=== PATIENT | male | born 1955 | race Caucasian/White ===

== ENCOUNTER 2021-12-17 20:05 | Inpatient (IN) | payer MEDICAID, OTHER ==
[~2021-12-17] VITALS: Ht 170.2 cm; Wt 91.0 kg
[2021-12-17 21:18] LABS: Basophils # (auto) 0.2 10 ^3/uL (0-0.2); Basophils % (auto) 1.4 % (0.0-2.0); Eosinophils # (auto) 0.2 10 ^3/uL (0-0.8); Eosinophils % (auto) 1.3 % (0.0-7.0); Hematocrit 47.4 % (41.0-53.0); Hemoglobin 15.6 g/dL (13.5-17.5); Lymphocytes # (auto) 0.7 10 ^3/uL (0.4-5.4); Mean Corpuscular Hemoglobin 31.9 pg (28.0-32.0); Mean Corpuscular Hgb Conc. 32.9 g/dL (32.0-36.0); Mean Corpuscular Volume 97.2 fL (80.0-100.0); Monocytes # (auto) 0.6 10 ^3/uL (0-1.3); Monocytes % (auto) 4.4 % (0.0-12.0); Neutrophils # (auto) 11.4 10 ^3/uL (1.6-8.6); Neutrophils % (auto) 87.9 % (37.0-80.0); Nucleated Red Blood Cells % 0.1 %; Red Blood Cells 4.87 10^6/uL (4.5-5.90); Red Cell Distribution Width 14.4 % (11.8-14.3)
[2021-12-17] MEDS ORDERED: methylPREDNISolone SOD SUCC 125 MG/2 ML VL IV ONE (21:30)
[2021-12-17] MEDS ORDERED: IPRATROPIUM BROM 0.5 MG/2.5ML INH SOL NEB ONE (21:30)
[2021-12-17] MEDS ORDERED: ALBUTEROL SULF 2.5 MG/0.5ML(0.5%) NEB SOLN NEB ONE (21:30)
[2021-12-17 21:35] LABS: Alanine Aminotransferase 60 U/L (16-61); Anion Gap 6 (5-15); Aspartate Aminotransferase 36 U/L (15-37); BUN/Creatinine Ratio 17.3; Blood Alcohol < 3.0 mg/dL (0-5); Blood Urea Nitrogen 18 mg/dL (7-18); Calcium 8.3 mg/dL (8.5-10.1); Carbon Dioxide 26 mmol/L (21-32); Chloride 109 mmol/L (98-107); GFR African American 92 mL/min; GFR Non-African American 76 mL/min; Glucose 105 mg/dL (74-106); Magnesium 2.1 mg/dL (1.6-2.6); Potassium 3.7 mmol/L (3.5-5.1); Sodium 141 mmol/L (136-145)
[2021-12-17 21:37] LABS: Alkaline Phosphatase 93 U/L (45-117); Bilirubin, Total 1.2 mg/dL (0.2-1.0); Total Protein 6.2 g/dL (6.4-8.2)
[2021-12-18] MEDS ORDERED: TEMAZEPAM 15 MG CAP PO PRN (04:45)
[2021-12-18] MEDS ORDERED: NITROGLYCERIN 0.4 MG SL TAB SL PRN (04:45)
[2021-12-18] MEDS ORDERED: MORPHINE SULFATE INJ 2 MG/ml SYRG IV PRN (04:45)
[2021-12-18] MEDS ORDERED: ACETAMINOPHEN 325 MG TAB PO PRN (04:45)
[2021-12-18] MEDS ORDERED: ONDANSETRON HCL 4 MG/2 ML VIAL IV PRN (04:45)
[2021-12-18] MEDS: IPRATROPIUM BROM 0.5 MG/2.5ML INH SOL NEB PRN (05:38)
[2021-12-18] MEDS: ALBUTEROL SULF 2.5 MG/0.5ML(0.5%) NEB SOLN NEB PRN (05:39)
[2021-12-18 06:01] VITALS: BP 150/66
[2021-12-18] MEDS: AZITHROMYCIN 500MG/ 250ML 250 ML IV SCH (10:18)
[2021-12-18] MEDS: PANTOPRAZOLE 40 MG TAB PO SCH (10:18)
[2021-12-18] MEDS: ENOXAPARIN SOD 40 MG/0.4 ML SYRINGE SC SCH (10:19)
[2021-12-18] MEDS: methylPREDNISolone SOD SUCC 125 MG/2 ML VL IV SCH ×2 (10:20→21:41)
[2021-12-18] MEDS ORDERED: cefTRIAXone 1GM/50ML D5W 50 ML IV ONE (11:45)
[2021-12-18] MEDS ORDERED: ALBU108A5 PO (21:57)
[2021-12-18] MEDS ORDERED: ALBU0.084 INH (21:57)
[2021-12-18 22:55] VITALS: BP 149/75
[2021-12-19] MEDS: ALBUTEROL SULF 2.5 MG/0.5ML(0.5%) NEB SOLN NEB PRN (00:11)
[2021-12-19] MEDS: IPRATROPIUM BROM 0.5 MG/2.5ML INH SOL NEB PRN (00:11)
[2021-12-19 05:00] VITALS: BP 117/71
[2021-12-19 06:30] LABS: BUN/Creatinine Ratio 20.3; Calcium 8.9 mg/dL (8.5-10.1)
[2021-12-19 06:44] LABS: Hematocrit 49.1 % (41.0-53.0); Hemoglobin 16.2 g/dL (13.5-17.5); Mean Corpuscular Hemoglobin 32.3 pg (28.0-32.0); Mean Corpuscular Volume 97.8 fL (80.0-100.0); Red Blood Cells 5.02 10^6/uL (4.5-5.90); Red Cell Distribution Width 14.4 % (11.8-14.3); White Blood Cell 17.8 10^3/uL (4.4-10.8)
[2021-12-19 07:00] LABS: Basophils % (manual) 0 (0.0-2.0); Blast Cells 0; Eosinophils % (manual) 0 (0-7); Metamyelocytes % 0; Myelocytes % 0; Promyelocytes % 0; Reactive Lymphocytes 0
[2021-12-19] MEDS: IPRATROPIUM BROM 0.5 MG/2.5ML INH SOL NEB SCH ×3 (07:39→17:43)
[2021-12-19] MEDS: ALBUTEROL SULF 2.5 MG/0.5ML(0.5%) NEB SOLN NEB SCH ×3 (07:39→17:43)
[2021-12-19 08:18] LABS: Band Neutrophils % (manual) 3; Lymphocytes % (manual) 3 (10.0-50.0); Monocytes % (manual) 2 (0-12)
[2021-12-19 09:00] VITALS: BP 114/72
[2021-12-19] MEDS: cefTRIAXone 1GM/50ML D5W 50 ML IV SCH (10:35)
[2021-12-19] MEDS: methylPREDNISolone SOD SUCC 125 MG/2 ML VL IV SCH ×2 (10:35→21:10)
[2021-12-19] MEDS: ENOXAPARIN SOD 40 MG/0.4 ML SYRINGE SC SCH (10:36)
[2021-12-19] MEDS: PANTOPRAZOLE 40 MG TAB PO SCH (10:36)
[2021-12-19] MEDS: AZITHROMYCIN 500MG/ 250ML 250 ML IV SCH (11:52)
[2021-12-19 13:00] VITALS: BP 123/75
[2021-12-19 17:08] VITALS: BP 129/56
[2021-12-19 22:00] VITALS: BP 124/60
[2021-12-20] MEDS: ALBUTEROL SULF 2.5 MG/0.5ML(0.5%) NEB SOLN NEB SCH ×3 (00:01→12:00)
[2021-12-20] MEDS: IPRATROPIUM BROM 0.5 MG/2.5ML INH SOL NEB SCH ×3 (00:01→12:00)
[2021-12-20 05:00] VITALS: BP 105/72
[2021-12-20 06:44] LABS: Basophils # (auto) 0 10 ^3/uL (0-0.2); Basophils % (auto) 0.2 % (0.0-2.0); Eosinophils # (auto) 0 10 ^3/uL (0-0.8); Hematocrit 48.9 % (41.0-53.0); Hemoglobin 15.8 g/dL (13.5-17.5); Lymphocytes # (auto) 0.3 10 ^3/uL (0.4-5.4); Lymphocytes % (auto) 1.7 % (10.0-50.0); Mean Corpuscular Hemoglobin 31.4 pg (28.0-32.0); Mean Corpuscular Hgb Conc. 32.2 g/dL (32.0-36.0); Mean Corpuscular Volume 97.6 fL (80.0-100.0); Monocytes # (auto) 0.4 10 ^3/uL (0-1.3); Monocytes % (auto) 2.3 % (0.0-12.0); Neutrophils % (auto) 95.8 % (37.0-80.0); Red Blood Cells 5.02 10^6/uL (4.5-5.90); Red Cell Distribution Width 14.3 % (11.8-14.3); White Blood Cell 16.7 10^3/uL (4.4-10.8)
[2021-12-20 06:51] LABS: BUN/Creatinine Ratio 24.1; Calcium 8.8 mg/dL (8.5-10.1); Potassium 4.8 mmol/L (3.5-5.1)
[2021-12-20 09:00] VITALS: BP 119/75
[2021-12-20] MEDS: cefTRIAXone 1GM/50ML D5W 50 ML IV SCH (09:00)
[2021-12-20] MEDS ORDERED: PRED20TA2 PO (09:48)
[2021-12-20] MEDS ORDERED: AZIT500T66 PO (09:49)
[2021-12-20] MEDS: AZITHROMYCIN 500MG/ 250ML 250 ML IV SCH (10:00)
[2021-12-20] MEDS: ENOXAPARIN SOD 40 MG/0.4 ML SYRINGE SC SCH (10:00)
[2021-12-20 11:22] VITALS: BP 105/72
[2021-12-20] MEDS: PANTOPRAZOLE 40 MG TAB PO SCH (11:23)
[2021-12-20] MEDS: methylPREDNISolone SOD SUCC 125 MG/2 ML VL IV SCH (11:28)
== END 2021-12-20 12:45 | disposition home or self-care (01) | DRG 139 ==
LOC: EDBD 20:05 → ER 20:05 → TELE 12-18 04:38 → TELE-CENTR 12-18 22:46
PROVIDERS: ADMIT Nurse Practitioner; ATTEND Internal Medicine Pulmonary Disease
DX: J18.9 Pneumonia, unspecified organism (principal); J96.21 Acute and chronic respiratory failure with hypoxia; J44.1 Chronic obstructive pulmonary disease with (acute) exacerbation; F17.210 Nicotine dependence, cigarettes, uncomplicated; J44.0 Chronic obstructive pulmonary disease with (acute) lower respiratory infection; Z20.822 Contact with and (suspected) exposure to COVID-19
CPT/HCPCS: 36415; 71046; 71250; 80048; 80053; 80320; 83605; 83735; 83880; 84484; 85007; 85025; 85027; 85379; 93005; 94640; 96365; 96368; 96372; 96375; G0378; J0696

== ENCOUNTER 2022-11-14 13:40 | Inpatient (IN) | payer MEDICARE, MEDICAID ==
[~2022-11-14] VITALS: Ht 177.8 cm; Wt 87.1 kg
[~2022-11-14 13:40] MED LIST: ALBU0.084 INH; ALBU108A5 PO; AZIT500T66 PO; PRED20TA2 PO
[2022-11-14] MEDS ORDERED: SODIUM CHLORIDE 0.9% 1,000 ML IV ONE (14:15)
[2022-11-14] MEDS ORDERED: dilTIAZem 25 MG/5 ML VIAL IV ONE (14:15)
[2022-11-14 14:47] LABS: Basophils # (auto) 0.1 10 ^3/uL (0-0.2); Eosinophils # (auto) 0.2 10 ^3/uL (0-0.8); Hematocrit 49.3 % (41.0-53.0); Hemoglobin 16.4 g/dL (13.5-17.5); Mean Corpuscular Hemoglobin 32.2 pg (28.0-32.0); Mean Corpuscular Hgb Conc. 33.3 g/dL (32.0-36.0); Mean Corpuscular Volume 96.6 fL (80.0-100.0); Monocytes # (auto) 0.5 10 ^3/uL (0-1.3); Monocytes % (auto) 8.3 % (0.0-12.0); Neutrophils # (auto) 3.8 10 ^3/uL (1.6-8.6); Neutrophils % (auto) 69.7 % (37.0-80.0); Nucleated Red Blood Cells % 0.1 %; Red Blood Cells 5.11 10^6/uL (4.5-5.90); Red Cell Distribution Width 14.9 % (11.8-14.3); White Blood Cell 5.4 10^3/uL (4.4-10.8)
[2022-11-14 15:01] LABS: Albumin 3.1 g/dL (3.4-5.0); Calcium 8.8 mg/dL (8.5-10.1); Potassium 3.9 mmol/L (3.5-5.1)
[2022-11-14 15:02] VITALS: PULSE 67; RESP 18; O2SAT 99
[2022-11-14 15:05] LABS: BUN/Creatinine Ratio 11.2 (10.0-20.0); Bilirubin, Total 1.4 mg/dL (0.2-1.0); INR 1.17 (0.9-1.15); Partial Thromboplastin Time 28.5 SEC (24.5-34.5); Prothrombin Time 12.2 sec (9.3-11.8); Total Protein 6.7 g/dL (6.4-8.2)
[2022-11-14] MEDS ORDERED: NITROGLYCERIN 0.4 MG SL TAB SL PRN (16:30)
[2022-11-14] MEDS ORDERED: MORPHINE SULFATE INJ 2 MG/ml SYRG IV PRN (16:30)
[2022-11-14 17:05] LABS: Triglycerides 75 mg/dL (< 150)
[2022-11-14 17:10] LABS: Cholesterol 122 mg/dL (< 200); HDL Cholesterol 43 mg/dL (40-59); LDL Cholesterol 75 mg/dL (< 100)
[2022-11-14] MEDS ORDERED: ATORVASTATIN 20 MG TAB PO ONE (17:45)
[2022-11-14] MEDS ORDERED: ENOXAPARIN SOD 40 MG/0.4 ML SYRINGE SC ONE (17:45)
[2022-11-14] MEDS ORDERED: FUROSEMIDE 40 MG/4 ML VIAL IV ONE (19:00)
[2022-11-14 19:39] VITALS: PULSE 95; RESP 21; O2SAT 99
[2022-11-14] MEDS: POTASSIUM CHLORIDE 8 MEQ TAB PO SCH (20:25)
[2022-11-14 21:15] VITALS: BP 149/93; PULSE 90; RESP 21; O2SAT 99
[2022-11-14] MEDS ORDERED: ALBUTEROL SULF HFA 90MCG INH 200DOSE IN SCH (22:00)
[2022-11-14 22:21] VITALS: BP 137/86; PULSE 87; RESP 18; TEMP 98.3; O2SAT 94
[2022-11-14] MEDS ORDERED: ATOR20TA50 PO (22:37)
[2022-11-14] MEDS: ENOXAPARIN SOD 100 MG/1 ML SYRINGE SC SCH (22:38)
[2022-11-15] VITALS (11 sets, daily range): BP systolic 96–145; BP diastolic 59–87; PULSE 73–157; RESP 12–18; TEMP 97.6–98.7; O2SAT 92–100
[2022-11-15 08:27] LABS: Basophils # (auto) 0.1 10 ^3/uL (0-0.2); Basophils % (auto) 1.1 % (0.0-2.0); Calcium 8.4 mg/dL (8.5-10.1); Eosinophils # (auto) 0.2 10 ^3/uL (0-0.8); Eosinophils % (auto) 3.9 % (0.0-7.0); Hematocrit 50.1 % (41.0-53.0); Hemoglobin 16.8 g/dL (13.5-17.5); Lymphocytes # (auto) 0.9 10 ^3/uL (0.4-5.4); Lymphocytes % (auto) 17.4 % (10.0-50.0); Mean Corpuscular Hemoglobin 32.6 pg (28.0-32.0); Mean Corpuscular Hgb Conc. 33.4 g/dL (32.0-36.0); Mean Corpuscular Volume 97.6 fL (80.0-100.0); Monocytes # (auto) 0.5 10 ^3/uL (0-1.3); Monocytes % (auto) 9.7 % (0.0-12.0); Neutrophils # (auto) 3.7 10 ^3/uL (1.6-8.6); Neutrophils % (auto) 67.9 % (37.0-80.0); Nucleated Red Blood Cells % 0.1 %; Potassium 4.2 mmol/L (3.5-5.1); Red Blood Cells 5.14 10^6/uL (4.5-5.90); Red Cell Distribution Width 15.2 % (11.8-14.3); White Blood Cell 5.4 10^3/uL (4.4-10.8)
[2022-11-15 08:29] LABS: BUN/Creatinine Ratio 14.8 (10.0-20.0)
[2022-11-15] MEDS: POTASSIUM CHLORIDE 8 MEQ TAB PO SCH (09:29)
[2022-11-15] MEDS: ENOXAPARIN SOD 100 MG/1 ML SYRINGE SC SCH (09:29)
[2022-11-15] MEDS ORDERED: ENOXAPARIN SOD 40 MG/0.4 ML SYRINGE SC SCH (10:00)
[2022-11-15] MEDS ORDERED: FUROSEMIDE 40 MG/4 ML VIAL IV SCH (10:00)
[2022-11-15 16:28] LABS: Alcohol, Urine < 3.0 mg/dL (0-10); Amphetamine Screen, Urine POSITIVE (NEGATIVE); Barbiturate Scree,Urine NEGATIVE (NEGATIVE); Benzodiazephine Screen, Urine NEGATIVE (NEGATIVE); Cannabinoid Screen, Urine NEGATIVE (NEGATIVE); Cocaine Screen, Urine NEGATIVE (NEGATIVE)
[2022-11-15] MEDS ORDERED: METOPROLOL SUCCINATE XL 50 MG TAB PO ONE (16:30)
[2022-11-15 16:35] LABS: Opiate Scree,Urine NEGATIVE (NEGATIVE); Phencyclidine Screen, Urine NEGATIVE (NEGATIVE)
[2022-11-15 18:08] LABS: Urine Bacteria FEW /hpf (None Seen); Urine Mucus FEW (None Seen); Urine WBC <1 /hpf (0 - 3)
[2022-11-15] MEDS: FUROSEMIDE 40 MG/4 ML VIAL IV SCH (18:25)
[2022-11-15 19:09] LABS: Urine Clarity CLEAR (Clear); Urine Color Straw (Yellow); Urine Protein, UAD Negative (Negative); Urine Specific Gravity 1.005 (1.001-1.035)
[2022-11-15 19:10] LABS: Urine Blood Negative /uL (Negative); Urine Urobilinogen Normal (Negative); Urine pH 5 (5.0-8.0)
[2022-11-15] MEDS: APIXABAN 5 MG TAB PO SCH (21:38)
[2022-11-15] MEDS ORDERED: dilTIAZem 25 MG/5 ML VIAL IV ONE (23:30)
[2022-11-16] VITALS (16 sets, daily range): BP systolic 94–126; BP diastolic 50–82; PULSE 55–110; RESP 14–20; TEMP 97.9–99; O2SAT 92–99
[2022-11-16 06:32] LABS: Calcium 8.9 mg/dL (8.5-10.1); Potassium 4.2 mmol/L (3.5-5.1)
[2022-11-16] MEDS: FUROSEMIDE 40 MG/4 ML VIAL IV SCH (06:34)
[2022-11-16 06:35] LABS: BUN/Creatinine Ratio 21.1 (10.0-20.0)
[2022-11-16] MEDS: ALBUTEROL SULF 2.5 MG/0.5ML(0.5%) NEB SOLN NEB PRN ×2 (06:43→14:26)
[2022-11-16] MEDS: APIXABAN 5 MG TAB PO SCH ×2 (09:22→22:27)
[2022-11-16] MEDS ORDERED: METOPROLOL SUCCINATE XL 50 MG TAB PO SCH ×2 (10:00)
[2022-11-16] MEDS ORDERED: METOPROLOL TARTRATE 25 MG TAB PO SCH (10:00)
[2022-11-16] MEDS ORDERED: METOPROLOL SUCCINATE XL 50 MG TAB PO ONE (10:00)
[2022-11-16] MEDS ORDERED: VALSARTAN 80 MG TAB PO SCH (10:00)
[2022-11-16] MEDS ORDERED: methylPREDNISolone SOD SUCC 40 MG/ML VL IV ONE (10:30)
[2022-11-16] MEDS: POTASSIUM CHLORIDE 8 MEQ TAB PO SCH (10:48)
[2022-11-16] MEDS: IPRATROPIUM BROM 0.5 MG/2.5ML INH SOL NEB SCH ×3 (14:26→22:00)
[2022-11-16] MEDS ORDERED: AZITHROMYCIN 500MG/ 250ML 250 ML IV ONE (14:45)
[2022-11-17] VITALS (9 sets, daily range): BP systolic 96–109; BP diastolic 40–71; PULSE 68–93; RESP 16–19; TEMP 36.8; O2SAT 84–100
[2022-11-17] MEDS: IPRATROPIUM BROM 0.5 MG/2.5ML INH SOL NEB SCH ×3 (06:36→14:20)
[2022-11-17] MEDS: ALBUTEROL SULF 2.5 MG/0.5ML(0.5%) NEB SOLN NEB PRN ×2 (06:36→09:53)
[2022-11-17] MEDS: APIXABAN 5 MG TAB PO SCH (09:56)
[2022-11-17] MEDS: POTASSIUM CHLORIDE 8 MEQ TAB PO SCH (09:57)
[2022-11-17] MEDS ORDERED: AZITHROMYCIN 500MG/ 250ML 250 ML IV SCH (10:00)
[2022-11-17] MEDS ORDERED: methylPREDNISolone SOD SUCC 40 MG/ML VL IV SCH (10:00)
[2022-11-17] MEDS ORDERED: METOPROLOL SUCCINATE XL 50 MG TAB PO SCH ×2 (10:00)
[2022-11-17] MEDS ORDERED: VALSARTAN 80 MG TAB PO SCH (10:00)
[2022-11-17] MEDS ORDERED: FUROSEMIDE 20 MG/2 ML VIAL IV ONE (10:30)
[2022-11-17] MEDS ORDERED: FURO1TAB33 PO (11:32)
[2022-11-17] MEDS ORDERED: ATOR20TA50 PO (11:32)
[2022-11-17] MEDS ORDERED: METO-6 PO (11:32)
[2022-11-17] MEDS ORDERED: APIX5TAB PO (11:32)
[2022-11-17] MEDS ORDERED: POTA8TAB38 PO (11:32)
[2022-11-17] MEDS ORDERED: ALBU108A5 PO (11:32)
[2022-11-17] MEDS ORDERED: AZIT500T66 PO (11:32)
[2022-11-18] MEDS ORDERED: FUROSEMIDE 20 MG/2 ML VIAL IV SCH (10:00)
== END 2022-11-17 15:10 | disposition home health service (06) | DRG 291 ==
LOC: ER 13:40 → TELE 16:16 → TELE-CENTR 22:05
PROVIDERS: ADMIT Internal Medicine; ATTEND Internal Medicine
DX: I13.0 Hypertensive heart and chronic kidney disease with heart failure and stage 1 through stage 4 chronic kidney disease, or unspecified chronic kidney disease (principal); I50.23 Acute on chronic systolic (congestive) heart failure; D68.69 Other thrombophilia; N17.9 Acute kidney failure, unspecified; J96.10 Chronic respiratory failure, unspecified whether with hypoxia or hypercapnia; E85.9 Amyloidosis, unspecified; I48.92 Unspecified atrial flutter; J44.1 Chronic obstructive pulmonary disease with (acute) exacerbation; I48.91 Unspecified atrial fibrillation; F19.10 Other psychoactive substance abuse, uncomplicated; R91.1 Solitary pulmonary nodule; F15.10 Other stimulant abuse, uncomplicated; E78.5 Hyperlipidemia, unspecified; N18.9 Chronic kidney disease, unspecified; Z79.899 Other long term (current) drug therapy; Z99.81 Dependence on supplemental oxygen; Z90.49 Acquired absence of other specified parts of digestive tract; F17.210 Nicotine dependence, cigarettes, uncomplicated
CPT/HCPCS: 36415; 71045; 71046; 71250; 76705; 80048; 80053; 80061; 80307; 81001; 83036; 83880; 84443; 84484; 85025; 85610; 85730; 87040; 93005; 93306; 94640; 96361; 96372; 96374; 96375; 99291; G0378

== ENCOUNTER 2023-03-11 09:27 | Inpatient (IN) | payer MEDICARE, MEDICAID ==
[~2023-03-11] VITALS: Ht 180.3 cm; Wt 84.8 kg
[~2023-03-11 09:27] MED LIST changes: -ALBU0.084 INH; +APIX5TAB PO; +ATOR20TA50 PO; +FURO1TAB33 PO; +METO-6 PO; +POTA8TAB38 PO; -PRED20TA2 PO
[2023-03-11 10:09] VITALS: PULSE 132; RESP 22; O2SAT 96
[2023-03-11] MEDS ORDERED: ALEN70TA74 PO (10:37)
[2023-03-11] MEDS ORDERED: TORS20TA19 PO (10:37)
[2023-03-11] MEDS ORDERED: SACU1TAB PO (10:38)
[2023-03-11] MEDS ORDERED: SODIUM CHLORIDE 0.9% 2,750 ML IV ONE (10:45)
[2023-03-11] MEDS ORDERED: levoFLOXacin 750MG 150 ML IV ONE (10:45)
[2023-03-11] MEDS ORDERED: methylPREDNISolone SOD SUCC 125 MG/2 ML VL IV ONE (10:45)
[2023-03-11] MEDS ORDERED: VANCOMYCIN 1GM/200ML 250 ML IV ONE (10:45)
[2023-03-11] MEDS ORDERED: AZITHROMYCIN 500MG/ 250ML 250 ML IV ONE (10:45)
[2023-03-11 10:49] LABS: Base Excess 2.5 mmol/L (-2.0-2.0)
[2023-03-11 11:01] LABS: Alanine Aminotransferase 30 U/L (7-40); Albumin 4.3 g/dL (3.2-4.8); Alkaline Phosphatase 101 U/L (46-116); Anion Gap 7 (5-15); Aspartate Aminotransferase 30 U/L (13-40); BUN/Creatinine Ratio 11.1 (10.0-20.0); Blood Urea Nitrogen 18 mg/dL (9-23); Calcium 9.5 mg/dL (8.5-10.1); Carbon Dioxide 32 mmol/L (20-30); Chloride 98 mmol/L (98-107); Glucose 112 mg/dL (74-106); Potassium 4.2 mmol/L (3.5-5.1); Sodium 137 mmol/L (136-145)
[2023-03-11 11:03] LABS: Bilirubin, Total 2.3 mg/dL (0.2-1.0); Total Protein 7.2 g/dL (5.7-8.2)
[2023-03-11 11:14] LABS: INR 1.15 (0.9-1.15); Partial Thromboplastin Time 30.6 SEC (24.5-34.5)
[2023-03-11 11:15] LABS: Hematocrit 50.9 % (41.0-53.0); Mean Corpuscular Hgb Conc. 33.3 g/dL (32.0-36.0); Mean Corpuscular Volume 99.1 fL (80.0-100.0); Red Blood Cells 5.13 10^6/uL (4.5-5.90); Red Cell Distribution Width 14.6 % (11.8-14.3); White Blood Cell 10.7 10^3/uL (4.4-10.8)
[2023-03-11 11:25] LABS: Band Neutrophils % (manual) 0
[2023-03-11 11:26] LABS: Basophils % (manual) 0 (0.0-2.0); Blast Cells 0; Eosinophils % (manual) 0 (0-7); Metamyelocytes % 0; Myelocytes % 0; Promyelocytes % 0; Reactive Lymphocytes 0
[2023-03-11 11:30] LABS: Lactic Acid w/Reflex 2.6 mmol/L (0.4-2.0)
[2023-03-11 12:22] LABS: Lymphocytes % (manual) 5 (10.0-50.0); Monocytes % (manual) 2 (0-12)
[2023-03-11 12:23] LABS: Platelet Estimate Adequate
[2023-03-11] MEDS ORDERED: IPRATROPIUM BROM 0.5 MG/2.5ML INH SOL NEB PRN (14:15)
[2023-03-11] MEDS ORDERED: MORPHINE SULFATE INJ 2 MG/ml SYRG IV PRN ×2 (14:15)
[2023-03-11] MEDS ORDERED: NITROGLYCERIN 0.4 MG SL TAB SL PRN (14:15)
[2023-03-11] MEDS ORDERED: ONDANSETRON HCL 4 MG/2 ML VIAL IV PRN (14:15)
[2023-03-11] MEDS ORDERED: ALBUTEROL SULF 2.5 MG/0.5ML(0.5%) NEB SOLN NEB PRN (14:15)
[2023-03-11] MEDS ORDERED: HYDROcodone-ACET 5/325MG TAB PO PRN (14:15)
[2023-03-11] MEDS ORDERED: DOCUSATE SOD 100 MG CAP PO PRN (14:15)
[2023-03-11] MEDS ORDERED: FUROSEMIDE 40 MG/4 ML VIAL IV ONE (14:15)
[2023-03-11 14:51] VITALS: BP 90/62; PULSE 108; RESP 24; O2SAT 94
[2023-03-11 18:56] VITALS: BP 148/101; PULSE 90; PULSE 91; RESP 18; O2SAT 91; O2SAT 92
[2023-03-11 18:56] LABS: Amphetamine Screen, Urine Pos (NEGATIVE); Barbiturate Scree,Urine Neg (NEGATIVE); Benzodiazephine Screen, Urine Neg (NEGATIVE); Cannabinoid Screen, Urine Neg (NEGATIVE); Cocaine Screen, Urine Neg (NEGATIVE); Opiate Scree,Urine Neg (NEGATIVE); Phencyclidine Screen, Urine Neg (NEGATIVE)
[2023-03-11 19:42] LABS: COVID19 ANTIGEN SOFIA FIA NEGATIVE (NEGATIVE)
[2023-03-11 19:46] LABS: Rapid Influenza B Negative (Negative)
[2023-03-11 19:47] LABS: Rapid Influenza A Positive (Negative)
[2023-03-11 20:00] VITALS: PULSE 118; O2SAT 98
[2023-03-11] MEDS: APIXABAN 5 MG TAB PO SCH (21:36)
[2023-03-11] MEDS: ATORVASTATIN 20 MG TAB PO SCH (21:36)
[2023-03-11 22:00] VITALS: PULSE 118
[2023-03-11] MEDS ORDERED: SACUBITRIL-VALSARTAN 24mg/26mg TAB PO SCH (22:00)
[2023-03-12] VITALS (76 sets, daily range): BP systolic 11–162; BP diastolic 37–96; PULSE 69–161; RESP 11–25; TEMP 98.9–100.4; O2SAT 89–100
[2023-03-12] MEDS: LORazepam 2MG/ML-1ML VIAL IV PRN (04:24)
[2023-03-12 06:50] LABS: Anion Gap 8 (5-15); Carbon Dioxide 29 mmol/L (20-30); Chloride 98 mmol/L (98-107); Sodium 135 mmol/L (136-145)
[2023-03-12 06:52] LABS: Calcium 8.9 mg/dL (8.5-10.1)
[2023-03-12 06:55] LABS: Basophils # (auto) 0 10 ^3/uL (0-0.2); Eosinophils # (auto) 0 10 ^3/uL (0-0.8); Hematocrit 49.7 % (41.0-53.0); Hemoglobin 16.4 g/dL (13.5-17.5); Lymphocytes # (auto) 0.2 10 ^3/uL (0.4-5.4); Lymphocytes % (auto) 1.7 % (10.0-50.0); Mean Corpuscular Volume 99.9 fL (80.0-100.0); Monocytes # (auto) 0.5 10 ^3/uL (0-1.3); Monocytes % (auto) 4.4 % (0.0-12.0); Neutrophils # (auto) 10.2 10 ^3/uL (1.6-8.6); Neutrophils % (auto) 93.9 % (37.0-80.0); Red Blood Cells 4.98 10^6/uL (4.5-5.90); Red Cell Distribution Width 14.8 % (11.8-14.3); White Blood Cell 10.9 10^3/uL (4.4-10.8)
[2023-03-12 06:56] LABS: BUN/Creatinine Ratio 15.6 (10.0-20.0); Glucose 124 mg/dL (74-106)
[2023-03-12 06:57] LABS: Blood Urea Nitrogen 33 mg/dL (9-23)
[2023-03-12 07:01] LABS: Potassium 6.4 mmol/L (3.5-5.1)
[2023-03-12] MEDS ORDERED: MIDAZOLAM DRIP 50 mg/50mL 50 ML IV ONE (07:07)
[2023-03-12] MEDS ORDERED: NOREPINEPHRINE 8 MG/250ML KIT 250 ML IV ONE (07:10)
[2023-03-12] MEDS ORDERED: SODIUM BICARBONATE 8.4 % INJ 50ML VIAL IV ONE (07:11)
[2023-03-12] MEDS ORDERED: ALBUTEROL SULF 2.5 MG/0.5ML(0.5%) NEB SOLN NEB ONE (07:30)
[2023-03-12] MEDS ORDERED: SODIUM ZIRCONIUM CYCL 10 GM PAK PO ONE (07:30)
[2023-03-12] MEDS ORDERED: NOREPINEPHRINE 8 MG/250ML KIT 250 ML IV SCH (07:30)
[2023-03-12] MEDS: MIDAZOLAM DRIP 50 mg/50mL 50 ML IV SCH ×3 (07:30→21:21)
[2023-03-12] MEDS ORDERED: CALCIUM GLUC 1,000mg/50ml-NS 50 ML IV ONE (07:30)
[2023-03-12] MEDS ORDERED: fentaNYL Drip 2500mCg/250mlNS 250 ML IV ONE (07:33)
[2023-03-12] MEDS ORDERED: EPINEPHrine HCL 1 MG/10 ML SYRG IV ONE ×2 (07:46→07:57)
[2023-03-12] MEDS ORDERED: SODIUM BICARBONATE 8.4% INJ 50ML SYRINGE IV ONE (07:46)
[2023-03-12] MEDS ORDERED: CALCIUM CHLOR(10%) 100MG/ML 10ML SYRINGE IV ONE (07:57)
[2023-03-12 08:07] LABS: Albumin 4.2 g/dL (3.2-4.8); Bilirubin, Direct 0.5 mg/dL (<0.3); Bilirubin, Total 1.4 mg/dL (0.2-1.0)
[2023-03-12] MEDS: PHENYLEPHRINE IV 250 ML IV SCH ×3 (08:15→22:16)
[2023-03-12 08:26] LABS: INR 1.32 (0.9-1.15); Partial Thromboplastin Time 31.5 SEC (24.5-34.5); Prothrombin Time 13.6 sec (9.3-11.8)
[2023-03-12] MEDS: VASOPRESSIN 20 UNITS in SODIUM CHL 0.9% 99 ML IV SCH ×3 (08:30→20:16)
[2023-03-12] MEDS ORDERED: EPINEPHrine HCL 250 ML IV ONE (08:44)
[2023-03-12] MEDS ORDERED: EPINEPHrine HCL 250 ML IV SCH (08:45)
[2023-03-12 09:33] LABS: Magnesium 2.2 mg/dL (1.6-2.6)
[2023-03-12 09:35] LABS: Total Protein 6.9 g/dL (5.7-8.2)
[2023-03-12] MEDS ORDERED: DEXTROSE (50%) 50ML SYRG IV ONE (09:45)
[2023-03-12] MEDS ORDERED: InsuLIN REG 1unit/0.01ml Soln (100units/ml) IV ONE (09:45)
[2023-03-12] MEDS: fentaNYL Drip 2500mCg/250mlNS 250 ML IV SCH ×2 (09:58→19:52)
[2023-03-12] MEDS: OSELTAMIVIR 75 MG CAP PO SCH ×2 (10:00→21:21)
[2023-03-12] MEDS ORDERED: FUROSEMIDE 40 MG/4 ML VIAL IV SCH (10:00)
[2023-03-12] MEDS ORDERED: METOPROLOL SUCCINATE XL 50 MG TAB PO SCH (10:00)
[2023-03-12] MEDS: APIXABAN 5 MG TAB PO SCH ×2 (10:00→21:21)
[2023-03-12] MEDS ORDERED: PROPOFOL 100 ML IV ONE (10:36)
[2023-03-12] MEDS ORDERED: AMIODARONE 450mg/250ml AE 250 ML IV ONE (10:54)
[2023-03-12] MEDS ORDERED: AMIODARONE HCL (50 MG/ ML) 3 ML VIAL IV ONE (10:54)
[2023-03-12] MEDS ORDERED: AMIODARONE BOLUS KIT 100 ML IV ONE (11:00)
[2023-03-12 11:15] LABS: Anion Gap 10 (5-15); Carbon Dioxide 28 mmol/L (20-30); Chloride 99 mmol/L (98-107); Potassium 4.3 mmol/L (3.5-5.1); Sodium 137 mmol/L (136-145)
[2023-03-12] MEDS ORDERED: AMIODARONE 450mg/250ml AE 250 ML IV SCH (11:15)
[2023-03-12 11:16] LABS: Calcium 8.3 mg/dL (8.5-10.1)
[2023-03-12 11:21] LABS: BUN/Creatinine Ratio 15.5 (10.0-20.0); Blood Urea Nitrogen 39 mg/dL (9-23)
[2023-03-12 11:24] LABS: Glucose 234 mg/dL (74-106)
[2023-03-12] MEDS: NOREPINEPHRINE BITARTRATE 32 MG in SODIUM CHL 0.9% 218 ML IV SCH (11:30)
[2023-03-12] MEDS: EPINEPHrine HCL INJECTION 16 MG in D5W 5% 234 ML IV SCH (11:30)
[2023-03-12] MEDS: PROPOFOL 100 ML IV SCH (11:30)
[2023-03-12] MEDS ORDERED: ALBUTEROL SULF 2.5 MG/0.5ML(0.5%) NEB SOLN NEB SCH (12:00)
[2023-03-12] MEDS ORDERED: OPTISON 3ml Vial for INJ IV ONE (12:55)
[2023-03-12 14:02] LABS: Chloride 95 mmol/L (98-107); Potassium 4.3 mmol/L (3.5-5.1); Sodium 134 mmol/L (136-145)
[2023-03-12 14:03] LABS: Anion Gap 13 (5-15); Carbon Dioxide 26 mmol/L (20-30)
[2023-03-12] MEDS: BUMETANIDE INJECTION 12.5 MG in GIVE UN-DILUTED 0 ML IV SCH ×2 (14:07→22:16)
[2023-03-12 14:08] LABS: BUN/Creatinine Ratio 16.4 (10.0-20.0); Blood Urea Nitrogen 45 mg/dL (9-23); Glucose 331 mg/dL (74-106)
[2023-03-12 14:50] LABS: Base Excess -5.6 mmol/L (-2.0-2.0)
[2023-03-12 16:22] LABS: Base Excess -4.8 mmol/L (-2.0-2.0)
[2023-03-12] MEDS ORDERED: ALBU108A5 INH (16:23)
[2023-03-12] MEDS: BUDESONIDE (INHALATION) 0.5 MG/2 ML NEB NEB SCH (18:29)
[2023-03-12] MEDS: IPRATROPIUM BROM 0.5 MG/2.5ML INH SOL NEB PRN (18:29)
[2023-03-12] MEDS: LEVALBUTEROL HCL 1.25 MG/3 ML NEB NEB SCH (18:30)
[2023-03-12] MEDS: DOXYCYCLINE 100MG/250ML 250 ML IV SCH (19:27)
[2023-03-12] MEDS: AMIODARONE 450mg/250ml AE 250 ML IV SCH (19:31)
[2023-03-12] MEDS: ACETAMINOPHEN 500 MG TAB PO PRN (21:22)
[2023-03-12] MEDS: ATORVASTATIN 20 MG TAB PO SCH (21:22)
[2023-03-13] VITALS (85 sets, daily range): BP systolic 89–136; BP diastolic 49–89; PULSE 101–170; RESP 24; TEMP 99.3–101.1; O2SAT 89–100
[2023-03-13] MEDS: LEVALBUTEROL HCL 1.25 MG/3 ML NEB NEB SCH ×4 (00:10→18:29)
[2023-03-13] MEDS: MIDAZOLAM DRIP 50 mg/50mL 50 ML IV SCH ×3 (00:55→23:16)
[2023-03-13] MEDS: PROPOFOL 100 ML IV SCH (00:56)
[2023-03-13] MEDS ORDERED: ALBUTEROL SULF 2.5 MG/0.5ML(0.5%) NEB SOLN ONE (01:42)
[2023-03-13] MEDS: DOXYCYCLINE 100MG/250ML 250 ML IV SCH ×2 (02:38→15:36)
[2023-03-13 02:43] LABS: Basophils # (auto) 0 10 ^3/uL (0-0.2); Basophils % (auto) 0.2 % (0.0-2.0); Eosinophils # (auto) 0 10 ^3/uL (0-0.8); Hemoglobin 15.3 g/dL (13.5-17.5); Lymphocytes # (auto) 0.5 10 ^3/uL (0.4-5.4); Lymphocytes % (auto) 4.5 % (10.0-50.0); Mean Corpuscular Hemoglobin 32.7 pg (28.0-32.0); Mean Corpuscular Hgb Conc. 33.3 g/dL (32.0-36.0); Mean Corpuscular Volume 98.2 fL (80.0-100.0); Monocytes # (auto) 0.7 10 ^3/uL (0-1.3); Monocytes % (auto) 5.9 % (0.0-12.0); Neutrophils # (auto) 10.7 10 ^3/uL (1.6-8.6); Neutrophils % (auto) 89.4 % (37.0-80.0); Red Blood Cells 4.68 10^6/uL (4.5-5.90); Red Cell Distribution Width 14.3 % (11.8-14.3)
[2023-03-13 03:00] LABS: Alanine Aminotransferase 229 U/L (7-40); Albumin 3.6 g/dL (3.2-4.8); Alkaline Phosphatase 96 U/L (46-116); Anion Gap 10 (5-15); Aspartate Aminotransferase 219 U/L (13-40); BUN/Creatinine Ratio 12.9 (10.0-20.0); Bilirubin, Total 1.6 mg/dL (0.2-1.0); Blood Urea Nitrogen 47 mg/dL (9-23); Carbon Dioxide 26 mmol/L (20-30); Chloride 98 mmol/L (98-107); Magnesium 1.9 mg/dL (1.6-2.6); Potassium 3.6 mmol/L (3.5-5.1); Sodium 134 mmol/L (136-145); Total Protein 6.1 g/dL (5.7-8.2)
[2023-03-13 03:01] LABS: Glucose 141 mg/dL (74-106)
[2023-03-13] MEDS ORDERED: POTASSIUM CHL 20MEQ/100ML 100 ML IV ONE (03:45)
[2023-03-13] MEDS ORDERED: MAGNESIUM SULFATE 1GM/100ML 100 ML IV ONE (03:51)
[2023-03-13] MEDS: MAGNESIUM SULFATE 1GM/100ML 100 ML IV SCH ×2 (03:53→04:44)
[2023-03-13] MEDS: VASOPRESSIN 20 UNITS in SODIUM CHL 0.9% 99 ML IV SCH ×2 (05:32→19:21)
[2023-03-13] MEDS: AMIODARONE 450mg/250ml AE 250 ML IV SCH ×2 (05:34→19:22)
[2023-03-13] MEDS: NOREPINEPHRINE BITARTRATE 32 MG in SODIUM CHL 0.9% 218 ML IV SCH ×2 (05:36→22:25)
[2023-03-13] MEDS: BUDESONIDE (INHALATION) 0.5 MG/2 ML NEB NEB SCH ×2 (06:33→18:29)
[2023-03-13] MEDS: PHENYLEPHRINE INJ 80 MG in SODIUM CHL 0.9% 242 ML IV SCH ×3 (08:45→22:26)
[2023-03-13] MEDS ORDERED: DIGOXIN (250MCG/ML) 2 ML AMPULE IV ONE (08:45)
[2023-03-13 08:52] LABS: Base Excess -0.7 mmol/L (-2.0-2.0)
[2023-03-13] MEDS: APIXABAN 5 MG TAB PO SCH ×2 (09:13→22:24)
[2023-03-13] MEDS: OSELTAMIVIR 75 MG CAP PO SCH (09:13)
[2023-03-13 09:15] LABS: Triglycerides 98 mg/dL (< 150)
[2023-03-13] MEDS: PHENYLEPHRINE IV 250 ML IV SCH ×2 (09:15→17:35)
[2023-03-13 09:16] LABS: LDL Cholesterol 66 mg/dL (< 100)
[2023-03-13 09:17] LABS: Cholesterol 114 mg/dL (< 200); HDL Cholesterol 32 mg/dL (40-59)
[2023-03-13] MEDS ORDERED: Jevity 1.2 Cal/Fiber 1 Liter GT SCH (09:45)
[2023-03-13] MEDS: EPINEPHrine HCL INJECTION 16 MG in D5W 5% 234 ML IV SCH (11:30)
[2023-03-13 13:21] LABS: Urine Bacteria NONE SEEN /hpf (None Seen); Urine Blood 1+ /uL (Negative); Urine Clarity Clear (Clear); Urine Color Colorless (Yellow); Urine Hyaline Cast FEW /lpf (0 - 2); Urine Protein, UAD Negative (Negative); Urine Specific Gravity 1.008 (1.001-1.035); Urine Urobilinogen Normal (Negative); Urine WBC 2 /hpf (0 - 3)
[2023-03-13 13:55] LABS: Creatinine, Urine 18.4 mg/dL (30.0-125.0)
[2023-03-13 13:56] LABS: Creatinine, Urine 18.33 mg/dL (30.0-125.0)
[2023-03-13 13:57] LABS: Protein, Urine 24.4 mg/dL (0.0-11.9); Urine Protein/Creatinine Ratio 1.33
[2023-03-13 15:37] LABS: Chloride 96 mmol/L (98-107); Potassium 4.6 mmol/L (3.5-5.1); Sodium 131 mmol/L (136-145)
[2023-03-13 15:38] LABS: Anion Gap 8 (5-15); Carbon Dioxide 27 mmol/L (20-30)
[2023-03-13 15:43] LABS: BUN/Creatinine Ratio 10.8 (10.0-20.0); Blood Urea Nitrogen 48 mg/dL (9-23); Glucose 127 mg/dL (74-106)
[2023-03-13] MEDS: ACETAMINOPHEN 500 MG TAB PO PRN (16:03)
[2023-03-13] MEDS: IPRATROPIUM BROM 0.5 MG/2.5ML INH SOL NEB PRN (18:29)
[2023-03-13] MEDS: fentaNYL Drip 2500mCg/250mlNS 250 ML IV SCH (19:26)
[2023-03-13] MEDS: ATORVASTATIN 20 MG TAB PO SCH (22:24)
[2023-03-14] VITALS (105 sets, daily range): BP systolic 90–137; BP diastolic 48–88; PULSE 80–140; RESP 23–24; TEMP 98.2–99.7; O2SAT 97–100
[2023-03-14] MEDS: LEVALBUTEROL HCL 1.25 MG/3 ML NEB NEB SCH ×4 (00:30→18:21)
[2023-03-14] MEDS: IPRATROPIUM BROM 0.5 MG/2.5ML INH SOL NEB PRN ×3 (00:33→13:18)
[2023-03-14] MEDS: PHENYLEPHRINE IV 250 ML IV SCH ×2 (01:55→10:15)
[2023-03-14] MEDS: DOXYCYCLINE 100MG/250ML 250 ML IV SCH ×2 (02:54→14:26)
[2023-03-14] MEDS: MIDAZOLAM DRIP 50 mg/50mL 50 ML IV SCH ×2 (03:39→22:06)
[2023-03-14 04:21] LABS: Basophils # (auto) 0.1 10 ^3/uL (0-0.2); Basophils % (auto) 0.7 % (0.0-2.0); Eosinophils # (auto) 0 10 ^3/uL (0-0.8); Hemoglobin 15.7 g/dL (13.5-17.5); Lymphocytes # (auto) 0.5 10 ^3/uL (0.4-5.4); Lymphocytes % (auto) 4.8 % (10.0-50.0); Mean Corpuscular Hemoglobin 32.8 pg (28.0-32.0); Mean Corpuscular Hgb Conc. 33.5 g/dL (32.0-36.0); Monocytes # (auto) 0.6 10 ^3/uL (0-1.3); Monocytes % (auto) 5.6 % (0.0-12.0); Neutrophils # (auto) 8.8 10 ^3/uL (1.6-8.6); Neutrophils % (auto) 88.9 % (37.0-80.0); Nucleated Red Blood Cells % 0.3 %; Red Cell Distribution Width 15.4 % (11.8-14.3); White Blood Cell 9.9 10^3/uL (4.4-10.8)
[2023-03-14 04:43] LABS: Alanine Aminotransferase 174 U/L (7-40); Albumin 3.4 g/dL (3.2-4.8); Alkaline Phosphatase 180 U/L (46-116); Aspartate Aminotransferase 137 U/L (13-40); BUN/Creatinine Ratio 10.8 (10.0-20.0); Blood Urea Nitrogen 53 mg/dL (9-23); Calcium 8.2 mg/dL (8.5-10.1); Chloride 94 mmol/L (98-107); Glucose 122 mg/dL (74-106); Potassium 4.3 mmol/L (3.5-5.1); Sodium 129 mmol/L (136-145)
[2023-03-14 04:44] LABS: Total Protein 5.9 g/dL (5.7-8.2)
[2023-03-14 04:55] LABS: Anion Gap 12 (5-15); Carbon Dioxide 23 mmol/L (20-30)
[2023-03-14] MEDS: PHENYLEPHRINE INJ 80 MG in SODIUM CHL 0.9% 242 ML IV SCH (05:28)
[2023-03-14] MEDS: BUDESONIDE (INHALATION) 0.5 MG/2 ML NEB NEB SCH ×2 (06:37→18:21)
[2023-03-14] MEDS: fentaNYL Drip 2500mCg/250mlNS 250 ML IV SCH ×2 (07:18→20:07)
[2023-03-14 07:45] LABS: Base Excess -0.7 mmol/L (-2.0-2.0)
[2023-03-14] MEDS: BUMETANIDE INJECTION 12.5 MG in GIVE UN-DILUTED 0 ML IV SCH (08:15)
[2023-03-14] MEDS: cefTRIAXone 1GM/50ML D5W 50 ML IV SCH (09:02)
[2023-03-14] MEDS: OSELTAMIVIR 30 MG CAP PO SCH (10:08)
[2023-03-14] MEDS: APIXABAN 5 MG TAB PO SCH ×2 (10:09→22:01)
[2023-03-14 10:29] LABS: Lipase 30 U/L (12-53)
[2023-03-14 10:31] LABS: Amylase 117 U/L (30-118)
[2023-03-14] MEDS: AMIODARONE 450mg/250ml AE 250 ML IV SCH (11:12)
[2023-03-14] MEDS: PROPOFOL 100 ML IV SCH (11:30)
[2023-03-14] MEDS: EPINEPHrine HCL INJECTION 16 MG in D5W 5% 234 ML IV SCH (11:30)
[2023-03-14 11:38] LABS: Lactic Acid w/Reflex 3.5 mmol/L (0.4-2.0)
[2023-03-14] MEDS: VASOPRESSIN 20 UNITS in SODIUM CHL 0.9% 99 ML IV SCH (21:14)
[2023-03-14] MEDS: ATORVASTATIN 20 MG TAB PO SCH (22:01)
[2023-03-15] VITALS (107 sets, daily range): BP systolic 79–140; BP diastolic 27–84; PULSE 77–120; RESP 24; TEMP 97.2–99.7; O2SAT 93–100
[2023-03-15] MEDS: LEVALBUTEROL HCL 1.25 MG/3 ML NEB NEB SCH ×4 (00:08→22:11)
[2023-03-15] MEDS: AMIODARONE 450mg/250ml AE 250 ML IV SCH ×2 (02:33→17:04)
[2023-03-15] MEDS: DOXYCYCLINE 100MG/250ML 250 ML IV SCH ×2 (03:24→15:18)
[2023-03-15] MEDS: MIDAZOLAM DRIP 50 mg/50mL 50 ML IV SCH ×5 (03:54→19:50)
[2023-03-15 04:21] LABS: Basophils # (auto) 0 10 ^3/uL (0-0.2); Basophils % (auto) 0.4 % (0.0-2.0); Eosinophils # (auto) 0 10 ^3/uL (0-0.8); Eosinophils % (auto) 0.2 % (0.0-7.0); Hematocrit 44.6 % (41.0-53.0); Hemoglobin 15.1 g/dL (13.5-17.5); Lymphocytes # (auto) 0.5 10 ^3/uL (0.4-5.4); Lymphocytes % (auto) 6.2 % (10.0-50.0); Mean Corpuscular Hgb Conc. 33.8 g/dL (32.0-36.0); Mean Corpuscular Volume 97.7 fL (80.0-100.0); Monocytes # (auto) 0.7 10 ^3/uL (0-1.3); Monocytes % (auto) 8.2 % (0.0-12.0); Neutrophils # (auto) 6.9 10 ^3/uL (1.6-8.6); Nucleated Red Blood Cells % 0.1 %; Red Blood Cells 4.57 10^6/uL (4.5-5.90); White Blood Cell 8.1 10^3/uL (4.4-10.8)
[2023-03-15] MEDS: PHENYLEPHRINE INJ 80 MG in SODIUM CHL 0.9% 242 ML IV SCH ×2 (04:21→15:25)
[2023-03-15 04:48] LABS: Albumin 3.3 g/dL (3.2-4.8); Alkaline Phosphatase 186 U/L (46-116); Anion Gap 12 (5-15); Aspartate Aminotransferase 86 U/L (13-40); BUN/Creatinine Ratio 10.9 (10.0-20.0); Calcium 7.8 mg/dL (8.7-10.4); Carbon Dioxide 23 mmol/L (20-30); Chloride 93 mmol/L (98-107); Glucose 101 mg/dL (74-106); INR 1.13 (0.9-1.15); Magnesium 2.4 mg/dL (1.6-2.6); Prothrombin Time 11.8 sec (9.3-11.8); Sodium 128 mmol/L (136-145)
[2023-03-15 04:49] LABS: Bilirubin, Total 1.3 mg/dL (0.2-1.0); Total Protein 5.9 g/dL (5.7-8.2)
[2023-03-15 05:01] LABS: Blood Urea Nitrogen 64 mg/dL (9-23)
[2023-03-15] MEDS: BUDESONIDE (INHALATION) 0.5 MG/2 ML NEB NEB SCH ×2 (07:09→22:11)
[2023-03-15] MEDS: cefTRIAXone 1GM/50ML D5W 50 ML IV SCH (08:27)
[2023-03-15] MEDS: NOREPINEPHRINE BITARTRATE 32 MG in SODIUM CHL 0.9% 218 ML IV SCH (08:27)
[2023-03-15] MEDS: VASOPRESSIN 20 UNITS in SODIUM CHL 0.9% 99 ML IV SCH ×3 (08:29→19:50)
[2023-03-15 08:40] LABS: Base Excess -3.8 mmol/L (-2.0-2.0)
[2023-03-15] MEDS: fentaNYL Drip 2500mCg/250mlNS 250 ML IV SCH ×2 (08:46→22:30)
[2023-03-15 08:58] LABS: Alanine Aminotransferase 129 U/L (7-40)
[2023-03-15] MEDS: APIXABAN 5 MG TAB PO SCH ×2 (10:58→22:29)
[2023-03-15] MEDS: OSELTAMIVIR 30 MG CAP PO SCH (10:59)
[2023-03-15] MEDS: BUMETANIDE INJECTION 12.5 MG in GIVE UN-DILUTED 0 ML IV SCH ×2 (11:01→15:26)
[2023-03-15] MEDS: SODIUM CHLORIDE 0.9% 1,000 ML IV SCH ×2 (11:08→19:25)
[2023-03-15] MEDS: PROPOFOL 100 ML IV SCH (11:30)
[2023-03-15] MEDS: EPINEPHrine HCL INJECTION 16 MG in D5W 5% 234 ML IV SCH (11:30)
[2023-03-15] MEDS: IPRATROPIUM BROM 0.5 MG/2.5ML INH SOL NEB PRN (22:11)
[2023-03-15] MEDS: ATORVASTATIN 20 MG TAB PO SCH (22:29)
[2023-03-16] VITALS (107 sets, daily range): BP systolic 88–155; BP diastolic 49–80; PULSE 87–128; RESP 23–27; TEMP 97.7–99.5; O2SAT 90–100
[2023-03-16] MEDS: MIDAZOLAM DRIP 50 mg/50mL 50 ML IV SCH ×5 (00:02→20:24)
[2023-03-16] MEDS: LEVALBUTEROL HCL 1.25 MG/3 ML NEB NEB SCH ×4 (00:28→18:04)
[2023-03-16] MEDS: IPRATROPIUM BROM 0.5 MG/2.5ML INH SOL NEB PRN (00:28)
[2023-03-16] MEDS: SODIUM CHLORIDE 0.9% 1,000 ML IV SCH (03:02)
[2023-03-16] MEDS: PHENYLEPHRINE INJ 80 MG in SODIUM CHL 0.9% 242 ML IV SCH ×2 (03:03→13:07)
[2023-03-16] MEDS: DOXYCYCLINE 100MG/250ML 250 ML IV SCH ×2 (03:10→14:46)
[2023-03-16 04:08] LABS: Basophils # (auto) 0 10 ^3/uL (0-0.2); Basophils % (auto) 0.4 % (0.0-2.0); Eosinophils # (auto) 0.1 10 ^3/uL (0-0.8); Eosinophils % (auto) 0.7 % (0.0-7.0); Hematocrit 42.8 % (41.0-53.0); Hemoglobin 14.5 g/dL (13.5-17.5); Lymphocytes # (auto) 0.5 10 ^3/uL (0.4-5.4); Lymphocytes % (auto) 6.7 % (10.0-50.0); Mean Corpuscular Hemoglobin 32.7 pg (28.0-32.0); Mean Corpuscular Hgb Conc. 33.8 g/dL (32.0-36.0); Mean Corpuscular Volume 96.7 fL (80.0-100.0); Monocytes # (auto) 0.7 10 ^3/uL (0-1.3); Monocytes % (auto) 9.1 % (0.0-12.0); Neutrophils # (auto) 6.4 10 ^3/uL (1.6-8.6); Neutrophils % (auto) 83.1 % (37.0-80.0); Nucleated Red Blood Cells % 0.1 %; Red Blood Cells 4.42 10^6/uL (4.5-5.90); Red Cell Distribution Width 14.9 % (11.8-14.3); White Blood Cell 7.7 10^3/uL (4.4-10.8)
[2023-03-16 04:29] LABS: Alanine Aminotransferase 99 U/L (7-40); Albumin 3.2 g/dL (3.2-4.8); Alkaline Phosphatase 224 U/L (46-116); Calcium 8.1 mg/dL (8.7-10.4); Chloride 93 mmol/L (98-107)
[2023-03-16 04:30] LABS: Anion Gap 13 (5-15); Aspartate Aminotransferase 92 U/L (13-40); BUN/Creatinine Ratio 11.2 (10.0-20.0); Bilirubin, Total 1.1 mg/dL (0.2-1.0); Blood Urea Nitrogen 70 mg/dL (9-23); Carbon Dioxide 23 mmol/L (20-30); Glucose 87 mg/dL (74-106); Potassium 4.7 mmol/L (3.5-5.1); Sodium 129 mmol/L (136-145); Total Protein 5.8 g/dL (5.7-8.2)
[2023-03-16] MEDS: AMIODARONE 450mg/250ml AE 250 ML IV SCH ×2 (06:48→22:00)
[2023-03-16] MEDS: VASOPRESSIN 20 UNITS in SODIUM CHL 0.9% 99 ML IV SCH ×2 (06:48→17:47)
[2023-03-16 08:08] LABS: Base Excess -2.9 mmol/L (-2.0-2.0)
[2023-03-16] MEDS: DIGOXIN (250MCG/ML) 2 ML AMPULE IV SCH (09:47)
[2023-03-16] MEDS: OSELTAMIVIR 30 MG CAP PO SCH (09:47)
[2023-03-16] MEDS: cefTRIAXone 1GM/50ML D5W 50 ML IV SCH (09:47)
[2023-03-16] MEDS: APIXABAN 5 MG TAB PO SCH ×2 (09:47→22:00)
[2023-03-16] MEDS: BUDESONIDE (INHALATION) 0.5 MG/2 ML NEB NEB SCH ×2 (09:59→18:04)
[2023-03-16] MEDS: NOREPINEPHRINE BITARTRATE 32 MG in SODIUM CHL 0.9% 218 ML IV SCH ×2 (11:30→17:46)
[2023-03-16] MEDS: EPINEPHrine HCL INJECTION 16 MG in D5W 5% 234 ML IV SCH (11:30)
[2023-03-16] MEDS: METOCLOPRAMIDE 10 mg/10ml ORAL soln GT SCH ×2 (15:10→22:01)
[2023-03-16] MEDS: fentaNYL Drip 2500mCg/250mlNS 250 ML IV SCH (16:47)
[2023-03-16] MEDS: ATORVASTATIN 20 MG TAB PO SCH (22:00)
[2023-03-17] VITALS (109 sets, daily range): BP systolic 79–137; BP diastolic 44–78; PULSE 87–122; RESP 18–46; TEMP 97.7–100; O2SAT 92–98
[2023-03-17] MEDS: LEVALBUTEROL HCL 1.25 MG/3 ML NEB NEB SCH ×4 (00:08→18:32)
[2023-03-17] MEDS: IPRATROPIUM BROM 0.5 MG/2.5ML INH SOL NEB PRN ×3 (00:08→11:55)
[2023-03-17] MEDS: MIDAZOLAM DRIP 50 mg/50mL 50 ML IV SCH ×6 (01:00→21:51)
[2023-03-17] MEDS: PHENYLEPHRINE INJ 80 MG in SODIUM CHL 0.9% 242 ML IV SCH ×2 (01:00→11:28)
[2023-03-17] MEDS: DOXYCYCLINE 100MG/250ML 250 ML IV SCH ×2 (03:11→14:27)
[2023-03-17] MEDS: METOCLOPRAMIDE 10 mg/10ml ORAL soln GT SCH ×3 (05:43→21:44)
[2023-03-17] MEDS: BUDESONIDE (INHALATION) 0.5 MG/2 ML NEB NEB SCH ×2 (06:39→22:01)
[2023-03-17] MEDS ORDERED: SODIUM CHL 0.9% 1000 ML BAG XX ONE (07:00)
[2023-03-17 07:31] LABS: Base Excess -1.1 mmol/L (-2.0-2.0)
[2023-03-17] MEDS: VASOPRESSIN 20 UNITS in SODIUM CHL 0.9% 99 ML IV SCH ×2 (07:37→21:39)
[2023-03-17] MEDS: BUMETANIDE INJECTION 12.5 MG in GIVE UN-DILUTED 0 ML IV SCH (07:37)
[2023-03-17 08:04] LABS: Basophils # (auto) 0 10 ^3/uL (0-0.2); Basophils % (auto) 0.5 % (0.0-2.0); Eosinophils # (auto) 0 10 ^3/uL (0-0.8); Eosinophils % (auto) 0.5 % (0.0-7.0); Hematocrit 44.5 % (41.0-53.0); Lymphocytes # (auto) 0.7 10 ^3/uL (0.4-5.4); Lymphocytes % (auto) 8.1 % (10.0-50.0); Mean Corpuscular Hemoglobin 32.7 pg (28.0-32.0); Mean Corpuscular Hgb Conc. 33.7 g/dL (32.0-36.0); Monocytes % (auto) 11.6 % (0.0-12.0); Neutrophils # (auto) 6.8 10 ^3/uL (1.6-8.6); Neutrophils % (auto) 79.3 % (37.0-80.0); Nucleated Red Blood Cells % 0.1 %; Red Blood Cells 4.59 10^6/uL (4.5-5.90); Red Cell Distribution Width 14.9 % (11.8-14.3); White Blood Cell 8.6 10^3/uL (4.4-10.8)
[2023-03-17 08:15] LABS: Chloride 91 mmol/L (98-107); Potassium 5.2 mmol/L (3.5-5.1); Sodium 128 mmol/L (136-145)
[2023-03-17 08:16] LABS: Anion Gap 11 (5-15); Carbon Dioxide 26 mmol/L (20-30)
[2023-03-17 08:17] LABS: Calcium 9.3 mg/dL (8.5-10.1)
[2023-03-17 08:21] LABS: Glucose 103 mg/dL (74-106)
[2023-03-17 08:22] LABS: BUN/Creatinine Ratio 13.5 (10.0-20.0)
[2023-03-17 08:33] LABS: Blood Urea Nitrogen 91 mg/dL (9-23)
[2023-03-17 09:03] LABS: Magnesium 2.4 mg/dL (1.6-2.6)
[2023-03-17] MEDS: APIXABAN 5 MG TAB PO SCH ×2 (10:01→21:43)
[2023-03-17] MEDS: OSELTAMIVIR 30 MG CAP PO SCH (10:01)
[2023-03-17] MEDS: AMIODARONE 450mg/250ml AE 250 ML IV SCH (11:28)
[2023-03-17] MEDS: EPINEPHrine HCL INJECTION 16 MG in D5W 5% 234 ML IV SCH (11:30)
[2023-03-17] MEDS: cefTRIAXone 1GM/50ML D5W 50 ML IV SCH (11:31)
[2023-03-17] MEDS: fentaNYL Drip 2500mCg/250mlNS 250 ML IV SCH (11:38)
[2023-03-17] MEDS: ATORVASTATIN 20 MG TAB PO SCH (21:43)
[2023-03-17] MEDS: LACTULOSE 20Gm/30ML SOLN GT SCH (21:43)
[2023-03-18] VITALS (106 sets, daily range): BP systolic 91–137; BP diastolic 53–87; PULSE 82–115; RESP 18–38; TEMP 99.1–100.6; O2SAT 92–98
[2023-03-18] MEDS: LEVALBUTEROL HCL 1.25 MG/3 ML NEB NEB SCH ×4 (00:15→18:03)
[2023-03-18] MEDS: PHENYLEPHRINE INJ 80 MG in SODIUM CHL 0.9% 242 ML IV SCH ×4 (01:37→19:40)
[2023-03-18] MEDS: AMIODARONE 450mg/250ml AE 250 ML IV SCH ×2 (02:24→16:28)
[2023-03-18] MEDS: DOXYCYCLINE 100MG/250ML 250 ML IV SCH ×2 (02:33→14:40)
[2023-03-18] MEDS: MIDAZOLAM DRIP 50 mg/50mL 50 ML IV SCH ×2 (04:07→08:37)
[2023-03-18 04:50] LABS: Basophils # (auto) 0 10 ^3/uL (0-0.2); Basophils % (auto) 0.3 % (0.0-2.0); Eosinophils # (auto) 0 10 ^3/uL (0-0.8); Eosinophils % (auto) 0.4 % (0.0-7.0); Hematocrit 46.3 % (41.0-53.0); Hemoglobin 15.5 g/dL (13.5-17.5); Lymphocytes # (auto) 0.6 10 ^3/uL (0.4-5.4); Lymphocytes % (auto) 7.9 % (10.0-50.0); Mean Corpuscular Hemoglobin 32.8 pg (28.0-32.0); Mean Corpuscular Hgb Conc. 33.6 g/dL (32.0-36.0); Mean Corpuscular Volume 97.9 fL (80.0-100.0); Monocytes # (auto) 0.9 10 ^3/uL (0-1.3); Monocytes % (auto) 12.4 % (0.0-12.0); Neutrophils # (auto) 5.9 10 ^3/uL (1.6-8.6); Nucleated Red Blood Cells % 0.1 %; Red Blood Cells 4.73 10^6/uL (4.5-5.90); Red Cell Distribution Width 14.9 % (11.8-14.3); White Blood Cell 7.5 10^3/uL (4.4-10.8)
[2023-03-18 05:10] LABS: Alanine Aminotransferase 121 U/L (7-40); Albumin 3.6 g/dL (3.2-4.8); Alkaline Phosphatase 506 U/L (46-116); Anion Gap 9 (5-15); Aspartate Aminotransferase 245 U/L (13-40); BUN/Creatinine Ratio 10.8 (10.0-20.0); Calcium 9.4 mg/dL (8.5-10.1); Carbon Dioxide 30 mmol/L (20-30); Chloride 97 mmol/L (98-107); Glucose 123 mg/dL (74-106); Potassium 4.6 mmol/L (3.5-5.1); Sodium 136 mmol/L (136-145)
[2023-03-18 05:11] LABS: Bilirubin, Total 0.9 mg/dL (0.2-1.0); Total Protein 6.4 g/dL (5.7-8.2)
[2023-03-18 05:19] LABS: Blood Urea Nitrogen 55 mg/dL (9-23)
[2023-03-18] MEDS: METOCLOPRAMIDE 10 mg/10ml ORAL soln GT SCH ×3 (06:20→22:08)
[2023-03-18 07:40] LABS: Base Excess 4.3 mmol/L (-2.0-2.0)
[2023-03-18] MEDS: VASOPRESSIN 20 UNITS in SODIUM CHL 0.9% 99 ML IV SCH ×2 (09:01→19:38)
[2023-03-18] MEDS: cefTRIAXone 1GM/50ML D5W 50 ML IV SCH (09:06)
[2023-03-18] MEDS: DIGOXIN (250MCG/ML) 2 ML AMPULE IV SCH (09:42)
[2023-03-18] MEDS: APIXABAN 5 MG TAB PO SCH ×2 (09:42→22:08)
[2023-03-18] MEDS: LACTULOSE 20Gm/30ML SOLN GT SCH ×2 (09:42→22:08)
[2023-03-18] MEDS: EPINEPHrine HCL INJECTION 16 MG in D5W 5% 234 ML IV SCH (11:30)
[2023-03-18] MEDS: fentaNYL Drip 2500mCg/250mlNS 250 ML IV SCH (16:30)
[2023-03-18] MEDS: NOREPINEPHRINE BITARTRATE 32 MG in SODIUM CHL 0.9% 218 ML IV SCH (17:32)
[2023-03-18] MEDS: IPRATROPIUM BROM 0.5 MG/2.5ML INH SOL NEB PRN (18:03)
[2023-03-18] MEDS: BUDESONIDE (INHALATION) 0.5 MG/2 ML NEB NEB SCH ×2 (18:03→22:38)
[2023-03-18] MEDS: HYDROCORTISONE SOD SUCC 100 MG/2ML INJ VIAL IV SCH (22:09)
[2023-03-18] MEDS: ATORVASTATIN 20 MG TAB PO SCH (22:09)
[2023-03-19] VITALS (104 sets, daily range): BP systolic 87–142; BP diastolic 40–80; PULSE 90–121; RESP 6–33; TEMP 96.4–99.9; O2SAT 87–100
[2023-03-19] MEDS: IPRATROPIUM BROM 0.5 MG/2.5ML INH SOL NEB PRN ×2 (00:06→06:43)
[2023-03-19] MEDS: LEVALBUTEROL HCL 1.25 MG/3 ML NEB NEB SCH ×3 (00:06→18:30)
[2023-03-19] MEDS: DOXYCYCLINE 100MG/250ML 250 ML IV SCH (02:16)
[2023-03-19 04:18] LABS: Basophils # (auto) 0 10 ^3/uL (0-0.2); Basophils % (auto) 0.1 % (0.0-2.0); Eosinophils # (auto) 0 10 ^3/uL (0-0.8); Eosinophils % (auto) 0.1 % (0.0-7.0); Hematocrit 47.6 % (41.0-53.0); Hemoglobin 16.1 g/dL (13.5-17.5); Lymphocytes # (auto) 0.3 10 ^3/uL (0.4-5.4); Lymphocytes % (auto) 3.6 % (10.0-50.0); Mean Corpuscular Hemoglobin 33.2 pg (28.0-32.0); Mean Corpuscular Hgb Conc. 33.7 g/dL (32.0-36.0); Mean Corpuscular Volume 98.4 fL (80.0-100.0); Monocytes # (auto) 0.4 10 ^3/uL (0-1.3); Monocytes % (auto) 5.2 % (0.0-12.0); Neutrophils # (auto) 7.7 10 ^3/uL (1.6-8.6); Nucleated Red Blood Cells % 0.2 %; Red Blood Cells 4.84 10^6/uL (4.5-5.90); Red Cell Distribution Width 15.2 % (11.8-14.3); White Blood Cell 8.5 10^3/uL (4.4-10.8)
[2023-03-19 04:25] LABS: Anion Gap 10 (5-15); Calcium 9.3 mg/dL (8.7-10.4); Carbon Dioxide 27 mmol/L (20-30); Chloride 99 mmol/L (98-107); Potassium 4.2 mmol/L (3.5-5.1); Sodium 136 mmol/L (136-145)
[2023-03-19 04:31] LABS: BUN/Creatinine Ratio 11.9 (10.0-20.0); Blood Urea Nitrogen 56 mg/dL (9-23); Glucose 162 mg/dL (74-106)
[2023-03-19] MEDS: METOCLOPRAMIDE 10 mg/10ml ORAL soln GT SCH ×3 (05:42→21:29)
[2023-03-19] MEDS: BUDESONIDE (INHALATION) 0.5 MG/2 ML NEB NEB SCH ×2 (06:43→18:30)
[2023-03-19] MEDS ORDERED: SODIUM CHL 0.9% 1000 ML BAG XX ONE (07:00)
[2023-03-19] MEDS: VASOPRESSIN 20 UNITS in SODIUM CHL 0.9% 99 ML IV SCH ×2 (07:15→18:22)
[2023-03-19 07:47] LABS: Base Excess 2.5 mmol/L (-2.0-2.0)
[2023-03-19] MEDS: AMIODARONE 450mg/250ml AE 250 ML IV SCH (07:48)
[2023-03-19] MEDS: PHENYLEPHRINE INJ 80 MG in SODIUM CHL 0.9% 242 ML IV SCH (09:12)
[2023-03-19 09:21] LABS: Hepatitis B Surface Antigen Negative (Negative)
[2023-03-19 09:41] LABS: Hepatitis A Ab IgM Negative
[2023-03-19 09:42] LABS: Hepatitis B Core IgM Negative; Hepatitis C Antibody Negative (Negative)
[2023-03-19] MEDS: EPINEPHrine HCL INJECTION 16 MG in D5W 5% 234 ML IV SCH (11:30)
[2023-03-19] MEDS: NOREPINEPHRINE BITARTRATE 32 MG in SODIUM CHL 0.9% 218 ML IV SCH (11:30)
[2023-03-19] MEDS: HYDROCORTISONE SOD SUCC 100 MG/2ML INJ VIAL IV SCH ×2 (11:41→21:26)
[2023-03-19] MEDS: APIXABAN 5 MG TAB PO SCH ×2 (11:41→21:25)
[2023-03-19] MEDS: fentaNYL Drip 2500mCg/250mlNS 250 ML IV SCH (16:30)
[2023-03-19] MEDS: LACTULOSE 20Gm/30ML SOLN GT SCH (21:24)
[2023-03-19] MEDS: ATORVASTATIN 20 MG TAB PO SCH (21:25)
[2023-03-19] MEDS: DOXYCYCLINE 100 MG TAB/CAP PO SCH (21:25)
[2023-03-20] VITALS (109 sets, daily range): BP systolic 76–138; BP diastolic 42–85; PULSE 79–109; RESP 18–49; TEMP 97.5–99.5; O2SAT 90–97
[2023-03-20] MEDS: LEVALBUTEROL HCL 1.25 MG/3 ML NEB NEB SCH ×4 (00:13→18:10)
[2023-03-20] MEDS: AMIODARONE 450mg/250ml AE 250 ML IV SCH (02:26)
[2023-03-20] MEDS: VASOPRESSIN 20 UNITS in SODIUM CHL 0.9% 99 ML IV SCH ×2 (02:27→16:36)
[2023-03-20 02:41] LABS: Basophils # (auto) 0 10 ^3/uL (0-0.2); Basophils % (auto) 0.2 % (0.0-2.0); Eosinophils # (auto) 0 10 ^3/uL (0-0.8); Eosinophils % (auto) 0.1 % (0.0-7.0); Hematocrit 46.4 % (41.0-53.0); Hemoglobin 15.6 g/dL (13.5-17.5); Lymphocytes # (auto) 0.4 10 ^3/uL (0.4-5.4); Lymphocytes % (auto) 4.3 % (10.0-50.0); Mean Corpuscular Hemoglobin 32.8 pg (28.0-32.0); Mean Corpuscular Hgb Conc. 33.6 g/dL (32.0-36.0); Mean Corpuscular Volume 97.7 fL (80.0-100.0); Monocytes # (auto) 0.8 10 ^3/uL (0-1.3); Monocytes % (auto) 8.3 % (0.0-12.0); Neutrophils # (auto) 8.5 10 ^3/uL (1.6-8.6); Neutrophils % (auto) 87.1 % (37.0-80.0); Nucleated Red Blood Cells % 0.1 %; Red Blood Cells 4.75 10^6/uL (4.5-5.90); White Blood Cell 9.7 10^3/uL (4.4-10.8)
[2023-03-20 03:12] LABS: Alanine Aminotransferase 145 U/L (7-40); Albumin 3.6 g/dL (3.2-4.8); Alkaline Phosphatase 606 U/L (46-116); Anion Gap 10 (5-15); Aspartate Aminotransferase 179 U/L (13-40); BUN/Creatinine Ratio 16.8 (10.0-20.0); Blood Urea Nitrogen 63 mg/dL (9-23); Calcium 9.5 mg/dL (8.7-10.4); Carbon Dioxide 26 mmol/L (20-30); Chloride 100 mmol/L (98-107); Glucose 132 mg/dL (74-106); Potassium 4.4 mmol/L (3.5-5.1); Sodium 136 mmol/L (136-145)
[2023-03-20 03:13] LABS: Total Protein 6.8 g/dL (5.7-8.2)
[2023-03-20] MEDS: METOCLOPRAMIDE 10 mg/10ml ORAL soln GT SCH ×3 (06:00→21:58)
[2023-03-20] MEDS: IPRATROPIUM BROM 0.5 MG/2.5ML INH SOL NEB PRN ×2 (07:18→18:11)
[2023-03-20] MEDS: BUDESONIDE (INHALATION) 0.5 MG/2 ML NEB NEB SCH ×2 (07:18→18:10)
[2023-03-20] MEDS: MIDAZOLAM DRIP 50 mg/50mL 50 ML IV SCH (07:30)
[2023-03-20 07:55] LABS: Base Excess 3.2 mmol/L (-2.0-2.0)
[2023-03-20] MEDS: DOXYCYCLINE 100 MG TAB/CAP PO SCH ×2 (10:06→21:58)
[2023-03-20] MEDS: HYDROCORTISONE SOD SUCC 100 MG/2ML INJ VIAL IV SCH ×2 (10:06→21:57)
[2023-03-20] MEDS: LACTULOSE 20Gm/30ML SOLN GT SCH ×2 (10:06→21:57)
[2023-03-20] MEDS: DIGOXIN (250MCG/ML) 2 ML AMPULE IV SCH (10:07)
[2023-03-20] MEDS: APIXABAN 5 MG TAB PO SCH ×2 (10:07→21:58)
[2023-03-20] MEDS ORDERED: Jevity 1.2 Cal/Fiber 1 Liter GT SCH (10:30)
[2023-03-20] MEDS: EPINEPHrine HCL INJECTION 16 MG in D5W 5% 234 ML IV SCH (11:30)
[2023-03-20] MEDS: NOREPINEPHRINE BITARTRATE 32 MG in SODIUM CHL 0.9% 218 ML IV SCH (11:30)
[2023-03-20] MEDS: fentaNYL Drip 2500mCg/250mlNS 250 ML IV SCH (16:30)
[2023-03-20] MEDS ORDERED: MIDODRINE HCL 10 MG TAB ONE (17:58)
[2023-03-20] MEDS: MIDODRINE HCL 10 MG TAB PO SCH (18:08)
[2023-03-20] MEDS: ATORVASTATIN 20 MG TAB PO SCH (21:58)
[2023-03-20] MEDS ORDERED: AMIODARONE HCL 200 MG TAB ONE (22:01)
[2023-03-20] MEDS: AMIODARONE HCL 200 MG TAB PO SCH (22:01)
[2023-03-21] VITALS (107 sets, daily range): BP systolic 75–128; BP diastolic 46–80; PULSE 72–109; RESP 17–31; TEMP 95–100.2; O2SAT 90–96
[2023-03-21] MEDS: LEVALBUTEROL HCL 1.25 MG/3 ML NEB NEB SCH ×4 (00:10→18:08)
[2023-03-21] MEDS: IPRATROPIUM BROM 0.5 MG/2.5ML INH SOL NEB PRN ×3 (00:10→11:21)
[2023-03-21] MEDS: VASOPRESSIN 20 UNITS in SODIUM CHL 0.9% 99 ML IV SCH ×2 (03:43→11:06)
[2023-03-21 03:52] LABS: Basophils # (auto) 0 10 ^3/uL (0-0.2); Basophils % (auto) 0.3 % (0.0-2.0); Eosinophils # (auto) 0 10 ^3/uL (0-0.8); Hematocrit 46.8 % (41.0-53.0); Hemoglobin 15.7 g/dL (13.5-17.5); Lymphocytes # (auto) 0.3 10 ^3/uL (0.4-5.4); Lymphocytes % (auto) 3.2 % (10.0-50.0); Mean Corpuscular Hgb Conc. 33.5 g/dL (32.0-36.0); Mean Corpuscular Volume 98.5 fL (80.0-100.0); Monocytes # (auto) 0.9 10 ^3/uL (0-1.3); Monocytes % (auto) 10.1 % (0.0-12.0); Neutrophils # (auto) 8.1 10 ^3/uL (1.6-8.6); Neutrophils % (auto) 86.4 % (37.0-80.0); Nucleated Red Blood Cells % 0.1 %; Red Blood Cells 4.75 10^6/uL (4.5-5.90); Red Cell Distribution Width 14.9 % (11.8-14.3); White Blood Cell 9.3 10^3/uL (4.4-10.8)
[2023-03-21 04:08] LABS: Alanine Aminotransferase 300 U/L (7-40); Albumin 3.6 g/dL (3.2-4.8); Alkaline Phosphatase 708 U/L (46-116); Anion Gap 10 (5-15); BUN/Creatinine Ratio 17.4 (10.0-20.0); Blood Urea Nitrogen 61 mg/dL (9-23); Calcium 9.5 mg/dL (8.7-10.4); Carbon Dioxide 26 mmol/L (20-30); Chloride 103 mmol/L (98-107); Glucose 131 mg/dL (74-106); Sodium 139 mmol/L (136-145)
[2023-03-21 04:09] LABS: Aspartate Aminotransferase 464 U/L (13-40); Bilirubin, Total 1.1 mg/dL (0.2-1.0)
[2023-03-21] MEDS: BUDESONIDE (INHALATION) 0.5 MG/2 ML NEB NEB SCH ×2 (05:53→18:08)
[2023-03-21] MEDS ORDERED: MIDODRINE HCL 10 MG TAB ONE (06:05)
[2023-03-21] MEDS: MIDODRINE HCL 10 MG TAB PO SCH ×3 (06:06→17:30)
[2023-03-21] MEDS: METOCLOPRAMIDE 10 mg/10ml ORAL soln GT SCH ×3 (06:07→21:59)
[2023-03-21] MEDS: MIDAZOLAM DRIP 50 mg/50mL 50 ML IV SCH (07:04)
[2023-03-21] MEDS ORDERED: AMIODARONE HCL 200 MG TAB ONE ×2 (08:37→22:01)
[2023-03-21] MEDS: LACTULOSE 20Gm/30ML SOLN GT SCH ×2 (08:39→21:58)
[2023-03-21] MEDS: HYDROCORTISONE SOD SUCC 100 MG/2ML INJ VIAL IV SCH ×2 (08:40→21:59)
[2023-03-21] MEDS: APIXABAN 5 MG TAB PO SCH ×2 (08:41→21:59)
[2023-03-21] MEDS: AMIODARONE HCL 200 MG TAB PO SCH ×2 (08:41→22:01)
[2023-03-21] MEDS: DOXYCYCLINE 100 MG TAB/CAP PO SCH ×2 (08:41→21:59)
[2023-03-21] MEDS: PHENYLEPHRINE INJ 80 MG in SODIUM CHL 0.9% 242 ML IV SCH (08:45)
[2023-03-21] MEDS: NOREPINEPHRINE BITARTRATE 32 MG in SODIUM CHL 0.9% 218 ML IV SCH ×2 (11:06→22:22)
[2023-03-21] MEDS: EPINEPHrine HCL INJECTION 16 MG in D5W 5% 234 ML IV SCH (11:06)
[2023-03-21] MEDS: fentaNYL Drip 2500mCg/250mlNS 250 ML IV SCH (11:07)
[2023-03-21] MEDS: ATORVASTATIN 20 MG TAB PO SCH (21:59)
[2023-03-22] VITALS (94 sets, daily range): BP systolic 73–143; BP diastolic 41–91; PULSE 74–131; RESP 12–51; TEMP 93.9–100.8; O2SAT 90–100
[2023-03-22] MEDS: VASOPRESSIN 20 UNITS in SODIUM CHL 0.9% 99 ML IV SCH ×2 (01:57→07:47)
[2023-03-22 04:20] LABS: Alanine Aminotransferase 230 U/L (7-40); Albumin 3.5 g/dL (3.2-4.8); Alkaline Phosphatase 572 U/L (46-116); Aspartate Aminotransferase 251 U/L (13-40)
[2023-03-22 04:21] LABS: Anion Gap 8 (5-15); BUN/Creatinine Ratio 24.2 (10.0-20.0); Bilirubin, Total 1.5 mg/dL (0.2-1.0); Calcium 9.5 mg/dL (8.7-10.4); Carbon Dioxide 29 mmol/L (20-30); Chloride 107 mmol/L (98-107); Glucose 123 mg/dL (74-106); Potassium 3.5 mmol/L (3.5-5.1); Sodium 144 mmol/L (136-145); Total Protein 6.6 g/dL (5.7-8.2)
[2023-03-22 04:23] LABS: Basophils # (auto) 0 10 ^3/uL (0-0.2); Basophils % (auto) 0.2 % (0.0-2.0); Eosinophils # (auto) 0 10 ^3/uL (0-0.8); Eosinophils % (auto) 0.1 % (0.0-7.0); Hematocrit 44.3 % (41.0-53.0); Hemoglobin 14.9 g/dL (13.5-17.5); Lymphocytes # (auto) 0.2 10 ^3/uL (0.4-5.4); Lymphocytes % (auto) 2.4 % (10.0-50.0); Mean Corpuscular Hemoglobin 33.1 pg (28.0-32.0); Mean Corpuscular Hgb Conc. 33.5 g/dL (32.0-36.0); Mean Corpuscular Volume 98.9 fL (80.0-100.0); Monocytes # (auto) 0.5 10 ^3/uL (0-1.3); Monocytes % (auto) 5.9 % (0.0-12.0); Neutrophils # (auto) 7.9 10 ^3/uL (1.6-8.6); Neutrophils % (auto) 91.4 % (37.0-80.0); Nucleated Red Blood Cells % 0.1 %; Red Blood Cells 4.49 10^6/uL (4.5-5.90); Red Cell Distribution Width 15.2 % (11.8-14.3); White Blood Cell 8.7 10^3/uL (4.4-10.8)
[2023-03-22 04:41] LABS: Blood Urea Nitrogen 76 mg/dL (9-23)
[2023-03-22] MEDS: METOCLOPRAMIDE 10 mg/10ml ORAL soln GT SCH ×3 (05:50→22:00)
[2023-03-22] MEDS: MIDODRINE HCL 10 MG TAB PO SCH ×3 (05:50→16:44)
[2023-03-22] MEDS: LEVALBUTEROL HCL 1.25 MG/3 ML NEB NEB SCH ×4 (06:15→19:08)
[2023-03-22] MEDS: MIDAZOLAM DRIP 50 mg/50mL 50 ML IV SCH (07:30)
[2023-03-22] MEDS: fentaNYL Drip 2500mCg/250mlNS 250 ML IV SCH (07:47)
[2023-03-22] MEDS: PHENYLEPHRINE INJ 80 MG in SODIUM CHL 0.9% 242 ML IV SCH (07:47)
[2023-03-22] MEDS: EPINEPHrine HCL INJECTION 16 MG in D5W 5% 234 ML IV SCH (07:47)
[2023-03-22] MEDS: DIGOXIN (250MCG/ML) 2 ML AMPULE IV SCH (08:02)
[2023-03-22] MEDS: AMIODARONE HCL 200 MG TAB PO SCH ×2 (08:03→22:03)
[2023-03-22] MEDS: LACTULOSE 20Gm/30ML SOLN GT SCH ×2 (08:03→22:00)
[2023-03-22] MEDS: HYDROCORTISONE SOD SUCC 100 MG/2ML INJ VIAL IV SCH ×2 (08:03→22:03)
[2023-03-22] MEDS: APIXABAN 5 MG TAB PO SCH ×2 (08:03→22:03)
[2023-03-22] MEDS: DOXYCYCLINE 100 MG TAB/CAP PO SCH ×2 (08:04→22:03)
[2023-03-22 10:46] LABS: Base Excess 3.4 mmol/L (-2.0-2.0)
[2023-03-22] MEDS: BUDESONIDE (INHALATION) 0.5 MG/2 ML NEB NEB SCH ×2 (10:46→19:08)
[2023-03-22] MEDS: LORazepam 2MG/ML-1ML VIAL IV PRN (16:47)
[2023-03-22] MEDS: IPRATROPIUM BROM 0.5 MG/2.5ML INH SOL NEB PRN (19:08)
[2023-03-22] MEDS: ATORVASTATIN 20 MG TAB PO SCH (22:03)
[2023-03-23] VITALS (58 sets, daily range): BP systolic 103–137; BP diastolic 51–82; PULSE 95–131; RESP 16–45; TEMP 97.4–99.3; O2SAT 84–100
[2023-03-23] MEDS: VASOPRESSIN 20 UNITS in SODIUM CHL 0.9% 99 ML IV SCH (00:11)
[2023-03-23] MEDS: LEVALBUTEROL HCL 1.25 MG/3 ML NEB NEB SCH ×5 (00:17→23:58)
[2023-03-23 04:06] LABS: Basophils # (auto) 0 10 ^3/uL (0-0.2); Eosinophils # (auto) 0 10 ^3/uL (0-0.8); Hematocrit 48.4 % (41.0-53.0); Hemoglobin 16.1 g/dL (13.5-17.5); Lymphocytes # (auto) 0.2 10 ^3/uL (0.4-5.4); Lymphocytes % (auto) 1.2 % (10.0-50.0); Mean Corpuscular Hemoglobin 32.9 pg (28.0-32.0); Mean Corpuscular Hgb Conc. 33.2 g/dL (32.0-36.0); Mean Corpuscular Volume 98.9 fL (80.0-100.0); Monocytes # (auto) 1.1 10 ^3/uL (0-1.3); Monocytes % (auto) 5.9 % (0.0-12.0); Neutrophils # (auto) 17.1 10 ^3/uL (1.6-8.6); Neutrophils % (auto) 92.9 % (37.0-80.0); Red Blood Cells 4.89 10^6/uL (4.5-5.90); Red Cell Distribution Width 14.9 % (11.8-14.3); White Blood Cell 18.4 10^3/uL (4.4-10.8)
[2023-03-23 04:14] LABS: Anion Gap 10 (5-15); Carbon Dioxide 29 mmol/L (20-30); Chloride 108 mmol/L (98-107); Potassium 2.9 mmol/L (3.5-5.1); Sodium 147 mmol/L (136-145)
[2023-03-23 04:15] LABS: Calcium 9.7 mg/dL (8.7-10.4)
[2023-03-23 04:20] LABS: BUN/Creatinine Ratio 29.3 (10.0-20.0); Blood Urea Nitrogen 77 mg/dL (9-23); Glucose 126 mg/dL (74-106); Magnesium 2.1 mg/dL (1.6-2.6)
[2023-03-23] MEDS: POTASSIUM CHL 20MEQ/100ML 100 ML IV SCH ×2 (05:27→06:58)
[2023-03-23] MEDS: MIDODRINE HCL 10 MG TAB PO SCH (05:28)
[2023-03-23] MEDS: METOCLOPRAMIDE 10 mg/10ml ORAL soln GT SCH (05:28)
[2023-03-23] MEDS: IPRATROPIUM BROM 0.5 MG/2.5ML INH SOL NEB PRN ×4 (06:51→23:58)
[2023-03-23] MEDS: BUDESONIDE (INHALATION) 0.5 MG/2 ML NEB NEB SCH ×2 (06:56→19:03)
[2023-03-23] MEDS: MIDAZOLAM DRIP 50 mg/50mL 50 ML IV SCH (07:27)
[2023-03-23] MEDS: LACTULOSE 20Gm/30ML SOLN GT SCH (08:17)
[2023-03-23] MEDS ORDERED: POTASSIUM CHL 20MEQ/100ML 100 ML IV SCH (09:30)
[2023-03-23] MEDS ORDERED: SOD CHL 0.45% 1,000 ML IV SCH (09:30)
[2023-03-23] MEDS: APIXABAN 5 MG TAB PO SCH ×2 (10:16→20:39)
[2023-03-23] MEDS: AMIODARONE HCL 200 MG TAB PO SCH ×2 (10:17→20:39)
[2023-03-23] MEDS: PANTOPRAZOLE 40 MG TAB PO SCH (10:29)
[2023-03-23] MEDS: DOXYCYCLINE 100 MG TAB/CAP PO SCH ×2 (10:30→20:39)
[2023-03-23] MEDS: ATORVASTATIN 20 MG TAB PO SCH (20:39)
[2023-03-24] VITALS (26 sets, daily range): BP systolic 90–118; BP diastolic 54–94; PULSE 94–110; RESP 17–71; TEMP 97.4–98.3; O2SAT 93–100
[2023-03-24 04:30] LABS: Basophils # (auto) 0 10 ^3/uL (0-0.2); Basophils % (auto) 0.1 % (0.0-2.0); Eosinophils # (auto) 0.1 10 ^3/uL (0-0.8); Eosinophils % (auto) 0.7 % (0.0-7.0); Hematocrit 43.3 % (41.0-53.0); Hemoglobin 14.3 g/dL (13.5-17.5); Lymphocytes # (auto) 0.8 10 ^3/uL (0.4-5.4); Lymphocytes % (auto) 5.3 % (10.0-50.0); Mean Corpuscular Hemoglobin 32.8 pg (28.0-32.0); Mean Corpuscular Volume 99.3 fL (80.0-100.0); Monocytes % (auto) 6.5 % (0.0-12.0); Neutrophils # (auto) 13.8 10 ^3/uL (1.6-8.6); Neutrophils % (auto) 87.4 % (37.0-80.0); Red Blood Cells 4.36 10^6/uL (4.5-5.90); Red Cell Distribution Width 14.8 % (11.8-14.3); White Blood Cell 15.8 10^3/uL (4.4-10.8)
[2023-03-24 05:03] LABS: Chloride 105 mmol/L (98-107); Potassium 2.9 mmol/L (3.5-5.1); Sodium 140 mmol/L (136-145)
[2023-03-24 05:04] LABS: Anion Gap 10 (5-15); Calcium 9.1 mg/dL (8.5-10.1); Carbon Dioxide 25 mmol/L (20-30)
[2023-03-24 05:09] LABS: BUN/Creatinine Ratio 31.5 (10.0-20.0); Blood Urea Nitrogen 68 mg/dL (9-23); Glucose 89 mg/dL (74-106)
[2023-03-24] MEDS ORDERED: POTASSIUM EFFERVESENT TAB 25 MEQ PO ONE (06:15)
[2023-03-24] MEDS: BUDESONIDE (INHALATION) 0.5 MG/2 ML NEB NEB SCH ×2 (06:58→19:44)
[2023-03-24] MEDS: IPRATROPIUM BROM 0.5 MG/2.5ML INH SOL NEB PRN ×3 (06:58→19:43)
[2023-03-24] MEDS: LEVALBUTEROL HCL 1.25 MG/3 ML NEB NEB SCH ×3 (06:59→19:43)
[2023-03-24] MEDS: PANTOPRAZOLE 40 MG TAB PO SCH (09:54)
[2023-03-24] MEDS: AMIODARONE HCL 200 MG TAB PO SCH ×2 (09:54→21:40)
[2023-03-24] MEDS: DOXYCYCLINE 100 MG TAB/CAP PO SCH ×2 (09:55→21:40)
[2023-03-24] MEDS: APIXABAN 5 MG TAB PO SCH ×2 (09:55→21:40)
[2023-03-24] MEDS: ACETAMINOPHEN 500 MG TAB PO PRN (09:57)
[2023-03-24] MEDS ORDERED: POTASSIUM CHL 20MEQ/100ML 100 ML IV ONE (10:30)
[2023-03-24] MEDS: ATORVASTATIN 20 MG TAB PO SCH (21:40)
[2023-03-25] VITALS (18 sets, daily range): BP systolic 85–109; BP diastolic 57–62; PULSE 89–108; RESP 18–22; TEMP 97.3–98; O2SAT 90–97
[2023-03-25] MEDS: IPRATROPIUM BROM 0.5 MG/2.5ML INH SOL NEB PRN ×3 (00:30→12:21)
[2023-03-25] MEDS: LEVALBUTEROL HCL 1.25 MG/3 ML NEB NEB SCH ×5 (00:30→23:56)
[2023-03-25 06:45] LABS: Basophils # (auto) 0 10 ^3/uL (0-0.2); Basophils % (auto) 0.3 % (0.0-2.0); Eosinophils # (auto) 0.2 10 ^3/uL (0-0.8); Eosinophils % (auto) 1.3 % (0.0-7.0); Hematocrit 42.4 % (41.0-53.0); Mean Corpuscular Hemoglobin 32.5 pg (28.0-32.0); Mean Corpuscular Hgb Conc. 33.1 g/dL (32.0-36.0); Mean Corpuscular Volume 98.3 fL (80.0-100.0); Monocytes # (auto) 0.9 10 ^3/uL (0-1.3); Monocytes % (auto) 7.3 % (0.0-12.0); Neutrophils # (auto) 10.4 10 ^3/uL (1.6-8.6); Neutrophils % (auto) 83.1 % (37.0-80.0); Nucleated Red Blood Cells % 0.1 %; Red Blood Cells 4.31 10^6/uL (4.5-5.90); Red Cell Distribution Width 14.6 % (11.8-14.3); White Blood Cell 12.5 10^3/uL (4.4-10.8)
[2023-03-25 07:02] LABS: Anion Gap 9 (5-15); Carbon Dioxide 27 mmol/L (20-30); Chloride 103 mmol/L (98-107); Potassium 3.3 mmol/L (3.5-5.1); Sodium 139 mmol/L (136-145)
[2023-03-25 07:03] LABS: Calcium 9.1 mg/dL (8.5-10.1)
[2023-03-25 07:08] LABS: BUN/Creatinine Ratio 32.4 (10.0-20.0); Glucose 94 mg/dL (74-106)
[2023-03-25 07:19] LABS: Blood Urea Nitrogen 55 mg/dL (9-23)
[2023-03-25] MEDS: BUDESONIDE (INHALATION) 0.5 MG/2 ML NEB NEB SCH ×2 (07:21→18:09)
[2023-03-25] MEDS: PANTOPRAZOLE 40 MG TAB PO SCH (09:18)
[2023-03-25] MEDS: APIXABAN 5 MG TAB PO SCH ×2 (09:18→21:12)
[2023-03-25] MEDS: DOXYCYCLINE 100 MG TAB/CAP PO SCH ×2 (09:18→21:12)
[2023-03-25] MEDS: AMIODARONE HCL 200 MG TAB PO SCH ×2 (09:19→21:12)
[2023-03-25] MEDS ORDERED: POTASSIUM EFFERVESENT TAB 25 MEQ PO ONE (14:30)
[2023-03-25] MEDS: ATORVASTATIN 20 MG TAB PO SCH (21:12)
[2023-03-26] VITALS (11 sets, daily range): BP systolic 92–105; BP diastolic 53–78; PULSE 64–102; RESP 16–22; TEMP 36.7–36.9; O2SAT 92–97
[2023-03-26 07:38] LABS: Basophils # (auto) 0 10 ^3/uL (0-0.2); Basophils % (auto) 0.4 % (0.0-2.0); Eosinophils # (auto) 0.2 10 ^3/uL (0-0.8); Eosinophils % (auto) 1.7 % (0.0-7.0); Hematocrit 41.1 % (41.0-53.0); Hemoglobin 13.8 g/dL (13.5-17.5); Lymphocytes # (auto) 1.1 10 ^3/uL (0.4-5.4); Lymphocytes % (auto) 11.2 % (10.0-50.0); Mean Corpuscular Hgb Conc. 33.6 g/dL (32.0-36.0); Mean Corpuscular Volume 98.2 fL (80.0-100.0); Monocytes # (auto) 0.7 10 ^3/uL (0-1.3); Monocytes % (auto) 7.8 % (0.0-12.0); Neutrophils # (auto) 7.4 10 ^3/uL (1.6-8.6); Neutrophils % (auto) 78.9 % (37.0-80.0); Red Blood Cells 4.19 10^6/uL (4.5-5.90); Red Cell Distribution Width 14.3 % (11.8-14.3); White Blood Cell 9.4 10^3/uL (4.4-10.8)
[2023-03-26 07:47] LABS: Anion Gap 5 (5-15); Carbon Dioxide 30 mmol/L (20-30); Chloride 103 mmol/L (98-107); Potassium 3.3 mmol/L (3.5-5.1); Sodium 138 mmol/L (136-145)
[2023-03-26 07:48] LABS: Calcium 8.5 mg/dL (8.7-10.4)
[2023-03-26 07:53] LABS: BUN/Creatinine Ratio 25.2 (10.0-20.0); Glucose 84 mg/dL (74-106); Magnesium 1.6 mg/dL (1.6-2.6)
[2023-03-26 08:03] LABS: Blood Urea Nitrogen 41 mg/dL (9-23)
[2023-03-26] MEDS: BUDESONIDE (INHALATION) 0.5 MG/2 ML NEB NEB SCH (08:27)
[2023-03-26] MEDS: LEVALBUTEROL HCL 1.25 MG/3 ML NEB NEB SCH ×2 (08:27→12:24)
[2023-03-26] MEDS ORDERED: FUROSEMIDE 20 MG TAB PO SCH (10:00)
[2023-03-26] MEDS ORDERED: POTASSIUM EFFERVESENT TAB 25 MEQ PO SCH (10:15)
[2023-03-26] MEDS: DOXYCYCLINE 100 MG TAB/CAP PO SCH (10:29)
[2023-03-26] MEDS: PANTOPRAZOLE 40 MG TAB PO SCH (10:29)
[2023-03-26] MEDS: AMIODARONE HCL 200 MG TAB PO SCH (10:29)
[2023-03-26] MEDS: APIXABAN 5 MG TAB PO SCH (10:29)
== END 2023-03-26 14:11 | DRG 207 ==
LOC: ER 09:27 → EDBD 09:27 → TELE 14:19 → TELE-WESTW 18:20 → ICU WEST 03-12 07:28 → TELE-CENTR 03-24 13:52
PROVIDERS: ADMIT Nurse Practitioner Acute Care; ATTEND Nurse Practitioner Acute Care
PROC: 5A1955Z Respiratory Ventilation, Greater than 96 Consecutive Hours (ICD-10-PCS; principal; 2023-03-12)
PROC: 0BH17EZ Insertion of Endotracheal Airway into Trachea, Via Natural or Artificial Opening (ICD-10-PCS; 2023-03-12)
PROC: 02HV33Z Insertion of Infusion Device into Superior Vena Cava, Percutaneous Approach (ICD-10-PCS; 2023-03-12)
PROC: 5A1D70Z Performance of Urinary Filtration, Intermittent, Less than 6 Hours Per Day (ICD-10-PCS; 2023-03-17)
PROC: 5A1D70Z Performance of Urinary Filtration, Intermittent, Less than 6 Hours Per Day (ICD-10-PCS; 2023-03-19)
DX: J96.21 Acute and chronic respiratory failure with hypoxia (principal); N17.0 Acute kidney failure with tubular necrosis; I46.9 Cardiac arrest, cause unspecified; I50.23 Acute on chronic systolic (congestive) heart failure; J10.01 Influenza due to other identified influenza virus with the same other identified influenza virus pneumonia; E87.0 Hyperosmolality and hypernatremia; E87.1 Hypo-osmolality and hyponatremia; I13.0 Hypertensive heart and chronic kidney disease with heart failure and stage 1 through stage 4 chronic kidney disease, or unspecified chronic kidney disease; J44.0 Chronic obstructive pulmonary disease with (acute) lower respiratory infection; J44.1 Chronic obstructive pulmonary disease with (acute) exacerbation; E87.29 Other acidosis; Z99.11 Dependence on respirator [ventilator] status; I48.19 Other persistent atrial fibrillation; E66.9 Obesity, unspecified; N18.2 Chronic kidney disease, stage 2 (mild); E78.5 Hyperlipidemia, unspecified; E87.5 Hyperkalemia; Z20.822 Contact with and (suspected) exposure to COVID-19; F15.10 Other stimulant abuse, uncomplicated; F17.210 Nicotine dependence, cigarettes, uncomplicated; I27.20 Pulmonary hypertension, unspecified; J10.1 Influenza due to other identified influenza virus with other respiratory manifestations; M81.0 Age-related osteoporosis without current pathological fracture; Z68.28 Body mass index [BMI] 28.0-28.9, adult; Z91.199 Patient's noncompliance with other medical treatment and regimen due to unspecified reason
CPT/HCPCS: 36415; 36600; 71045; 74018; 76705; 76775; 80048; 80053; 80061; 80074; 80076; 80162; 80307; 81001; 82150; 82550; 82570; 82805; 82962; 83036; 83605; 83690; 83735; 83880; 84156; 84300; 84443; 84484; 85007; 85025; 85027; 85379; 85610; 85730; 87040; 87070; 87081; 87205; 87426; 87804; 90935; 92610; 93005; 93306; 94002; 94003; 94640; 97110; 97116; 97163; 97530; G0378; G9035; J0171; J0696; J1642; J1956; J2250; J2704; J3480; J3490; J7060; Q9956

== ENCOUNTER 2023-04-07 07:27 | Inpatient (IN) | payer MEDICARE, MEDICAID ==
[~2023-04-07] VITALS: Ht 180.3 cm; Wt 84.1 kg
[2023-04-07] VITALS (15 sets, daily range): BP systolic 99–105; BP diastolic 51–65; PULSE 84–118; RESP 16–32; TEMP 97.6–98; O2SAT 92–100
[~2023-04-07 07:27] MED LIST changes: +ALBU108A5 INH; -ALBU108A5 PO; +ALEN70TA74 PO; -AZIT500T66 PO; -FURO1TAB33 PO; +SACU1TAB PO; +TORS20TA19 PO
[2023-04-07 08:27] LABS: Basophils # (auto) 0.1 10 ^3/uL (0-0.2); Basophils % (auto) 0.9 % (0.0-2.0); Eosinophils # (auto) 0.1 10 ^3/uL (0-0.8); Eosinophils % (auto) 1.8 % (0.0-7.0); Hematocrit 39.3 % (41.0-53.0); Hemoglobin 12.9 g/dL (13.5-17.5); Lymphocytes % (auto) 13.9 % (10.0-50.0); Mean Corpuscular Hemoglobin 32.8 pg (28.0-32.0); Mean Corpuscular Hgb Conc. 32.8 g/dL (32.0-36.0); Monocytes # (auto) 0.6 10 ^3/uL (0-1.3); Monocytes % (auto) 7.7 % (0.0-12.0); Neutrophils # (auto) 5.7 10 ^3/uL (1.6-8.6); Neutrophils % (auto) 75.7 % (37.0-80.0); Nucleated Red Blood Cells % 0.1 %; Red Blood Cells 3.94 10^6/uL (4.5-5.90); Red Cell Distribution Width 14.7 % (11.8-14.3); White Blood Cell 7.5 10^3/uL (4.4-10.8)
[2023-04-07 08:46] LABS: Alanine Aminotransferase 59 U/L (7-40); Albumin 3.4 g/dL (3.2-4.8); Alkaline Phosphatase 254 U/L (46-116); Anion Gap 6 (5-15); Aspartate Aminotransferase 36 U/L (13-40); BUN/Creatinine Ratio 15.8 (10.0-20.0); Bilirubin, Total 0.7 mg/dL (0.2-1.0); Blood Urea Nitrogen 19 mg/dL (9-23); Calcium 7.8 mg/dL (8.7-10.4); Carbon Dioxide 33 mmol/L (20-30); Chloride 103 mmol/L (98-107); Glucose 97 mg/dL (74-106); Magnesium 1.1 mg/dL (1.6-2.6); Potassium 3.8 mmol/L (3.5-5.1); Sodium 142 mmol/L (136-145)
[2023-04-07 08:47] LABS: Total Protein 5.8 g/dL (5.7-8.2)
[2023-04-07] MEDS ORDERED: FUROSEMIDE 40 MG/4 ML VIAL IV ONE (09:15)
[2023-04-07 09:16] LABS: Base Excess 4.4 mmol/L (-2.0-2.0)
[2023-04-07] MEDS: APIXABAN 5 MG TAB PO SCH ×2 (09:26→21:09)
[2023-04-07 09:36] LABS: INR 1.01 (0.9-1.15); Partial Thromboplastin Time 20.8 SEC (24.5-34.5); Prothrombin Time 10.8 sec (9.3-11.8)
[2023-04-07 09:49] LABS: Urine WBC None Seen /hpf (0 - 3)
[2023-04-07 10:00] LABS: Urine Bacteria NONE SEEN /hpf (None Seen); Urine Blood Negative /uL (Negative); Urine Clarity Clear (Clear); Urine Protein, UAD Negative (Negative); Urine Specific Gravity 1.004 (1.001-1.035); Urine Urobilinogen Normal (Negative)
[2023-04-07 10:01] LABS: Urine Color Straw (Yellow)
[2023-04-07] MEDS ORDERED: IOHEXOL 350 MG/ML 100ML IJ ONE (10:09)
[2023-04-07 10:19] LABS: Rapid Influenza A Negative (Negative); Rapid Influenza B Negative (Negative)
[2023-04-07 10:20] LABS: COVID19 ANTIGEN SOFIA FIA NEGATIVE (NEGATIVE)
[2023-04-07] MEDS ORDERED: MORPHINE SULFATE INJ 2 MG/ml SYRG IV PRN (10:45)
[2023-04-07] MEDS ORDERED: ACETAMINOPHEN 325 MG TAB PO PRN (10:45)
[2023-04-07] MEDS ORDERED: NITROGLYCERIN 0.4 MG SL TAB SL PRN (10:45)
[2023-04-07] MEDS ORDERED: ALBUTEROL SULF 2.5 MG/0.5ML(0.5%) NEB SOLN NEB PRN (10:45)
[2023-04-07] MEDS ORDERED: Alendronate Sodium 70 MG PO SCH (10:45)
[2023-04-07] MEDS ORDERED: methylPREDNISolone SOD SUCC 125 MG/2 ML VL IV ONE (11:00)
[2023-04-07] MEDS: IPRATROPIUM BROM 0.5 MG/2.5ML INH SOL NEB SCH ×3 (14:03→22:24)
[2023-04-07] MEDS: ALBUTEROL SULF 2.5 MG/0.5ML(0.5%) NEB SOLN NEB SCH ×3 (14:03→22:24)
[2023-04-07] MEDS: SACUBITRIL-VALSARTAN 24mg/26mg TAB PO SCH (21:09)
[2023-04-07] MEDS: ATORVASTATIN 20 MG TAB PO SCH (21:09)
[2023-04-07] MEDS: methylPREDNISolone SOD SUCC 40 MG/ML VL IV SCH (21:09)
[2023-04-07] MEDS ORDERED: APIXABAN 5 MG TAB PO SCH (22:00)
[2023-04-07] MEDS ORDERED: LABETALOL HCL 5 MG/ML 4ML SYRINGE IV ONE (22:45)
[2023-04-07] MEDS ORDERED: dilTIAZem 25 MG/5 ML VIAL IV ONE (23:15)
[2023-04-08] VITALS (13 sets, daily range): BP systolic 78–101; BP diastolic 42–60; PULSE 75–115; RESP 16–20; TEMP 97.9–98.6; O2SAT 94–100
[2023-04-08] MEDS: IPRATROPIUM BROM 0.5 MG/2.5ML INH SOL NEB SCH ×4 (02:06→18:00)
[2023-04-08] MEDS: ALBUTEROL SULF 2.5 MG/0.5ML(0.5%) NEB SOLN NEB SCH ×4 (02:06→18:00)
[2023-04-08 07:29] LABS: Basophils # (auto) 0 10 ^3/uL (0-0.2); Eosinophils # (auto) 0 10 ^3/uL (0-0.8); Hematocrit 35.2 % (41.0-53.0); Hemoglobin 11.8 g/dL (13.5-17.5); Lymphocytes # (auto) 0.3 10 ^3/uL (0.4-5.4); Lymphocytes % (auto) 3.4 % (10.0-50.0); Mean Corpuscular Hemoglobin 33.1 pg (28.0-32.0); Mean Corpuscular Hgb Conc. 33.6 g/dL (32.0-36.0); Mean Corpuscular Volume 98.7 fL (80.0-100.0); Monocytes # (auto) 0.2 10 ^3/uL (0-1.3); Monocytes % (auto) 1.7 % (0.0-12.0); Neutrophils # (auto) 8.6 10 ^3/uL (1.6-8.6); Neutrophils % (auto) 94.9 % (37.0-80.0); Red Blood Cells 3.57 10^6/uL (4.5-5.90); Red Cell Distribution Width 14.3 % (11.8-14.3); White Blood Cell 9.1 10^3/uL (4.4-10.8)
[2023-04-08 07:30] LABS: Alanine Aminotransferase 48 U/L (7-40); Albumin 3.2 g/dL (3.2-4.8); Alkaline Phosphatase 222 U/L (46-116); Anion Gap 8 (5-15); Aspartate Aminotransferase 29 U/L (13-40); BUN/Creatinine Ratio 17.6 (10.0-20.0); Bilirubin, Total 0.6 mg/dL (0.2-1.0); Blood Urea Nitrogen 22 mg/dL (9-23); Calcium 7.9 mg/dL (8.7-10.4); Carbon Dioxide 31 mmol/L (20-30); Chloride 100 mmol/L (98-107); Glucose 134 mg/dL (74-106); Potassium 3.7 mmol/L (3.5-5.1); Sodium 139 mmol/L (136-145); Total Protein 5.6 g/dL (5.7-8.2)
[2023-04-08] MEDS: FUROSEMIDE 20 MG/2 ML VIAL IV SCH (10:00)
[2023-04-08] MEDS: METOPROLOL SUCCINATE XL 50 MG TAB PO SCH (10:00)
[2023-04-08] MEDS: SACUBITRIL-VALSARTAN 24mg/26mg TAB PO SCH ×2 (10:00→22:00)
[2023-04-08] MEDS: methylPREDNISolone SOD SUCC 40 MG/ML VL IV SCH ×2 (11:02→22:14)
[2023-04-08] MEDS: APIXABAN 5 MG TAB PO SCH ×2 (11:03→22:14)
[2023-04-08] MEDS: MAGNESIUM SULFATE 1GM/100ML 100 ML IV SCH ×2 (15:39→17:20)
[2023-04-08] MEDS: ATORVASTATIN 20 MG TAB PO SCH (22:14)
[2023-04-09] VITALS (9 sets, daily range): BP systolic 101–112; BP diastolic 49–63; PULSE 86–108; RESP 16–20; TEMP 97.9–98.7; O2SAT 94–100
[2023-04-09] MEDS: IPRATROPIUM BROM 0.5 MG/2.5ML INH SOL NEB SCH ×2 (06:11→11:21)
[2023-04-09] MEDS: ALBUTEROL SULF 2.5 MG/0.5ML(0.5%) NEB SOLN NEB SCH ×2 (06:11→11:22)
[2023-04-09 07:01] LABS: Chloride 103 mmol/L (98-107); Potassium 3.8 mmol/L (3.5-5.1); Sodium 140 mmol/L (136-145)
[2023-04-09 07:02] LABS: Anion Gap 5 (5-15); Carbon Dioxide 32 mmol/L (20-30)
[2023-04-09 07:03] LABS: Calcium 8.2 mg/dL (8.7-10.4)
[2023-04-09 07:07] LABS: Glucose 195 mg/dL (74-106)
[2023-04-09 07:08] LABS: BUN/Creatinine Ratio 17.2 (10.0-20.0); Blood Urea Nitrogen 20 mg/dL (9-23); Magnesium 1.9 mg/dL (1.6-2.6)
[2023-04-09] MEDS: METOPROLOL SUCCINATE XL 50 MG TAB PO SCH (09:39)
[2023-04-09] MEDS: APIXABAN 5 MG TAB PO SCH (09:39)
[2023-04-09] MEDS: methylPREDNISolone SOD SUCC 40 MG/ML VL IV SCH (09:39)
[2023-04-09] MEDS: SACUBITRIL-VALSARTAN 24mg/26mg TAB PO SCH (10:00)
[2023-04-09] MEDS: FUROSEMIDE 20 MG/2 ML VIAL IV SCH (11:39)
[2023-04-09] MEDS ORDERED: METH4PAK PO (14:16)
== END 2023-04-09 16:38 | disposition home or self-care (01) | DRG 190 ==
LOC: ER 07:27 → TELE 10:32 → TELE-WESTW 12:31
PROVIDERS: ADMIT Nurse Practitioner Family; ATTEND Nurse Practitioner Acute Care
DX: J44.1 Chronic obstructive pulmonary disease with (acute) exacerbation (principal); I50.43 Acute on chronic combined systolic (congestive) and diastolic (congestive) heart failure; J96.21 Acute and chronic respiratory failure with hypoxia; I11.0 Hypertensive heart disease with heart failure; I48.0 Paroxysmal atrial fibrillation; I27.20 Pulmonary hypertension, unspecified; I25.10 Atherosclerotic heart disease of native coronary artery without angina pectoris; E78.5 Hyperlipidemia, unspecified; Z20.822 Contact with and (suspected) exposure to COVID-19; Z90.49 Acquired absence of other specified parts of digestive tract; Z87.891 Personal history of nicotine dependence; Z86.74 Personal history of sudden cardiac arrest
CPT/HCPCS: 36415; 36600; 71045; 71275; 80048; 80053; 81001; 82805; 83605; 83735; 83880; 84484; 85025; 85379; 85610; 85730; 87040; 87081; 87426; 87804; 93005; 93970; 94640; G0378

== ENCOUNTER 2023-05-20 13:47 | Inpatient (IN) | payer MEDICARE, MEDICAID ==
[~2023-05-20] VITALS: Ht 177.8 cm; Wt 91.0 kg
[~2023-05-20 13:47] MED LIST changes: +METH4PAK PO
[2023-05-20 14:54] LABS: Basophils # (auto) 0.1 10 ^3/uL (0-0.2); Eosinophils # (auto) 0.1 10 ^3/uL (0-0.8); Eosinophils % (auto) 1.8 % (0.0-7.0); Hematocrit 41.2 % (41.0-53.0); Lymphocytes # (auto) 1.5 10 ^3/uL (0.4-5.4); Lymphocytes % (auto) 19.4 % (10.0-50.0); Mean Corpuscular Hemoglobin 33.2 pg (28.0-32.0); Mean Corpuscular Hgb Conc. 33.9 g/dL (32.0-36.0); Monocytes # (auto) 0.8 10 ^3/uL (0-1.3); Monocytes % (auto) 11.1 % (0.0-12.0); Neutrophils # (auto) 5.1 10 ^3/uL (1.6-8.6); Neutrophils % (auto) 66.7 % (37.0-80.0); Red Blood Cells 4.21 10^6/uL (4.5-5.90); Red Cell Distribution Width 14.5 % (11.8-14.3); White Blood Cell 7.6 10^3/uL (4.4-10.8)
[2023-05-20 15:08] LABS: Alanine Aminotransferase 22 U/L (7-40); Alkaline Phosphatase 95 U/L (46-116); Anion Gap 6 (5-15); Aspartate Aminotransferase 18 U/L (13-40); BUN/Creatinine Ratio 14.5 (10.0-20.0); Blood Urea Nitrogen 35 mg/dL (9-23); Calcium 9.9 mg/dL (8.5-10.1); Carbon Dioxide 33 mmol/L (20-30); Chloride 98 mmol/L (98-107); Glucose 95 mg/dL (74-106); Potassium 4.2 mmol/L (3.5-5.1); Sodium 137 mmol/L (136-145)
[2023-05-20 15:09] LABS: Bilirubin, Total 1.8 mg/dL (0.2-1.0)
[2023-05-20] MEDS ORDERED: MORPHINE SULFATE INJ 2 MG/ml SYRG IV PRN (18:00)
[2023-05-20] MEDS ORDERED: ACETAMINOPHEN 325 MG TAB PO PRN (18:00)
[2023-05-20] MEDS ORDERED: HYDROcodone-ACET 5/325MG TAB PO PRN (18:00)
[2023-05-20] MEDS ORDERED: DOCUSATE SOD 100 MG CAP PO PRN (18:00)
[2023-05-20] MEDS ORDERED: NITROGLYCERIN 0.4 MG SL TAB SL PRN (18:00)
[2023-05-20] MEDS ORDERED: ONDANSETRON HCL 4 MG/2 ML VIAL IV PRN (18:00)
[2023-05-20] MEDS: SODIUM CHLOR 0.9% PF (SALINE LOCK) 10ML VIAL/SYR IV SCH (22:16)
[2023-05-20] MEDS: SACUBITRIL-VALSARTAN 24mg/26mg TAB PO SCH (22:27)
[2023-05-20] MEDS: APIXABAN 5 MG TAB PO SCH (22:27)
[2023-05-20] MEDS: ATORVASTATIN 20 MG TAB PO SCH (22:27)
[2023-05-20] MEDS: MIDODRINE HCL 10 MG TAB PO SCH (22:27)
[2023-05-20] MEDS: PHENYLEPHRINE IV 250 ML IV SCH (22:30)
[2023-05-21 05:35] LABS: Basophils # (auto) 0.1 10 ^3/uL (0-0.2); Eosinophils # (auto) 0.2 10 ^3/uL (0-0.8); Eosinophils % (auto) 2.5 % (0.0-7.0); Hematocrit 40.4 % (41.0-53.0); Hemoglobin 13.5 g/dL (13.5-17.5); Lymphocytes # (auto) 1.4 10 ^3/uL (0.4-5.4); Lymphocytes % (auto) 20.5 % (10.0-50.0); Mean Corpuscular Hemoglobin 32.9 pg (28.0-32.0); Mean Corpuscular Hgb Conc. 33.5 g/dL (32.0-36.0); Mean Corpuscular Volume 98.4 fL (80.0-100.0); Monocytes # (auto) 0.6 10 ^3/uL (0-1.3); Monocytes % (auto) 8.8 % (0.0-12.0); Neutrophils # (auto) 4.7 10 ^3/uL (1.6-8.6); Neutrophils % (auto) 67.2 % (37.0-80.0); Nucleated Red Blood Cells % 0.1 %; Red Blood Cells 4.11 10^6/uL (4.5-5.90); Red Cell Distribution Width 14.8 % (11.8-14.3)
[2023-05-21 05:50] LABS: Alanine Aminotransferase 20 U/L (7-40); Alkaline Phosphatase 83 U/L (46-116); Anion Gap 8 (5-15); Calcium 9.3 mg/dL (8.5-10.1); Carbon Dioxide 30 mmol/L (20-30); Chloride 101 mmol/L (98-107); Glucose 121 mg/dL (74-106); Potassium 3.4 mmol/L (3.5-5.1); Sodium 139 mmol/L (136-145)
[2023-05-21 05:51] LABS: Albumin 3.5 g/dL (3.2-4.8); Aspartate Aminotransferase 17 U/L (13-40); Bilirubin, Total 1.9 mg/dL (0.2-1.0); Total Protein 5.6 g/dL (5.7-8.2)
[2023-05-21 06:12] LABS: Blood Urea Nitrogen 23 mg/dL (9-23)
[2023-05-21 07:45] VITALS: PULSE 94; RESP 16; O2SAT 96
[2023-05-21] MEDS: POTASSIUM EFFERVESENT TAB 25 MEQ PO ONE (08:48)
[2023-05-21 09:39] LABS: INR 1.21 (0.9-1.15); Partial Thromboplastin Time 29.7 SEC (24.5-34.5); Prothrombin Time 12.5 sec (9.3-11.8)
[2023-05-21] MEDS: NOREPINEPHRINE 8 MG/250ML KIT 250 ML IV SCH (10:42)
[2023-05-21] MEDS: FUROSEMIDE 20 MG TAB PO SCH (10:44)
[2023-05-21] MEDS: NOREPINEPHRINE 8 MG/250ML KIT 250 ML IV ONE (10:45)
[2023-05-21] MEDS: levoFLOXacin 750MG 150 ML IV ONE (11:19)
[2023-05-21] MEDS: SODIUM CHLORIDE 0.9% 1,000 ML IV ONE (11:20)
[2023-05-21 11:55] LABS: Urine Bacteria NONE SEEN /hpf (None Seen); Urine Blood Negative /uL (Negative); Urine Clarity Clear (Clear); Urine Color Colorless (Yellow); Urine Protein, UAD Negative (Negative); Urine Urobilinogen Normal (Negative); Urine WBC <1 /hpf (0 - 3); Urine pH 6.5 (5.0-8.0)
[2023-05-21 12:22] LABS: Amphetamine Screen, Urine Pos (NEGATIVE)
[2023-05-21 12:23] LABS: Barbiturate Scree,Urine Neg (NEGATIVE); Benzodiazephine Screen, Urine Neg (NEGATIVE); Cannabinoid Screen, Urine Neg (NEGATIVE); Cocaine Screen, Urine Neg (NEGATIVE); Opiate Scree,Urine Neg (NEGATIVE); Phencyclidine Screen, Urine Neg (NEGATIVE)
[2023-05-21] MEDS: PIPERACILLIN-TAZOB 3.375GM 100 ML IV SCH (14:34)
[2023-05-21] MEDS: LIDOCAINE 1% (LOCAL ANESTH.) PF 5ml SDV ID ONE (18:53)
[2023-05-21 19:45] VITALS: PULSE 85; RESP 17; O2SAT 97
[2023-05-21] MEDS: SODIUM CHLOR 0.9% PF (SALINE LOCK) 10ML VIAL/SYR IV SCH (22:01)
[2023-05-22] MEDS: DOXYCYCLINE 100MG/250ML 250 ML IV SCH (01:02)
[2023-05-22 05:42] LABS: Basophils # (auto) 0.1 10 ^3/uL (0-0.2); Basophils % (auto) 1.1 % (0.0-2.0); Eosinophils # (auto) 0.1 10 ^3/uL (0-0.8); Eosinophils % (auto) 1.9 % (0.0-7.0); Hematocrit 38.5 % (41.0-53.0); Hemoglobin 13.2 g/dL (13.5-17.5); Lymphocytes # (auto) 1.4 10 ^3/uL (0.4-5.4); Lymphocytes % (auto) 18.5 % (10.0-50.0); Mean Corpuscular Hemoglobin 33.3 pg (28.0-32.0); Mean Corpuscular Hgb Conc. 34.2 g/dL (32.0-36.0); Mean Corpuscular Volume 97.2 fL (80.0-100.0); Monocytes # (auto) 0.9 10 ^3/uL (0-1.3); Neutrophils # (auto) 5.1 10 ^3/uL (1.6-8.6); Neutrophils % (auto) 66.5 % (37.0-80.0); Red Blood Cells 3.96 10^6/uL (4.5-5.90); Red Cell Distribution Width 14.5 % (11.8-14.3); White Blood Cell 7.6 10^3/uL (4.4-10.8)
[2023-05-22 05:57] LABS: Anion Gap 5 (5-15); Carbon Dioxide 30 mmol/L (20-30); Chloride 105 mmol/L (98-107); Potassium 3.8 mmol/L (3.5-5.1); Sodium 140 mmol/L (136-145)
[2023-05-22 05:58] LABS: Calcium 8.9 mg/dL (8.7-10.4)
[2023-05-22 06:02] LABS: Glucose 112 mg/dL (74-106)
[2023-05-22 06:03] LABS: BUN/Creatinine Ratio 11.6 (10.0-20.0); Blood Urea Nitrogen 20 mg/dL (9-23)
[2023-05-22 07:45] VITALS: PULSE 108; RESP 19; O2SAT 96
[2023-05-22] MEDS ORDERED: AZITHROMYCIN 500MG/ 250ML 250 ML IV SCH (10:00)
[2023-05-22] MEDS ORDERED: EMPAGLIFLOZIN 10 MG TAB PO SCH (10:00)
[2023-05-22] MEDS: DOBUTamine 1000MCG/ML 250 ML IV SCH (10:49)
[2023-05-22 19:25] VITALS: PULSE 88; RESP 16; O2SAT 98
[2023-05-23 06:32] LABS: Chloride 106 mmol/L (98-107); Potassium 3.8 mmol/L (3.5-5.1); Sodium 141 mmol/L (136-145)
[2023-05-23 06:33] LABS: Anion Gap 6 (5-15); Calcium 8.8 mg/dL (8.7-10.4); Carbon Dioxide 29 mmol/L (20-30)
[2023-05-23 06:38] LABS: BUN/Creatinine Ratio 6.2 (10.0-20.0); Glucose 110 mg/dL (74-106)
[2023-05-23 06:40] LABS: Blood Urea Nitrogen 9 mg/dL (9-23)
[2023-05-23 07:40] VITALS: PULSE 86; RESP 17; O2SAT 96
[2023-05-23 07:50] LABS: Basophils # (auto) 0.1 10 ^3/uL (0-0.2); Basophils % (auto) 1.1 % (0.0-2.0); Eosinophils # (auto) 0.2 10 ^3/uL (0-0.8); Eosinophils % (auto) 2.5 % (0.0-7.0); Hematocrit 38.3 % (41.0-53.0); Hemoglobin 12.9 g/dL (13.5-17.5); Lymphocytes # (auto) 1.2 10 ^3/uL (0.4-5.4); Lymphocytes % (auto) 18.7 % (10.0-50.0); Mean Corpuscular Hemoglobin 33.3 pg (28.0-32.0); Mean Corpuscular Hgb Conc. 33.6 g/dL (32.0-36.0); Monocytes # (auto) 0.6 10 ^3/uL (0-1.3); Neutrophils # (auto) 4.4 10 ^3/uL (1.6-8.6); Neutrophils % (auto) 67.7 % (37.0-80.0); Red Blood Cells 3.86 10^6/uL (4.5-5.90); Red Cell Distribution Width 14.7 % (11.8-14.3); White Blood Cell 6.4 10^3/uL (4.4-10.8)
[2023-05-23 19:30] VITALS: PULSE 80; RESP 18; O2SAT 98
[2023-05-24] VITALS (7 sets, daily range): BP systolic 92; BP diastolic 56; PULSE 80–96; RESP 12–20; O2SAT 96–100
[2023-05-24 05:34] LABS: Chloride 106 mmol/L (98-107); Potassium 3.6 mmol/L (3.5-5.1); Sodium 141 mmol/L (136-145)
[2023-05-24 05:35] LABS: Anion Gap 4 (5-15); Carbon Dioxide 31 mmol/L (20-30)
[2023-05-24 05:40] LABS: Blood Urea Nitrogen 12 mg/dL (9-23); Glucose 105 mg/dL (74-106)
[2023-05-24 05:41] LABS: Magnesium 1.9 mg/dL (1.6-2.6)
[2023-05-24 05:46] LABS: Basophils # (auto) 0.1 10 ^3/uL (0-0.2); Basophils % (auto) 1.1 % (0.0-2.0); Eosinophils # (auto) 0.3 10 ^3/uL (0-0.8); Hematocrit 37.1 % (41.0-53.0); Hemoglobin 12.6 g/dL (13.5-17.5); Lymphocytes # (auto) 1.4 10 ^3/uL (0.4-5.4); Mean Corpuscular Hemoglobin 33.5 pg (28.0-32.0); Mean Corpuscular Hgb Conc. 33.9 g/dL (32.0-36.0); Mean Corpuscular Volume 98.8 fL (80.0-100.0); Monocytes # (auto) 0.7 10 ^3/uL (0-1.3); Monocytes % (auto) 9.4 % (0.0-12.0); Neutrophils # (auto) 4.7 10 ^3/uL (1.6-8.6); Neutrophils % (auto) 65.5 % (37.0-80.0); Red Blood Cells 3.75 10^6/uL (4.5-5.90); Red Cell Distribution Width 14.6 % (11.8-14.3); White Blood Cell 7.1 10^3/uL (4.4-10.8)
[2023-05-24 08:39] LABS: COVID19 ANTIGEN SOFIA FIA NEGATIVE (NEGATIVE); Rapid Influenza A Negative (Negative); Rapid Influenza B Negative (Negative)
[2023-05-24] MEDS: SODIUM CHLORIDE 0.9% 1,000 ML IV ONE (09:24)
[2023-05-24] MEDS ORDERED: EMPAGLIFLOZIN 10 MG TAB PO SCH (10:00)
[2023-05-24] MEDS: IPRATROPIUM BROM 0.5 MG/2.5ML INH SOL NEB SCH (12:00)
[2023-05-25] VITALS (44 sets, daily range): BP systolic 84–115; BP diastolic 45–77; PULSE 79–110; RESP 11–33; TEMP 36.5; O2SAT 94–100
[2023-05-25 05:30] LABS: Basophils # (auto) 0.1 10 ^3/uL (0-0.2); Basophils % (auto) 0.8 % (0.0-2.0); Eosinophils # (auto) 0.3 10 ^3/uL (0-0.8); Eosinophils % (auto) 4.1 % (0.0-7.0); Hematocrit 38.2 % (41.0-53.0); Lymphocytes # (auto) 1.3 10 ^3/uL (0.4-5.4); Lymphocytes % (auto) 18.9 % (10.0-50.0); Mean Corpuscular Hemoglobin 33.2 pg (28.0-32.0); Mean Corpuscular Hgb Conc. 33.9 g/dL (32.0-36.0); Mean Corpuscular Volume 97.8 fL (80.0-100.0); Monocytes # (auto) 0.7 10 ^3/uL (0-1.3); Monocytes % (auto) 9.7 % (0.0-12.0); Neutrophils # (auto) 4.6 10 ^3/uL (1.6-8.6); Neutrophils % (auto) 66.5 % (37.0-80.0); Nucleated Red Blood Cells % 0.1 %; Red Cell Distribution Width 14.7 % (11.8-14.3); White Blood Cell 6.9 10^3/uL (4.4-10.8)
[2023-05-25 05:45] LABS: Alanine Aminotransferase 13 U/L (7-40); Alkaline Phosphatase 72 U/L (46-116); Anion Gap 7 (5-15); BUN/Creatinine Ratio 9.6 (10.0-20.0); Blood Urea Nitrogen 13 mg/dL (9-23); Calcium 9.4 mg/dL (8.5-10.1); Carbon Dioxide 29 mmol/L (20-30); Chloride 106 mmol/L (98-107); Glucose 94 mg/dL (74-106); LDL Cholesterol 89 mg/dL (< 100); Potassium 3.8 mmol/L (3.5-5.1); Sodium 142 mmol/L (136-145); Triglycerides 73 mg/dL (< 150)
[2023-05-25 05:46] LABS: Albumin 3.4 g/dL (3.2-4.8); Aspartate Aminotransferase 19 U/L (13-40); Bilirubin, Total 1.8 mg/dL (0.2-1.0); Cholesterol 137 mg/dL (< 200); HDL Cholesterol 38 mg/dL (40-59); Total Protein 5.3 g/dL (5.7-8.2)
[2023-05-25 06:07] LABS: Magnesium 1.9 mg/dL (1.6-2.6)
[2023-05-25 14:41] LABS: Protein, Urine 11.1 mg/dL (0.0-11.9)
[2023-05-25 14:44] LABS: Creatinine, Urine 84.31 mg/dL (30.0-125.0); Urine Protein/Creatinine Ratio 0.13
[2023-05-25] MEDS: PIPERACILLIN-TAZOB 3.375GM 100 ML IV SCH (16:50)
[2023-05-25] MEDS: DOXYCYCLINE 100MG/250ML 250 ML IV SCH (21:49)
[2023-05-26] VITALS (97 sets, daily range): BP systolic 63–148; BP diastolic 38–106; PULSE 68–149; RESP 11–53; TEMP 98.1–98.4; O2SAT 86–100
[2023-05-26 07:43] LABS: Chloride 108 mmol/L (98-107); Potassium 3.7 mmol/L (3.5-5.1); Sodium 142 mmol/L (136-145)
[2023-05-26 07:44] LABS: Anion Gap 5 (5-15); Carbon Dioxide 29 mmol/L (20-30)
[2023-05-26 07:45] LABS: Calcium 8.9 mg/dL (8.7-10.4)
[2023-05-26 07:48] LABS: Basophils # (auto) 0.1 10 ^3/uL (0-0.2); Basophils % (auto) 1.1 % (0.0-2.0); Eosinophils # (auto) 0.2 10 ^3/uL (0-0.8); Eosinophils % (auto) 3.8 % (0.0-7.0); Hematocrit 37.4 % (41.0-53.0); Hemoglobin 12.7 g/dL (13.5-17.5); Lymphocytes # (auto) 1.2 10 ^3/uL (0.4-5.4); Lymphocytes % (auto) 19.8 % (10.0-50.0); Mean Corpuscular Hemoglobin 33.3 pg (28.0-32.0); Mean Corpuscular Hgb Conc. 34.1 g/dL (32.0-36.0); Mean Corpuscular Volume 97.7 fL (80.0-100.0); Monocytes # (auto) 0.6 10 ^3/uL (0-1.3); Monocytes % (auto) 9.5 % (0.0-12.0); Neutrophils # (auto) 3.9 10 ^3/uL (1.6-8.6); Neutrophils % (auto) 65.8 % (37.0-80.0); Red Blood Cells 3.82 10^6/uL (4.5-5.90); Red Cell Distribution Width 14.7 % (11.8-14.3); White Blood Cell 5.9 10^3/uL (4.4-10.8)
[2023-05-26 07:49] LABS: Glucose 85 mg/dL (74-106)
[2023-05-26 07:50] LABS: BUN/Creatinine Ratio 8.7 (10.0-20.0); Blood Urea Nitrogen 11 mg/dL (9-23); Magnesium 1.9 mg/dL (1.6-2.6)
[2023-05-26] MEDS: ERGOCALCIFEROL 50,000 UNIT(1.25MG) CAP PO SCH (10:22)
[2023-05-26] MEDS: NOREPINEPHRINE 8 MG/250ML KIT 250 ML IV SCH (16:51)
[2023-05-26] MEDS: MIDODRINE HCL 10 MG TAB PO SCH (21:25)
[2023-05-27] VITALS (71 sets, daily range): BP systolic 79–118; BP diastolic 42–81; PULSE 68–135; RESP 10–25; TEMP 98.3–98.7; O2SAT 91–100
[2023-05-27 06:03] LABS: Basophils # (auto) 0.1 10 ^3/uL (0-0.2); Basophils % (auto) 1.3 % (0.0-2.0); Eosinophils # (auto) 0.2 10 ^3/uL (0-0.8); Eosinophils % (auto) 4.1 % (0.0-7.0); Hematocrit 38.5 % (41.0-53.0); Hemoglobin 13.2 g/dL (13.5-17.5); Lymphocytes # (auto) 1.3 10 ^3/uL (0.4-5.4); Lymphocytes % (auto) 22.2 % (10.0-50.0); Mean Corpuscular Hemoglobin 33.7 pg (28.0-32.0); Mean Corpuscular Hgb Conc. 34.2 g/dL (32.0-36.0); Mean Corpuscular Volume 98.5 fL (80.0-100.0); Monocytes # (auto) 0.6 10 ^3/uL (0-1.3); Monocytes % (auto) 9.9 % (0.0-12.0); Neutrophils # (auto) 3.5 10 ^3/uL (1.6-8.6); Neutrophils % (auto) 62.5 % (37.0-80.0); Nucleated Red Blood Cells % 0.1 %; Red Blood Cells 3.91 10^6/uL (4.5-5.90); Red Cell Distribution Width 14.7 % (11.8-14.3); White Blood Cell 5.7 10^3/uL (4.4-10.8)
[2023-05-27 06:12] LABS: Chloride 106 mmol/L (98-107); Potassium 3.7 mmol/L (3.5-5.1); Sodium 141 mmol/L (136-145)
[2023-05-27 06:13] LABS: Anion Gap 7 (5-15); Calcium 9.2 mg/dL (8.7-10.4); Carbon Dioxide 28 mmol/L (20-30)
[2023-05-27 06:18] LABS: BUN/Creatinine Ratio 9.5 (10.0-20.0); Blood Urea Nitrogen 12 mg/dL (9-23); Glucose 75 mg/dL (74-106)
[2023-05-27 06:19] LABS: Magnesium 2.2 mg/dL (1.6-2.6)
[2023-05-27] MEDS ORDERED: NOREPINEPHRINE BITARTRATE 32 MG in SODIUM CHL 0.9% 218 ML IV SCH (19:45)
[2023-05-28] VITALS (105 sets, daily range): BP systolic 76–121; BP diastolic 43–84; PULSE 69–138; RESP 11–35; TEMP 97.9–98.8; O2SAT 73–100
[2023-05-28 09:42] LABS: Basophils # (auto) 0.1 10 ^3/uL (0-0.2); Basophils % (auto) 1.3 % (0.0-2.0); Eosinophils # (auto) 0.2 10 ^3/uL (0-0.8); Eosinophils % (auto) 4.3 % (0.0-7.0); Hematocrit 38.4 % (41.0-53.0); Hemoglobin 12.7 g/dL (13.5-17.5); Lymphocytes # (auto) 0.9 10 ^3/uL (0.4-5.4); Lymphocytes % (auto) 19.9 % (10.0-50.0); Mean Corpuscular Hemoglobin 33.2 pg (28.0-32.0); Mean Corpuscular Hgb Conc. 33.1 g/dL (32.0-36.0); Mean Corpuscular Volume 100.4 fL (80.0-100.0); Monocytes # (auto) 0.4 10 ^3/uL (0-1.3); Monocytes % (auto) 8.9 % (0.0-12.0); Neutrophils # (auto) 3.1 10 ^3/uL (1.6-8.6); Neutrophils % (auto) 65.6 % (37.0-80.0); Nucleated Red Blood Cells % 0.1 %; Red Blood Cells 3.83 10^6/uL (4.5-5.90); Red Cell Distribution Width 14.6 % (11.8-14.3); White Blood Cell 4.7 10^3/uL (4.4-10.8)
[2023-05-28 09:57] LABS: BUN/Creatinine Ratio 6.9 (10.0-20.0); Blood Urea Nitrogen 8 mg/dL (9-23); Glucose 148 mg/dL (74-106)
[2023-05-28 09:58] LABS: Magnesium 2.1 mg/dL (1.6-2.6)
[2023-05-28 09:59] LABS: Chloride 109 mmol/L (98-107); Potassium 3.8 mmol/L (3.5-5.1); Sodium 138 mmol/L (136-145)
[2023-05-28 10:02] LABS: Anion Gap 5 (5-15); Calcium 8.6 mg/dL (8.7-10.4); Carbon Dioxide 24 mmol/L (20-30)
[2023-05-28] MEDS ORDERED: ACETAMINOPHEN 325 MG TAB PO PRN (18:45)
[2023-05-29] VITALS (28 sets, daily range): BP systolic 77–102; BP diastolic 40–68; PULSE 76–143; RESP 12–26; TEMP 97.5–98; O2SAT 90–100
[2023-05-29 04:58] LABS: Basophils # (auto) 0.1 10 ^3/uL (0-0.2); Basophils % (auto) 1.5 % (0.0-2.0); Eosinophils # (auto) 0.2 10 ^3/uL (0-0.8); Eosinophils % (auto) 3.5 % (0.0-7.0); Hematocrit 37.3 % (41.0-53.0); Hemoglobin 12.6 g/dL (13.5-17.5); Lymphocytes # (auto) 1.2 10 ^3/uL (0.4-5.4); Lymphocytes % (auto) 23.3 % (10.0-50.0); Mean Corpuscular Hemoglobin 33.4 pg (28.0-32.0); Mean Corpuscular Hgb Conc. 33.6 g/dL (32.0-36.0); Mean Corpuscular Volume 99.4 fL (80.0-100.0); Monocytes # (auto) 0.6 10 ^3/uL (0-1.3); Monocytes % (auto) 10.8 % (0.0-12.0); Neutrophils # (auto) 3.2 10 ^3/uL (1.6-8.6); Neutrophils % (auto) 60.9 % (37.0-80.0); Nucleated Red Blood Cells % 0.1 %; Red Blood Cells 3.75 10^6/uL (4.5-5.90); Red Cell Distribution Width 15.1 % (11.8-14.3); White Blood Cell 5.2 10^3/uL (4.4-10.8)
[2023-05-29 05:09] LABS: Chloride 107 mmol/L (98-107); Potassium 4.1 mmol/L (3.5-5.1); Sodium 141 mmol/L (136-145)
[2023-05-29 05:10] LABS: Anion Gap 5 (5-15); Carbon Dioxide 29 mmol/L (20-30)
[2023-05-29 05:15] LABS: Glucose 82 mg/dL (74-106)
[2023-05-29 05:16] LABS: BUN/Creatinine Ratio 9.8 (10.0-20.0); Blood Urea Nitrogen 13 mg/dL (9-23); Magnesium 2.1 mg/dL (1.6-2.6)
[2023-05-29] MEDS: DIGOXIN (250MCG/ML) 2 ML AMPULE IV ONE (10:45)
[2023-05-30] VITALS (17 sets, daily range): BP systolic 95–104; BP diastolic 57–67; PULSE 79–100; RESP 14–20; TEMP 97.8–98.4; O2SAT 90–99
[2023-05-30 05:24] LABS: Basophils # (auto) 0.1 10 ^3/uL (0-0.2); Basophils % (auto) 1.2 % (0.0-2.0); Eosinophils # (auto) 0.2 10 ^3/uL (0-0.8); Eosinophils % (auto) 3.8 % (0.0-7.0); Hematocrit 36.3 % (41.0-53.0); Hemoglobin 12.1 g/dL (13.5-17.5); Lymphocytes # (auto) 1.1 10 ^3/uL (0.4-5.4); Lymphocytes % (auto) 24.5 % (10.0-50.0); Mean Corpuscular Hemoglobin 32.8 pg (28.0-32.0); Mean Corpuscular Hgb Conc. 33.2 g/dL (32.0-36.0); Mean Corpuscular Volume 98.7 fL (80.0-100.0); Monocytes # (auto) 0.5 10 ^3/uL (0-1.3); Monocytes % (auto) 10.9 % (0.0-12.0); Neutrophils # (auto) 2.8 10 ^3/uL (1.6-8.6); Neutrophils % (auto) 59.6 % (37.0-80.0); Nucleated Red Blood Cells % 0.1 %; Red Blood Cells 3.68 10^6/uL (4.5-5.90); Red Cell Distribution Width 15.5 % (11.8-14.3); White Blood Cell 4.7 10^3/uL (4.4-10.8)
[2023-05-30 05:36] LABS: Anion Gap 3 (5-15); Carbon Dioxide 30 mmol/L (20-30); Chloride 109 mmol/L (98-107); Potassium 3.7 mmol/L (3.5-5.1); Sodium 142 mmol/L (136-145)
[2023-05-30 05:37] LABS: Calcium 8.8 mg/dL (8.7-10.4)
[2023-05-30 05:42] LABS: Blood Urea Nitrogen 11 mg/dL (9-23); Glucose 74 mg/dL (74-106); Magnesium 2.1 mg/dL (1.6-2.6)
[2023-05-30] MEDS: DIGOXIN 0.125 MG TAB PO SCH (10:03)
[2023-05-31] VITALS (10 sets, daily range): BP systolic 100–106; BP diastolic 58–72; PULSE 85–106; RESP 14–19; TEMP 97.9–98; O2SAT 91–99
[2023-05-31 06:45] LABS: Basophils # (auto) 0.1 10 ^3/uL (0-0.2); Basophils % (auto) 1.7 % (0.0-2.0); Eosinophils # (auto) 0.2 10 ^3/uL (0-0.8); Eosinophils % (auto) 3.5 % (0.0-7.0); Hematocrit 36.6 % (41.0-53.0); Hemoglobin 12.2 g/dL (13.5-17.5); Lymphocytes # (auto) 1.2 10 ^3/uL (0.4-5.4); Lymphocytes % (auto) 25.5 % (10.0-50.0); Mean Corpuscular Hgb Conc. 33.3 g/dL (32.0-36.0); Monocytes # (auto) 0.5 10 ^3/uL (0-1.3); Neutrophils # (auto) 2.8 10 ^3/uL (1.6-8.6); Neutrophils % (auto) 58.3 % (37.0-80.0); Red Cell Distribution Width 15.4 % (11.8-14.3); White Blood Cell 4.8 10^3/uL (4.4-10.8)
[2023-05-31 07:08] LABS: Chloride 109 mmol/L (98-107); Potassium 3.7 mmol/L (3.5-5.1); Sodium 143 mmol/L (136-145)
[2023-05-31 07:09] LABS: Anion Gap 5 (5-15); Calcium 9.1 mg/dL (8.7-10.4); Carbon Dioxide 29 mmol/L (20-30)
[2023-05-31 07:14] LABS: Glucose 82 mg/dL (74-106)
[2023-05-31 07:15] LABS: BUN/Creatinine Ratio 9.1 (10.0-20.0); Blood Urea Nitrogen 10 mg/dL (9-23); Magnesium 2.1 mg/dL (1.6-2.6)
[2023-05-31] MEDS ORDERED: DIGO1TAB48 PO (13:52)
[2023-05-31] MEDS ORDERED: MIDO2.5T15 PO (13:52)
[2023-05-31] MEDS ORDERED: EMPA1TAB PO (14:11)
== END 2023-05-31 15:25 | disposition home or self-care (01) | DRG 871 ==
LOC: ER 13:47 → TELE 17:56 → ICU CENTRL 05-25 14:00 → TELE-WESTW 05-29 14:34
PROVIDERS: ADMIT Internal Medicine; ATTEND Internal Medicine
PROC: 02HV33Z Insertion of Infusion Device into Superior Vena Cava, Percutaneous Approach (ICD-10-PCS; principal; 2023-05-21)
PROC: B548ZZA Ultrasonography of Superior Vena Cava, Guidance (ICD-10-PCS; 2023-05-21)
DX: A41.9 Sepsis, unspecified organism (principal); I50.23 Acute on chronic systolic (congestive) heart failure; J69.0 Pneumonitis due to inhalation of food and vomit; R57.0 Cardiogenic shock; R65.21 Severe sepsis with septic shock; I13.0 Hypertensive heart and chronic kidney disease with heart failure and stage 1 through stage 4 chronic kidney disease, or unspecified chronic kidney disease; N17.9 Acute kidney failure, unspecified; Z20.822 Contact with and (suspected) exposure to COVID-19; E78.5 Hyperlipidemia, unspecified; J44.9 Chronic obstructive pulmonary disease, unspecified; E55.9 Vitamin D deficiency, unspecified; R07.89 Other chest pain; F17.210 Nicotine dependence, cigarettes, uncomplicated; N18.2 Chronic kidney disease, stage 2 (mild); F15.10 Other stimulant abuse, uncomplicated; E87.6 Hypokalemia; I48.91 Unspecified atrial fibrillation; Z91.199 Patient's noncompliance with other medical treatment and regimen due to unspecified reason; Z86.74 Personal history of sudden cardiac arrest; Z79.01 Long term (current) use of anticoagulants; Z90.49 Acquired absence of other specified parts of digestive tract
CPT/HCPCS: 36415; 36569; 71045; 71046; 76775; 80048; 80053; 80061; 80307; 81001; 82024; 82306; 82533; 82570; 82607; 83605; 83735; 83880; 83970; 84100; 84156; 84300; 84443; 84484; 85025; 85610; 85730; 87040; 87070; 87081; 87205; 87426; 87804; 93005; 93306; 94640; G0378; J1956; J2543; J3490

== ENCOUNTER 2023-07-19 00:40 | Inpatient (IN) | payer MEDICARE, MEDICAID ==
[~2023-07-19] VITALS: Ht 177.8 cm; Wt 86.7 kg
[2023-07-19] VITALS (13 sets, daily range): BP systolic 85–105; BP diastolic 58–59; PULSE 78–116; RESP 16–22; TEMP 98.2–98.5; O2SAT 91–96
[~2023-07-19 00:40] MED LIST changes: +DIGO1TAB48 PO; +EMPA1TAB PO; -METH4PAK PO; -METO-6 PO; +MIDO2.5T15 PO; -SACU1TAB PO
[2023-07-19] MEDS: ALBUTEROL SULF 2.5 MG/0.5ML(0.5%) NEB SOLN NEB ONE (01:10)
[2023-07-19] MEDS: IPRATROPIUM BROM 0.5 MG/2.5ML INH SOL NEB ONE (01:10)
[2023-07-19] MEDS: BUDESONIDE (INHALATION) 0.5 MG/2 ML NEB NEB ONE (01:10)
[2023-07-19] MEDS: DexAMETHasone SOD PHOS 10MG/1ML VIAL INJ IV ONE (01:13)
[2023-07-19] MEDS: MAGNESIUM SULFATE 1GM/100ML 100 ML IV SCH (01:21)
[2023-07-19 01:56] LABS: Basophils # (auto) 0.1 10 ^3/uL (0-0.2); Basophils % (auto) 1.4 % (0.0-2.0); Eosinophils # (auto) 0.5 10 ^3/uL (0-0.8); Eosinophils % (auto) 8.8 % (0.0-7.0); Hematocrit 48.6 % (41.0-53.0); Hemoglobin 16.1 g/dL (13.5-17.5); Lymphocytes # (auto) 1.3 10 ^3/uL (0.4-5.4); Lymphocytes % (auto) 22.4 % (10.0-50.0); Mean Corpuscular Hemoglobin 32.6 pg (28.0-32.0); Mean Corpuscular Volume 98.7 fL (80.0-100.0); Monocytes # (auto) 0.6 10 ^3/uL (0-1.3); Monocytes % (auto) 9.8 % (0.0-12.0); Neutrophils # (auto) 3.3 10 ^3/uL (1.6-8.6); Neutrophils % (auto) 57.6 % (37.0-80.0); Nucleated Red Blood Cells % 0.1 %; Red Blood Cells 4.93 10^6/uL (4.5-5.90); Red Cell Distribution Width 13.5 % (11.8-14.3); White Blood Cell 5.8 10^3/uL (4.4-10.8)
[2023-07-19 01:58] LABS: Base Excess 6.7 mmol/L (-2.0-2.0)
[2023-07-19 02:18] LABS: Alanine Aminotransferase 18 U/L (7-40); Albumin 4.3 g/dL (3.2-4.8); Alkaline Phosphatase 109 U/L (46-116); Anion Gap 5 (5-15); Aspartate Aminotransferase 18 U/L (13-40); BUN/Creatinine Ratio 6.6 (10.0-20.0); Bilirubin, Total 1.5 mg/dL (0.2-1.0); Blood Urea Nitrogen 9 mg/dL (9-23); Calcium 10.2 mg/dL (8.7-10.4); Carbon Dioxide 37 mmol/L (20-30); Chloride 99 mmol/L (98-107); Glucose 121 mg/dL (74-106); Potassium 3.7 mmol/L (3.5-5.1); Sodium 141 mmol/L (136-145); Total Protein 7.5 g/dL (5.7-8.2)
[2023-07-19] MEDS ORDERED: HYDROcodone-ACET 5/325MG TAB PO PRN (05:15)
[2023-07-19] MEDS ORDERED: ONDANSETRON HCL 4 MG/2 ML VIAL IV PRN (05:15)
[2023-07-19] MEDS ORDERED: DOCUSATE SOD 100 MG CAP PO PRN (05:15)
[2023-07-19] MEDS ORDERED: ACETAMINOPHEN 325 MG TAB PO PRN (05:15)
[2023-07-19 05:47] LABS: Basophils # (auto) 0 10 ^3/uL (0-0.2); Basophils % (auto) 0.6 % (0.0-2.0); Eosinophils # (auto) 0 10 ^3/uL (0-0.8); Eosinophils % (auto) 0.4 % (0.0-7.0); Hematocrit 45.7 % (41.0-53.0); Hemoglobin 15.5 g/dL (13.5-17.5); Lymphocytes # (auto) 0.2 10 ^3/uL (0.4-5.4); Lymphocytes % (auto) 4.6 % (10.0-50.0); Mean Corpuscular Hemoglobin 33.6 pg (28.0-32.0); Mean Corpuscular Volume 98.9 fL (80.0-100.0); Monocytes # (auto) 0.1 10 ^3/uL (0-1.3); Monocytes % (auto) 1.2 % (0.0-12.0); Neutrophils % (auto) 93.2 % (37.0-80.0); Nucleated Red Blood Cells % 0.1 %; Red Blood Cells 4.62 10^6/uL (4.5-5.90); Red Cell Distribution Width 13.2 % (11.8-14.3); White Blood Cell 5.4 10^3/uL (4.4-10.8)
[2023-07-19] MEDS: SODIUM CHLOR 0.9% PF (SALINE LOCK) 10ML VIAL/SYR IV SCH (05:53)
[2023-07-19 05:54] LABS: Alanine Aminotransferase 16 U/L (7-40); Albumin 4.1 g/dL (3.2-4.8); Alkaline Phosphatase 105 U/L (46-116); Anion Gap 7 (5-15); Aspartate Aminotransferase 19 U/L (13-40); BUN/Creatinine Ratio 6.9 (10.0-20.0); Blood Urea Nitrogen 9 mg/dL (9-23); Carbon Dioxide 33 mmol/L (20-30); Chloride 99 mmol/L (98-107); Glucose 124 mg/dL (74-106); Potassium 3.7 mmol/L (3.5-5.1); Sodium 139 mmol/L (136-145)
[2023-07-19 05:55] LABS: Bilirubin, Total 1.6 mg/dL (0.2-1.0); Total Protein 7.1 g/dL (5.7-8.2)
[2023-07-19] MEDS ORDERED: NITROGLYCERIN 0.4 MG SL TAB SL PRN (06:00)
[2023-07-19] MEDS ORDERED: MORPHINE SULFATE INJ 2 MG/ml SYRG IV PRN (06:00)
[2023-07-19] MEDS: ALBUTEROL SULF 2.5 MG/0.5ML(0.5%) NEB SOLN NEB PRN (10:15)
[2023-07-19] MEDS: IPRATROPIUM BROM 0.5 MG/2.5ML INH SOL NEB PRN (10:15)
[2023-07-19] MEDS ORDERED: ALBUTEROL SULF 2.5 MG/0.5ML(0.5%) NEB SOLN NEB PRN (10:30)
[2023-07-19] MEDS: APIXABAN 5 MG TAB PO SCH (10:39)
[2023-07-19] MEDS: methylPREDNISolone SOD SUCC 40 MG/ML VL IV SCH ×2 (10:40→22:05)
[2023-07-19] MEDS: FAMOTIDINE (10MG/ML) 2ML VL IV SCH (10:40)
[2023-07-19 10:54] LABS: Urine Bacteria None Seen /hpf (None Seen); Urine WBC None Seen /hpf (0 - 3)
[2023-07-19 11:36] LABS: Urine Blood Negative /uL (Negative); Urine Clarity Clear (Clear); Urine Color Light-Yellow (Yellow); Urine Hyaline Cast MANY /lpf (0 - 2); Urine Mucus FEW (None Seen); Urine Protein, UAD Negative (Negative); Urine Specific Gravity 1.011 (1.001-1.035); Urine Urobilinogen Normal (Negative)
[2023-07-19 11:37] LABS: Amphetamine Screen, Urine Neg (NEGATIVE); Barbiturate Scree,Urine Neg (NEGATIVE); Benzodiazephine Screen, Urine Neg (NEGATIVE); Cannabinoid Screen, Urine Neg (NEGATIVE); Cocaine Screen, Urine Neg (NEGATIVE); Opiate Scree,Urine Neg (NEGATIVE); Phencyclidine Screen, Urine Neg (NEGATIVE)
[2023-07-19] MEDS: IPRATROPIUM BROM 0.5 MG/2.5ML INH SOL NEB SCH (14:20)
[2023-07-19] MEDS: ALBUTEROL SULF 2.5 MG/0.5ML(0.5%) NEB SOLN NEB SCH (14:20)
[2023-07-19] MEDS: ATORVASTATIN 20 MG TAB PO SCH (22:04)
[2023-07-20] VITALS (17 sets, daily range): BP systolic 83–107; BP diastolic 50–72; PULSE 69–109; RESP 15–22; TEMP 97.6–98.7; O2SAT 91–100
[2023-07-20] MEDS: DIGOXIN (250MCG/ML) 2 ML AMPULE IV ONE (02:45)
[2023-07-20 06:49] LABS: Alanine Aminotransferase 13 U/L (7-40); Albumin 3.6 g/dL (3.2-4.8); Alkaline Phosphatase 85 U/L (46-116); Anion Gap 6 (5-15); Aspartate Aminotransferase 13 U/L (13-40); BUN/Creatinine Ratio 12.6 (10.0-20.0); Blood Urea Nitrogen 22 mg/dL (9-23); Calcium 9.7 mg/dL (8.7-10.4); Carbon Dioxide 33 mmol/L (20-30); Chloride 100 mmol/L (98-107); Glucose 144 mg/dL (74-106); Potassium 3.9 mmol/L (3.5-5.1); Sodium 139 mmol/L (136-145); Total Protein 6.3 g/dL (5.7-8.2)
[2023-07-20 07:02] LABS: Basophils # (auto) 0 10 ^3/uL (0-0.2); Basophils % (auto) 0.1 % (0.0-2.0); Eosinophils # (auto) 0 10 ^3/uL (0-0.8); Hematocrit 42.4 % (41.0-53.0); Hemoglobin 14.2 g/dL (13.5-17.5); Lymphocytes # (auto) 0.4 10 ^3/uL (0.4-5.4); Lymphocytes % (auto) 3.1 % (10.0-50.0); Mean Corpuscular Hemoglobin 32.9 pg (28.0-32.0); Mean Corpuscular Hgb Conc. 33.5 g/dL (32.0-36.0); Mean Corpuscular Volume 98.3 fL (80.0-100.0); Monocytes # (auto) 0.3 10 ^3/uL (0-1.3); Monocytes % (auto) 2.9 % (0.0-12.0); Neutrophils # (auto) 11.1 10 ^3/uL (1.6-8.6); Neutrophils % (auto) 93.9 % (37.0-80.0); Red Blood Cells 4.31 10^6/uL (4.5-5.90); White Blood Cell 11.8 10^3/uL (4.4-10.8)
[2023-07-20] MEDS ORDERED: DOXYCYCLINE 100MG/250ML 250 ML IV SCH (10:00)
[2023-07-20] MEDS ORDERED: levoFLOXacin 500MG 100 ML IV SCH (10:00)
[2023-07-20] MEDS: DOXYCYCLINE 100MG/250ML 250 ML IV SCH (11:01)
[2023-07-20] MEDS: FAMOTIDINE 20 MG TAB PO SCH (11:02)
[2023-07-20 13:18] LABS: Base Excess 5.7 mmol/L (-2.0-2.0)
[2023-07-20] MEDS: cefTRIAXone 1GM/50ML D5W 50 ML IV ONE (15:17)
[2023-07-20] MEDS ORDERED: POTA-36 PO (15:21)
[2023-07-20] MEDS ORDERED: SACU1TAB PO (15:24)
[2023-07-20] MEDS ORDERED: NIC21P TOP (15:24)
[2023-07-20] MEDS ORDERED: METO-289 PO (15:24)
[2023-07-20] MEDS: LEVALBUTEROL HCL 1.25 MG/3 ML NEB NEB SCH (18:55)
[2023-07-20] MEDS: IPRATROPIUM BROM 0.5 MG/2.5ML INH SOL NEB SCH (18:55)
[2023-07-20] MEDS: methylPREDNISolone SOD SUCC 40 MG/ML VL IV SCH (21:53)
[2023-07-21] VITALS (18 sets, daily range): BP systolic 95–103; BP diastolic 61–71; PULSE 82–103; RESP 18–22; TEMP 97.2–98.8; O2SAT 91–99
[2023-07-21 06:07] LABS: Chloride 103 mmol/L (98-107); Potassium 4.1 mmol/L (3.5-5.1); Sodium 139 mmol/L (136-145)
[2023-07-21 06:08] LABS: Anion Gap 6 (5-15); Carbon Dioxide 30 mmol/L (20-30)
[2023-07-21 06:13] LABS: BUN/Creatinine Ratio 15.7 (10.0-20.0); Blood Urea Nitrogen 20 mg/dL (9-23); Glucose 151 mg/dL (74-106)
[2023-07-21] MEDS: EMPAGLIFLOZIN 10 MG TAB PO SCH (09:27)
[2023-07-21] MEDS: cefTRIAXone 1GM/50ML D5W 50 ML IV SCH (09:52)
[2023-07-21] MEDS: TORSEMIDE 20 MG TAB PO ONE (12:15)
[2023-07-21] MEDS: DOXYCYCLINE 100 MG TAB/CAP PO SCH (22:02)
[2023-07-22] VITALS (14 sets, daily range): BP systolic 101–107; BP diastolic 50–73; PULSE 64–104; RESP 16–20; TEMP 97.4–98.1; O2SAT 94–100
[2023-07-22] MEDS: TORSEMIDE 20 MG TAB PO SCH (09:27)
[2023-07-22] MEDS ORDERED: DOXY-448 PO (14:34)
[2023-07-22] MEDS ORDERED: PRED20TA2 PO (14:34)
== END 2023-07-22 20:20 | disposition home or self-care (01) | DRG 177 ==
LOC: ER 00:40 → TELE 05:53 → TELE-WESTW 23:03
PROVIDERS: ADMIT Nurse Practitioner Family; ATTEND Internal Medicine
DX: J15.69 Pneumonia due to other Gram-negative bacteria (principal); J96.21 Acute and chronic respiratory failure with hypoxia; N17.0 Acute kidney failure with tubular necrosis; J44.1 Chronic obstructive pulmonary disease with (acute) exacerbation; I48.19 Other persistent atrial fibrillation; D68.69 Other thrombophilia; J44.0 Chronic obstructive pulmonary disease with (acute) lower respiratory infection; I50.42 Chronic combined systolic (congestive) and diastolic (congestive) heart failure; J15.9 Unspecified bacterial pneumonia; I11.0 Hypertensive heart disease with heart failure; E78.5 Hyperlipidemia, unspecified; F17.210 Nicotine dependence, cigarettes, uncomplicated; Z90.49 Acquired absence of other specified parts of digestive tract; Z79.2 Long term (current) use of antibiotics; Z79.899 Other long term (current) drug therapy; Z86.74 Personal history of sudden cardiac arrest
CPT/HCPCS: 36415; 36600; 71045; 80048; 80053; 80307; 81001; 82805; 83880; 84484; 85025; 93005; 94640; 96365; 96375; G0378; J1100; J3490

== ENCOUNTER 2023-07-26 23:04 | Inpatient (IN) | payer MEDICARE, MEDICAID ==
[~2023-07-26] VITALS: Ht 177.8 cm; Wt 88.9 kg
[~2023-07-26 23:04] MED LIST changes: +DOXY-448 PO; +METO-289 PO; +NIC21P TOP; +POTA-36 PO; -POTA8TAB38 PO; +PRED20TA2 PO; +SACU1TAB PO
[2023-07-26] MEDS: methylPREDNISolone SOD SUCC 125 MG/2 ML VL IV ONE (23:34)
[2023-07-26 23:45] LABS: Basophils # (auto) 0.1 10 ^3/uL (0-0.2); Basophils % (auto) 0.8 % (0.0-2.0); Eosinophils # (auto) 0.1 10 ^3/uL (0-0.8); Eosinophils % (auto) 0.6 % (0.0-7.0); Hematocrit 46.4 % (41.0-53.0); Hemoglobin 15.7 g/dL (13.5-17.5); Lymphocytes # (auto) 1.6 10 ^3/uL (0.4-5.4); Lymphocytes % (auto) 11.6 % (10.0-50.0); Mean Corpuscular Hgb Conc. 33.7 g/dL (32.0-36.0); Mean Corpuscular Volume 97.7 fL (80.0-100.0); Monocytes # (auto) 1.5 10 ^3/uL (0-1.3); Monocytes % (auto) 10.9 % (0.0-12.0); Neutrophils # (auto) 10.8 10 ^3/uL (1.6-8.6); Neutrophils % (auto) 76.1 % (37.0-80.0); Red Blood Cells 4.75 10^6/uL (4.5-5.90); Red Cell Distribution Width 13.1 % (11.8-14.3); White Blood Cell 14.2 10^3/uL (4.4-10.8)
[2023-07-26] MEDS: IPRATROPIUM BROM 0.5 MG/2.5ML INH SOL NEB ONE (23:46)
[2023-07-26] MEDS: ALBUTEROL SULF 2.5 MG/0.5ML(0.5%) NEB SOLN NEB ONE (23:46)
[2023-07-26 23:59] LABS: Alanine Aminotransferase 35 U/L (7-40); Alkaline Phosphatase 88 U/L (46-116); Anion Gap 6 (5-15); Aspartate Aminotransferase 25 U/L (13-40); BUN/Creatinine Ratio 16.5 (10.0-20.0); Bilirubin, Total 0.8 mg/dL (0.2-1.0); Blood Urea Nitrogen 20 mg/dL (9-23); Calcium 9.1 mg/dL (8.5-10.1); Carbon Dioxide 32 mmol/L (20-30); Chloride 103 mmol/L (98-107); Glucose 101 mg/dL (74-106); Potassium 3.6 mmol/L (3.5-5.1); Sodium 141 mmol/L (136-145); Total Protein 6.1 g/dL (5.7-8.2)
[2023-07-27] VITALS (14 sets, daily range): BP systolic 100–108; BP diastolic 58–73; PULSE 79–118; RESP 17–24; TEMP 98.1–99.2; O2SAT 93–98
[2023-07-27] MEDS: dilTIAZem 25 MG/5 ML VIAL IV ONE (00:55)
[2023-07-27] MEDS: IPRATROPIUM BROM 0.5 MG/2.5ML INH SOL NEB ONE (03:53)
[2023-07-27] MEDS: ALBUTEROL SULF 2.5 MG/0.5ML(0.5%) NEB SOLN NEB ONE (03:53)
[2023-07-27] MEDS ORDERED: ACETAMINOPHEN 325 MG TAB PO PRN (06:15)
[2023-07-27] MEDS ORDERED: ONDANSETRON HCL 4 MG/2 ML VIAL IV PRN (06:15)
[2023-07-27] MEDS ORDERED: IPRATROPIUM BROM 0.5 MG/2.5ML INH SOL NEB PRN (06:15)
[2023-07-27] MEDS ORDERED: DOCUSATE SOD 100 MG CAP PO PRN (06:15)
[2023-07-27] MEDS ORDERED: hydrALAZINE HCL 20 MG/ML VL IV PRN (06:15)
[2023-07-27] MEDS ORDERED: HYDROcodone-ACET 5/325MG TAB PO PRN (06:15)
[2023-07-27] MEDS ORDERED: guaiFENesin 200 MG/10 ML UD PO PRN (06:30)
[2023-07-27] MEDS ORDERED: NITROGLYCERIN 0.4 MG SL TAB SL PRN (06:45)
[2023-07-27] MEDS ORDERED: MORPHINE SULFATE INJ 2 MG/ml SYRG IV PRN (06:45)
[2023-07-27 07:03] LABS: Hematocrit 45.7 % (41.0-53.0); Hemoglobin 15.6 g/dL (13.5-17.5); Mean Corpuscular Hemoglobin 33.3 pg (28.0-32.0); Mean Corpuscular Hgb Conc. 34.1 g/dL (32.0-36.0); Mean Corpuscular Volume 97.7 fL (80.0-100.0); Red Blood Cells 4.68 10^6/uL (4.5-5.90); Red Cell Distribution Width 13.4 % (11.8-14.3); White Blood Cell 10.5 10^3/uL (4.4-10.8)
[2023-07-27 07:13] LABS: Basophils % (manual) 0 (0.0-2.0); Blast Cells 0; Eosinophils % (manual) 0 (0-7); Metamyelocytes % 0; Myelocytes % 0; Promyelocytes % 0; Reactive Lymphocytes 0
[2023-07-27 07:23] LABS: Alanine Aminotransferase 31 U/L (7-40); Albumin 3.9 g/dL (3.2-4.8); Alkaline Phosphatase 82 U/L (46-116); Anion Gap 8 (5-15); Aspartate Aminotransferase 20 U/L (13-40); BUN/Creatinine Ratio 16.7 (10.0-20.0); Blood Urea Nitrogen 22 mg/dL (9-23); Calcium 9.3 mg/dL (8.5-10.1); Carbon Dioxide 33 mmol/L (20-30); Chloride 100 mmol/L (98-107); Glucose 158 mg/dL (74-106); Potassium 3.8 mmol/L (3.5-5.1); Sodium 141 mmol/L (136-145)
[2023-07-27 07:24] LABS: Bilirubin, Total 0.8 mg/dL (0.2-1.0); Total Protein 6.4 g/dL (5.7-8.2)
[2023-07-27 08:15] LABS: Band Neutrophils % (manual) 6; Lymphocytes % (manual) 2 (10.0-50.0); Monocytes % (manual) 5 (0-12); Platelet Estimate Adequate
[2023-07-27] MEDS: cefTRIAXone 1GM/50ML D5W 50 ML IV SCH (09:27)
[2023-07-27] MEDS: CARVEDILOL 12.5 MG TAB PO SCH (10:00)
[2023-07-27] MEDS: APIXABAN 5 MG TAB PO SCH (10:03)
[2023-07-27] MEDS: FAMOTIDINE (10MG/ML) 2ML VL IV SCH (10:03)
[2023-07-27] MEDS: AZITHROMYCIN 250 MG TAB PO ONE (13:09)
[2023-07-27] MEDS: SODIUM CHLOR 0.9% PF (SALINE LOCK) 10ML VIAL/SYR IV SCH (13:36)
[2023-07-27] MEDS: methylPREDNISolone SOD SUCC 40 MG/ML VL IV SCH ×2 (13:36→22:20)
[2023-07-27] MEDS: ALBUTEROL SULF 2.5 MG/0.5ML(0.5%) NEB SOLN NEB PRN (14:53)
[2023-07-27] MEDS: FUROSEMIDE 20 MG/2 ML VIAL IV ONE (15:16)
[2023-07-27] MEDS: IPRATROPIUM BROM 0.5 MG/2.5ML INH SOL NEB SCH (18:21)
[2023-07-27] MEDS: ALBUTEROL SULF 2.5 MG/0.5ML(0.5%) NEB SOLN NEB SCH (18:21)
[2023-07-27 18:45] LABS: Urine Bacteria None Seen /hpf (None Seen)
[2023-07-27 19:12] LABS: Urine Blood Negative /uL (Negative); Urine Clarity Clear (Clear); Urine Color Colorless (Yellow); Urine Protein, UAD Negative (Negative); Urine Specific Gravity 1.009 (1.001-1.035); Urine Urobilinogen Normal (Negative); Urine WBC 1 /hpf (0 - 3); Urine pH 6.5 (5.0-9.0)
[2023-07-27] MEDS: ATORVASTATIN 20 MG TAB PO SCH (22:16)
[2023-07-28] VITALS (13 sets, daily range): BP systolic 97–110; BP diastolic 64–83; PULSE 76–98; RESP 16–20; TEMP 98–98.3; O2SAT 94–98
[2023-07-28 07:29] LABS: Anion Gap 3 (5-15); Carbon Dioxide 37 mmol/L (20-30); Chloride 100 mmol/L (98-107); Hematocrit 43.6 % (41.0-53.0); Hemoglobin 14.5 g/dL (13.5-17.5); Mean Corpuscular Hemoglobin 32.9 pg (28.0-32.0); Mean Corpuscular Hgb Conc. 33.2 g/dL (32.0-36.0); Potassium 3.9 mmol/L (3.5-5.1); Red Blood Cells 4.41 10^6/uL (4.5-5.90); Red Cell Distribution Width 13.5 % (11.8-14.3); Sodium 140 mmol/L (136-145); White Blood Cell 14.3 10^3/uL (4.4-10.8)
[2023-07-28 07:31] LABS: Calcium 9.1 mg/dL (8.5-10.1)
[2023-07-28 07:36] LABS: BUN/Creatinine Ratio 18.3 (10.0-20.0); Blood Urea Nitrogen 24 mg/dL (9-23); Glucose 115 mg/dL (74-106)
[2023-07-28 07:41] LABS: Basophils % (manual) 0 (0.0-2.0); Blast Cells 0; Eosinophils % (manual) 0 (0-7); Metamyelocytes % 0; Myelocytes % 0; Promyelocytes % 0; Reactive Lymphocytes 0
[2023-07-28] MEDS: AZITHROMYCIN 250 MG TAB PO SCH (08:24)
[2023-07-28 09:12] LABS: Band Neutrophils % (manual) 15; Lymphocytes % (manual) 3 (10.0-50.0); Monocytes % (manual) 5 (0-12)
[2023-07-28 09:13] LABS: Platelet Estimate Adequate
[2023-07-28] MEDS ORDERED: TORS20TA20 PO (13:16)
[2023-07-28] MEDS ORDERED: guaiFENesin 200 MG/10 ML UD PO PRN (16:15)
[2023-07-28] MEDS: FAMOTIDINE 20 MG TAB PO SCH (21:26)
[2023-07-28] MEDS: methylPREDNISolone SOD SUCC 40 MG/ML VL IV SCH (21:28)
[2023-07-29] VITALS (14 sets, daily range): BP systolic 93–112; BP diastolic 59–74; PULSE 58–114; RESP 16–20; TEMP 97.3–98.8; O2SAT 92–100
[2023-07-29] MEDS: ALBUTEROL SULF 2.5 MG/0.5ML(0.5%) NEB SOLN NEB SCH (12:00)
[2023-07-29] MEDS: IPRATROPIUM BROM 0.5 MG/2.5ML INH SOL NEB SCH (12:00)
[2023-07-29] MEDS: PSEUDOEPHEDRINE HCL 30 MG TAB PO ONE (13:47)
[2023-07-29] MEDS: PSEUDOEPHEDRINE HCL 30 MG TAB PO SCH (16:03)
[2023-07-30] VITALS (10 sets, daily range): BP systolic 99–111; BP diastolic 60–80; PULSE 71–94; RESP 16–20; TEMP 36.4; O2SAT 92–96
[2023-07-30] MEDS: predniSONE 20 MG TAB PO SCH (07:56)
[2023-07-30] MEDS ORDERED: AZIT-185 PO (10:43)
[2023-07-30] MEDS ORDERED: METH4PAK PO (10:43)
== END 2023-07-30 17:39 | disposition home or self-care (01) | DRG 189 ==
LOC: ER 23:04 → TELE 07-27 06:44 → TELE-WESTW 07-27 09:36 → WEST WING 07-29 04:14
PROVIDERS: ADMIT Nurse Practitioner Family; ATTEND Internal Medicine
DX: J96.20 Acute and chronic respiratory failure, unspecified whether with hypoxia or hypercapnia (principal); J15.69 Pneumonia due to other Gram-negative bacteria; I50.33 Acute on chronic diastolic (congestive) heart failure; J15.9 Unspecified bacterial pneumonia; J44.1 Chronic obstructive pulmonary disease with (acute) exacerbation; J44.0 Chronic obstructive pulmonary disease with (acute) lower respiratory infection; I48.20 Chronic atrial fibrillation, unspecified; D68.69 Other thrombophilia; E78.5 Hyperlipidemia, unspecified; N18.30 Chronic kidney disease, stage 3 unspecified; D72.829 Elevated white blood cell count, unspecified; Z79.01 Long term (current) use of anticoagulants
CPT/HCPCS: 36415; 71045; 80048; 80053; 81001; 83880; 84484; 85007; 85025; 85027; 87081; 93005; 94640; 99291; G0378; J3490

== ENCOUNTER 2024-03-27 18:50 | Inpatient (IN) | payer MEDICARE, MEDICAID ==
[~2024-03-27] VITALS: Ht 177.8 cm; Wt 60.3 kg
[~2024-03-27 18:50] MED LIST changes: +AMIO200T33 PO; +ATOR20TA PO; +AZIT-185 PO; -DIGO1TAB48 PO; -DOXY-448 PO; +DOXY100C79 PO; +METH4PAK PO; -MIDO2.5T15 PO; -NIC21P TOP; +POTA8TAB38 PO; -SACU1TAB PO; -TORS20TA19 PO; +TORS20TA20 PO
--- NOTE | 2024-03-27 19:08 | ECG ---
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
[2024-03-27 19:15] LABS: Basophils # (auto) 0.1 10 ^3/uL (0-0.2); Basophils % (auto) 0.6 % (0.0-2.0); Eosinophils # (auto) 0.1 10 ^3/uL (0-0.8); Hematocrit 52.1 % (41.0-53.0); Hemoglobin 17.8 g/dL (13.5-17.5); Lymphocytes # (auto) 0.9 10 ^3/uL (0.4-5.4); Lymphocytes % (auto) 10.2 % (10.0-50.0); Mean Corpuscular Hemoglobin 33.2 pg (28.0-32.0); Mean Corpuscular Hgb Conc. 34.2 g/dL (32.0-36.0); Monocytes # (auto) 0.8 10 ^3/uL (0-1.3); Monocytes % (auto) 8.9 % (0.0-12.0); Neutrophils # (auto) 6.7 10 ^3/uL (1.6-8.6); Neutrophils % (auto) 79.3 % (37.0-80.0); Nucleated Red Blood Cells % 0.1 %; Platelet Count (auto) 235 10^3/uL (140-450); Red Blood Cells 5.38 10^6/uL (4.5-5.90); Red Cell Distribution Width 14.8 % (11.8-14.3); White Blood Cell 8.5 10^3/uL (4.4-10.8)
--- NOTE | 2024-03-27 19:23 | ED.PDOC ---
HPI Comments 68-year-old male presents with a chief complaint of chest pain x 0400 onset this morning with associated with nausea. Patient states that he had an cardiac ablation at [facility] 1 month ago. Patient reports that his chest pain is localized to his left chest wall, describes as burning, and radiates up his neck. Patient believed that he was just experiencing heartburn and reported that he took antacids, but reports no relief of symptoms. No other symptoms or modifying factors present at this time. Chief Complaint: Chest Pain Time Seen by MD: 19:00 Primary Care Provider: isabel Rowland Notes: Medications, Allergies Allergies: Coded Allergies: NO KNOWN ALLERGIES (Unverified , 04/07/23) Home Meds Active Scripts Azithromycin (ZITHROMAX TABLET) 250 Mg Tb, 250 MG PO DAILY for 5 Days, #5 TAB Prov:FELIPE BLANK MD 07/30/23 Methylprednisolone (Medrol Dosepak) 4 Mg Willam, 4 MG PO UD, #21 TAB UAD Prov:FELIPE BLANK MD 07/30/23 Prednisone (Prednisone) 20 Mg Tab, 20 MG PO QAM for 7 Days, #14 MG Prov:FELIPE BLANK MD 07/22/23 Doxycycline (Monohydrate) (Doxycycline) 100 Mg Cap, 100 MG PO BID for 5 Days, #10 CAP Prov:FELIPE BLANK MD 07/22/23 Empagliflozin (Jardiance) 10 Mg Tab, 10 MG PO DAILY for 30 Days, #30 TAB Prov:JORDY SANTOS [facility] 05/31/23 Apixaban Base (ELIQUIS) 5 Mg Tab, 5 MG PO BID for 30 Days, #60 TAB Prov:MARISOL HERNANDEZ MD 11/17/22 Atorvastatin Calcium (ATORVASTATIN CALCIUM) 20 Mg Tab, 1 TAB PO HS for 30 Days, #30 TAB 5 Refills Prov:MARISOL HERNANDEZ MD 11/17/22 Reported Medications Torsemide (Torsemide) 20 Mg Tab, 1 TAB PO BID 07/28/23 Potassium Chloride (POTASSIUM CHLORIDE CR) 10 Meq Tb, 8 MEQ PO BID 07/20/23 Alendronate Sodium (Alendronate Sodium) 70 Mg Tab, 1 TAB PO QWEEKLY, #4 TAB 3 Refills 03/11/23 Information Source: Patient Mode of Arrival: Ambulatory Severity: Moderate Timing: Hours Duration: Since onset Prehospital treatment: None Location: Chest (L) Radiation: Neck Quality: Burning Onset: At Rest PE Risk Factors: Recent Surgery (Cardiac Ablation) History of: Similar pain in past Past Medical History PAST MEDICAL HISTORY: AFIB, CHF, COPD, High Lipids Surgical History: Appendectomy, Hernia Repair Family History Family History: Reviewed,noncontributory to illness Social History Smoker: Non-Smoker, Quit Less Than 1 Year Alcohol: Occasionally Drugs: Denies Drug Use Lives In: Home Constitutional: denies: chills, diaphoresis, fatigue, fever, malaise, sweats, weakness, others EENTM: denies: blurred vision, double vision, ear bleeding, ear discharge, ear drainage, ear pain, ear ringing, eye pain, eye redness, hearing loss, mouth pain, mouth swelling, nasal discharge, nose bleeding, nose congestion, nose pain, photophobia, tearing, throat pain, throat swelling, voice changes, others Respiratory: denies: cough, hemoptysis, orthopnea, SOB at rest, shortness of breath, SOB with excertion, stridor, wheezing, others Cardiovascular: denies: chest pain, dizzy spells, diaphoresis, Dyspnea on exertion, edema, irregular heart beat, left arm pain, lightheadedness, palpitations, PND, syncope, others Gastrointestinal: denies: abdomen distended, abdominal pain, blood streaked bowels, constipated, diarrhea, dysphagia, difficulty swallowing, hematemesis, melena, nausea, poor appetite, poor fluid intake, rectal bleeding, rectal pain, vomiting, others Genitourinary: denies: burning, dysuria, flank pain, frequency, hematuria, incontinence, penile discharge, penile sore, pain, testicle pain, testicle swelling, urgency, others Neurological: denies: dizziness, fainting, headache, left sided numbness, left sided weakness, numbness, paresthesia, pre-existing deficit, right sided numbness, right sided weakness, seizure, speech problems, tingling, tremors, weakness, others Musculoskeletal: denies: back pain, gout, joint pain, joint swelling, muscle pain, muscle stiffness, neck pain, others Integumetry: denies: bruises, change in color, change in hair/nails, dryness, laceration, lesions, lumps, rash, wounds, others Allergic/Immunocompromised: denies: Difficulty Healing, Frequent Infections, Hi ves, Itching, others Hematologic/Lymphatic: denies: anemia, blood clots, easy bleeding, easy bruising, swollen glands, others Endocrine: denies: excessive hunger, excessive sweating, excessive thirst, excessive urination, flushing, intolerance to cold, intolerance to heat, unexplained weight gain, unexplained weight loss, others Psychiatric: denies: anxiety, bipolar disorder, depression, hopeless, panic disorder, schizophrenia, sleepless, suicidal, others All Other Systems: Reviewed and Negative Physical Exam General Appearance: No Apparent Distress, Normal HEENT: Normal ENT Inspection, Pharynx Normal, TMs Normal Neck: Full Range of Motion, Non-Tender, Normal, Normal Inspection Respiratory: Chest Non-Tender, Lungs Clear, No Accessory Muscle Use, No Respiratory Distress, Normal Breath Sounds Cardiovascular: No Edema, No JVD, No Murmur, No Gallop, Normal Peripheral Pulses, Regular Rate/Rhythm Breast Exam: Deferred Gastrointestinal: No Organomegaly, Non Tender, No Pulsatile Mass, Normal Bowel Sounds, Soft Genitalia: Deferred Pelvic: Deferred Rectal: Deferred Extremities: No calf tenderness, Normal capillary refill, Normal inspection, Normal range of motion, Non-tender, No pedal edema Musculoskeletal : Apperance: Normal Neurologic: Alert, electrifier operator II-XII nml as Tested, No Motor Deficits, Normal Affect, Normal Mood, No Sensory Deficits Cerebellar Function: Normal Reflexes: Normal Skin: Dry, Normal Color, Warm Lymphatic: No Adenopathy Was a procedure done? Was a procedure done?: No CP Differential Dx Differential Diagnosis: PAC's Differential Diagnosis: HTN Essential, HTN Accelerated Differential Diagnosis: Myocardial Infarction, Pericarditis, Pneumonia X-Ray, Labs, Meds, VS Vital Signs Date Time Temp Pulse Resp B/P (MAP) Pulse Ox O2 Delivery O2 Flow Rate FiO2 03/27/24 19:02 98.0 76 17 116/77 (90) 95 03/27/24 18:56 74 Lab Test 03/27/24 20:04 03/27/24 19:00 Range/Units Troponin I High Sensitivity Pending 3326 *H </=54 ng/L White Blood Count 8.5 4.4-10.8 10^3/uL Red Blood Count 5.38 4.5-5.90 10^6/uL Hemoglobin 17.8 H 13.5-17.5 g/dL Hematocrit 52.1 41.0-53.0 % Mean Corpuscular Volume 97.0 80.0-100.0 fL Mean Corpuscular Hemoglobin 33.2 H 28.0-32.0 pg Mean Corpuscular Hemoglobin Concent 34.2 32.0-36.0 g/dL Red Cell Distribution Width 14.8 H 11.8-14.3 % Platelet Count 235 140-450 10^3/uL Mean Platelet Volume 8.7 6.9-10.8 fL Neutrophils (%) (Auto) 79.3 37.0-80.0 % Lymphocytes (%) (Auto) 10.2 10.0-50.0 % Monocytes (%) (Auto) 8.9 0.0-12.0 % Eosinophils (%) (Auto) 1.0 0.0-7.0 % Basophils (%) (Auto) 0.6 0.0-2.0 % Neutrophils # (Auto) 6.7 1.6-8.6 10 ^3/uL Lymphocytes # (Auto) 0.9 0.4-5.4 10 ^3/uL Monocytes # (Auto) 0.8 0-1.3 10 ^3/uL Eosinophils # (Auto) 0.1 0-0.8 10 ^3/uL Basophils # (Auto) 0.1 0-0.2 10 ^3/uL Nucleated Red Blood Cells 0.1 % Sodium Level 141 136-145 mmol/L Potassium Level 3.9 3.5-5.1 mmol/L Chloride Level 102 98-107 mmol/L Carbon Dioxide Level 32 H 20-31 mmol/L Anion Gap 7 5-15 Blood Urea Nitrogen 15 9-23 mg/dL Creatinine 1.60 H 0.700-1.30 mg/dL Glomerular Filtration Rate Calc 47 >90 mL/min BUN/Creatinine Ratio 9.4 L 10.0-20.0 Serum Glucose 95 74-106 mg/dL Calcium Level 10.6 H 8.7-10.4 mg/dL Magnesium Level 2.7 H 1.6-2.6 mg/dL Total Bilirubin 1.4 H 0.2-1.0 mg/dL Aspartate Amino Transferase (AST) 36 13-40 U/L Alanine Aminotransferase (ALT) 21 7-40 U/L Alkaline Phosphatase 152 H 46-116 U/L B-Type Natriuretic Peptide 116.20 0-100 pg/mL Total Protein 7.5 5.7-8.2 g/dL Albumin 4.8 3.2-4.8 g/dL Current Medications Medications (Trade) Dose Ordered Sig/Alejo Route Start Time Stop Time Status Last Admin Aspirin 324 mg ONCE ONCE PO 03/27/24 19:15 03/27/24 19:16 DC 03/27/24 19:43 Al Hydrox/Mg Hydrox/Simethicone (Maalox Plus) 15 ml ONCE ONCE PO 03/27/24 19:15 03/27/24 19:16 DC 03/27/24 19:43 Ondansetron HCl (Zofran Po) 4 mg ONCE ONCE PO 03/27/24 19:15 03/27/24 19:16 DC 03/27/24 19:43 Time of 1ST Reevaluation: 19:30 Reevaluation 1ST: Unchanged Patient Education/Counseling: Diagnosis, Treatment, Prognosis Family Education/Counseling: No Family Present Departure 1 Departure Time of Disposition: 20:15 (Patient presented with chest pain that was concerning for possible STEMI, ACS, PE, Pneumonia, Muscle Strain, COPD, Dissection. Data: 1. I ordered and reviewed the result of at least 3 labs including a CBC, BMP, and Troponin. 2. I independently interpreted the following tests: EKG which shows a sinus arrhythmia and Chest X-ray which shows benign chest.Risk:This patient has a high risk of morbidity due to further diagnostic testing or treatment and may suffer from an acute cardiac or respiratory disorder. Workup reveals NSTEMI and patient should be admitted for further workup and possible expert consultation. ) Impression: Primary Impression: NSTEMI (non-ST elevated myocardial infarction) Additional Impression: Acute chest pain Disposition: 09 ADMITTED INPATIENT Admit to: Tele Condition: Guarded Critical Care Note Critical Care Time?: Yes Critical care comment: Acute chest pain Authorized and Performed by: Quinton Stover MD Total critical care time: Approximately 34 minutes Due to a high probability of clinically significant, life threatening deterioration, the patient required my highest level of preparedness to intervene emergently and I personally spent this critical care time directly and personally managing the patient. This critical care time included obtaining a history; examining the patient; pulse oximetry; ordering and review of studies; arranging urgent treatment with development of a management plan; evaluation of patient's response to treatment; frequent reassessment; and, discussions with other providers. This critical care time was performed to assess and manage the high probability of imminent, life-threatening deterioration that could result in multi-organ failure. It was exclusive of separately billable procedures and treating other patients and teaching time. Please see my other sections and the rest of the note for further information on patient assessment and treatment. Stability Stability form required: No Heart Score Heart Score: Heart Score Response (Comments) Value History N/A 0 EKG N/A 0 Age N/A 0 Risk Factors N/A 0 Troponin N/A 0 Total 0 I personally scribed for QUINTON STOVER MD ([email or web address]) on 03/27/24 at 19:23. Electronically submitted by Iftikhar Clifton ([email or web address]). QUITNON STOVER MD Mar 27, 2024 19:23
[2024-03-27 19:31] LABS: Alanine Aminotransferase 21 U/L (7-40); Anion Gap 7 (5-15); Aspartate Aminotransferase 36 U/L (13-40); BUN/Creatinine Ratio 9.4 (10.0-20.0); Blood Urea Nitrogen 15 mg/dL (9-23); Chloride 102 mmol/L (98-107); Glucose 95 mg/dL (74-106); Potassium 3.9 mmol/L (3.5-5.1); Sodium 141 mmol/L (136-145)
[2024-03-27 19:32] LABS: Total Protein 7.5 g/dL (5.7-8.2)
[2024-03-27] MEDS: ASPirin 81 mg TAB PO ONE (19:43)
[2024-03-27] MEDS: MAALOX PLUS or MAALOX 30 ML PO ONE (19:43)
[2024-03-27] MEDS: ONDANSETRON ODT 4 MG TAB PO ONE (19:43)
[2024-03-27 19:53] LABS: Albumin 4.8 g/dL (3.2-4.8); Alkaline Phosphatase 152 U/L (46-116); Bilirubin, Total 1.4 mg/dL (0.2-1.0); Calcium 10.6 mg/dL (8.7-10.4); Carbon Dioxide 32 mmol/L (20-31); Magnesium 2.7 mg/dL (1.6-2.6)
[2024-03-27 20:00] VITALS: PULSE 76; RESP 16; O2SAT 96
--- NOTE | 2024-03-27 20:07 | DVH ---
EXAM: XY CHEST PORTABLE TECHNIQUE: Single frontal chest radiograph CLINICAL HISTORY: CP COMPARISON: XY CHEST PORTABLE on DOS: 07/28/23, XY CHEST PORTABLE on DOS: 07/26/23, XY CHEST PORTABLE o n DOS: 07/21/23 Findings/Impression: Frontal chest radiograph demonstrates no acute osseous or superficial soft tissue abnormalities. The trachea is midline. The cardiac silhouette and mediastinum are within normal limits. Bibasilar atelectasis. No pneumothorax, pleural effusions, or consolidations.
[2024-03-27 20:36] LABS: INR 1.09 (0.9-1.15); Partial Thromboplastin Time 32.4 SEC (24.5-34.5); Prothrombin Time 11.5 sec (9.3-11.8)
[2024-03-27] MEDS ORDERED: NITROGLYCERIN 0.4 MG SL TAB SL PRN (21:15)
[2024-03-27] MEDS ORDERED: ACETAMINOPHEN 325 MG TAB PO PRN (21:15)
[2024-03-27] MEDS ORDERED: MORPHINE SULFATE INJ 2 MG/ml SYRG IV PRN (21:15)
[2024-03-27] MEDS ORDERED: ONDANSETRON HCL 4 MG/2 ML VIAL IV PRN (21:15)
[2024-03-27] MEDS: HEPARIN SODIUM (PORCINE) 5000 UNITS/ML 1ML VIAL IV ONE (22:00)
[2024-03-27] MEDS: HEPARIN DRIP/D5W 100UNITS/ML 250 ML IV SCH (22:00)
[2024-03-27] MEDS: ATORVASTATIN 20 MG TAB PO SCH (22:23)
--- NOTE | 2024-03-27 22:59 | DVHHP2 ---
History of Present Illness Reason for Visit: Chest pain History of Present Illness 68-year-old male presents for evaluation of chest pain. Patient endorses a one day history of substernal squeezing/pressure-like that radiates to his neck. He reports episodes of nausea with vomiting. Denies shortness or breath PI no other acute complaints reported at the moment. Past Medical History CHF, atrial fibrillation, COPD, dyslipidemia Past Surgical History Hernia repair and appendectomy Family History Noncontributory Smoke: No ALCOHOL: none Drugs: None Lives: with Family Review of Systems Review of Systems Review of systems are currently negative otherwise addressed HPI. Allergies: Coded Allergies: NO KNOWN ALLERGIES (Unverified , 04/07/23) Medications Current Medications Medications Dose Ordered Sig/Alejo Route Start Time Stop Time Status Last Admin Dose Admin Heparin Sodium/ Dextrose 250 ml @ 10 mls/hr Q24H IV 03/27/24 20:15 03/27/24 22:00 10 MLS/HR Atorvastatin Calcium 20 mg HS PO 03/27/24 22:00 03/27/24 22:23 20 MG Amiodarone HCl 200 mg DAILY PO 03/28/24 10:00 Furosemide 20 mg BIDD PO 03/28/24 06:00 Metoprolol Succinate 50 mg DAILY PO 03/28/24 10:00 Aspirin 162 mg DAILY PO 03/28/24 10:00 Ondansetron HCl 4 mg Q4HP PRN IV 03/27/24 21:15 Acetaminophen 650 mg Q6HP PRN PO 03/27/24 21:15 Nitroglycerin 0.4 mg Q5MINP PRN SL 03/27/24 21:15 Morphine Sulfate 2 mg Q30M PRN IV 03/27/24 21:15 Exam Vital Signs Vital Signs Date Time Temp Pulse Resp B/P (MAP) Pulse Ox O2 Delivery O2 Flow Rate FiO2 03/27/24 21:54 68 03/27/24 19:02 98.0 17 116/77 (90) 95 Exam Gen: 68-year-old male in mild distress Skin: Warm, dry, normal color and texture, no rash. HEENT: Normocephalic atraumatic, mucous membranes moist and pink. Neck: Cervical and supraclavicular nodes normal without enlargement, trachea is midline, thyroid gland is normal without masses. Pulmonary: Clear to auscultation and percussion bilaterally. Cardiac: Regular rate and rhythm. No murmur Abdomen: Soft, nontender, nondistended, bowel sounds present all 4 quadrants, no guarding, no rigidity, no organomegaly. Extremities: No cyanosis, clubbing, no edema Neuro: Cranial nerves II through XII grossly intact, normal affect and speech, no focal motor deficits. Labs/Xrays ORDERING PHYSICIAN: BILLIE HOANG MD PROCEDURE(s): CXRP - CHEST PORTABLE REASON: CP ORDER NUMBER(s): [id number], ACCESSION NUMBER(s): [id number] EXAM: XY CHEST PORTABLE TECHNIQUE: Single frontal chest radiograph CLINICAL HISTORY: COMPARISON: XY CHEST PORTABLE on DOS: 07/28/23, XY CHEST PORTABLE on DOS: 07/26/23, XY CHEST PORTABLE on DOS: 07/21/23 Findings/Impression: Frontal chest radiograph demonstrates no acute osseous or superficial soft t issue abnormalities. The trachea is midline. The cardiac silhouette and mediastinum are within normal limits. Bibasilar atelectasis. No pneumothorax, pleural effusions, or consolidations. Labs Test 03/27/24 21:40 03/27/24 19:00 Range/Units Troponin I High Sensitivity 5769 *H </=54 ng/L White Blood Count 8.5 4.4-10.8 10^3/uL Red Blood Count 5.38 4.5-5.90 10^6/uL Hemoglobin 17.8 H 13.5-17.5 g/dL Hematocrit 52.1 41.0-53.0 % Mean Corpuscular Volume 97.0 80.0-100.0 fL Mean Corpuscular Hemoglobin 33.2 H 28.0-32.0 pg Mean Corpuscular Hemoglobin Concent 34.2 32.0-36.0 g/dL Red Cell Distribution Width 14.8 H 11.8-14.3 % Platelet Count 235 140-450 10^3/uL Mean Platelet Volume 8.7 6.9-10.8 fL Neutrophils (%) (Auto) 79.3 37.0-80.0 % Lymphocytes (%) (Auto) 10.2 10.0-50.0 % Monocytes (%) (Auto) 8.9 0.0-12.0 % Eosinophils (%) (Auto) 1.0 0.0-7.0 % Basophils (%) (Auto) 0.6 0.0-2.0 % Neutrophils # (Auto) 6.7 1.6-8.6 10 ^3/uL Lymphocytes # (Auto) 0.9 0.4-5.4 10 ^3/uL Monocytes # (Auto) 0.8 0-1.3 10 ^3/uL Eosinophils # (Auto) 0.1 0-0.8 10 ^3/uL Basophils # (Auto) 0.1 0-0.2 10 ^3/uL Nucleated Red Blood Cells 0.1 % Prothrombin Time 11.5 9.3-11.8 sec Prothrombin Time INR 1.09 0.9-1.15 Activated Partial Thromboplast Time 32.4 24.5-34.5 SEC Sodium Level 141 136-145 mmol/L Potassium Level 3.9 3.5-5.1 mmol/L Chloride Level 102 98-107 mmol/L Carbon Dioxide Level 32 H 20-31 mmol/L Anion Gap 7 5-15 Blood Urea Nitrogen 15 9-23 mg/dL Creatinine 1.60 H 0.700-1.30 mg/dL Glomerular Filtration Rate Calc 47 >90 mL/min BUN/Creatinine Ratio 9.4 L 10.0-20.0 Serum Glucose 95 74-106 mg/dL Calcium Level 10.6 H 8.7-10.4 mg/dL Magnesium Level 2.7 H 1.6-2.6 mg/dL Total Bilirubin 1.4 H 0.2-1.0 mg/dL Aspartate Amino Transferase (AST) 36 13-40 U/L Alanine Aminotransferase (ALT) 21 7-40 U/L Alkaline Phosphatase 152 H 46-116 U/L B-Type Natriuretic Peptide 116.20 0-100 pg/mL Total Protein 7.5 5.7-8.2 g/dL Albumin 4.8 3.2-4.8 g/dL Assessment/Plan Assessment/Plan Assessment NSTEMI Hypertension COPD Plan Admit the patient to telemetry to the hospitalist NPO except medications Continue heparin drip Cardiology consultation Continue treatment per orders Plan discussed with: Patient My Orders Orders - FELIPE JOLLY AGACNP Procedure Category Date Status Time * Cardiology Consult CONS 03/27/24 Transmitted 21:08 Atorvastatin (Lipitor) PHA 03/27/24 In Process 22:00 Amiodarone Tablet PHA 03/28/24 In Process (Cordarone Tablet) 10:00 Furosemide Tablet PHA 03/28/24 In Process (Lasix Tablet) 06:00 Metoprolol Xl PHA 03/28/24 In Process Succinate (Toprol Xl) 10:00 Aspirin Tablet PHA 03/28/24 In Process 10:00 Basic Metabolic Panel LAB 03/28/24 Verified 04:00 Admit ADMIT 03/27/24 Transmitted 21:08 Ondansetron Hcl PHA 03/27/24 In Process (Zofran) 21:15 Complete Blood Count LAB 03/28/24 Verified 04:00 Npo (Nothing By DIET 03/28/24 Transmitted Mouth) Diet Breakfast Condition: Fair [facility] 03/27/24 In Process 21:08 Acetaminophen Tablet [facility] 03/27/24 In Process (Tylenol Tablet) 21:15 Bedrest With Bathroom [facility] 03/27/24 In Process Privileg 21:08 Nitroglycerin [facility] 03/27/24 In Process Sublingual (Ntrostat 21:15 Morphine Sulfate [facility] 03/27/24 In Process Injection 21:15 Notify Md Of Changes [facility] 03/27/24 In Process From Base 21:08 Sales Review Clerk For [facility] 03/27/24 In Process 24 Hours 21:08 Emergency Dysrhythmia [facility] 03/27/24 In Process Protocol 21:08 Rhythm Strips Once [facility] 03/27/24 In Process Every Shift 21:08 Oxygen By Nasal RT 03/27/24 Transmitted Cannula 21:08 Date of Service: Mar 27, 2024 Billing Provider: FELIPE JOLLY Common Visit Codes: [id number] INP/OBS CARE (HIGH) FELIPE JOLLY Mar 27, 2024 22:59
[2024-03-28] VITALS (18 sets, daily range): BP systolic 58–101; BP diastolic 42–65; PULSE 46–61; RESP 16–26; TEMP 97.6–98.2; O2SAT 91–100
[2024-03-28 04:02] LABS: Chloride 102 mmol/L (98-107); Potassium 4.2 mmol/L (3.5-5.1); Sodium 141 mmol/L (136-145)
[2024-03-28 04:03] LABS: Basophils # (auto) 0.1 10 ^3/uL (0-0.2); Basophils % (auto) 0.8 % (0.0-2.0); Eosinophils # (auto) 0.1 10 ^3/uL (0-0.8); Eosinophils % (auto) 1.1 % (0.0-7.0); Hematocrit 47.2 % (41.0-53.0); Hemoglobin 16.3 g/dL (13.5-17.5); Lymphocytes # (auto) 1.4 10 ^3/uL (0.4-5.4); Lymphocytes % (auto) 19.4 % (10.0-50.0); Mean Corpuscular Hemoglobin 33.5 pg (28.0-32.0); Mean Corpuscular Hgb Conc. 34.4 g/dL (32.0-36.0); Mean Corpuscular Volume 97.4 fL (80.0-100.0); Monocytes # (auto) 0.7 10 ^3/uL (0-1.3); Monocytes % (auto) 9.5 % (0.0-12.0); Neutrophils # (auto) 5.1 10 ^3/uL (1.6-8.6); Neutrophils % (auto) 69.2 % (37.0-80.0); Nucleated Red Blood Cells % 0.2 %; Platelet Count (auto) 208 10^3/uL (140-450); Red Blood Cells 4.85 10^6/uL (4.5-5.90); Red Cell Distribution Width 14.8 % (11.8-14.3); White Blood Cell 7.3 10^3/uL (4.4-10.8)
[2024-03-28 04:04] LABS: Calcium 9.8 mg/dL (8.7-10.4)
[2024-03-28 04:08] LABS: Glucose 92 mg/dL (74-106)
[2024-03-28 04:09] LABS: BUN/Creatinine Ratio 9.3 (10.0-20.0); Blood Urea Nitrogen 17 mg/dL (9-23)
[2024-03-28 04:12] LABS: INR 1.13 (0.9-1.15); Partial Thromboplastin Time 64.6 SEC (24.5-34.5); Prothrombin Time 11.9 sec (9.3-11.8)
[2024-03-28 04:17] LABS: Carbon Dioxide 33 mmol/L (20-31)
[2024-03-28 04:31] LABS: Urine Bacteria None Seen /hpf (None Seen)
[2024-03-28 05:16] LABS: Anion Gap 6 (5-15)
[2024-03-28 05:17] LABS: Urine Blood Negative /uL (Negative); Urine Clarity Clear (Clear); Urine Color Light-Yellow (Yellow); Urine Protein, UAD Negative (Negative); Urine Specific Gravity 1.011 (1.001-1.035); Urine Squamous Epithelial Cell None Seen /hpf (<5); Urine Urobilinogen Normal (Negative); Urine WBC <1 /hpf (0 - 3)
[2024-03-28] MEDS: FUROSEMIDE 20 MG TAB PO SCH (06:16)
[2024-03-28] MEDS: ASPirin 81 mg TAB PO SCH (10:06)
[2024-03-28] MEDS: METOPROLOL SUCCINATE XL 50 MG TAB PO SCH (10:07)
[2024-03-28] MEDS: AMIODARONE HCL 200 MG TAB PO SCH (10:07)
[2024-03-28 10:54] LABS: INR 1.12 (0.9-1.15); Partial Thromboplastin Time 63.2 SEC (24.5-34.5); Prothrombin Time 11.8 sec (9.3-11.8)
--- NOTE | 2024-03-28 10:57 | DVHPN2 ---
Progress Note Date Seen: Mar 28, 2024 Medical Necessity Reason Pt with a Central, PICC or Fol: No Subjective Patient reports: No new complaints Review of Systems: HEENT:Normal, CVS:Normal, RESPIRATORY:Normal, GI:Normal, :Normal, MSK:Normal, NEURO:Normal Objective vital signs Vital Sign Date Time Temp Pulse Resp B/P (MAP) Pulse Ox O2 Delivery O2 Flow Rate FiO2 03/28/24 10:21 66 15 101/67 (78) 94 03/28/24 07:44 Room Air* 0 03/27/24 19:02 98.0 Total Intake and Output 03/27/24 03/27/24 03/28/24 15:00 23:00 07:00 Intake Total 10 ml 80 ml Balance 10 ml 80 ml medications Current Medications Medications Dose Ordered Sig/Alejo Route Start Time Stop Time Status Last Admin Dose Admin Heparin Sodium/ Dextrose 250 ml @ 10 mls/hr Q24H IV 03/27/24 20:15 03/27/24 22:00 10 MLS/HR Atorvastatin Calcium 20 mg HS PO 03/27/24 22:00 03/27/24 22:23 20 MG Amiodarone HCl 200 mg DAILY PO 03/28/24 10:00 03/28/24 10:07 200 MG Furosemide 20 mg BIDD PO 03/28/24 06:00 03/28/24 06:16 20 MG Metoprolol Succinate 50 mg DAILY PO 03/28/24 10:00 03/28/24 10:07 50 MG Aspirin 162 mg DAILY PO 03/28/24 10:00 03/28/24 10:06 162 MG Ondansetron HCl 4 mg Q4HP PRN IV 03/27/24 21:15 Acetaminophen 650 mg Q6HP PRN PO 03/27/24 21:15 Nitroglycerin 0.4 mg Q5MINP PRN SL 03/27/24 21:15 Morphine Sulfate 2 mg Q30M PRN IV 03/27/24 21:15 Examination: GENERAL:Normal, HEENT:Normal, NECK:Normal, LUNGS:Normal, LUNGS:Abnormal (on oxygen), CVS:Normal, ABDOMEN:Normal, MSK:Normal, SKIN:Normal, NEURO:Normal, :Normal laboratory and microbiology Laboratory Tests 03/28/24 03:45 Test 03/28/24 03:45 Range/Units Serum Glucose 92 74-106 mg/dL Problem List/Assessment/Plan Problem List/Assessment/Plan #1 acute mi: heparin drip, dw cardiology #2 a fib s/p recent ablation #3 copd #4 acute resp failure: cont oxygen #5 ckd stage 3 #6 tobacco abuse: advised to quit, time spent 11 mins #7 hyperlipidemia #8 chronic diastolic heart failure Plan discussed with: Patient Critical Care Time (mins): 38 (critical care time 38mins) Sepsis reassessment post fluid Capillary Refill: < 3 seconds Date of Service: Mar 28, 2024 Billing Provider: FELIPE BLANK MD Common Visit Codes: [id number] CARE 30-74 MIN Secondary Visit Codes: [id number] CHNG SMOKING >10MIN FELIPE BLANK MD Mar 28, 2024 10:57
--- NOTE | 2024-03-28 11:15 | DVHCONRES ---
Date Seen: Mar 28, 2024 Resident Creating Document: ARIELLA KHALIL RESIDENT Referring Physician Talia Briscoe NP History of Present Illness This is a 68-year-old male with a past medical history of CHF, AFib, COPD, dyslipidemia, polysubstance abuse; surgical history of hernia repair who presented to the ED with chest pain. According to the patient, the chest pain started at 4:00 a.m as it actually woke the patient up. Initially it felt like an indigestion. The pain spread across his chest bilaterally and move towards his neck up to his the his jaw. Patient then took antacid believing that this was probably an indigestion related pain. However, that did not make him feel a ny better. Later in the afternoon, he became nauseous and started feeling very uncomfortable. Thus, prompting his visit to the ED. Of note, patient was recently seen at [facility] for ablation for his AFib. Patient also is polysubstance abuse user. He mentioned that he has done every drug with the exception of heroine. But he as stopped using drugs over a year. Per medical records, patient tested positive for amphetamine in May, 2023, but negative all testes drug in July. In the ED patient was noted to have stable blood pressure however he has chemistry revealed creatinine of 1.6 to 1.8, his troponin lower elevated statin at 3:32 a.m. 6 257--> 692--> 8414. [address] segment ischemia in the inferior wall with reciprocal changes to anteroseptal wall. Patient had heparin 4000unit and Aspirin 324. Past Medical History CHF, AFib, COPD, dyslipidemia, polysubstance abuse Past Surgical History surgical history of hernia repair Family History: Patient reports no known family medical history. 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 last year Allergies: Coded Allergies: NO KNOWN ALLERGIES (Unverified , 04/07/23) Home Meds Active Scripts Azithromycin (ZITHROMAX TABLET) 250 Mg Tb, 250 MG PO DAILY for 5 Days, #5 TAB Prov:EFLIPE BLANK MD 07/30/23 Methylprednisolone (Medrol Dosepak) 4 Mg Willam, 4 MG PO UD, #21 TAB UAD Prov:FELIPE BLANK MD 07/30/23 Prednisone (Prednisone) 20 Mg Tab, 20 MG PO QAM for 7 Days, #14 MG Prov:FELIPE BLANK MD 07/22/23 Doxycycline (Monohydrate) (Doxycycline) 100 Mg Cap, 100 MG PO BID for 5 Days, #10 CAP Prov:FELIPE BLANK MD 07/22/23 Empagliflozin (Jardiance) 10 Mg Tab, 10 MG PO DAILY for 30 Days, #30 TAB Prov:JORDY SANTOS [facility] 05/31/23 Apixaban Base (ELIQUIS) 5 Mg Tab, 5 MG PO BID for 30 Days, #60 TAB Prov:MARISOL HERNANDEZ MD 11/17/22 Atorvastatin Calcium (ATORVASTATIN CALCIUM) 20 Mg Tab, 1 TAB PO HS for 30 Days, #30 TAB 5 Refills Prov:MARISOL HERNANDEZ MD 11/17/22 Reported Medications Torsemide (Torsemide) 20 Mg Tab, 1 TAB PO BID 07/28/23 Potassium Chloride (POTASSIUM CHLORIDE CR) 10 Meq Tb, 8 MEQ PO BID 07/20/23 Alendronate Sodium (Alendronate Sodium) 70 Mg Tab, 1 TAB PO QWEEKLY, #4 TAB 3 Refills 03/11/23 Current Medications Current Medications Medications (Trade) Dose Ordered Sig/Alejo Route PRN Reason Start Time Stop Time Status Last Admin Heparin Sodium/ Dextrose 250 ml @ 10 mls/hr Q24H IV 03/27/24 20:15 03/27/24 22:00 Atorvastatin Calcium (Lipitor) 20 mg HS PO 03/27/24 22:00 03/27/24 22:23 Amiodarone HCl (Cordarone Tablet) 200 mg DAILY PO 03/28/24 10:00 03/28/24 10:07 Furosemide (Lasix Tablet) 20 mg BIDD PO 03/28/24 06:00 03/28/24 10:55 DC 03/28/24 06:16 Metoprolol Succinate (Toprol Xl) 50 mg DAILY PO 03/28/24 10:00 03/28/24 10:07 Aspirin 162 mg DAILY PO 03/28/24 10:00 03/28/24 10:06 Ondansetron HCl (Zofran) 4 mg Q4HP PRN IV NAUSEA / VOMITING 03/27/24 21:15 Acetaminophen (Tylenol Tablet) 650 mg Q6HP PRN PO PAIN SCALE 1-3 OR TEMP>100.4 03/27/24 21:15 Nitroglycerin (Ntrostat Sublingual) 0.4 mg Q5MINP PRN SL FOR CHEST PAIN 03/27/24 21:15 Morphine Sulfate 2 mg Q30M PRN IV FOR CHEST PAIN 03/27/24 21:15 Pantoprazole Sodium (Protonix) 40 mg DAILY IV 03/29/24 10:00 UNV Review of Systems Constitutional: Denies fever no chills no feeling of malaise HEENT: Denies headache, ear pain, ear discharges, conjunctivitis, nasal discharge throat pain Cardiovascular:No chest pain at this time, palpitation, orthopnea, PND, or pedal edema Respiratory: Denies shortness of breath, cough cough, sputum production, hemoptysis, GI: Denies abdominal pain, nausea, vomiting, diarrhea, hematemesis, hematochezia, : Denies frequency, urgency, hematuria, Endocrine: Denies unintentional weight gain or weight loss, feeling of hot flashes, Todd: Denies easy bruising, bleeding disorders, epistaxis Musculoskeletal: Denies joint pains, muscle aches Psych: No evidence of depression, hyacinth, suicidal ideation Vital Signs Vital Signs Date Time Temp Pulse Resp B/P (MAP) Pulse Ox O2 Delivery O2 Flow Rate FiO2 03/28/24 10:21 66 15 101/67 (78) 94 03/28/24 07:44 Room Air* 0 03/27/24 19:02 98.0 Physical Exam General examination- Not in acute distress Head: Atraumatic Eye: Sclera erythema R> L, PEERLA, Nose: No acute nasal discharge Chest: S1-S2 audible, rate and rhythm regular, no murmur Lung: CTAB, no wheeze or rhonchi Abdomen:distend, BS+, nontenderness, no organomegaly Musculoskeletal: no acute joint swelling or tenderness Lower extremity: no leg edema Neurological: cranial nerves intact, no acute dysarthria or dysphagia Psychiatry-- Normal mood and affect Skin- no acute rash or purpura, tattoo on left arm Labs/Diagnostic Data Labs Test 03/28/24 10:04 03/28/24 08:06 03/28/24 04:17 03/28/24 03:45 Range/Units Prothrombin Time 11.8 9.3-11.8 sec Prothrombin Time INR 1.12 0.9-1.15 Activated Partial Thromboplast Time 63.2 H 24.5-34.5 SEC Troponin I High Sensitivity 8414 *H </=54 ng/L Urine Color Light-yellow Yellow Urine Clarity Clear Clear Urine pH 5.0 5.0-9.0 Urine Specific [place] 1.011 1.001-1.035 Urine Protein Negative Negative Urine Ketones Negative Negative Urine Blood Negative Negative /uL Urine Nitrite Negative Negative Urine Bilirubin Negative Negative Urine Urobilinogen Normal Negative mg/dL Urine Leukocyte Esterase Negative Negative /uL Urine RBC <1 0 - 3 /hpf Urine WBC <1 0 - 3 /hpf Urine Squamous Epithelial Cells None seen <5 /hpf Urine Bacteria None seen None Seen /hpf Urine Glucose 4+ H Normal mg/dL White Blood Count 7.3 4.4-10.8 10^3/uL Red Blood Count 4.85 4.5-5.90 10^6/uL Hemoglobin 16.3 13.5-17.5 g/dL Hematocrit 47.2 41.0-53.0 % Mean Corpuscular Volume 97.4 80.0-100.0 fL Mean Corpuscular Hemoglobin 33.5 H 28.0-32.0 pg Mean Corpuscular Hemoglobin Concent 34.4 32.0-36.0 g/dL Red Cell Distribution Width 14.8 H 11.8-14.3 % Platelet Count 208 140-450 10^3/uL Mean Platelet Volume 9.3 6.9-10.8 fL Neutrophils (%) (Auto) 69.2 37.0-80.0 % Lymphocytes (%) (Auto) 19.4 10.0-50.0 % Monocytes (%) (Auto) 9.5 0.0-12.0 % Eosinophils (%) (Auto) 1.1 0.0-7.0 % Basophils (%) (Auto) 0.8 0.0-2.0 % Neutrophils # (Auto) 5.1 1.6-8.6 10 ^3/uL Lymphocytes # (Auto) 1.4 0.4-5.4 10 ^3/uL Monocytes # (Auto) 0.7 0-1.3 10 ^3/uL Eosinophils # (Auto) 0.1 0-0.8 10 ^3/uL Basophils # (Auto) 0.1 0-0.2 10 ^3/uL Nucleated Red Blood Cells 0.2 % Sodium Level 141 136-145 mmol/L Potassium Level 4.2 3.5-5.1 mmol/L Chloride Level 102 98-107 mmol/L Carbon Dioxide Level 33 H 20-31 mmol/L Anion Gap 6 5-15 Blood Urea Nitrogen 17 9-23 mg/dL Creatinine 1.82 H 0.700-1.30 mg/dL Glomerular Filtration Rate Calc 40 >90 mL/min BUN/Creatinine Ratio 9.3 L 10.0-20.0 Serum Glucose 92 74-106 mg/dL Calcium Level 9.8 8.7-10.4 mg/dL Test 03/27/24 19:00 Range/Units Magnesium Level 2.7 H 1.6-2.6 mg/dL Total Bilirubin 1.4 H 0.2-1.0 mg/dL Aspartate Amino Transferase (AST) 36 13-40 U/L Alanine Aminotransferase (ALT) 21 7-40 U/L Alkaline Phosphatase 152 H 46-116 U/L B-Type Natriuretic Peptide 116.20 0-100 pg/mL Total Protein 7.5 5.7-8.2 g/dL Albumin 4.8 3.2-4.8 g/dL Assessment Non ST elevation myocardial --> progressively elevated Troponin --> For Left heart cath today Remote history of polysubstance abuse, Stopped 10 months ago --> 45 years history --> UDS shows: Negative for any drugs Persistent atrial fibrillation --> on Heparin currently --> s/p ablation at [facility] 02/2024 ANDREY on CKD stage 3b --> GFR: 40 --> baseline cr: 1.31 ( 07/2023) Chronic decompensated HFrEF --> Echo 03/29/2024: ejection fraction 45%. ---> Continue GDMT for CHF, continue Beta marianna --> HOLD rest of GDMT given ANDREY History of hypertension --> Continue currently medication Hyperlipidemia --> Continue Atorvastatin COPD --> uses nebulizer 4x/day at home --> No acute exacerbation at the moment Thank you for allowing us to participate in the care of this patient. Please call if you have any questions or concerns. Plan discussed with: Patient Visit Coding Cardiology RES Date of Service: Mar 28, 2024 Billing Provider: JORGE L NELSON MD Cardiology Common Codes: 36722-YSILRJH INP/OBS CARE (High) Cardiology Consultation Codes: 19020-[id number] CONSULT <45MIN ARIELLA KHALIL RESIDENT Mar 28, 2024 11:15
[2024-03-28] MEDS: PANTOPRAZOLE 40 MG/10 ML VIAL INJ IV ONE (11:32)
[2024-03-28 11:41] LABS: Amphetamine Screen, Urine Neg (NEGATIVE); Barbiturate Scree,Urine Neg (NEGATIVE); Benzodiazephine Screen, Urine Neg (NEGATIVE); Cannabinoid Screen, Urine Neg (NEGATIVE); Cocaine Screen, Urine Neg (NEGATIVE); Opiate Scree,Urine Neg (NEGATIVE); Phencyclidine Screen, Urine Neg (NEGATIVE)
[2024-03-28] MEDS: IODIXANOL 320MG/ML 100ML BTL IV ONE ×3 (12:15→14:28)
[2024-03-28] MEDS: ANGIOMAX 250 MG VIAL IV ONE ×2 (13:01→14:28)
[2024-03-28] MEDS: VERAPAMIL 2.5MG/ML INJ 2ML VIAL IV ONE (13:01)
[2024-03-28] MEDS: MIDAZOLAM HCL 2MG/2ML 2ml VIAL (1mg/ml) ONE (13:02)
[2024-03-28] MEDS: SODIUM CHL 0.9% 0 ML ONE (13:02)
[2024-03-28] MEDS: LIDOCAINE 2%HCL (LOCAL ANESTH.) INJ 20ML MDV ONE (13:02)
[2024-03-28] MEDS: NITROGLYCERIN 50MG/250ML 250 ML IV ONE (13:02)
[2024-03-28] MEDS: fentaNYL CITRATE 100 MCG/2 ML VL ONE (13:02)
--- NOTE | 2024-03-28 13:16 | DVHSR ---
APPROVED REPORT EXAM: Two-dimensional and M-mode echocardiogram with Doppler and color Doppler. Blood Pressure: 102/69 mmHg INDICATION Chest Pain Elevated troponin RISK FACTORS Height: 5'10", Weight: 176 DIMENSIONS LVDd4.9 (3.8-5.7cm)LA (2D)3.5 (1.9-4.0cm)Aortic Root4.3 (2.0-3.7cm) LVDs4.0 (2.5-4.0cm)LA (MM) (1.9-4.0cm)Aortic Cusp Exc2.0 (1.5-2.0cm) EF (%) 45.0 (55-70%)Rt. Atrium4.3 (1.9-4.0cm)Asc. Aorta cm IVSd1.0 (0.7-1.1cm)RV (D)4.9 (1.8-2.4cm) PWd1.0 (0.7-1.1cm) Mitral Valve MitralMitral Stenosis E wave0.52m/sMV Mean GR.mmHg A wave0.57m/sMV Peak GR.mmHg E/A ratio0.92D MVAcm2 DECEL [id number] 1/2 Timems Aortic Valve Aortic ValveAortic Stenosis V11.00m/Stephanie Mean GR.2mmHg V21.02m/Stephanie Peak GR.4mmHg LVOT Diameter2.1 (1.8-2.4cm)Doppler AVA3.39cm2 Pulmonic Valve V20.69m/s Tricuspid Valve TR Velocity2.46m/s [id number] Other Information Technically limited study due to body habitus. Conclusion Moderately reduced left ventricular systolic pressure estimated ejection fraction 45%. There is a mi ld global wall hypokinesia. Moderately dilated right ventricle. Moderately reduced right ventricular systolic function. Moderately dilated right and left atria. Normal aortic valve structure and function. Normal mitral valve structure and function. There is mild tricuspid valve regurgitation. The pulmonary valve is grossly normal. No pericardial effusion.
[2024-03-28] MEDS: SODIUM CHLORIDE 0.9% 1,000 ML IV ONE (14:15)
[2024-03-28] MEDS: SODIUM CHL 0.9% 50 ML ONE (14:27)
[2024-03-28] MEDS: CLOPIDOGREL BISULFATE 75 MG TAB ONE ×2 (14:28)
--- NOTE | 2024-03-28 14:50 | DVHOP2 ---
Operative Report -Cardiology Report Details Date: 03/28/24 Preop Diagnosis: Acute coronary syndrome. Postop Diagnosis: Coronary angiography revealed totally occluded right coronary artery of the proximal segment as well as subtotally occluded proximal left anterior descending artery. The culprit of the presentation is the right coronary artery for which stenting was made using two drug-eluting stents, the same thing applies to the LAD a staged procedure to the LAD was done in the same set up two drug-eluting stents were placed with the proximal LAD with good final result. Surgeon: Cheikh Sagastume MD Anesthesiologist: Conscious sedation was made using25 mcg of fentanyl as well as a mg of midazolam. It was given under direct supervision patient of myself. In the presence of the attending nurses. Patient was monitored for total of35 minutes without obvious complication. Anesthesia: Local Consent: The patient was informed of the risks and benefits of the procedure. These include but are not limited to complications of anesthesia, postoperative infection, incomplete relief of symptoms, recurrence of symptoms, damage to blood vessels, nerves and tendons, deep venous thrombosis, pulmonary embolism and possible need for repeat surgery in the future. Indications for Surgery: 68-year-old male presents for evaluation of chest pain. Patient endorses a one day history of substernal squeezing/pressure-like that radiates to his neck. He reports episodes of nausea with vomiting. Denies shortness or breath PI no other acute complaints reported at the moment. Patient also has history of paroxysmal atrial fibrillation, congestive heart failure, hyperlipidemia, he underwent atrial fibrillation ablation [facility] couple of years back. He also has history of substance abuse but he has been free of any intake of any recreational drug for the past year. Given dynamic EKG changes with a positive troponin and chest pain patient we will qualify for an urgent coronary angiography which we will be done today Name of Procedure Performed 1. Left heart catheterization with left ventricular end-diastolic pressure measurement. 2. Selective right and left coronary angiography utilizing right transradial approach. 3. Primary PCI to culprit proximal right coronary artery occlusion using two dr ug-eluting stent. 4. Staged PCI procedure to the prox left anterior descending artery utilizing two drug-eluting stents 5. Conscious sedation using25 mcg of fentanyl as well as a mg IV midazolam. Procedure Details Procedure Details: Procedure note and vascular access: After informed consent was obtained, risks, benefits, complications, and alternatives were discussed in details with the patient who agrees to have the procedure done. At the beginning of the procedure, the right wrist in the right coronary artery were prepped and draped in the regular sterile fashion. Patient received conscious sedation using25 mcg of fentanyl as well as a mg IV midazolam. Patient was then placed in supine position, where his wrist is prepped and draped before a 2 cc of 1% xylocaine were given to the right wrist area, then a six [place] sheath was placed using modified Seldinger technique without difficulty, a cocktail of 2.5 mg of verapamil as well as 100 mcg of nitroglycerin were given intra-arterial to prevent vasospasm, a tiger five [place] catheter as well as J-tip wire we were able to used to cross the aortic valve and to engage the right and left coronary system respectively, after findings of the lesion to right coronary artery the tiger five [place] catheter was exchanged for an XB 0.75 guiding catheter, the left system was also engaged respectively for staged procedure using the same guiding catheter which was exchanged eventually to an XB 3.5 guiding catheter for better engagement. Findings were as follows: 1. Left heart catheterization with left ventricular end-diastolic pressure m easurement: With the help a tiger five [place] catheter as well as a J-tip wire we were able to cross the aortic valve and measured left ventricular end-diastolic pressure which was normal at 12 mm of mercury. There was no gradient across the aortic valve on the pullback. 2. Selective right and left coronary angiography utilizing right transradial approach: 1. The right coronary artery comes off the right coronary cusp it is a large dominant system it has complete occlusion of the proximal segment. Biatrial the occlusion there is 80% stenosis. No collaterals were seen filling the distal part of the right coronary system. 2. The left coronary system, the left main comes off the left coronary cusp it is widely patent it bifurcates into a large left anterior descending artery and a large codominant left circumflex vessel. No significant atherosclerotic plaquing was noted in the left main. 3. The left anterior descending artery is a large vessel with transapical cour se, it provides large 1st diagonal branch, the proximal left anterior descending artery has 80% tubular stenosis. 4. The left circumflex artery is a codominant system it bifurcates to two large obtuse marginal branches, and distally to posterior descending and posterolateral branch, it has mild irregularity but no significant disease. 3. Primary PCI to culprit proximal right coronary artery using two drug-eluting stents: Vivian right diagnostic catheter was exchanged for an Amplatz 0.75 guiding catheter, with the help of regular wire we were able to cross the lesion and pre-dilated using 2.5 x balloon serially and then stenting it using a three 0 x 30 and a three 0 x drug-eluting stent with excellent final result. ETHEL three flow was established from a baseline ETHEL 0 flow. 4. Staged PCI to prox tubular left anterior descending artery stenosis: The Amplatz 0.754 exchanged for an XB 3.5 guiding catheter we were able to cross the lesion proximal segment easily and stented using two drug-eluting stent it was three 0 by18 and three 0 x respectively distal to proximal with excellent final result. 5. Anticoagulation and antiplatelet during the procedure: Patient received Angiomax-bivalirudin- continuous infusion and received loading dose of Plavix of 600 as well as 162 mg of baby aspirin. Impression and plan: 1. High-risk acute coronary syndrome, with a successful placement of two drug- eluting stent to the right coronary artery onto drug-eluting stent to the proximal left anterior descending artery. 2. Patient was exposed to high contrast would need aggressive IV fluid hydration to prevent contrast induced nephropathy. 3. Patient has reduced ejection fraction for which he would need goal-directed medical therapy, he would need aspirin and Plavix for minimum of12 months, and he would need high-dose statin to achieve LDL target of less than 50 mg/dL. Condition Good [facility] Clinical Frailty Scale [facility] Clinical Frailty Scale: Mildly Frail Stress Test Stress Test Performed: No Dominance Dominance: Right ETHEL ETHEL Flow: Post- Intervention (ETHEL-3), Pre-Intervention (ETHEL-0) Lesion Residual Stenosis post procedu: 0% Disposition CHEIKH SAGASTUME MD Mar 28, 2024 14:50
[2024-03-28] MEDS: ALBUTEROL SULF 2.5 MG/0.5ML(0.5%) NEB SOLN NEB PRN (16:19)
[2024-03-29] VITALS (17 sets, daily range): BP systolic 85–106; BP diastolic 52–68; PULSE 45–64; RESP 16–20; TEMP 97.7–98.8; O2SAT 91–100
[2024-03-29 06:07] LABS: Basophils # (auto) 0.1 10 ^3/uL (0-0.2); Basophils % (auto) 0.8 % (0.0-2.0); Eosinophils # (auto) 0.1 10 ^3/uL (0-0.8); Eosinophils % (auto) 1.1 % (0.0-7.0); Hematocrit 43.1 % (41.0-53.0); Hemoglobin 14.7 g/dL (13.5-17.5); Lymphocytes # (auto) 1.1 10 ^3/uL (0.4-5.4); Lymphocytes % (auto) 14.5 % (10.0-50.0); Mean Corpuscular Hemoglobin 33.6 pg (28.0-32.0); Mean Corpuscular Hgb Conc. 34.1 g/dL (32.0-36.0); Mean Corpuscular Volume 98.4 fL (80.0-100.0); Monocytes # (auto) 0.8 10 ^3/uL (0-1.3); Monocytes % (auto) 9.7 % (0.0-12.0); Neutrophils # (auto) 5.7 10 ^3/uL (1.6-8.6); Neutrophils % (auto) 73.9 % (37.0-80.0); Platelet Count (auto) 166 10^3/uL (140-450); Red Blood Cells 4.38 10^6/uL (4.5-5.90); Red Cell Distribution Width 14.8 % (11.8-14.3); White Blood Cell 7.7 10^3/uL (4.4-10.8)
[2024-03-29 06:19] LABS: Alanine Aminotransferase 17 U/L (7-40); Albumin 3.5 g/dL (3.2-4.8); Alkaline Phosphatase 108 U/L (46-116); Anion Gap 6 (5-15); BUN/Creatinine Ratio 10.8 (10.0-20.0); Blood Urea Nitrogen 15 mg/dL (9-23); Calcium 9.6 mg/dL (8.7-10.4); Carbon Dioxide 29 mmol/L (20-31); Chloride 105 mmol/L (98-107); Glucose 79 mg/dL (74-106); Potassium 3.9 mmol/L (3.5-5.1); Sodium 140 mmol/L (136-145)
[2024-03-29 06:20] LABS: Total Protein 5.8 g/dL (5.7-8.2)
[2024-03-29 06:26] LABS: Aspartate Aminotransferase 57 U/L (13-40); Bilirubin, Total 1.4 mg/dL (0.2-1.0)
[2024-03-29] MEDS: CLOPIDOGREL BISULFATE 75 MG TAB PO SCH (09:16)
[2024-03-29] MEDS: PANTOPRAZOLE 40 MG/10 ML VIAL INJ IV SCH (09:16)
--- NOTE | 2024-03-29 10:14 | ECG ---
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
--- NOTE | 2024-03-29 10:28 | ECG ---
[facility] Test Date: 2024-03-28 Test Time: 15:22:49 Pat Name: STACI CASTAÑEDA Department: Room: 0288T A Gender: M Communications Lead: DIVYA : 1955 Requested By: JORGE L SAGASTUME Order Number: [id number] Reading MD: Jorge L Sagastume Measurements Intervals [place] Rate: 56 P: 102 IL: 152 QRS: 249 QRSD: 92 T: 6 QT: 488 QTc: 470 Interpretive Statements Suspect arm lead reversal, interpretation assumes no reversal Sinus bradycardia with premature atrial complexes Right superior axis deviation Pulmonary disease pattern Right ventricular hypertrophy Cannot rule out Inferior infarct , age undetermined Electronically Signed On 03-29-2024 13:32:44 PST by Jorge L Sagastume Please click the below link to view image of tracing.
--- NOTE | 2024-03-29 11:27 | ECG ---
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
--- NOTE | 2024-03-29 11:38 | DVHPN2 ---
Progress Note Date Seen: Mar 29, 2024 Medical Necessity Reason Pt with a Central, PICC or Fol: No Subjective Patient reports: No new complaints Review of Systems: HEENT:Normal, CVS:Normal, RESPIRATORY:Normal, GI:Normal, :Normal, MSK:Normal, NEURO:Normal Objective vital signs Vital Sign Date Time Temp Pulse Resp B/P (MAP) Pulse Ox O2 Delivery O2 Flow Rate FiO2 03/29/24 10:00 54 03/29/24 09:49 99 Nasal Cannula 2.0 03/29/24 09:49 28 03/29/24 09:28 18 03/29/24 08:27 98.1 85/52 (63) 98.1 Total Intake and Output 03/28/24 03/28/24 03/29/24 15:00 23:00 07:00 Intake Total 40 ml 300 ml 400 ml Output Total 350 ml 600 ml Balance -310 ml 300 ml -200 ml medications Current Medications Medications Dose Ordered Sig/Alejo Route Start Time Stop Time Status Last Admin Dose Admin Amiodarone HCl 200 mg DAILY PO 03/28/24 10:00 03/28/24 10:07 200 MG Metoprolol Succinate 50 mg DAILY PO 03/28/24 10:00 03/28/24 10:07 50 MG Ondansetron HCl 4 mg Q4HP PRN IV 03/27/24 21:15 Acetaminophen 650 mg Q6HP PRN PO 03/27/24 21:15 Nitroglycerin 0.4 mg Q5MINP PRN SL 03/27/24 21:15 Morphine Sulfate 2 mg Q30M PRN IV 03/27/24 21:15 Pantoprazole Sodium 40 mg DAILY IV 03/29/24 10:00 03/29/24 09:16 40 MG Clopidogrel Bisulfate 75 mg DAILY PO 03/29/24 10:00 03/29/24 09:16 75 MG Albuterol 2.5 mg Q6HPRN PRN NEB 03/28/24 15:45 03/29/24 09:22 2.5 MG Atorvastatin Calcium 40 mg HS PO 03/29/24 22:00 Apixaban 5 mg BID PO 03/29/24 22:00 UNV Examination: GENERAL:Normal, HEENT:Normal, NECK:Normal, LUNGS:Normal, LUNGS:Abnormal (ON OXYGEN), CVS:Normal, ABDOMEN:Normal, MSK:Normal, SKIN:Normal, NEURO:Normal, :Normal laboratory and microbiology Laboratory Tests 03/29/24 05:20 Test 03/29/24 05:20 Range/Units Serum Glucose 79 74-106 mg/dL Problem List/Assessment/Plan Problem List/Assessment/Plan #1 acute mi: s/p stents, asa, plavix #2 a fib s/p recent ablation #3 copd #4 acute resp failure: cont oxygen #5 ckd stage 3: monitor renal function #6 tobacco abuse: advised to quit, time spent 11 mins #7 hyperlipidemia #8 chronic diastolic heart failure advance care planning- full code- time spent 19 mins Plan discussed with: Patient My Orders My Orders Orders - FELIPE BLANK MD Procedure Category Date Status Time Albuterol Medneb PHA 03/28/24 In Process (Ventolin Medneb) 15:45 Sepsis reassessment post fluid Capillary Refill: < 3 seconds Date of Service: Mar 29, 2024 Billing Provider: FELIPE BLANK MD Common Visit Codes: 75905-[id number] INP/OBS CARE(HIGH) Secondary Visit Codes: 54219-BCRBHAAT CARE PLAN 30 MINUTES FELIPE BLANK MD Mar 29, 2024 11:38
[2024-03-29] MEDS: ASPirin 81 mg TAB PO ONE (11:45)
[2024-03-29] MEDS: IPRATROPIUM BROM 0.5 MG/2.5ML INH SOL NEB SCH (12:23)
[2024-03-29] MEDS: ALBUTEROL SULF 2.5 MG/0.5ML(0.5%) NEB SOLN NEB SCH (12:23)
--- NOTE | 2024-03-29 14:04 | ECG ---
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
--- NOTE | 2024-03-29 15:14 | DVHPN2 ---
Consult Progress Note Date Seen: Mar 29, 2024 Subjective Other Systems: Patient is seen and examined this morning. He is status post stent placement (2 in RCA and 2 in LDA). He denies any chest pain, shortness of breath, palpitation or any dizziness while walking. Patient is feeling much better than when he came in. He has been thoroughly educated to be adherent to the medications and abstain from illict drugs. He expressed comprehension of the treatment plan and will follow up with Cardiology in 2 weeks 04/14/2024 Objective vital signs Vital Sign Date Time Temp Pulse Resp B/P (MAP) Pulse Ox O2 Delivery O2 Flow Rate FiO2 03/29/24 14:28 93/53 (66) 03/29/24 12:44 98.6 54 18 97 98.6 03/29/24 12:23 Nasal Cannula 3.0 03/29/24 12:23 32 Total Intake and Output 03/28/24 03/28/24 03/29/24 15:00 23:00 07:00 Intake Total 40 ml 300 ml 400 ml Output Total 350 ml 600 ml Balance -310 ml 300 ml -200 ml medications Current Medications Medications Dose Ordered Sig/Alejo Route Start Time Stop Time Status Last Admin Dose Admin Amiodarone HCl 200 mg DAILY PO 03/28/24 10:00 03/28/24 10:07 200 MG Ondansetron HCl 4 mg Q4HP PRN IV 03/27/24 21:15 Acetaminophen 650 mg Q6HP PRN PO 03/27/24 21:15 Nitroglycerin 0.4 mg Q5MINP PRN SL 03/27/24 21:15 Morphine Sulfate 2 mg Q30M PRN IV 03/27/24 21:15 Clopidogrel Bisulfate 75 mg DAILY PO 03/29/24 10:00 03/29/24 09:16 75 MG Albuterol 2.5 mg Q6HPRN PRN NEB 03/28/24 15:45 03/29/24 09:22 2.5 MG Atorvastatin Calcium 40 mg HS PO 03/29/24 22:00 Apixaban 5 mg BID PO 03/29/24 22:00 Aspirin 81 mg DAILY PO 03/30/24 10:00 Pantoprazole Sodium 40 mg DAILY@0600 PO 03/30/24 06:00 Albuterol 2.5 mg Q6HWA NEB 03/29/24 12:00 03/29/24 12:23 2.5 MG Ipratropium [place] 0.5 mg Q6HWA NEB 03/29/24 12:00 03/29/24 12:23 0.5 MG laboratory and microbiology Laboratory Tests 03/29/24 05:20 Test 03/29/24 05:20 Range/Units Serum Glucose 79 74-106 mg/dL Problem List/Assessment/Plan Problem List/Assessment/Plan Coronary artery disease --> S/P LHC with stent placement 03/28/2024 --> Plavix and eliquis for 1 year ( Aspirin removed because patient already on eliquis for afib) --> Follow up at the cardiology clinic on 04/14/2024 Remote history of polysubstance abuse, Stopped 10 months ago --> 45 years history --> UDS shows: Negative for any drugs on this admission Persistent atrial fibrillation --> Continue eliquis 5 mg bid --> s/p ablation at [facility] 02/2024 ANDREY on CKD stage 3b --> GFR: 40 --> baseline cr: 1.31 ( 07/2023) Chronic decompensated HFrEF --> Echo 03/29/2024: ejection fraction 45%. ---> Continue GDMT for CHF, continue Beta marianna --> HOLD Jardiance and Entresto recent elevation in creatinine. Consider adding these two medications once the creatinine level improves History of hypertension --> Continue currently medication Hyperlipidemia --> Continue Atorvastatin COPD --> uses nebulizer 4x/day at home --> No acute exacerbation at the moment Thank you for allowing us to participate in the care of this patient. Cardiology will sign off. Please call if you have any questions or concerns. Plan discussed with: Patient Date of Service: Mar 29, 2024 Billing Provider: JORGE L NELSON MD Cardiology Common Codes: [id number] CARE-EACH +30MIN ARIELLA KHALIL RESIDENT Mar 29, 2024 15:14
[2024-03-29] MEDS: APIXABAN 5 MG TAB PO SCH (21:44)
[2024-03-29] MEDS: ATORVASTATIN 20 MG TAB PO SCH (21:45)
[2024-03-30] VITALS (18 sets, daily range): BP systolic 97–114; BP diastolic 53–69; PULSE 51–78; RESP 16–20; TEMP 98.2–100.6; O2SAT 91–100
[2024-03-30] MEDS: PANTOPRAZOLE 40 MG TAB PO SCH (06:15)
[2024-03-30 06:16] LABS: Alanine Aminotransferase 17 U/L (7-40); Albumin 3.7 g/dL (3.2-4.8); Alkaline Phosphatase 105 U/L (46-116); Anion Gap 7 (5-15); Aspartate Aminotransferase 38 U/L (13-40); BUN/Creatinine Ratio 13.2 (10.0-20.0); Bilirubin, Total 0.9 mg/dL (0.2-1.0); Blood Urea Nitrogen 19 mg/dL (9-23); Calcium 9.6 mg/dL (8.7-10.4); Chloride 104 mmol/L (98-107); Glucose 106 mg/dL (74-106); Potassium 3.8 mmol/L (3.5-5.1); Sodium 142 mmol/L (136-145); Total Protein 5.9 g/dL (5.7-8.2)
[2024-03-30 07:02] LABS: Carbon Dioxide 31 mmol/L (20-31)
[2024-03-30] MEDS: ASPirin 81 mg TAB PO SCH (09:47)
--- NOTE | 2024-03-30 11:59 | DVHPN2 ---
Subjective The patient is seen and examined at bedside. Complain of shortness of breath. Reviewed: Care Plan, H&P, Labs, Medications, Previous Orders, Radiology Changes from previous H/P or p: No Changes Objective Vitals Vital Signs Date Time Temp Pulse Resp B/P (MAP) Pulse Ox O2 Delivery O2 Flow Rate FiO2 03/30/24 11:30 66 18 92 03/30/24 11:22 Nasal Cannula* 1 24 03/30/24 08:32 98.2 103/53 (70) 98.2 Intake/Output Intake and Output 03/30/24 07:00 Intake Total 1400 ml Balance 1400 ml Intake Oral 1400 ml # Voids 10 # Bowel Movements 2 General Appearance: Alert, Oriented X3, Cooperative, No acute distress HEENT: Atraumatic, PERRLA, EOMI, Mucous membr. moist/pink Neck: Supple Lungs: Clear to auscultation, Normal air movement Cardiovascular: Regular rate, Normal S1, Normal S2, No murmurs, Gallops, Rubs Abdomen: Normal bowel sounds, Soft, No tenderness Neuro: Cranial nerves 3-12 NL Psych/Mental Status: Mental status NL Medications Current Medications Medications Dose Ordered Sig/Alejo Route Start Time Stop Time Status Last Admin Dose Admin Amiodarone HCl 200 mg DAILY PO 03/28/24 10:00 03/30/24 09:47 200 MG Ondansetron HCl 4 mg Q4HP PRN IV 03/27/24 21:15 Acetaminophen 650 mg Q6HP PRN PO 03/27/24 21:15 Nitroglycerin 0.4 mg Q5MINP PRN SL 03/27/24 21:15 Morphine Sulfate 2 mg Q30M PRN IV 03/27/24 21:15 Clopidogrel Bisulfate 75 mg DAILY PO 03/29/24 10:00 03/30/24 09:47 75 MG Albuterol 2.5 mg Q6HPRN PRN NEB 03/28/24 15:45 03/30/24 04:16 2.5 MG Atorvastatin Calcium 40 mg HS PO 03/29/24 22:00 03/29/24 21:45 40 MG Apixaban 5 mg BID PO 03/29/24 22:00 03/30/24 09:47 5 MG Aspirin 81 mg DAILY PO 03/30/24 10:00 03/30/24 09:47 81 MG Pantoprazole Sodium 40 mg DAILY@0600 PO 03/30/24 06:00 03/30/24 06:15 40 MG Albuterol 2.5 mg Q6HWA [facility] 03/29/24 12:00 03/30/24 11:22 2.5 MG Ipratropium [place] 0.5 mg Q6HWA [facility] 03/29/24 12:00 03/30/24 11:23 0.5 MG Laboratory Results Laboratory Tests 03/29/24 05:20 03/30/24 05:17 Chemistry Test 03/30/24 05:17 Albumin 3.7 g/dL (3.2-4.8) Calcium Level 9.6 mg/dL (8.7-10.4) Total Protein 5.9 g/dL (5.7-8.2) LFT Test 03/30/24 05:17 Alanine Aminotransferase (ALT) 17 U/L (7-40) Alkaline Phosphatase 105 U/L (46-116) Aspartate Amino Transferase (AST) 38 U/L (13-40) Total Bilirubin 0.9 mg/dL (0.2-1.0) Urinalysis Test 03/28/24 04:17 Urine Color Light-yellow (Yellow) Urine Clarity Clear (Clear) Urine pH 5.0 (5.0-9.0) Urine Specific [place] 1.011 (1.001-1.035) Urine Protein Negative (Negative) Urine Ketones Negative (Negative) Urine Blood Negative /uL (Negative) Urine Nitrite Negative (Negative) Urine Bilirubin Negative (Negative) Urine Urobilinogen Normal mg/dL (Negative) Urine Leukocyte Esterase Negative /uL (Negative) Urine RBC <1 /hpf (0 - 3) Urine WBC <1 /hpf (0 - 3) Urine Squamous Epithelial Cells None seen /hpf (<5) Urine Bacteria None seen /hpf (None Seen) Urine Glucose 4+ mg/dL (Normal) H Labs and/or images reviewed: Labs reviewed by me Assessment/Plan Assessment/Plan #1 acute mi: s/p stents, asa, plavix #2 a fib s/p recent ablation #3 copd #4 acute resp failure: cont oxygen #5 ckd stage 3: monitor renal function #6 tobacco abuse #7 hyperlipidemia #8 chronic diastolic heart failure Plan: Continuing current management. Continuing with aspirin and Plavix for now. 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 Continuing with Eliquis. Advised to quit smoking. Counseled time more than 15 minutes. Continuing with statin. I was about to discharge the patient home. However when the patient ambulate had severe shortness a breath. We will hold discharge for now. This medical document was created using an electronic medical record system with [employer] direct computerized dictation system. Although this document has been carefully reviewed, there may still be some phonetic and typographical errors. These areas are purely typographical due to imperfections of the software programs, and do not reflect any compromise in the patient's medical care. Plan discussed with: Patient Date of Service: Mar 30, 2024 Billing Provider: FERNANDO MARTIN MD Common Visit Codes: [id number] INP/OBS CARE(HIGH) FERNANDO MARTIN MD Mar 30, 2024 11:59
[2024-03-30] MEDS ORDERED: CLOP75TA70 PO (12:20)
--- NOTE | 2024-03-30 12:22 | DVHDS2 ---
Discharge Summary Date of Admission Mar 27, 2024 at 21:08 Date of Discharge: Mar 30, 2024 Labs/Diagnostic Data: Laboratory Results Test 03/30/24 05:17 03/29/24 05:20 03/28/24 10:30 03/28/24 10:04 Sodium Level 142 mmol/L (136-145) Potassium Level 3.8 mmol/L (3.5-5.1) Chloride Level 104 mmol/L (98-107) Carbon Dioxide Level 31 mmol/L (20-31) Anion Gap 7 (5-15) Blood Urea Nitrogen 19 mg/dL (9-23) Creatinine 1.44 mg/dL (0.700-1.30) Glomerular Filtration Rate Calc 53 mL/min (>90) BUN/Creatinine Ratio 13.2 (10.0-20.0) Serum Glucose 106 mg/dL (74-106) Calcium Level 9.6 mg/dL (8.7-10.4) Total Bilirubin 0.9 mg/dL (0.2-1.0) Aspartate Amino Transferase (AST) 38 U/L (13-40) Alanine Aminotransferase (ALT) 17 U/L (7-40) Alkaline Phosphatase 105 U/L (46-116) Total Protein 5.9 g/dL (5.7-8.2) Albumin 3.7 g/dL (3.2-4.8) White Blood Count 7.7 10^3/uL (4.4-10.8) Red Blood Count 4.38 10^6/uL (4.5-5.90) Hemoglobin 14.7 g/dL (13.5-17.5) Hematocrit 43.1 % (41.0-53.0) Mean Corpuscular Volume 98.4 fL (80.0-100.0) Mean Corpuscular Hemoglobin 33.6 pg (28.0-32.0) Mean Corpuscular Hemoglobin Concent 34.1 g/dL (32.0-36.0) Red Cell Distribution Width 14.8 % (11.8-14.3) Platelet Count 166 10^3/uL (140-450) Mean Platelet Volume 8.9 fL (6.9-10.8) Neutrophils (%) (Auto) 73.9 % (37.0-80.0) Lymphocytes (%) (Auto) 14.5 % (10.0-50.0) Monocytes (%) (Auto) 9.7 % (0.0-12.0) Eosinophils (%) (Auto) 1.1 % (0.0-7.0) Basophils (%) (Auto) 0.8 % (0.0-2.0) Neutrophils # (Auto) 5.7 10 ^3/uL (1.6-8.6) Lymphocytes # (Auto) 1.1 10 ^3/uL (0.4-5.4) Monocytes # (Auto) 0.8 10 ^3/uL (0-1.3) Eosinophils # (Auto) 0.1 10 ^3/uL (0-0.8) Basophils # (Auto) 0.1 10 ^3/uL (0-0.2) Nucleated Red Blood Cells 0.0 % Urine Opiates Screen Neg (NEGATIVE) Urine Fentanyl Screen Neg (NEGATIVE) Urine Barbiturates Screen Neg (NEGATIVE) Urine Phencyclidine Screen Neg (NEGATIVE) Urine Amphetamines Screen Neg (NEGATIVE) Urine Benzodiazepines Screen Neg (NEGATIVE) Urine Cocaine Screen Neg (NEGATIVE) Urine Cannabinoids Screen Neg (NEGATIVE) Prothrombin Time 11.8 sec (9.3-11.8) Prothrombin Time INR 1.12 (0.9-1.15) Activated Partial Thromboplast Time 63.2 SEC (24.5-34.5) Test 03/28/24 08:06 03/28/24 04:17 03/27/24 19:00 Troponin I High Sensitivity 8414 ng/L (</=54) Urine Color Light-yellow (Yellow) Urine Clarity Clear (Clear) Urine pH 5.0 (5.0-9.0) Urine Specific [place] 1.011 (1.001-1.035) Urine Protein Negative (Negative) Urine Ketones Negative (Negative) Urine Blood Negative /uL (Negative) Urine Nitrite Negative (Negative) Urine Bilirubin Negative (Negative) Urine Urobilinogen Normal mg/dL (Negative) Urine Leukocyte Esterase Negative /uL (Negative) Urine RBC <1 /hpf (0 - 3) Urine WBC <1 /hpf (0 - 3) Urine Squamous Epithelial Cells None seen /hpf (<5) Urine Bacteria None seen /hpf (None Seen) Urine Glucose 4+ mg/dL (Normal) Magnesium Level 2.7 mg/dL (1.6-2.6) B-Type Natriuretic Peptide 116.20 pg/mL (0-100) Other Laboratory Tests 03/30/24 05:17 03/29/24 05:20 Condition at Discharge: Good Final Diagnosis/Problems List NSTEMI Discharge Disposition: Home Discharge Instruct/Medications Diet: Cardiac 2g Na,low cholest Activity: No Restrictions, As Tolerated Follow Up/Referral: pcp 1-2 weeks speech therapist per schedule Medications: Resume home meds Plavix 75mg daily Discharge Statement: "Patient was advised to return to the ER or call 911 if any headaches, dizziness, shortness of breath, chest pain, abdominal pain, bleeding, fevers, or worsening of medical condition. Patient was counseled about treatment plan, medications, possible side effects, patientverbalized understanding. All questions were answered to the best of my ability. This discharge took greater then 30 minutes in planning, reviewing documentation, counseling the patient, and discussing with other team members." ASSESSMENT ASSESSMENT Assessment NSTEMI FERNANDO MARTIN MD Mar 30, 2024 12:22
[2024-03-31] VITALS (18 sets, daily range): BP systolic 95–118; BP diastolic 46–77; PULSE 60–95; RESP 16–22; TEMP 97.5–100; O2SAT 90–98
[2024-03-31] MEDS: IPRATROPIUM BROM 0.5 MG/2.5ML INH SOL NEB ONE (03:44)
[2024-03-31] MEDS: ALBUTEROL SULF 2.5 MG/0.5ML(0.5%) NEB SOLN NEB ONE (03:44)
[2024-03-31] MEDS: methylPREDNISolone SOD SUCC 40 MG/ML VL IV ONE ×2 (05:48→13:11)
--- NOTE | 2024-03-31 06:14 | DVH ---
CHEST RADIOGRAPH Indication: sob Technique: Single frontal view of the chest was obtained Comparison: XY CHEST PORTABLE on DOS: 03/27/24, XY CHEST PORTABLE on DOS: 07/28/23, XY CHEST PORTABLE on DOS: 07/26/23 FINDINGS: Lines and Tubes: None Lungs: No focal consolidation. Pleura: No effusion. No pneumothorax. Cardiomediastinal contours: Unremarkable Bones: No acute osseous abnormality. IMPRESSION: 1. No acute cardiopulmonary disease.
--- NOTE | 2024-03-31 11:14 | DVHPN2 ---
Progress Note Date Seen: Mar 31, 2024 Medical Necessity Reason Pt with a Central, PICC or Fol: No Subjective Patient reports: No new complaints Review of Systems: HEENT:Normal, CVS:Normal, RESPIRATORY:Normal, GI:Normal, :Normal, MSK:Normal, NEURO:Normal Objective vital signs Vital Sign Date Time Temp Pulse Resp B/P (MAP) Pulse Ox O2 Delivery O2 Flow Rate FiO2 03/31/24 09:00 100.0 69 16 95/47 (63) 93 100.0 03/31/24 07:30 Nasal Cannula* 2 28 Total Intake and Output 03/30/24 03/30/24 03/31/24 15:00 23:00 07:00 Intake Total 958 ml 1398 ml Balance 958 ml 1398 ml medications Current Medications Medications Dose Ordered Sig/Alejo Route Start Time Stop Time Status Last Admin Dose Admin Amiodarone HCl 200 mg DAILY PO 03/28/24 10:00 03/31/24 10:32 200 MG Ondansetron HCl 4 mg Q4HP PRN IV 03/27/24 21:15 Acetaminophen 650 mg Q6HP PRN PO 03/27/24 21:15 Nitroglycerin 0.4 mg Q5MINP PRN SL 03/27/24 21:15 Morphine Sulfate 2 mg Q30M PRN IV 03/27/24 21:15 Clopidogrel Bisulfate 75 mg DAILY PO 03/29/24 10:00 03/31/24 10:32 75 MG Albuterol 2.5 mg Q6HPRN PRN NEB 03/28/24 15:45 03/31/24 00:08 2.5 MG Atorvastatin Calcium 40 mg HS PO 03/29/24 22:00 03/30/24 21:04 40 MG Apixaban 5 mg BID PO 03/29/24 22:00 03/31/24 10:32 5 MG Aspirin 81 mg DAILY PO 03/30/24 10:00 03/31/24 10:31 81 MG Pantoprazole Sodium 40 mg DAILY@0600 PO 03/30/24 06:00 03/31/24 05:48 40 MG Albuterol 2.5 mg Q6HWA NEB 03/29/24 12:00 03/31/24 06:53 2.5 MG Ipratropium [place] 0.5 mg Q6HWA NEB 03/29/24 12:00 03/31/24 06:53 0.5 MG Examination: GENERAL:Normal, HEENT:Normal, NECK:Normal, LUNGS:Normal, LUNGS:Abnormal (on oxygen), CVS:Normal, ABDOMEN:Normal, MSK:Normal, SKIN:Normal, NEURO:Normal, :Normal laboratory and microbiology Laboratory Tests 03/30/24 05:17 03/29/24 05:20 Test 03/30/24 05:17 Range/Units Serum Glucose 106 74-106 mg/dL Problem List/Assessment/Plan Problem List/Assessment/Plan #1 acute mi: s/p stents, asa, plavix #2 a fib s/p recent ablation #3 copd with exacerbation: iv steroids #4 acute resp failure: cont oxygen #5 ckd stage 3: monitor renal function #6 tobacco abuse: advised to quit, time spent 11 mins #7 hyperlipidemia #8 chronic diastolic heart failure #9 ?pneumonia- gram positive/negative/sepsis: iv antibiotics advance care planning- full code- time spent 19 mins Plan discussed with: Patient Sepsis reassessment post fluid Capillary Refill: < 3 seconds Date of Service: Mar 31, 2024 Billing Provider: FELIPE BLANK MD Common Visit Codes: [id number] INP/OBS CARE(HIGH) FELIPE BLANK MD Mar 31, 2024 11:14
[2024-03-31] MEDS: cefTRIAXone 1GM/50ML D5W 50 ML IV ONE (13:06)
[2024-03-31] MEDS: AZITHROMYCIN 500MG/ 250ML 250 ML IV ONE (13:07)
[2024-03-31] MEDS: methylPREDNISolone SOD SUCC 40 MG/ML VL IV SCH (21:30)
[2024-04-01] VITALS (19 sets, daily range): BP systolic 104–123; BP diastolic 51–69; PULSE 59–82; RESP 16–20; TEMP 97.4–98.1; O2SAT 91–100
[2024-04-01 06:43] LABS: Chloride 103 mmol/L (98-107); Potassium 4.5 mmol/L (3.5-5.1); Sodium 139 mmol/L (136-145)
[2024-04-01 06:46] LABS: Basophils # (auto) 0 10 ^3/uL (0-0.2); Eosinophils # (auto) 0 10 ^3/uL (0-0.8); Hematocrit 43.7 % (41.0-53.0); Lymphocytes # (auto) 0.1 10 ^3/uL (0.4-5.4); Lymphocytes % (auto) 1.5 % (10.0-50.0); Mean Corpuscular Hemoglobin 33.7 pg (28.0-32.0); Mean Corpuscular Hgb Conc. 34.4 g/dL (32.0-36.0); Mean Corpuscular Volume 97.8 fL (80.0-100.0); Monocytes # (auto) 0.3 10 ^3/uL (0-1.3); Monocytes % (auto) 3.6 % (0.0-12.0); Neutrophils # (auto) 7.7 10 ^3/uL (1.6-8.6); Neutrophils % (auto) 94.9 % (37.0-80.0); Platelet Count (auto) 180 10^3/uL (140-450); Red Blood Cells 4.47 10^6/uL (4.5-5.90); Red Cell Distribution Width 14.6 % (11.8-14.3); White Blood Cell 8.1 10^3/uL (4.4-10.8)
[2024-04-01 06:49] LABS: BUN/Creatinine Ratio 15.2 (10.0-20.0); Blood Urea Nitrogen 22 mg/dL (9-23)
[2024-04-01 06:51] LABS: Glucose 140 mg/dL (74-106)
[2024-04-01 07:01] LABS: Anion Gap 6 (5-15); Carbon Dioxide 30 mmol/L (20-31)
[2024-04-01] MEDS: AZITHROMYCIN 500MG/ 250ML 250 ML IV SCH (09:01)
[2024-04-01] MEDS: cefTRIAXone 1GM/50ML D5W 50 ML IV SCH (09:01)
--- NOTE | 2024-04-01 11:37 | DVHPN2 ---
Progress Note Date Seen: Apr 01, 2024 Medical Necessity Reason Pt with a Central, PICC or Fol: No Subjective Patient reports: No new complaints Review of Systems: HEENT:Normal, CVS:Normal, RESPIRATORY:Normal, GI:Normal, :Normal, MSK:Normal, NEURO:Normal Objective vital signs Vital Sign Date Time Temp Pulse Resp B/P (MAP) Pulse Ox O2 Delivery O2 Flow Rate FiO2 04/01/24 10:20 95 Nasal Cannula* 5 40 04/01/24 08:41 97.8 60 18 104/59 (74) 97.8 Total Intake and Output 03/31/24 03/31/24 04/01/24 15:00 23:00 07:00 Intake Total 50 ml 1050 ml 680 ml Balance 50 ml 1050 ml 680 ml medications Current Medications Medications Dose Ordered Sig/Alejo Route Start Time Stop Time Status Last Admin Dose Admin Amiodarone HCl 200 mg DAILY PO 03/28/24 10:00 04/01/24 09:02 200 MG Ondansetron HCl 4 mg Q4HP PRN IV 03/27/24 21:15 Acetaminophen 650 mg Q6HP PRN PO 03/27/24 21:15 Nitroglycerin 0.4 mg Q5MINP PRN SL 03/27/24 21:15 Morphine Sulfate 2 mg Q30M PRN IV 03/27/24 21:15 Clopidogrel Bisulfate 75 mg DAILY PO 03/29/24 10:00 04/01/24 08:59 75 MG Albuterol 2.5 mg Q6HPRN PRN NEB 03/28/24 15:45 04/01/24 02:45 2.5 MG Atorvastatin Calcium 40 mg HS PO 03/29/24 22:00 03/31/24 21:30 40 MG Apixaban 5 mg BID PO 03/29/24 22:00 04/01/24 08:58 5 MG Aspirin 81 mg DAILY PO 03/30/24 10:00 04/01/24 08:59 81 MG Pantoprazole Sodium 40 mg DAILY@0600 PO 03/30/24 06:00 04/01/24 05:41 40 MG Albuterol 2.5 mg Q6HWA NEB 03/29/24 12:00 04/01/24 07:16 2.5 MG Ipratropium [place] 0.5 mg Q6HWA NEB 03/29/24 12:00 04/01/24 07:16 0.5 MG Ceftriaxone Sodium 50 ml @ 100 mls/hr DAILY@09 IV 04/01/24 09:00 04/01/24 09:01 100 MLS/HR Methylprednisolone Sodium Succinate 20 mg BID IV 04/01/24 22:00 UNV Azithromycin 500 mg DAILY PO 04/02/24 10:00 UNV Furosemide 20 mg BIDD IV 04/01/24 18:00 UNV Examination: GENERAL:Normal, HEENT:Normal, NECK:Normal, LUNGS:Normal, LUNGS:Abnormal (on oxygen), CVS:Normal, ABDOMEN:Normal, MSK:Normal, SKIN:Normal, NEURO:Normal, :Normal laboratory and microbiology Laboratory Tests 04/01/24 04:50 Test 04/01/24 04:50 Range/Units Serum Glucose 140 H 74-106 mg/dL Problem List/Assessment/Plan Problem List/Assessment/Plan #1 acute mi: s/p stents, asa, plavix #2 a fib s/p recent ablation #3 copd with exacerbation: iv steroids #4 acute resp failure: cont oxygen #5 ckd stage 3: monitor renal function #6 tobacco abuse: advised to quit, time spent 11 mins #7 hyperlipidemia #8 acute on chronic diastolic heart failure: iv lasix, jardiance, chest xray in am #9 ?pneumonia- gram positive/negative/sepsis: iv antibiotics advance care planning- full code- time spent 19 mins Plan discussed with: Patient My Orders My Orders Orders - FELIPE BLANK MD Procedure Category Date Status Time Methylprednisolone PHA 04/01/24 Transmitted Sod Succ (Solu Medrol 22:00 Azithromycin Tablet PHA 04/02/24 Transmitted (Zithromax Tablet) 10:00 Furosemide Injection PHA 04/01/24 Transmitted (Lasix Injection) 11:45 Furosemide Injection PHA 04/01/24 Transmitted (Lasix Injection) 18:00 Basic Metabolic Panel LAB 04/02/24 Verified 06:00 B-Type Natriuretic LAB 04/02/24 Verified Peptide 05:00 Chest Portable XY 04/02/24 Transmitted 06:00 Sepsis reassessment post fluid Capillary Refill: < 3 seconds Date of Service: Apr 01, 2024 Billing Provider: FELIPE BLANK MD Common Visit Codes: [id number] INP/OBS CARE(HIGH) FELIPE BLANK MD Apr 01, 2024 11:37
[2024-04-01] MEDS: FUROSEMIDE 20 MG/2 ML VIAL IV ONE (12:59)
[2024-04-01] MEDS: FUROSEMIDE 20 MG/2 ML VIAL IV SCH (17:00)
[2024-04-01] MEDS: methylPREDNISolone SOD SUCC 40 MG/ML VL IV SCH (21:48)
[2024-04-02] VITALS (17 sets, daily range): BP systolic 103–123; BP diastolic 50–79; PULSE 56–78; RESP 15–22; TEMP 97.2–98.1; O2SAT 94–100
--- NOTE | 2024-04-02 06:13 | DVH ---
EXAM: XY CHEST PORTABLE Indication: chf Technique: Single frontal view of the chest was obtained Comparison: XY CHEST XRAY 1 VIEW on DOS: 03/31/24, XY CHEST PORTABLE on DOS: 03/27/24, XY CHEST FELIZ BLE on DOS: 07/28/23, XY CHEST PORTABLE on DOS: 07/26/23, XY CHEST PORTABLE on DOS: 07/21/23 FINDINGS: Lines and Tubes: None Lungs: No focal consolidation. Mild pulmonary vascular congestion. Pleura: No effusion. No pneumothorax. Cardiomediastinal contours: Cardiomegaly. Bones: No acute osseous abnormality. IMPRESSION: Cardiomegaly and mild pulmonary vascular congestion.
[2024-04-02 07:26] LABS: Anion Gap 6 (5-15)
[2024-04-02 07:27] LABS: Calcium 9.7 mg/dL (8.7-10.4)
[2024-04-02 07:32] LABS: BUN/Creatinine Ratio 18.5 (10.0-20.0)
[2024-04-02 08:51] LABS: Blood Urea Nitrogen 25 mg/dL (9-23); Carbon Dioxide 32 mmol/L (20-31); Chloride 103 mmol/L (98-107); Glucose 120 mg/dL (74-106); Potassium 4.7 mmol/L (3.5-5.1); Sodium 141 mmol/L (136-145)
[2024-04-02] MEDS: AZITHROMYCIN 250 MG TAB PO SCH (09:50)
[2024-04-02] MEDS: EMPAGLIFLOZIN 10 MG TAB PO SCH (09:50)
[2024-04-02] MEDS: FUROSEMIDE 40 MG/4 ML VIAL IV SCH (12:30)
[2024-04-02] MEDS: TAMSULOSIN HYDROCHLORIDE 0.4 MG CAP PO ONE (12:30)
[2024-04-02] MEDS: TAMSULOSIN HYDROCHLORIDE 0.4 MG CAP PO SCH (17:30)
--- NOTE | 2024-04-02 18:02 | DVHPN2 ---
Subjective 04/02 - Feeling a little improved but still gets short of breath just walking around the bed with physical therapy. Still on oxygen. Continuing treatment for multiple sources of hypoxia. Still acute hypoxic respiratory failure on oxygen. Reviewed: Care Plan, H&P, Labs, Medications, Previous Orders, Radiology Changes from previous H/P or p: No Changes General: Per HPI Objective Vitals Vital Signs Date Time Temp Pulse Resp B/P (MAP) Pulse Ox O2 Delivery O2 Flow Rate FiO2 04/02/24 16:41 97.8 59 19 121/62 (81) 96 97.8 04/02/24 11:42 Nasal Cannula 4.0 04/02/24 11:42 36 Intake/Output Intake and Output 04/02/24 07:00 Intake Total 1500 ml Output Total 300 ml Balance 1200 ml Intake Oral 1200 ml IV Total 300 ml Output Urine Total 300 ml Stool Total 0 ml # Voids 4 Exam GEN: Healthy appearing, well-developed, NAD. HEENT: NC/AT; MMM. CV: RRR, no m/r/g. LUNGS: Diffuse wheezing in all lung lopez ABD: Soft, NT/ND, NBS, no masses or organomegaly. EXT: skin Warm, well perfused. no rashes. Trace to +1 pitting edema bilaterally in lower extremities NEURO: Ambulating with no limitations. No focal deficits.. Psych/Mental Status: Mental status NL Medications Current Medications Medications Dose Ordered Sig/Alejo Route Start Time Stop Time Status Last Admin Dose Admin Amiodarone HCl 200 mg DAILY PO 03/28/24 10:00 04/01/24 09:02 200 MG Ondansetron HCl 4 mg Q4HP PRN IV 03/27/24 21:15 Acetaminophen 650 mg Q6HP PRN PO 03/27/24 21:15 Nitroglycerin 0.4 mg Q5MINP PRN SL 03/27/24 21:15 Morphine Sulfate 2 mg Q30M PRN IV 03/27/24 21:15 Clopidogrel Bisulfate 75 mg DAILY PO 03/29/24 10:00 04/02/24 09:50 75 MG Albuterol 2.5 mg Q6HPRN PRN NEB 03/28/24 15:45 04/02/24 01:09 2.5 MG Atorvastatin Calcium 40 mg HS PO 03/29/24 22:00 04/01/24 21:49 40 MG Apixaban 5 mg BID PO 03/29/24 22:00 04/02/24 09:50 5 MG Aspirin 81 mg DAILY PO 03/30/24 10:00 04/02/24 09:50 81 MG Pantoprazole Sodium 40 mg DAILY@0600 PO 03/30/24 06:00 04/02/24 06:43 40 MG Albuterol 2.5 mg Q6HWA NEB 03/29/24 12:00 04/02/24 11:42 2.5 MG Ipratropium [place] 0.5 mg Q6HWA NEB 03/29/24 12:00 04/02/24 11:42 0.5 MG Ceftriaxone Sodium 50 ml @ 100 mls/hr DAILY@09 IV 04/01/24 09:00 04/02/24 09:50 100 MLS/HR Methylprednisolone Sodium Succinate 20 mg BID IV 04/01/24 22:00 04/02/24 09:50 20 MG Azithromycin 500 mg DAILY PO 04/02/24 10:00 04/02/24 09:50 500 MG Empaglifozin 10 mg DAILY PO 04/02/24 10:00 04/02/24 09:50 10 MG Furosemide 40 mg DAILY IV 04/02/24 12:30 04/02/24 12:30 40 MG Tamsulosin HCl 0.4 mg QPM PO 04/02/24 18:00 04/02/24 17:30 0.4 MG Laboratory Results Laboratory Tests 04/01/24 04:50 04/02/24 05:32 Chemistry Test 04/02/24 05:32 Calcium Level 9.7 mg/dL (8.7-10.4) Cardiac Markers Test 04/02/24 05:32 B-Type Natriuretic Peptide 163.68 pg/mL (0-100) Urinalysis Test 03/28/24 04:17 Urine Color Light-yellow (Yellow) Urine Clarity Clear (Clear) Urine pH 5.0 (5.0-9.0) Urine Specific [place] 1.011 (1.001-1.035) Urine Protein Negative (Negative) Urine Ketones Negative (Negative) Urine Blood Negative /uL (Negative) Urine Nitrite Negative (Negative) Urine Bilirubin Negative (Negative) Urine Urobilinogen Normal mg/dL (Negative) Urine Leukocyte Esterase Negative /uL (Negative) Urine RBC <1 /hpf (0 - 3) Urine WBC <1 /hpf (0 - 3) Urine Squamous Epithelial Cells None seen /hpf (<5) Urine Bacteria None seen /hpf (None Seen) Urine Glucose 4+ mg/dL (Normal) H Labs and/or images reviewed: Labs reviewed by me, Image(s) reviewed by me Assessment/Plan Assessment/Plan # acute mi: s/p stents, asa, plavix # acute on chronic diastolic heart failure: iv lasix, jardiance, chest xray on 04/02 still looks like pulmonary vascular congestion # copd with exacerbation: iv steroids and nebs # ?pneumonia- gram positive/negative/sepsis: iv antibiotics # physical deconditioning -working with PT, significant reduced mobility. We will follow up with PT recommendations # a fib s/p recent ablation- continue amiodarone p.o. # acute resp failure: cont oxygen and being # ckd stage 3: monitor renal function # tobacco abuse: advised to quit # hyperlipidemia Diet cardiac DVT prophylaxis-ambulating GI prophylaxis-tolerating diet Med tele Full code Plan discussed with: Patient My Orders Orders - TRAY BOWEN MD Procedure Category Date Status Time Tamsulosin PHA 04/02/24 In Process Hydrochloride (Flomax) 18:00 Bladder Scan ED NURSING 04/02/24 Transmitted Furosemide Injection PHA 04/02/24 In Process (Lasix Injection) 12:30 Date of Service: Apr 02, 2024 Billing Provider: TRAY BOWEN MD Common Visit Codes: [id number] INP/OBS CARE(HIGH) TRAY BOWEN MD Apr 02, 2024 18:01
[2024-04-03] VITALS (17 sets, daily range): BP systolic 101–134; BP diastolic 53–85; PULSE 59–93; RESP 16–22; TEMP 97.6–98.5; O2SAT 67–98
[2024-04-03 08:59] LABS: Basophils # (auto) 0 10 ^3/uL (0-0.2); Eosinophils # (auto) 0 10 ^3/uL (0-0.8); Hematocrit 43.8 % (41.0-53.0); Hemoglobin 14.9 g/dL (13.5-17.5); Lymphocytes # (auto) 0.2 10 ^3/uL (0.4-5.4); Mean Corpuscular Hemoglobin 33.5 pg (28.0-32.0); Mean Corpuscular Volume 98.5 fL (80.0-100.0); Monocytes # (auto) 0.6 10 ^3/uL (0-1.3); Neutrophils # (auto) 8.2 10 ^3/uL (1.6-8.6); Nucleated Red Blood Cells % 0.1 %; Platelet Count (auto) 220 10^3/uL (140-450); Red Blood Cells 4.45 10^6/uL (4.5-5.90); Red Cell Distribution Width 14.9 % (11.8-14.3)
[2024-04-03 09:02] LABS: Alanine Aminotransferase 25 U/L (7-40); Albumin 4.3 g/dL (3.2-4.8); Alkaline Phosphatase 109 U/L (46-116); Anion Gap 3 (5-15); Aspartate Aminotransferase 24 U/L (13-40); Bilirubin, Total 0.7 mg/dL (0.2-1.0); Calcium 9.9 mg/dL (8.7-10.4); Chloride 102 mmol/L (98-107); Potassium 4.7 mmol/L (3.5-5.1); Sodium 141 mmol/L (136-145); Total Protein 6.8 g/dL (5.7-8.2)
[2024-04-03 09:05] LABS: Blood Urea Nitrogen 26 mg/dL (9-23); Carbon Dioxide 36 mmol/L (20-31); Glucose 110 mg/dL (74-106)
[2024-04-03] MEDS ORDERED: LACTATED RINGER'S 500 ML IV PRN (17:45)
--- NOTE | 2024-04-03 22:56 | DVHPN2 ---
Subjective Update 04/03 - unable to wean oxygen. patient declined PT yesterday, however that they before he did 40 ft and plan was for discharge as patient already has home oxygen at home. He would need a new tank as his last hometown has run out. However, patient continues to have volume in his lungs, rales today where as yesterday was wheezing. Per RN patient gets easily short of breath when doing simple tasks at bedside. PT evaluated today and patient able to ambulate up to 50 ft but gets severely short of breath and oxygen saturations dropped to mid 80s while on 4-5 L of oxygen nasal cannula. We will evaluate for this significant shortness of breath with CTA PE ruled out, recent echo did not show any significant findings that could be associated with the shortness of breath. -04/02 - Feeling a little improved but still gets short of breath just walking around the bed with physical therapy. Still on oxygen. Continuing treatment for multiple sources of hypoxia. Still acute hypoxic respiratory failure on oxygen. Reviewed: Care Plan, H&P, Labs, Medications, Previous Orders, Radiology Changes from previous H/P or p: No Changes General: Per HPI Objective Vitals Vital Signs Date Time Temp Pulse Resp B/P (MAP) Pulse Ox O2 Delivery O2 Flow Rate FiO2 04/03/24 21:00 98.5 93 19 132/85 (101) 92 98.5 04/03/24 20:00 Nasal Cannula* 3 32 Intake/Output Intake and Output 04/03/24 07:00 Intake Total 2358 ml Output Total 0 ml Balance 2358 ml Intake Oral 2308 ml IV Total 50 ml Output Urine Total 0 ml # Voids 5 Exam GEN: Mild distress during talking, developing shortness of breath. Nasal cannula oxygen in nostrils. HEENT: NC/AT; MMM. CV: RRR, no m/r/g. LUNGS: Rales up to middle lobes bilaterally ABD: Soft, NT/ND, NBS, no masses or organomegaly. EXT: skin Warm, well perfused. no rashes. Trace to +1 pitting edema bilaterally in lower extremities NEURO: Ambulating with no limitations. No focal deficits.. Psych/Mental Status: Mental status NL Medications Current Medications Medications Dose Ordered Sig/Alejo Route Start Time Stop Time Status Last Admin Dose Admin Amiodarone HCl 200 mg DAILY PO 03/28/24 10:00 04/01/24 09:02 200 MG Ondansetron HCl 4 mg Q4HP PRN IV 03/27/24 21:15 Acetaminophen 650 mg Q6HP PRN PO 03/27/24 21:15 Nitroglycerin 0.4 mg Q5MINP PRN SL 03/27/24 21:15 Morphine Sulfate 2 mg Q30M PRN IV 03/27/24 21:15 Clopidogrel Bisulfate 75 mg DAILY PO 03/29/24 10:00 04/03/24 09:50 75 MG Albuterol 2.5 mg Q6HPRN PRN NEB 03/28/24 15:45 04/03/24 01:00 2.5 MG Atorvastatin Calcium 40 mg HS PO 03/29/24 22:00 04/03/24 21:37 40 MG Apixaban 5 mg BID PO 03/29/24 22:00 04/03/24 21:36 5 MG Aspirin 81 mg DAILY PO 03/30/24 10:00 04/03/24 09:50 81 MG Pantoprazole Sodium 40 mg DAILY@0600 PO 03/30/24 06:00 04/03/24 06:06 40 MG Albuterol 2.5 mg Q6HWA NEB 03/29/24 12:00 04/03/24 18:50 2.5 MG Ipratropium [place] 0.5 mg Q6HWA NEB 03/29/24 12:00 04/03/24 18:50 0.5 MG Ceftriaxone Sodium 50 ml @ 100 mls/hr DAILY@09 IV 04/01/24 09:00 04/03/24 09:49 100 MLS/HR Methylprednisolone Sodium Succinate 20 mg BID IV 04/01/24 22:00 04/03/24 21:36 20 MG Azithromycin 500 mg DAILY PO 04/02/24 10:00 04/03/24 09:50 500 MG Empaglifozin 10 mg DAILY PO 04/02/24 10:00 04/03/24 09:50 10 MG Furosemide 40 mg DAILY IV 04/02/24 12:30 04/03/24 09:49 40 MG Tamsulosin HCl 0.4 mg QPM PO 04/02/24 18:00 04/03/24 18:00 0.4 MG Lactated Ringer's 500 ml @ 250 mls/hr Q2H PRN IV 04/03/24 17:45 Laboratory Results Laboratory Tests 04/03/24 07:50 Chemistry Test 04/03/24 07:50 Albumin 4.3 g/dL (3.2-4.8) Calcium Level 9.9 mg/dL (8.7-10.4) Total Protein 6.8 g/dL (5.7-8.2) LFT Test 04/03/24 07:50 Alanine Aminotransferase (ALT) 25 U/L (7-40) Alkaline Phosphatase 109 U/L (46-116) Aspartate Amino Transferase (AST) 24 U/L (13-40) Total Bilirubin 0.7 mg/dL (0.2-1.0) Urinalysis Test 03/28/24 04:17 Urine Color Light-yellow (Yellow) Urine Clarity Clear (Clear) Urine pH 5.0 (5.0-9.0) Urine Specific [place] 1.011 (1.001-1.035) Urine Protein Negative (Negative) Urine Ketones Negative (Negative) Urine Blood Negative /uL (Negative) Urine Nitrite Negative (Negative) Urine Bilirubin Negative (Negative) Urine Urobilinogen Normal mg/dL (Negative) Urine Leukocyte Esterase Negative /uL (Negative) Urine RBC <1 /hpf (0 - 3) Urine WBC <1 /hpf (0 - 3) Urine Squamous Epithelial Cells None seen /hpf (<5) Urine Bacteria None seen /hpf (None Seen) Urine Glucose 4+ mg/dL (Normal) H Labs and/or images reviewed: Labs reviewed by me, Image(s) reviewed by me Assessment/Plan Assessment/Plan Update 04/03 - unable to wean oxygen. patient declined PT yesterday, however that they before he did 40 ft and plan was for discharge as patient already has home oxygen at home. He would need a new tank as his last hometown has run out. However, patient continues to have volume in his lungs, rales today where as yesterday was wheezing. Per RN patient gets easily short of breath when doing simple tasks at bedside. PT evaluated today and patient able to ambulate up to 50 ft but gets severely short of breath and oxygen saturations dropped to mid 80s while on 4-5 L of oxygen nasal cannula. We will evaluate for this significant shortness of breath with CTA PE ruled out, recent echo did not show any significant findings that could be associated with the shortness of breath. # acute mi: s/p stents, asa, plavix # acute on chronic diastolic heart failure: iv lasix continue, jardiance, chest xray on 04/02 still looks like pulmonary vascular congestion # copd with exacerbation: iv steroids and nebs. Need to consider weaning off steroids could do worsening volume overload. # ?pneumonia- gram positive/negative/sepsis: iv antibiotics # physical deconditioning -working with PT, significant reduced mobility. PT walking 50 ft blood significant and hypoxia # a fib s/p recent ablation- continue amiodarone p.o. # acute resp failure: cont oxygen and wean as possible. # ckd stage 3: monitor renal function # tobacco abuse: advised to quit # hyperlipidemia Diet cardiac DVT prophylaxis-ambulating GI prophylaxis-tolerating diet Med tele Full code Plan discussed with: Patient My Orders Orders - TRAY BOWEN MD Procedure Category Date Status Time Lactated Ringer's PHA 04/03/24 In Process 17:[address] 04/04/24 Logged Contrast 07:00 Date of Service: Apr 03, 2024 Billing Provider: TRAY BOWEN MD Common Visit Codes: [id number] INP/OBS CARE(HIGH) TRAY BOWEN MD Apr 03, 2024 22:56
[2024-04-04] VITALS (14 sets, daily range): BP systolic 107–124; BP diastolic 58–76; PULSE 52–76; RESP 14–22; TEMP 98–98.5; O2SAT 91–98
[2024-04-04 07:39] LABS: Basophils # (auto) 0 10 ^3/uL (0-0.2); Eosinophils # (auto) 0 10 ^3/uL (0-0.8); Hematocrit 42.3 % (41.0-53.0); Hemoglobin 14.1 g/dL (13.5-17.5); Lymphocytes # (auto) 0.3 10 ^3/uL (0.4-5.4); Lymphocytes % (auto) 4.3 % (10.0-50.0); Mean Corpuscular Hemoglobin 32.9 pg (28.0-32.0); Mean Corpuscular Hgb Conc. 33.4 g/dL (32.0-36.0); Mean Corpuscular Volume 98.6 fL (80.0-100.0); Monocytes # (auto) 0.7 10 ^3/uL (0-1.3); Monocytes % (auto) 11.2 % (0.0-12.0); Neutrophils # (auto) 5.6 10 ^3/uL (1.6-8.6); Neutrophils % (auto) 84.5 % (37.0-80.0); Platelet Count (auto) 202 10^3/uL (140-450); Red Blood Cells 4.29 10^6/uL (4.5-5.90); Red Cell Distribution Width 14.7 % (11.8-14.3); White Blood Cell 6.7 10^3/uL (4.4-10.8)
[2024-04-04 08:15] LABS: Alanine Aminotransferase 24 U/L (7-40); Albumin 3.9 g/dL (3.2-4.8); Alkaline Phosphatase 99 U/L (46-116); Anion Gap 4 (5-15); Aspartate Aminotransferase 22 U/L (13-40); BUN/Creatinine Ratio 17.9 (10.0-20.0); Blood Urea Nitrogen 20 mg/dL (9-23); Calcium 9.4 mg/dL (8.7-10.4); Chloride 100 mmol/L (98-107); Potassium 4.5 mmol/L (3.5-5.1); Sodium 139 mmol/L (136-145)
[2024-04-04 08:16] LABS: Bilirubin, Total 0.7 mg/dL (0.2-1.0); Total Protein 6.2 g/dL (5.7-8.2)
[2024-04-04 08:18] LABS: Carbon Dioxide 35 mmol/L (20-31); Glucose 113 mg/dL (74-106)
[2024-04-04] MEDS ORDERED: IOHEXOL 350 MG/ML 100ML IJ ONE (11:40)
--- NOTE | 2024-04-04 12:05 | DVH ---
CTA Chest with intravenous contrast INDICATION: SOB STALLINGS despite diuresis/echo insig. r/o PE pulm etiology COMPARISON: CT CT ANGIO CHEST CONTRAST on DOS: 04/07/23 TECHNIQUE: Multidetector spiral CTA of the chest was performed of the chest with intravenous contrast . PULMONARY ANGIOGRAPHY PROTOCOL was utilized using a bolus-tracking technique centered on the main p ulmonary artery. Axial, coronal and sagittal multiplanar and MIP reformats were performed. CONTRAST: Type of contrast: Omni 350 Contrast injected: 100 ml Radiation dose : Chest: CTDI volume is 37 mGy. Dose-length product is 634.25 mGy*cm The dose indicators for CT are the volume computed Tomography (CT) dose Index (CTDIvol) and the dose Length product (DLP), and are measured in units of mGy and mGy-cm, respectively. These indicators are not patient dose, but values generated from the CT scanner acquisition factors. The report includes radiation exposure data for exposures received during this examination. Findings: Pulmonary artery: Limited by motion. No pulmonary embolism Lower neck: Normal thyroid. Lungs: No focal consolidation, pleural effusion or pneumothorax. Atelectasis and scarring in the lung bases. Heart/Vascular Structures: Normal heart size. No pericardial effusion. Ascending aorta is ectatic [place] suring up to 43 mm. Main pulmonary artery is dilated. Lymph Nodes: No adenopathy Pleura: No pleural effusion or significant pneumothorax. Musculoskeletal: No acute osseous abnormality. Soft tissues: Normal. Upper abdomen: Limited portions of the upper abdomen are unremarkable. IMPRESSION: 1. No pulmonary embolism. 2. No suspicious nodule or consolidation. Atelectasis and scarring in the lung bases. Ascending aort ic aneurysm measuring up to 43 mm. Dilated main pulmonary artery suggesting pulmonary arterial hyper tension. HS:Y
--- NOTE | 2024-04-04 16:59 | DVHPN2 ---
Progress Note Date Seen: Apr 04, 2024 Medical Necessity Reason Pt with a Central, PICC or Fol: No Subjective Patient reports: No new complaints Review of Systems: HEENT:Normal, CVS:Normal, RESPIRATORY:Normal, GI:Normal, :Normal, MSK:Normal, NEURO:Normal Objective vital signs Vital Sign Date Time Temp Pulse Resp B/P (MAP) Pulse Ox O2 Delivery O2 Flow Rate FiO2 04/04/24 14:36 64 20 95 04/04/24 14:30 Nasal Cannula 3.0 04/04/24 14:30 32 04/04/24 13:00 98.5 120/76 (91) 98.5 Total Intake and Output 04/03/24 04/03/24 04/04/24 14:59 22:59 06:59 Intake Total 50 ml 774 ml 750 ml Output Total 1200 ml Balance 50 ml -426 ml 750 ml medications Current Medications Medications Dose Ordered Sig/Alejo Route Start Time Stop Time Status Last Admin Dose Admin Amiodarone HCl 200 mg DAILY PO 03/28/24 10:00 04/01/24 09:02 200 MG Ondansetron HCl 4 mg Q4HP PRN IV 03/27/24 21:15 Acetaminophen 650 mg Q6HP PRN PO 03/27/24 21:15 Nitroglycerin 0.4 mg Q5MINP PRN SL 03/27/24 21:15 Morphine Sulfate 2 mg Q30M PRN IV 03/27/24 21:15 Clopidogrel Bisulfate 75 mg DAILY PO 03/29/24 10:00 04/04/24 08:50 75 MG Albuterol 2.5 mg Q6HPRN PRN NEB 03/28/24 15:45 04/03/24 01:00 2.5 MG Atorvastatin Calcium 40 mg HS PO 03/29/24 22:00 04/03/24 21:37 40 MG Apixaban 5 mg BID PO 03/29/24 22:00 04/04/24 08:48 5 MG Aspirin 81 mg DAILY PO 03/30/24 10:00 04/04/24 08:48 81 MG Pantoprazole Sodium 40 mg DAILY@0600 PO 03/30/24 06:00 04/04/24 06:06 40 MG Albuterol 2.5 mg Q6HWA NEB 03/29/24 12:00 04/04/24 14:30 2.5 MG Ipratropium [place] 0.5 mg Q6HWA NEB 03/29/24 12:00 04/04/24 14:30 0.5 MG Ceftriaxone Sodium 50 ml @ 100 mls/hr DAILY@09 IV 04/01/24 09:00 04/04/24 08:38 100 MLS/HR Methylprednisolone Sodium Succinate 20 mg BID IV 04/01/24 22:00 04/04/24 08:40 20 MG Azithromycin 500 mg DAILY PO 04/02/24 10:00 04/04/24 08:49 500 MG Empaglifozin 10 mg DAILY PO 04/02/24 10:00 04/04/24 08:49 10 MG Furosemide 40 mg DAILY IV 04/02/24 12:30 04/04/24 08:40 40 MG Tamsulosin HCl 0.4 mg QPM PO 04/02/24 18:00 04/03/24 18:00 0.4 MG Lactated Ringer's 500 ml @ 250 mls/hr Q2H PRN IV 04/03/24 17:45 Examination: GENERAL:Normal, HEENT:Normal, NECK:Normal, LUNGS:Normal, LUNGS:Abnormal (ON OXYGEN), CVS:Normal, ABDOMEN:Normal, MSK:Normal, SKIN:Normal, NEURO:Normal, :Normal laboratory and microbiology Laboratory Tests 04/04/24 07:09 Test 04/04/24 07:09 Range/Units Serum Glucose 113 H 74-106 mg/dL Problem List/Assessment/Plan Problem List/Assessment/Plan #1 acute mi: s/p stents, asa, plavix #2 a fib s/p recent ablation #3 copd with exacerbation: iv steroids #4 acute resp failure: cont oxygen #5 ckd stage 3: monitor renal function #6 tobacco abuse: advised to quit, time spent 11 mins #7 hyperlipidemia #8 acute on chronic diastolic heart failure: iv lasix, jardiance, chest xray in am #9 ?pneumonia- gram positive/negative/sepsis: iv antibiotics advance care planning- full code- time spent 19 mins Plan discussed with: Patient My Orders My Orders Orders - FELIPE BLANK MD Procedure Category Date Status Time Prednisone Tablet PHA 04/05/24 Verified 10:00 Sepsis reassessment post fluid Capillary Refill: < 3 seconds Date of Service: Apr 04, 2024 Billing Provider: FELIPE BLANK MD Common Visit Codes: [id number] INP/OBS CARE(HIGH) FELIPE BLANK MD Apr 04, 2024 16:59
[2024-04-05] VITALS (10 sets, daily range): BP systolic 98–104; BP diastolic 48–59; PULSE 58–70; RESP 16–20; TEMP 98.3–98.5; O2SAT 91–98
[2024-04-05] MEDS: predniSONE 20 MG TAB PO SCH (08:31)
--- NOTE | 2024-04-05 13:26 | DVHDS2 ---
Discharge Summary Date of Admission Mar 27, 2024 at 21:08 Date of Discharge: Apr 05, 2024 Labs/Diagnostic Data: Laboratory Results Test 04/04/24 07:09 04/02/24 05:32 03/28/24 10:30 03/28/24 10:04 White Blood Count 6.7 10^3/uL (4.4-10.8) Red Blood Count 4.29 10^6/uL (4.5-5.90) Hemoglobin 14.1 g/dL (13.5-17.5) Hematocrit 42.3 % (41.0-53.0) Mean Corpuscular Volume 98.6 fL (80.0-100.0) Mean Corpuscular Hemoglobin 32.9 pg (28.0-32.0) Mean Corpuscular Hemoglobin Concent 33.4 g/dL (32.0-36.0) Red Cell Distribution Width 14.7 % (11.8-14.3) Platelet Count 202 10^3/uL (140-450) Mean Platelet Volume 8.6 fL (6.9-10.8) Neutrophils (%) (Auto) 84.5 % (37.0-80.0) Lymphocytes (%) (Auto) 4.3 % (10.0-50.0) Monocytes (%) (Auto) 11.2 % (0.0-12.0) Eosinophils (%) (Auto) 0.0 % (0.0-7.0) Basophils (%) (Auto) 0.0 % (0.0-2.0) Neutrophils # (Auto) 5.6 10 ^3/uL (1.6-8.6) Lymphocytes # (Auto) 0.3 10 ^3/uL (0.4-5.4) Monocytes # (Auto) 0.7 10 ^3/uL (0-1.3) Eosinophils # (Auto) 0 10 ^3/uL (0-0.8) Basophils # (Auto) 0 10 ^3/uL (0-0.2) Nucleated Red Blood Cells 0.0 % Sodium Level 139 mmol/L (136-145) Potassium Level 4.5 mmol/L (3.5-5.1) Chloride Level 100 mmol/L (98-107) Carbon Dioxide Level 35 mmol/L (20-31) Anion Gap 4 (5-15) Blood Urea Nitrogen 20 mg/dL (9-23) Creatinine 1.12 mg/dL (0.700-1.30) Glomerular Filtration Rate Calc 72 mL/min (>90) BUN/Creatinine Ratio 17.9 (10.0-20.0) Serum Glucose 113 mg/dL (74-106) Calcium Level 9.4 mg/dL (8.7-10.4) Total Bilirubin 0.7 mg/dL (0.2-1.0) Aspartate Amino Transferase (AST) 22 U/L (13-40) Alanine Aminotransferase (ALT) 24 U/L (7-40) Alkaline Phosphatase 99 U/L (46-116) Total Protein 6.2 g/dL (5.7-8.2) Albumin 3.9 g/dL (3.2-4.8) B-Type Natriuretic Peptide 163.68 pg/mL (0-100) Urine Opiates Screen Neg (NEGATIVE) Urine Fentanyl Screen Neg (NEGATIVE) Urine Barbiturates Screen Neg (NEGATIVE) Urine Phencyclidine Screen Neg (NEGATIVE) Urine Amphetamines Screen Neg (NEGATIVE) Urine Benzodiazepines Screen Neg (NEGATIVE) Urine Cocaine Screen Neg (NEGATIVE) Urine Cannabinoids Screen Neg (NEGATIVE) Prothrombin Time 11.8 sec (9.3-11.8) Prothrombin Time INR 1.12 (0.9-1.15) Activated Partial Thromboplast Time 63.2 SEC (24.5-34.5) Test 03/28/24 08:06 03/28/24 04:17 03/27/24 19:00 Troponin I High Sensitivity 8414 ng/L (</=54) Urine Color Light-yellow (Yellow) Urine Clarity Clear (Clear) Urine pH 5.0 (5.0-9.0) Urine Specific [place] 1.011 (1.001-1.035) Urine Protein Negative (Negative) Urine Ketones Negative (Negative) Urine Blood Negative /uL (Negative) Urine Nitrite Negative (Negative) Urine Bilirubin Negative (Negative) Urine Urobilinogen Normal mg/dL (Negative) Urine Leukocyte Esterase Negative /uL (Negative) Urine RBC <1 /hpf (0 - 3) Urine WBC <1 /hpf (0 - 3) Urine Squamous Epithelial Cells None seen /hpf (<5) Urine Bacteria None seen /hpf (None Seen) Urine Glucose 4+ mg/dL (Normal) Magnesium Level 2.7 mg/dL (1.6-2.6) Other Laboratory Tests 04/04/24 07:09 Brief Hx & Hospital Course: see dictated note Condition at Discharge: Fair Final Diagnosis/Problems List NSTEMI Discharge Disposition: Home Discharge Instruct/Medications Diet: Cardiac 2g Na,low cholest Activity: No Restrictions, As Tolerated Follow Up/Referral: 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 Patient was counseled about treatment plan, medications, possible side effects, patientverbalized understanding. All questions were answered to the best of my ability. This discharge took greater then 30 minutes in planning, reviewing documentation, counseling the patient, and discussing with other team members." ASSESSMENT ASSESSMENT Assessment NSTEMI Date of Service: Apr 05, 2024 Billing Provider: FELIPE BLANK MD Common Visit Codes: [id number] DISCH DAY >30min FELIPE BLANK MD Apr 05, 2024 13:26
[2024-04-05] MEDS ORDERED: PRED20TA2 PO (13:28)
[2024-04-05] MEDS ORDERED: AZIT-74 PO (13:28)
--- NOTE | 2024-04-05 13:42 | DVHDS ---
DATE OF DISCHARGE: 04/05/2024 HISTORY OF PRESENT ILLNESS: The patient is a 68-year-old gentleman who was admitted with complaints of chest pain and has history of congestive heart failure, atrial fibrillation, chronic respiratory failure, COPD, and hyperlipidemia. HOSPITAL COURSE: The patient underwent coronary angiography by Dr. Sagastume. The patient had stents placed in the right coronary artery and to the proximal LAD. The patient had an echocardiogram done that showed ejection fraction of 45%. The patient was also in congestive heart failure and was diuresed. He also had a COPD exacerbation. The patient will now be discharged home to resume his home medications as well as to be on Plavix 75 mg daily, prednisone 20 mg daily for 7 days and Zithromax 250 mg daily for 5 days. He has been strongly advised to quit smoking. He will follow up with his primary and bear keeper in the next 1 week. FINAL DIAGNOSES: Therefore, * Acute myocardial infarction, status post stent placement. * Atrial fibrillation, status post ablation. * Chronic obstructive pulmonary disease exacerbation. * Fcmow-or-cigrfab respiratory failure. * Chronic kidney disease, stage 3. * Tobacco abuse. * Hyperlipidemia. * [id number] diastolic heart failure. * Questionable pneumonia, gram-positive, gram-negative. Time spent in discharge planning and review of plan with the patient and nursing was 39 minutes. MD BRIANNA Morales/NICK TID: [id number] RECEIPT: [id number]
[2024-04-05] MEDS ORDERED: ALBUTEROL SULF 2.5 MG/0.5ML(0.5%) NEB SOLN NEB SCH (18:00)
[2024-04-05] MEDS ORDERED: IPRATROPIUM BROM 0.5 MG/2.5ML INH SOL NEB SCH (18:00)
== END 2024-04-05 18:15 | disposition home or self-care (01) | DRG 321 ==
LOC: ER 18:50 → TELE 21:08 → TELE-WESTW 03-28 18:44
PROVIDERS: ADMIT Nurse Practitioner; ATTEND Internal Medicine
PROC: 027137Z Dilation of Coronary Artery, Two Arteries with Four or More Drug-eluting Intraluminal Devices, Percutaneous Approach (ICD-10-PCS; principal; 2024-03-28)
PROC: B211YZZ Fluoroscopy of Multiple Coronary Arteries using Other Contrast (ICD-10-PCS; 2024-03-28)
PROC: 4A023N7 Measurement of Cardiac Sampling and Pressure, Left Heart, Percutaneous Approach (ICD-10-PCS; 2024-03-28)
DX: I21.4 Non-ST elevation (NSTEMI) myocardial infarction (principal); I50.33 Acute on chronic diastolic (congestive) heart failure; J15.69 Pneumonia due to other Gram-negative bacteria; J15.9 Unspecified bacterial pneumonia; J96.20 Acute and chronic respiratory failure, unspecified whether with hypoxia or hypercapnia; J44.1 Chronic obstructive pulmonary disease with (acute) exacerbation; I13.0 Hypertensive heart and chronic kidney disease with heart failure and stage 1 through stage 4 chronic kidney disease, or unspecified chronic kidney disease; N17.9 Acute kidney failure, unspecified; J44.0 Chronic obstructive pulmonary disease with (acute) lower respiratory infection; E78.5 Hyperlipidemia, unspecified; I25.10 Atherosclerotic heart disease of native coronary artery without angina pectoris; N18.32 Chronic kidney disease, stage 3b; Z74.09 Other reduced mobility; F17.200 Nicotine dependence, unspecified, uncomplicated; I48.0 Paroxysmal atrial fibrillation; Z79.02 Long term (current) use of antithrombotics/antiplatelets; Z71.6 Tobacco abuse counseling; Z79.899 Other long term (current) drug therapy; Z79.01 Long term (current) use of anticoagulants
CPT/HCPCS: 36415; 71045; 71275; 80048; 80053; 80307; 81001; 83735; 83880; 84484; 85025; 85610; 85730; 92929; 92941; 93005; 93306; 93458; 94640; 97110; 97116; 97163; 97530; 99152; 99291; G0378; J2250; J2470; Q0162; Q9967

== ENCOUNTER 2024-12-06 08:21 | Inpatient (IN) | payer MEDICARE, MEDICAID ==
[~2024-12-06] VITALS: Ht 172.7 cm; Wt 73.5 kg
[2024-12-06] VITALS (13 sets, daily range): BP systolic 99–108; BP diastolic 59–64; PULSE 55–83; RESP 18–19; TEMP 97.3–97.7; O2SAT 97–100
[~2024-12-06 08:21] MED LIST changes: -ALEN70TA74 PO; -ATOR20TA50 PO; -AZIT-185 PO; +AZIT-74 PO; +CLOP75TA70 PO; -DOXY100C79 PO; -METH4PAK PO; -POTA-36 PO
[2024-12-06] MEDS: ETOMIDATE (2MG/ML) 20ML VIAL IV ONE (08:28)
[2024-12-06] MEDS: SUCCINYLCHOLINE CHLORIDE 20 MG/ML 10ML VIAL IV ONE (08:29)
[2024-12-06] MEDS: MIDAZOLAM DRIP 50 mg/50mL 50 ML IV ONE (08:32)
--- NOTE | 2024-12-06 08:34 | ED.PDOC ---
SOB-HPI HPI Comments This is a 68 year old male ORENA presenting to the ED with chief complaint of SOB. EMS reports that the patient started to experience SOB an hour ago, worsening over time. EMS relays that the patient was noted to have an O2 saturation in the low 60s on RA, but went up to 93% with CPAP placed. EMS states patient is normally on O2 at home due to history of COPD, but he still felt SOB with it. Patient denies any chest pain, cough, dizziness, syncope, fever, or chills. Chief Complaint: Shortness of Breath Time Seen by MD: 08:32 Primary Care Provider: isabel Rowland notes: Nurses Notes, Copping Machine Operator Notes, Medications, Allergies Information Source: Patient, Emergency Med Personnel Mode of Arrival: EMS Severity: Moderate Timing: Hours Duration: Since onset Context: At Rest PE Risk Factors: None History of: COPD Prehospital treatment: None Modifying Factors: Nothing Associated Signs and Symptoms: None Past Medical History PAST MEDICAL HISTORY: AFIB, CHF, COPD, High Lipids Surgical History: Appendectomy, Hernia Repair Family History Family History: Reviewed,noncontributory to illness Social History Smoker: Non-Smoker, Quit Less Than 1 Year Alcohol: Occasionally Drugs: Denies Drug Use Lives In: Home Constitutional: denies: chills, diaphoresis, fatigue, fever, malaise, sweats, weakness, others EENTM: denies: blurred vision, double vision, ear bleeding, ear discharge, ear drainage, ear pain, ear ringing, eye pain, eye redness, hearing loss, mouth pain, mouth swelling, nasal discharge, nose bleeding, nose congestion, nose pain, photophobia, tearing, throat pain, throat swelling, voice changes, others Respiratory: reports: shortness of breath; denies: cough, hemoptysis, orthopnea, SOB at rest, SOB with excertion, stridor, wheezing, others Cardiovascular: denies: chest pain, dizzy spells, diaphoresis, Dyspnea on exertion, edema, irregular heart beat, left arm pain, lightheadedness, palpitations, PND, syncope, others Gastrointestinal: denies: abdomen distended, abdominal pain, blood streaked bowels, constipated, diarrhea, dysphagia, difficulty swallowing, hematemesis, melena, nausea, poor appetite, poor fluid intake, rectal bleeding, rectal pain, vomiting, others Genitourinary: denies: burning, dysuria, flank pain, frequency, hematuria, incontinence, penile discharge, penile sore, pain, testicle pain, testicle swelling, urgency, others Neurological: denies: dizziness, fainting, headache, left sided numbness, left sided weakness, numbness, paresthesia, pre-existing deficit, right sided numbness, right sided weakness, seizure, speech problems, tingling, tremors, weakness, others Musculoskeletal: denies: back pain, gout, joint pain, joint swelling, muscle pain, muscle stiffness, neck pain, others Integumetry: denies: bruises, change in color, change in hair/nails, dryness, laceration, lesions, lumps, rash, wounds, others Allergic/Immunocompromised: denies: Difficulty Healing, Frequent Infections, Hives, Itching, others Hematologic/Lymphatic: denies: anemia, blood clots, easy bleeding, easy bruising, swollen glands, others Endocrine: denies: excessive hunger, excessive sweating, excessive thirst, excessive urination, flushing, intolerance to cold, intolerance to heat, unexplained weight gain, unexplained weight loss, others Psychiatric: denies: anxiety, bipolar disorder, depression, hopeless, panic disorder, schizophrenia, sleepless, suicidal, others All Other Systems: Reviewed and Negative Physical Exam General Appearance: Severe Distress HEENT: Normal ENT Inspection, Pharynx Normal, TMs Normal Neck: Full Range of Motion, Non-Tender, Normal, Normal Inspection Respiratory: Accessory Muscle Use, Chest Non-Tender, Decreased Breath Sounds, Respiratory Distress, Wheezing Cardiovascular: No Edema, No JVD, No Murmur, No Gallop, Tachycardia Breast Exam: Deferred Gastrointestinal: No Organomegaly, Non Tender, No Pulsatile Mass, Normal Bowel Sounds, Soft Genitalia: Deferred Pelvic: Deferred Rectal: Deferred Extremities: No calf tenderness, Normal capillary refill, Normal inspection, Normal range of motion, Non-tender, No pedal edema Musculoskeletal : Apperance: Normal Neurologic: Alert, prepress operator II-XII nml as Tested, Motor Weakness, Normal Affect, Normal Mood, No Sensory Deficits Cerebellar Function: Normal Reflexes: Normal Skin: Dry, Pallor, Warm Lymphatic: No Adenopathy EKG EKG : Pulse Rate (adult): 85 Moffit: RAD Cardiac Rhythm: NSR Block: None Hypertrophy: None ST: Normal Was a procedure done? 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: Attending Physician Indication: Hypotension, CVP monitoring, Suspected infection Room prepared for procedure: Yes [employer] performed hand hygien: Yes Maximal sterile barrier precau: Mask/Eye shield, Sterile gown, Cap, Sterlie gloves, Large sterlie drape Skin Preparation: Chlorhexidine gluconate Skin preparation completely dr: Yes Insertion site: Right, Internal jugular Central line catheter type: [id number] dialysis Number of lumens: 3 Post Assessment: Chest X-Ray, Proper placement Informed consent obtained: Yes Risks/benefits/alt described: Yes Intubation Indication: Respiratory Insufficiency, Airway Protection Prep: Preoxygenation Pretreated with: Sedation Medicated with: Succinylcholine Intubation Approach: Orotracheal Intubation size: cm (8) Informed consent obtained: Yes Risks/benefits/alt described: Yes Differential Dx Differential Diagnosis: Asthma, Bronchitis, CHF, COPD, Pneumonia X-Ray, Labs, Meds, VS Vital Signs Date Time Temp Pulse Resp B/P (MAP) Pulse Ox O2 Delivery O2 Flow Rate FiO2 12/06/24 09:30 83/55 12/06/24 09:15 87/57 12/06/24 09:15 87/57 12/06/24 09:15 87/57 12/06/24 09:15 83 18 87/57 (67) 98 12/06/24 09:03 Bi-Pap+ 100 100 12/06/24 09:00 83 18 93/62 (72) 98 12/06/24 09:00 93/62 12/06/24 09:00 93/62 12/06/24 09:00 93/62 12/06/24 09:00 18 98 Mechanical Ventilator+ 100 100 12/06/24 08:45 89 21 125/95 (105) 98 12/06/24 08:45 125/95 12/06/24 08:45 125/95 12/06/24 08:45 125/95 12/06/24 08:45 125/95 12/06/24 08:34 85 12/06/24 08:31 85 9/2/25 08:30 90 18 162/93 (116) 98 100 12/06/24 08:29 98.0 97 34 162/93 (116) 81 98.0 12/06/24 08:21 106 32 157/84 88 Lab Test 12/06/24 09:52 12/06/24 08:45 Range/Units Blood Gas Specimen Type Arterial Blood Gas Sample Site Right radial Blood Gas Patient Temperature 37.0 Arterial Blood Date Drawn [id number] Arterial Blood pH 7.277 L 7.350-7.450 Arterial Blood Partial Pressure CO2 72.4 *H 35.0-48.0 mmHg Arterial Blood Partial Pressure O2 478.5 *H 83.0-108.0 mmHg Arterial Blood HCO3 33.0 H 21.0-28.0 mmol/L Arterial Blood Oxygen Saturation 99.5 H 94.0-98.0 % Arterial Blood Base Excess 3.4 H -2.0-3.0 mmol/L Arterial Blood Oxyhemoglobin 95.8 94.0-98.0 % Arterial Blood Carboxyhemoglobin 3.1 H 0.5-1.5 % Arterial Blood Methemoglobin 0.6 0.0-1.5 % Trey Test Modified Blood Gas Total Hemoglobin 16.20 13.5-17.5 g/dL Blood Gas Set Respiration Rate 18.0 Blood Gas Modality Vent - ac FiO2 % 100.0 Blood Gas Tidal Volume 500.0 Blood Gas PEEP or CPAP 5.0 Blood Gas Critical Value Read Back yes Blood Gas Notified Whom suellen russell md Blood Gas Notified Time [id number] Blood Gas Notified By suellen kenny rrt White Blood Count 10.7 4.4-10.8 10^3/uL Red Blood Count 4.90 4.5-5.90 10^6/uL Hemoglobin 16.3 13.5-17.5 g/dL Hematocrit 47.0 41.0-53.0 % Mean Corpuscular Volume 96.0 80.0-100.0 fL Mean Corpuscular Hemoglobin 33.3 H 28.0-32.0 pg Mean Corpuscular Hemoglobin Concent 34.7 32.0-36.0 g/dL Red Cell Distribution Width 14.9 H 11.8-14.3 % Platelet Count 248 140-450 10^3/uL Mean Platelet Volume 9.0 6.9-10.8 fL Neutrophils (%) (Auto) 84.9 H 37.0-80.0 % Lymphocytes (%) (Auto) 8.4 L 10.0-50.0 % Monocytes (%) (Auto) 5.8 0.0-12.0 % Eosinophils (%) (Auto) 0.5 0.0-7.0 % Basophils (%) (Auto) 0.4 0.0-2.0 % Neutrophils # (Auto) 9.1 H 1.6-8.6 10 ^3/uL Lymphocytes # (Auto) 0.9 0.4-5.4 10 ^3/uL Monocytes # (Auto) 0.6 0-1.3 10 ^3/uL Eosinophils # (Auto) 0.1 0-0.8 10 ^3/uL Basophils # (Auto) 0 0-0.2 10 ^3/uL Nucleated Red Blood Cells 0.1 % Sodium Level 143 136-145 mmol/L Potassium Level 3.7 3.5-5.1 mmol/L Chloride Level 103 98-107 mmol/L Carbon Dioxide Level 31 20-31 mmol/L Anion Gap 9 5-15 Blood Urea Nitrogen 13 9-23 mg/dL Creatinine 1.52 H 0.700-1.30 mg/dL Glomerular Filtration Rate Calc 50 >90 mL/min BUN/Creatinine Ratio 8.6 L 10.0-20.0 Serum Glucose 182 H 74-106 mg/dL Calcium Level 8.9 8.7-10.4 mg/dL Troponin I High Sensitivity 35 </=54 ng/L B-Type Natriuretic Peptide 91.18 0-100 pg/mL Current Medications Medications (Trade) Dose Ordered Sig/Alejo Route Start Time Stop Time Status Last Admin Methylprednisolone Sodium Succinate (Solu Medrol) 125 mg ONCE ONCE IV 12/06/24 08:30 12/06/24 08:33 DC 12/06/24 09:30 Ipratropium [place] (Atrovent Medneb) 1 mg ONCE ONCE HHN 12/06/24 08:30 12/06/24 08:33 DC 12/06/24 08:57 Albuterol (Ventolin Medneb) 20 mg ONCE ONCE HHN 12/06/24 08:30 12/06/24 08:33 DC 12/06/24 08:57 Propofol 100 ml @ 1.8 mls/hr Q24H IV 12/06/24 08:45 12/06/24 08:45 Midazolam HCl 50 ml @ 1 mls/hr Q24H IV 12/06/24 08:45 12/06/24 08:45 Fentanyl Citrate 250 ml @ 2.5 mls/hr Q24H IV 12/06/24 08:45 12/06/24 08:45 Norepinephrine Bitartrate 250 ml @ 3.75 mls/hr Q24H IV 12/06/24 09:15 12/06/24 09:30 Etomidate 20 mg ONCE ONCE IV 12/06/24 09:15 12/06/24 09:17 DC 12/06/24 08:28 Succinylcholine Chloride (Quelicin) 100 mg ONCE ONCE IV 12/06/24 09:15 12/06/24 09:17 DC 12/06/24 08:29 An IV Hep-Lock was established EN route. The patient was given Solu-Medrol 125 mg IV push. Upon arrival, the patient was having a significant amount of respiratory distress. At that time we was determined that the patient would be immediately intubated. The patient was given the etomidate and they succinylcholine and without any difficulty, the patient was intubated with an 8.0 endotracheal tube. Equal breath sounds were heard. The procedure note has been recorded. An NG-tube was then placed. At this time the patient's troponin level is negative. The patient's CBC is within normal limits The chemistry panel shows a creatinine of 1.52 The rest of the chemistry panel is within normal limits. The patient is being given a continuous breathing treatment of albuterol and Atrovent while he is on the ventilator. For sedation, the patient was started on Versed but then propofol was added and eventually we did have to add fentanyl to keep the patient is sedated. The central line has been placed in the right internal jugular without any complications. The chest x-ray was done and shows proper placement of the central line but the endotracheal tube is over 5 cm above the vince. We did move the endotracheal tube down to cm and we are repeating a chest x-ray. The chest x-ray shows no sign of any infiltrates or pneumothorax. We will continue to monitor the patient's respiratory condition. The patient will be admitted to the ICU Images Reviewed?: Images reviewed and evaluated by me Time of 1ST Reevaluation: 10:09 Reevaluation 1ST: Improved Patient Education/Counseling: Other (The patient is now intubated) Family Education/Counseling: No Family Present SEPSIS Sepsis Screen Physician Orders Urinalysis (12/06/24 08:30) Med Neb Initial Treatment (12/06/24 08:30) Chest Portable (12/06/24 08:30) Heplock Iv (12/06/24 08:30) Pulse Oximetry (12/06/24 08:30) Propellant Assembler (12/06/24 08:30) Blood Pressure (12/06/24 08:30) Electrocardigram (12/06/24 08:30) Covid19 Antigen Giselle (12/06/24 ) Rapid Influenza A&B (12/06/24 08:30) Carpio Catheters (12/06/24 ) Ngt/Ogt (12/06/24 ) Troponin-I Hs (12/06/24 09:30) Troponin-I Hs (12/06/24 11:30) Electrocardigram (12/06/24 09:30) Electrocardigram (12/06/24 11:30) Abg W/ Co-Ox (12/06/24 08:35) Ventilator Orders (12/06/24 08:35) Respiratory Culture W/ Gs (12/06/24 08:35) Propofol (Diprivan) (12/06/24 08:45) Midazolam Drip 50 Mg/50ml (Versed Drip 5 (12/06/24 08:45) Fentanyl Drip 2500mcg/250mlns (12/06/24 08:45) Rass Sedation Scale Q1HR (12/06/24 08:42) Pharmacy Clarification: (12/06/24 09:00) Communication Order (12/06/24 09:05) Norepinephrine 8 Mg/250ml Kit (Levophed) (12/06/24 09:15) Respiratory Misc. Order (12/06/24 09:46) Respiratory Misc. Order (12/06/24 09:50) Chest Xray 1 View (12/06/24 09:57) Vital Signs Date Time Temp Pulse Resp B/P (MAP) Pulse Ox O2 Delivery O2 Flow Rate FiO2 12/06/24 09:30 83/55 12/06/24 09:15 87/57 12/06/24 09:15 87/57 12/06/24 09:15 87/57 12/06/24 09:15 83 18 87/57 (67) 98 12/06/24 09:03 Bi-Pap+ 100 100 12/06/24 09:00 83 18 93/62 (72) 98 12/06/24 09:00 93/62 12/06/24 09:00 93/62 12/06/24 09:00 93/62 12/06/24 09:00 18 98 Mechanical Ventilator+ 100 100 12/06/24 08:45 89 21 125/95 (105) 98 12/06/24 08:45 125/95 12/06/24 08:45 125/95 12/06/24 08:45 125/95 12/06/24 08:45 125/95 12/06/24 08:34 85 12/06/24 08:31 85 12/06/24 08:30 90 18 162/93 (116) 98 100 12/06/24 08:29 98.0 97 34 162/93 (116) 81 98.0 12/06/24 08:21 106 32 157/84 88 Laboratory Tests Test 12/06/24 08:45 White Blood Count 10.7 10^3/uL (4.4-10.8) Medications Medications Dose Ordered Sig/Alejo Route Start Time Stop Time Status Last Admin Dose Admin Albuterol 20 mg ONCE ONCE [facility] 12/06/24 08:30 12/06/24 08:33 DC 12/06/24 08:57 Etomidate 20 mg ONCE ONCE IV 12/06/24 09:15 12/06/24 09:17 DC 12/06/24 08:28 Fentanyl Citrate 250 ml @ 2.5 mls/hr Q24H IV 12/06/24 08:45 12/06/24 08:45 Ipratropium [place] 1 mg ONCE ONCE [facility] 12/06/24 08:30 12/06/24 08:33 DC 12/06/24 08:57 Methylprednisolone Sodium Succinate 125 mg ONCE ONCE IV 12/06/24 08:30 12/06/24 08:33 DC 12/06/24 09:30 Midazolam HCl 50 ml @ 1 mls/hr Q24H IV 12/06/24 08:45 12/06/24 08:45 Norepinephrine Bitartrate 250 ml @ 3.75 mls/hr Q24H IV 12/06/24 09:15 12/06/24 09:30 Propofol 100 ml @ 1.8 mls/hr Q24H IV 12/06/24 08:45 12/06/24 08:45 Succinylcholine Chloride 100 mg ONCE ONCE IV 12/06/24 09:15 12/06/24 09:17 DC 12/06/24 08:29 Departure 1 Departure Time of Disposition: 10:09 Impression: Primary Impression: Acute respiratory failure Qualified Codes: J96.01 - Acute respiratory failure with hypoxia Additional Impression: COPD with acute exacerbation Disposition: ADMITTED INPATIENT Admit to: ICU Condition: Critical Critical Care Note Critical Care Time?: Yes (90 min-critical care time only) Stability Stability form required: Yes Unstable for transfer: ICU, CCU, PCU, YUNI (Intensive VS monitoring), Low BP (low high or fluctuating BP), May require CPR (possible rapid decline), ED Physician Assesment (Clinical assesment) Heart Score Heart Score: Heart Score Response (Comments) Value History N/A 0 EKG N/A 0 Age N/A 0 Risk Factors N/A 0 Troponin N/A 0 Total 0 I personally scribed for MARTHA RUSSELL MD ([email or web address]) on 12/06/24 at 08:34. Electronically submitted by Yakov Brennan ([email or web address]). I personally scribed for MARTHA RUSSELL MD ([email or web address]) on 12/06/24 at 09:21. Electronically submitted by Yakov Brennan ([email or web address]). MARTHA RUSSELL MD Dec 06, 2024 08:34
[2024-12-06] MEDS: PROPOFOL 100 ML IV ONE (08:40)
[2024-12-06] MEDS: MIDAZOLAM DRIP 50 mg/50mL 50 ML IV SCH (08:45)
[2024-12-06] MEDS: PROPOFOL 100 ML IV SCH (08:45)
[2024-12-06] MEDS: fentaNYL Drip 2500mCg/250mlNS 250 ML IV SCH (08:45)
[2024-12-06] MEDS: fentaNYL Drip 2500mCg/250mlNS 250 ML IV ONE (08:49)
[2024-12-06] MEDS: IPRATROPIUM BROM 0.5 MG/2.5ML INH SOL HHN ONE (08:57)
[2024-12-06] MEDS: ALBUTEROL SULF 2.5 MG/0.5ML(0.5%) NEB SOLN HHN ONE (08:57)
[2024-12-06] MEDS: NOREPINEPHRINE 8 MG/250ML KIT 250 ML IV ONE (09:19)
[2024-12-06] MEDS: NOREPINEPHRINE 8 MG/250ML KIT 250 ML IV SCH (09:30)
[2024-12-06] MEDS: methylPREDNISolone SOD SUCC 125 MG/2 ML VL IV ONE (09:30)
[2024-12-06 09:35] LABS: Hematocrit 47.0 % (41.0-53.0); Hemoglobin 16.3 g/dL (13.5-17.5); Mean Corpuscular Hemoglobin 33.3 pg (28.0-32.0); Mean Corpuscular Volume 96.0 fL (80.0-100.0); Nucleated Red Blood Cells % 0.1 %
--- NOTE | 2024-12-06 09:40 | DVHNC2 ---
Procedure - Central Line Procedure Note Date and time: 12/06/24 at 9:00am Indication:Need for Pressors Central Line Location: Right Internal Jugular Vein Procedure Graphics Software Engineer: Nimo August, Resident Attending Physician: Dr. Robles Consent: The procedure was performed emergently and the permission was implied because of the emergent nature. Procedure Summary: A time out was performed. My hands were washed immediately prior to the procedure. I wore a surgical cap, mask with protective eyewear, full gown and sterile gloves throughout the procedure. The patient was placed in Trendelenburg position, with head turned 30 degrees away from the insertion site. The Right neck was prepped using chlorhexidine scrub and draped in sterile fashion using a three quarter sheet drape and sterile towels. Skin preparation was allowed to dry prior to skin puncture. Anatomic landmarks were identified. Anesthesia was achieved over the vein using 5 ml of 1% lidocaine. Using real-time ultrasound, with sterile probe cover and sterile gel, the Right Internal Jugular Vein was identified on ultrasound using the linear ultrasound probe in the transverse orientation. The carotid. The Internal Jugular Vein was then placed in the center of the ultrasound field and compressed for patency. The introducer needle was inserted into the vein under direct ultrasound visualization, and a movement artifact was identified as the needle was advanced through the skin toward the vessel. A real-time hyperechoic signal revealed visualization of vascular needle entry into the lumen as blood was noted to flashback in the syringe. The needle was then held in place, the syringe was removed, and the guide wire was advanced through the needle. Direct visualization of the guide wire location within the vein was noted on ultrasound, indicating proper placement. The needle was then removed. A small incision was made at the skin surface with a scalpel, and a skin dilator was advanced over the guide wire. After appropriate dilation was obtained, the dilator was removed, and a triple-lumen catheter was then advanced over the guide wire into proper position. The guide wire was removed and discarded. The ports were aspirated, which showed good blood return, and then carefully flushed with normal saline. The catheter was stabilized and sutured to the skin with 2-0 silk at two anchor points. A sterile op-site was placed over the catheter and biopatch. The patient tolerated the procedure without any hemodynamic compromise. Estimated blood loss: 5 ml Post-procedure chest x-ray: Shows proper positioning of the catheter for use. NMIO AUGUST Dec 06, 2024 09:40
[2024-12-06 09:42] LABS: Chloride 103 mmol/L (98-107); Potassium 3.7 mmol/L (3.5-5.1); Sodium 143 mmol/L (136-145)
[2024-12-06 09:43] LABS: Anion Gap 9 (5-15); Calcium 8.9 mg/dL (8.7-10.4); Carbon Dioxide 31 mmol/L (20-31)
[2024-12-06 09:48] LABS: BUN/Creatinine Ratio 8.6 (10.0-20.0); Blood Urea Nitrogen 13 mg/dL (9-23)
[2024-12-06 09:49] LABS: Glucose 182 mg/dL (74-106)
[2024-12-06 10:03] LABS: Base Excess 3.4 mmol/L (-2.0-3.0)
--- NOTE | 2024-12-06 10:05 | DVH ---
CHEST RADIOGRAPH Indication: sob s/p intubation Technique: Single frontal view of the chest was obtained COMPARISON: XY CHEST PORTABLE on DOS: 04/02/24, XY CHEST XRAY 1 VIEW on DOS: 03/31/24, XY CHEST FELIZ BLE on DOS: 03/27/24, XY CHEST PORTABLE on DOS: 07/28/23, XY CHEST PORTABLE on DOS: 07/26/23 FINDINGS: Lines and Tubes: Endotracheal tube, enteric catheter and right central venous catheter in satisfactor y position. Lungs: Clear Pleura: No effusion. No pneumothorax. Cardiomediastinal contours: Unremarkable Bones: Unremarkable IMPRESSION: Lines and tubes in satisfactory position.
--- NOTE | 2024-12-06 10:46 | DVH ---
CHEST RADIOGRAPH Indication: ET TUBE PLACEMENT Technique: Single frontal view of the chest was obtained Comparison: XY CHEST PORTABLE on DOS: 12/06/24, XY CHEST PORTABLE on DOS: 04/02/24, XY CHEST XRAY 1 VIE W on DOS: 03/31/24, XY CHEST PORTABLE on DOS: 03/27/24, XY CHEST PORTABLE on DOS: 07/28/23, XY CHEST P ORTABLE on DOS: 12/06/24 FINDINGS: Lines and Tubes: Endotracheal tube, enteric catheter and right central venous catheter in satisfactor y position. Lungs: Clear Pleura: No effusion. No pneumothorax. Cardiomediastinal contours: Unremarkable Bones: Unremarkable IMPRESSION: Lines and tubes in satisfactory position.
[2024-12-06 10:55] LABS: Urine Protein, UAD TRACE (Negative)
[2024-12-06 13:05] LABS: COVID19 ANTIGEN SOFIA FIA NEGATIVE (NEGATIVE)
[2024-12-06 13:07] LABS: Base Excess 4.8 mmol/L (-2.0-3.0)
[2024-12-06] MEDS ORDERED: VANCOMYCIN PER PHARMACY 0 MG IV SCH (13:45)
[2024-12-06] MEDS: MEROPENEM 1GM IVPB 50 ML IV ONE (14:22)
[2024-12-06 14:27] LABS: Alanine Aminotransferase 23 U/L (7-40); Albumin 4.1 g/dL (3.2-4.8); Anion Gap 9 (5-15); BUN/Creatinine Ratio 11.9 (10.0-20.0); Blood Urea Nitrogen 19 mg/dL (9-23); Calcium 9.0 mg/dL (8.7-10.4); Carbon Dioxide 31 mmol/L (20-31); Chloride 103 mmol/L (98-107); Sodium 143 mmol/L (136-145); Total Protein 6.8 g/dL (5.7-8.2)
[2024-12-06 14:28] LABS: Alkaline Phosphatase 127 U/L (46-116); Bilirubin, Total 1.6 mg/dL (0.2-1.0); Glucose 172 mg/dL (74-106); Potassium 3.2 mmol/L (3.5-5.1)
[2024-12-06] MEDS: VANCOMYCIN 1GM/250ML KIT 250 ML IV ONE (14:56)
[2024-12-06] MEDS: SODIUM CHLORIDE 0.9% 2,000 ML IV ONE (15:00)
[2024-12-06] MEDS: POTASSIUM CHL 20MEQ/100ML 100 ML IV SCH (15:50)
[2024-12-06 17:03] LABS: Base Excess 0.3 mmol/L (-2.0-3.0)
--- NOTE | 2024-12-06 19:10 | DVHHP2 ---
KORINA LARA RESIDENT 12/06/241909: History of Present Illness History of Present Illness This is a 68-year-old male with a history of atrial fibrillation, heart failure, COPD, hyperlipidemia, and CAD s/p PCI with 4 stents (RCA 2, LAD 2 in March 2024). His last echocardiogram in June 2024 showed an EF of 60% with mild chamber dilation. He presented via EMS after one hour of acute shortness of breath. At the scene, SpO? was in the low 60s; he improved to 93% with CPAP. On arrival to the ED, he developed worsening respiratory distress and was intubated at 9 a.m. for acute hypoxemic and hypercapnic respiratory failure. Initial ABG showed respiratory acidosis, which improved post-intubation. He was also found to have acute kidney injury (Cr 1.6), elevated troponin (712 ? 1033, now downtrending), and mild hyperbilirubinemia. BNP was mildly elevated (172 ? 154). EKG showed no acute ischemic changes. CXR was without infiltrates. Viral panel (Influenza A/B, SARS-CoV-2) negative. Tox screen negative. In the ICU, he has remained intubated, mechanically ventilated (VT 480 mL, RR 18, FiO? 40%, PEEP 5, SpO? 96%), and requiring norepinephrine at 12 mcg/min. Hydrocortisone was started for possible septic shock. High spectrum AB STARTED Past Medical History Atrial fibrillation Heart failure (preserved EF, last echo EF 60%) COPD Hyperlipidemia CAD s/p PCI (Mar 2024, RCA 2, LAD 2 stents) Past Surgical History PCI with stent placement (Mar 2024) Social History Smoker (details pending) Denies EtOH or illicit drug use. Toxicology screen negative. Pertinent Labs CBC: WBC 10.7 ? 11.9 (neutrophilic predominance), Hb 16.3 ? 15.1, Plt stable. BMP: Na 147, K 3.7 (was 3.2), Cl 111, Cr 1.6 --> 1.34, Glucose 172 --> 154. LFTs: TBili 1.6 --> 2.2, Cardiac: Troponin 712 --> 1033, BNP 172 --> 154. Lactate: Normal. (high before) Micro: Viral panel negative, cultures pending. Review of Systems Review of Systems Unable to obtain due to intubation. Allergies: Coded Allergies: NO KNOWN ALLERGIES (Unverified , 04/07/23) Medications Current Medications Medications Dose Ordered Sig/Alejo Route Start Time Stop Time Status Last Admin Dose Admin Propofol 100 ml @ 1.8 mls/hr Q24H IV 12/06/24 08:45 12/06/24 08:45 1.8 MLS/HR Midazolam HCl 50 ml @ 1 mls/hr Q24H IV 12/06/24 08:45 12/06/24 15:42 13 MLS/HR Fentanyl Citrate 250 ml @ 2.5 mls/hr Q24H IV 12/06/24 08:45 12/06/24 08:45 2.5 MLS/HR Norepinephrine Bitartrate 250 ml @ 3.75 mls/hr Q24H IV 12/06/24 09:15 12/06/24 16:20 22.5 MLS/HR Methylprednisolone Sodium Succinate 40 mg BID IV 12/06/24 22:00 Meropenem 50 ml @ 17 mls/hr Q12HR IV 12/06/24 22:00 Vancomycin HCl 0 ml @ 0 mls/hr UD IV 12/06/24 13:45 Enoxaparin Sodium 60 mg Q12HR SC 12/06/24 22:00 Clopidogrel Bisulfate 75 mg DAILY PO 12/07/24 10:00 Pantoprazole Sodium 40 mg DAILY IV 12/07/24 10:00 Potassium Chloride 100 ml @ 50 mls/hr Q2H IV 12/06/24 15:30 12/06/24 19:29 12/06/24 18:10 50 MLS/HR Exam Vital Signs Vital Signs Date Time Temp Pulse Resp B/P (MAP) Pulse Ox O2 Delivery O2 Flow Rate FiO2 12/06/24 19:05 100 Mechanical Ventilator 12/06/24 19:05 40 40 12/06/24 19:05 62 18 104/63 (77) 12/06/24 09:30 97.9 97.9 Exam General: Intubated, sedated, critically ill. Neuro: Sedated, no focal findings observed. CV: Regular rate and rhythm, no murmurs, on vasopressors. Resp: Mechanically ventilated, symmetric breath sounds, clear to auscultation. Abdomen: Soft, nondistended. Extremities: No edema, pulses palpable. Skin: Warm, intact. Labs/Xrays Labs Test 12/06/24 17:59 12/06/24 16:29 12/06/24 13:51 12/06/24 12:35 Range/Units Troponin I High Sensitivity 1033 *H </=54 ng/L Blood Gas Specimen Type Arterial Blood Gas Sample Site Left radial Blood Gas Patient Temperature 37.0 Arterial Blood Date Drawn [id number] Arterial Blood pH 7.286 L 7.350-7.450 Arterial Blood Partial Pressure CO2 61.4 *H 35.0-48.0 mmHg Arterial Blood Partial Pressure O2 100.3 83.0-108.0 mmHg Arterial Blood HCO3 28.6 H 21.0-28.0 mmol/L Arterial Blood Oxygen Saturation 96.6 94.0-98.0 % Arterial Blood Base Excess 0.3 -2.0-3.0 mmol/L Arterial Blood Oxyhemoglobin 94.1 94.0-98.0 % Arterial Blood Carboxyhemoglobin 2.2 H 0.5-1.5 % Arterial Blood Methemoglobin 0.4 0.0-1.5 % Trey Test Modified Blood Gas Total Hemoglobin 15.40 13.5-17.5 g/dL Blood Gas Set Respiration Rate 18.0 Blood Gas Modality Vent - ac FiO2 % 40.0 Blood Gas Tidal Volume 480.0 Blood Gas PEEP or CPAP 5.0 Blood Gas Critical Value Read Back Yes Blood Gas Notified Whom Dr. olivia hallman Blood Gas Notified Time [id number] Blood Gas Notified By Sodium Level 143 136-145 mmol/L Potassium Level 3.2 L 3.5-5.1 mmol/L Chloride Level 103 98-107 mmol/L Carbon Dioxide Level 31 20-31 mmol/L Anion Gap 9 5-15 Blood Urea Nitrogen 19 9-23 mg/dL Creatinine 1.60 H 0.700-1.30 mg/dL Glomerular Filtration Rate Calc 47 >90 mL/min BUN/Creatinine Ratio 11.9 10.0-20.0 Serum Glucose 172 H 74-106 mg/dL Calcium Level 9.0 8.7-10.4 mg/dL Magnesium Level 2.3 1.6-2.6 mg/dL Total Bilirubin 1.6 H 0.2-1.0 mg/dL Aspartate Amino Transferase (AST) 29 13-40 U/L Alanine Aminotransferase (ALT) 23 7-40 U/L Alkaline Phosphatase 127 H 46-116 U/L Total Protein 6.8 5.7-8.2 g/dL Albumin 4.1 3.2-4.8 g/dL Influenza Type A Antigen Negative Negative Influenza Type B Antigen Negative Negative SARS-CoV-2 Antigen (Rapid) Negative NEGATIVE Test 12/06/24 12:10 12/06/24 10:43 12/06/24 08:45 Range/Units Blood Gas Spontaneous Rate 18 Urine Color Light-yellow Yellow Urine Clarity Clear Clear Urine pH 5.0 5.0-9.0 Urine Specific Husser 1.011 1.001-1.035 Urine Protein Trace H Negative Urine Ketones Negative Negative Urine Blood Trace H Negative /uL Urine Nitrite Negative Negative Urine Bilirubin Negative Negative Urine Urobilinogen Normal Negative mg/dL Urine Leukocyte Esterase Negative Negative /uL Urine RBC 1 0 - 3 /hpf Urine Microscopic WBC < 1 0-3 /HPF Urine Squamous Epithelial Cells None seen <5 /hpf Urine Bacteria None seen None Seen /hpf Urine Hyaline Casts Many 0 - 2 /lpf Urine Mucus Few None Seen Urine Glucose 4+ H Normal mg/dL White Blood Count 10.7 4.4-10.8 10^3/uL Red Blood Count 4.90 4.5-5.90 10^6/uL Hemoglobin 16.3 13.5-17.5 g/dL Hematocrit 47.0 41.0-53.0 % Mean Corpuscular Volume 96.0 80.0-100.0 fL Mean Corpuscular Hemoglobin 33.3 H 28.0-32.0 pg Mean Corpuscular Hemoglobin Concent 34.7 32.0-36.0 g/dL Red Cell Distribution Width 14.9 H 11.8-14.3 % Platelet Count 248 140-450 10^3/uL Mean Platelet Volume 9.0 6.9-10.8 fL Neutrophils (%) (Auto) 84.9 H 37.0-80.0 % Lymphocytes (%) (Auto) 8.4 L 10.0-50.0 % Monocytes (%) (Auto) 5.8 0.0-12.0 % Eosinophils (%) (Auto) 0.5 0.0-7.0 % Basophils (%) (Auto) 0.4 0.0-2.0 % Neutrophils # (Auto) 9.1 H 1.6-8.6 10 ^3/uL Lymphocytes # (Auto) 0.9 0.4-5.4 10 ^3/uL Monocytes # (Auto) 0.6 0-1.3 10 ^3/uL Eosinophils # (Auto) 0.1 0-0.8 10 ^3/uL Basophils # (Auto) 0 0-0.2 10 ^3/uL Nucleated Red Blood Cells 0.1 % B-Type Natriuretic Peptide 91.18 0-100 pg/mL SEPSIS Sepsis Screen Date sepsis recognized/suspect: Dec 06, 2024 Time Sepsis recognized/suspect: 929 Recent Procedure: No On Antibiotic Therapy: No Respiratory Rate >20: No Heart Rate >90: No Temp<36 C (96.8 F) or >38.3 C: No SBP <90 or MAP <65 mmHG: No New Acute Mental Status Change: No Is the patient on CPAP, BIPAP,: Yes Physician Orders Abg W/ Co-Ox (12/06/24 12:10) Admit (12/06/24 13:18) Code Status (12/06/24 13:18) Vital Signs .PER UNIT PROTOCOL (12/06/24 13:18) Review Orders With Adm.Md (12/06/24 13:18) Npo (Nothing By Mouth) Diet (12/06/24 Lunch) Notify Md Of Changes From Base (12/06/24 13:18) Advance Directive (12/06/24 13:18) Patient Condition (12/06/24 13:18) Allergies (12/06/24 13:18) Methylprednisolone Sod Succ (Solu Medrol (12/06/24 22:00) Meropenem 1gm Ivpb (Merrem 1gm/ Ns) (12/06/24 22:00) Vancomycin Per Pharmacy (12/06/24 13:45) Enoxaparin Sodium (Lovenox) (12/06/24 22:00) Clopidogrel Bisulfate (Plavix) (12/07/24 10:00) Blood Culture (12/06/24 13:36) Urine Bacterial Culture (12/06/24 13:36) Mrsa Screen (12/06/24 13:37) Drug Screen (12/06/24 14:07) Pantoprazole (Protonix) (12/07/24 10:00) Complete Blood Count (12/07/24 04:00) Comprehensive Metabolic Panel (12/07/24 04:00) Hemoglobin A1c (12/07/24 04:00) Lactic Acid W/ Reflex Order (12/07/24 04:00) Lipid Panel (12/07/24 04:00) Magnesium (12/07/24 04:00) Phosphorus (12/07/24 04:00) Thyroid Stimulating Hormone (12/07/24 04:00) PTPTT (12/07/24 04:00) Ventilator Orders (12/06/24 15:20) Abg W/ Co-Ox (12/06/24 17:00) Potassium Chl 20meq/100ml (12/06/24 15:30) Vancomycin,Random (12/06/24 04:00) Vancomycin Per Pharmacy Protoc (12/06/24 17:03) Vital Signs Date Time Temp Pulse Resp B/P (MAP) Pulse Ox O2 Delivery O2 Flow Rate FiO2 12/06/24 19:05 100 Mechanical Ventilator 12/06/24 19:05 100 Mechanical Ventilator+ 40 40 12/06/24 19:05 62 18 104/63 (77) 100 40 12/06/24 19:00 61 18 100/63 (75) 98 12/06/24 18:45 62 18 105/67 (80) 98 12/06/24 18:30 62 18 103/60 (74) 98 12/06/24 18:15 60 18 106/62 (77) 98 12/06/24 18:00 60 18 102/61 (75) 98 12/06/24 17:45 61 18 100/63 (75) 98 12/06/24 17:30 62 18 105/60 (75) 98 12/06/24 17:15 63 18 99/65 (76) 98 12/06/24 17:00 105/65 12/06/24 17:00 105/65 12/06/24 17:00 105/65 12/06/24 17:00 105/65 12/06/24 17:00 62 18 97/62 (74) 98 12/06/24 16:45 63 18 96/62 (73) 98 12/06/24 16:30 63 17 101/65 (77) 98 12/06/24 16:20 97/58 12/06/24 16:20 68 18 98 40 12/06/24 16:15 63 18 101/59 (73) 98 12/06/24 16:00 64 18 97/63 (74) 99 12/06/24 16:00 63 12/06/24 16:00 97/63 12/06/24 16:00 97/63 12/06/24 16:00 97/63 12/06/24 16:00 97/63 12/06/24 15:45 65 18 96/59 (71) 99 12/06/24 15:42 101/59 12/06/24 15:30 64 18 101/58 (72) 98 12/06/24 15:15 65 18 99/63 (75) 98 12/06/24 15:00 66 18 97/60 (72) 98 12/06/24 15:00 97/60 12/06/24 15:00 97/60 12/06/24 15:00 97/60 12/06/24 15:00 97/60 12/06/24 14:55 65 18 99/63 (75) 98 40 12/06/24 14:45 68 18 99/58 (72) 98 12/06/24 14:30 67 18 97/58 (71) 98 12/06/24 14:15 66 18 99/63 (75) 98 12/06/24 14:00 97/58 12/06/24 14:00 97/58 12/06/24 14:00 97/58 12/06/24 14:00 97/58 12/06/24 14:00 67 18 100/60 (73) 98 12/06/24 13:55 98 40 12/06/24 13:45 66 18 96/62 (73) 98 12/06/24 13:30 66 18 93/56 (68) 98 12/06/24 13:20 91/52 12/06/24 13:15 67 18 92/55 (67) 98 12/06/24 13:00 67 18 92/60 (71) 98 12/06/24 13:00 92/60 12/06/24 13:00 92/60 12/06/24 13:00 92/60 12/06/24 13:00 92/60 12/06/24 12:45 68 18 92/57 (69) 98 12/06/24 12:30 68 18 98/62 (74) 98 12/06/24 12:25 70 12/06/24 12:16 81 18 93/56 (68) 98 40 12/06/24 12:15 68 18 96/57 (70) 98 12/06/24 12:00 68 12/06/24 12:00 74 18 91/59 (70) 97 12/06/24 12:00 93/60 12/06/24 12:00 93/60 12/06/24 12:00 93/60 12/06/24 12:00 93/60 12/06/24 11:45 72 18 96/59 (71) 94 12/06/24 11:45 74 18 91/59 (70) 97 12/06/24 11:30 73 18 98/67 (77) 91 12/06/24 11:30 76 18 107/63 (78) 97 12/06/24 11:15 78 19 97/64 (75) 92 12/06/24 11:15 76 18 97/64 (75) 97 Laboratory Tests Test 12/06/24 08:45 White Blood Count 10.7 10^3/uL (4.4-10.8) Medications Medications Dose Ordered Sig/Alejo Route Start Time Stop Time Status Last Admin Dose Admin Albuterol 20 mg ONCE ONCE [facility] 12/06/24 08:30 12/06/24 08:33 DC 12/06/24 08:57 20 MG Etomidate 20 mg ONCE ONCE IV 12/06/24 09:15 12/06/24 09:17 DC 12/06/24 08:28 20 MG Fentanyl Citrate 250 ml @ 2.5 mls/hr Q24H IV 12/06/24 08:45 12/06/24 08:45 2.5 MLS/HR Ipratropium [place] 1 mg ONCE ONCE N 12/06/24 08:30 12/06/24 08:33 DC 12/06/24 08:57 1 MG Meropenem 50 ml @ 50 mls/hr ONCE ONCE IV 12/06/24 13:45 12/06/24 14:44 DC 12/06/24 14:22 50 MLS/HR Methylprednisolone Sodium Succinate 125 mg ONCE ONCE IV 12/06/24 08:30 12/06/24 08:33 DC 12/06/24 09:30 125 MG Midazolam HCl 50 ml @ 1 mls/hr Q24H IV 12/06/24 08:45 12/06/24 15:42 13 MLS/HR Norepinephrine Bitartrate 250 ml @ 3.75 mls/hr Q24H IV 12/06/24 09:15 12/06/24 16:20 22.5 MLS/HR Potassium Chloride 100 ml @ 50 mls/hr Q2H IV 12/06/24 15:30 12/06/24 19:29 12/06/24 18:10 50 MLS/HR Propofol 100 ml @ 1.8 mls/hr Q24H IV 12/06/24 08:45 12/06/24 08:45 1.8 MLS/HR Sodium Chloride 2,000 ml @ 1,000 mls/hr Q2H ONCE IV 12/06/24 15:00 12/06/24 16:59 DC 12/06/24 15:00 1,000 MLS/HR Succinylcholine Chloride 100 mg ONCE ONCE IV 12/06/24 09:15 12/06/24 09:17 DC 12/06/24 08:29 100 MG Vancomycin HCl 250 ml @ 250 mls/hr ONCE ONCE IV 12/06/24 14:45 12/06/24 15:44 DC 12/06/24 14:56 250 MLS/HR Assessment/Plan Assessment/Plan 68-year-old male with PMHx AFib, COPD, CAD s/p PCI, and HFpEF, admitted to ICU for: Neuro: Continue sedation, daily sedation holiday. Fentanyl, versed Pulmonary: #Acute hypoxemic and hypercapnic respiratory failure requiring intubation, likely COPD exacerbation/ early pneumonia gram +/ gram - #COPD exacerbation #early pneumonia gram +/ gram - #Tobacco abuse Maintain current vent settings (VT 480, RR 18, FiO? 40%, PEEP 5). Bronchodilators scheduled. Daily CXR and ABG. Vancomycin/meropenem Cardiovascular: #Septic shock due to early pneumonia #NSTEMI type 2 #CAD sp stent x4 #Chronic heart failure with diastolic disfunction due to coronary disease, stable #Paroxysmal atrial fibrillation #Hypertension #Hyperlipidiemia Continue norepinephrine, titrate to MAP 65. Serial troponins, repeat EKGs.: trending high Cardiology consult Continue plavix Continue ASA, statin. Hold beta-marianna if unstable. Cardiology consult. Enoxaparin BID Renal: #ANDREY due to VMN, secondary to sepsis IV fluids: 2LT given Monitor UOP and daily BMP. Avoid nephrotoxins. #Hyperkalemia Replace electrolytes (K, Mg, Phos). ID: Continue empiric broad-spectrum antibiotics. Follow blood, urine, sputum cultures. Monitor WBC, fevers, inflammatory markers. GI/Hepatic: #Hyperbilirubinemia/ transaminitis, resolved Trend LFTs. Stress ulcer prophylaxis: protonix IV Start enteral nutrition when stable. Heme: #Leukocytosis due to sepsis Daily CBC. Endocrine: hba1c normal Lines/Access: CVC: RIJ ETT in place. Continue daily review. Carpio catheter Disposition: Remain in ICU for ventilatory and hemodynamic support. Full code Case discussed with Dr Reyes Plan discussed with: Other (rn) My Orders Orders - KORINA LARA Procedure Category Date Status Time Admit ADMIT 12/06/24 Transmitted 13:18 Code Status CODE 12/06/24 Transmitted 13:18 Vital Signs [facility] 12/06/24 In Process 13:18 Review Orders With MARBIN 12/06/24 In Process Adm. 13:18 Npo (Nothing By DIET 12/06/24 Transmitted Mouth) Diet Lunch Notify Md Of Changes [facility] 12/06/24 In Process From Base 13:18 Advance Directive [facility] 12/06/24 In Process 13:18 Patient Condition ORDERS 12/06/24 Transmitted 13:18 Allergies [facility] 12/06/24 In Process 13:18 Methylprednisolone PHA 12/06/24 In Process Sod Succ (Solu Medrol 22:00 Meropenem 1gm Ivpb PHA 12/06/24 In Process (Merrem 1gm/ Ns) 22:00 Vancomycin Per PHA 12/06/24 In Process Pharmacy 13:45 Enoxaparin Sodium PHA 12/06/24 In Process (Lovenox) 22:00 Clopidogrel Bisulfate PHA 12/07/24 In Process (Plavix) 10:00 Blood Culture REBECCA 12/06/24 In Process 13:36 Urine Bacterial REBECCA 12/06/24 In Process Culture 13:36 Mrsa Screen REBECCA 12/06/24 Logged 13:37 Drug Screen LAB 12/06/24 In Process 14:07 Pantoprazole PHA 12/07/24 In Process (Protonix) 10:00 Complete Blood Count LAB 12/07/24 Verified 04:00 Comprehensive LAB 12/07/24 Verified Metabolic Panel 04:00 Hemoglobin A1c LAB 12/07/24 Verified 04:00 Lactic Acid W/ Reflex LAB 12/07/24 Verified Order 04:00 Lipid Panel LAB 12/07/24 Verified 04:00 Magnesium LAB 12/07/24 Verified 04:00 Phosphorus LAB 12/07/24 Verified 04:00 Thyroid Stimulating LAB 12/07/24 Verified Hormone 04:00 PTPTT LAB 12/07/24 Verified 04:00 Ventilator Orders RT 12/06/24 Transmitted 15:20 Abg W/ Co-Ox RT 12/06/24 Logged 17:00 Potassium Chl PHA 12/06/24 In Process 20meq/100ml 15:30 Vancomycin,Random LAB 12/06/24 Logged 04:00 Vancomycin Per MARBIN 12/06/24 In Process Pharmacy Protoc 17:03 Date of Service: Dec 07, 2024 Billing Provider: REYES REYES MD Common Visit Codes: [id number] INP/OBS CARE (HIGH), [id number] CARE 30- 74 MIN, [id number] CARE-EACH +30MIN REYES REYES MD 12/09/24 2230: Review of Systems Allergies: Coded Allergies: NO KNOWN ALLERGIES (Unverified , 04/07/23) Date of Service: Dec 06, 2024 Billing Provider: REYES REYES MD Common Visit Codes: [id number] INP/OBS CARE (HIGH) Secondary Visit Codes: [id number] CARE PLAN 30 MINUTES KORINA LARA RESIDENT Dec 06, 2024 19:10 REYES REYES MD Dec 09, 2024 22:30
[2024-12-06 19:13] LABS: Amphetamine Screen, Urine Neg (NEGATIVE); Barbiturate Scree,Urine Neg (NEGATIVE); Benzodiazephine Screen, Urine Neg (NEGATIVE); Cannabinoid Screen, Urine Neg (NEGATIVE); Cocaine Screen, Urine Neg (NEGATIVE); Opiate Scree,Urine Neg (NEGATIVE); Phencyclidine Screen, Urine Neg (NEGATIVE)
[2024-12-06] MEDS ORDERED: methylPREDNISolone SOD SUCC 40 MG/ML VL IV SCH (22:00)
[2024-12-06] MEDS: VASOPRESSIN 20 UNITS in SODIUM CHL 0.9% 99 ML IV SCH (22:34)
[2024-12-06] MEDS: MEROPENEM 1GM IVPB 50 ML IV SCH (22:52)
[2024-12-06] MEDS: ENOXAPARIN SOD 60 MG/0.6 ML SYRINGE SC SCH (22:53)
[2024-12-06] MEDS: HYDROCORTISONE SOD SUCC 100 MG/2ML INJ VIAL IV SCH (22:53)
[2024-12-07] VITALS (105 sets, daily range): BP systolic 91–130; BP diastolic 45–71; PULSE 44–63; RESP 9–23; TEMP 95.9–99.3; O2SAT 90–100
[2024-12-07] MEDS ORDERED: HYDROCORTISONE SOD SUCC 100 MG/2ML INJ VIAL IV SCH
[2024-12-07 03:38] LABS: Hematocrit 44.4 % (41.0-53.0); Hemoglobin 15.1 g/dL (13.5-17.5); Mean Corpuscular Hemoglobin 32.8 pg (28.0-32.0); Mean Corpuscular Volume 96.7 fL (80.0-100.0); Nucleated Red Blood Cells % 0.0 %
[2024-12-07 03:48] LABS: INR 1.0 (0.9-1.15); Partial Thromboplastin Time 31.9 SEC (24.5-34.5); Prothrombin Time 10.6 sec (9.3-11.8)
[2024-12-07 04:04] LABS: Lactic Acid w/Reflex 2.1 mmol/L (0.4-2.0)
[2024-12-07 04:19] LABS: Alanine Aminotransferase 18 U/L (7-40); Alkaline Phosphatase 111 U/L (46-116); Triglycerides 69 mg/dL (< 150)
[2024-12-07 04:20] LABS: Albumin 3.9 g/dL (3.2-4.8); Anion Gap 8 (5-15); BUN/Creatinine Ratio 11.2 (10.0-20.0); Bilirubin, Total 1.0 mg/dL (0.2-1.0); Blood Urea Nitrogen 15 mg/dL (9-23); Carbon Dioxide 28 mmol/L (20-31); Cholesterol 147 mg/dL (< 200); HDL Cholesterol 49 mg/dL (40-59); Magnesium 2.2 mg/dL (1.6-2.6); Potassium 3.7 mmol/L (3.5-5.1); Total Protein 6.6 g/dL (5.7-8.2)
[2024-12-07 04:22] LABS: Calcium 8.4 mg/dL (8.7-10.4); Chloride 111 mmol/L (98-107); Glucose 154 mg/dL (74-106); Sodium 147 mmol/L (136-145)
[2024-12-07] MEDS: LACTATED RINGER'S 1,000 ML IV ONE (04:24)
--- NOTE | 2024-12-07 05:44 | DVH ---
CHEST RADIOGRAPH Indication: intubated Technique: Single frontal view of the chest was obtained COMPARISON: XY CHEST XRAY 1 VIEW on DOS: 12/06/24, XY CHEST PORTABLE on DOS: 12/06/24, XY CHEST PORTABLE on DOS: 04/02/24, XY CHEST XRAY 1 VIEW on DOS: 03/31/24, XY CHEST PORTABLE on DOS: 03/27/24, XY CHEST XRAY 1 VIEW on DOS: 12/06/24 FINDINGS: Lines and Tubes: Endotracheal tube, enteric catheter and right central venous catheter in satisfactor y position. Lungs: Clear Pleura: No effusion. No pneumothorax. Cardiomediastinal contours: Unremarkable Bones: Unremarkable IMPRESSION: Lines and tubes in satisfactory position. No significant interval change.
[2024-12-07 08:07] LABS: Base Excess -0.5 mmol/L (-2.0-3.0)
--- NOTE | 2024-12-07 08:07 | MEDREC ---
[facility] ASP Intervention Section I [facility] ASP Intervention: Review courses of therapy (No history of ESBL, consider switching to ceftriaxone to prevent resistance. ) SHEREE VARGAS [facility] RESIDENT Dec 07, 2024 08:07
[2024-12-07] MEDS: CLOPIDOGREL BISULFATE 75 MG TAB PO SCH (10:07)
[2024-12-07] MEDS: PANTOPRAZOLE 40 MG/10 ML VIAL INJ IV SCH (10:07)
--- NOTE | 2024-12-07 10:40 | DVHSR ---
APPROVED REPORT EXAM: Two-dimensional and M-mode echocardiogram with Doppler and color Doppler. Blood Pressure: 98/62 mmHg INDICATION HF septic shock RISK FACTORS Height: 5'10", Weight: 132 DIMENSIONS LVDd5.2 (3.8-5.7cm)LA (2D)3.8 (1.9-4.0cm)Aortic Root4.0 (2.0-3.7cm) LVDs4.5 (2.5-4.0cm)LA (MM) (1.9-4.0cm)Aortic Cusp Exc2.1 (1.5-2.0cm) EF (%) 45.0 (55-70%)Rt. Atrium3.4 (1.9-4.0cm)Asc. Aorta cm IVSd0.8 (0.7-1.1cm)RV (D) (1.8-2.4cm) PWd0.9 (0.7-1.1cm) Mitral Valve MitralMitral Stenosis E wave0.55m/sMV Mean GR.mmHg A wave0.50m/sMV Peak GR.mmHg E/A ratio1.12D MVAcm2 DECEL [id number] 1/2 Timems Aortic Valve Aortic ValveAortic Stenosis V10.91m/Stephanie Mean GR.3mmHg V21.15m/Stephanie Peak GR.5mmHg LVOT Diameter2.3 (1.8-2.4cm)Doppler AVA3.29cm2 Pulmonic Valve V20.99m/s Tricuspid Valve TR Velocity3.39m/s [id number] Other Information Technically limited study due to body habitus, patient lying flat and on vent. Conclusion MILD GLOBAL LV HYPOKINESIS LV EF IS 45% AND IS REDUCED DYSKINESIS OF IVS MODERATELY DILATED RV MODERATE DEGREE PULMONARY HYPERTENSION RVSP IS 49 MM OF HG AND IS HIGH NORMAL VALVES NO EFFUSION
[2024-12-07] MEDS ORDERED: DEXTROSE (50%) 50ML SYRG IV PRN ×2 (11:00→15:30)
[2024-12-07] MEDS: IPRATROPIUM BROM 0.5 MG/2.5ML INH SOL NEB SCH ×2 (11:24→18:46)
[2024-12-07] MEDS: LEVALBUTEROL HCL 1.25 MG/3 ML NEB NEB SCH ×2 (11:25→18:46)
[2024-12-07] MEDS: ACCU-CHEK COMFORT CURVE STRIP VI SCH (12:10)
--- NOTE | 2024-12-07 13:58 | ECG ---
[facility] Test Date: 2024-12-06 Test Time: 20:21:35 Pat Name: STACI CASTAÑEDA Department: ER Room: [address] [place] [address] A Gender: M [employer]: AM : 1955 Requested By: MARTHA RUSSELL Order Number: [id number] Reading MD: Christopher Toth Measurements Intervals [place] Rate: 64 P: 0 [place]: 183 QRS: -98 QRSD: 100 T: 0 QT: 525 QTc: 542 Interpretive Statements Sinus rhythm Incomplete RBBB and LAFB Abnrm T, consider ischemia, anterolateral lds Prolonged QT interval Electronically Signed On 12-08-2024 17:01:31 PDT by Christopher Toth Please click the below link to view image of tracing.
--- NOTE | 2024-12-07 14:06 | ECG ---
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
--- NOTE | 2024-12-07 14:06 | ECG ---
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
[2024-12-07] MEDS: VANCOMYCIN 1GM/250ML KIT 250 ML IV ONE (15:13)
--- NOTE | 2024-12-07 15:43 | DVHCONRES ---
Date Seen: Dec 07, 2024 Resident Creating Document: JAVY DOOLEY RESIDENT Referring Physician Suha Levy Reason for Consultation RULE OUT NSTEMI TYPE 1, ELEVATED TROPONINS History of Present Illness Patient is a 68-year-old male with past medical history of atrial fibrillation (s/p ablation), CAD s/p PCI with 4 DELIA (RCA 2, LAD 2, Mar 2024), HFpEF (EF 60% in June 2024), COPD, hyperlipidemia, CKD stage 3, and tobacco abuse. Presented via EMS with acute hypoxemic and hypercapnic respiratory failure (SpO? in 60s, improved to 93% with CPAP). On arrival to ED, developed worsening respiratory distress requiring emergent intubation. Now in ICU on full ventilatory and vasopressor support for septic shock likely due to COPD exacerbation + early pneumonia. Cardiac course: * Troponins significantly elevated: 35 ? 196 ? 532 ? 712 ? 1033 ? 743 (now trending down). * BNP 91.18 pg/mL. * EKG (12/06): Sinus arrhythmia, LAFB, low voltage, abnormal T waves anterior leads, QTc 563 ms. * Echo (06/2024): EF 60%, mild chamber dilation. * Echo (12/07/2024): EF 45%, global hypokinesis, RV dilation, RVSP 49 mmHg ? new LV dysfunction. * CXR (12/07): Clear lungs, no effusion/infiltrate, lines/tubes in good position. * Labs: WBC 11.9 (?), Hgb 15.1 (nl), Plt 241 (nl), Cr 1.34 (?), eGFR 58 (low), mild transaminitis resolved, TSH 0.19 (low), HbA1c 5.2%. * [place]: [place] [address], HR 5257, mechanically ventilated FiO? 40%, PEEP 5. Currently sedated on propofol, fentanyl, midazolam, with norepinephrine + vasopressin, hydrocortisone, broad-spectrum antibiotics (vancomycin, meropenem), DAPT (aspirin, clopidogrel), enoxaparin, protonix, methylprednisolone, and inhaled bronchodilators. Brief Progress Summary * Remains intubated and sedated in ICU. * On pressor support with norepinephrine * Serial troponins peaked >1000, now downtrending, consistent with NSTEMI Type 2 (demand ischemia) from sepsis, hypoxemia, and critical illness. * Echo shows new EF reduction (60 ? 45%) suggesting sepsis-related cardiomyopathy vs ischemic insult. * No acute ischemic EKG changes. * Hemodynamically tenuous but stable on current support. Past Medical History * Atrial fibrillation (s/p ablation) * CAD s/p PCI 4 (RCA 2, LAD 2, Mar 2024) * HFpEF (EF 60% in June 2024 ? EF 45% now) * COPD * Hyperlipidemia * CKD stage 3 Past Surgical History * PCI with DELIA placement (Mar 2024) Family History: Patient reports no known family medical history. Social History * Smoker ~ pack/day 50 years * Denies EtOH, illicit drugs * Tox screen negative Allergies: Coded Allergies: NO KNOWN ALLERGIES (Unverified , 04/07/23) Home Meds Active Scripts Azithromycin (Zithromax) 250 Mg Tab, 250 MG PO DAILY for 5 Days, #5 TAB Prov:FELIPE BLANK MD 04/05/24 Prednisone (Prednisone) 20 Mg Tab, 20 MG PO QAM for 7 Days, #14 MG Prov:FELIPE BLANK MD 04/05/24 Clopidogrel Bisulfate (CLOPIDOGREL) 75 Mg Tab, 75 MG PO DAILY, #30 TAB 5 Refills Prov:FERNANDO MARTIN MD 03/30/24 Reported Medications Metoprolol Succinate (Metoprolol Succinate Er) 50 Mg Tab, 1 TAB PO DAILY for 90 Days, #90 03/28/24 Empagliflozin (Jardiance) 10 Mg Tab, 1 TAB PO DAILY for 90 Days, #90 03/28/24 Atorvastatin Calcium (Lipitor) 20 Mg Tab, 1 TAB PO DAILY for 90 Days, #90 03/28/24 Amiodarone Hcl (Amiodarone Hcl) 200 Mg Tab, 1 TAB PO DAILY for 90 Days, #90 03/28/24 Apixaban Base (ELIQUIS) 5 Mg Tab, 1 TAB PO BID for 30 Days, #60 03/28/24 Albuterol Sulfate (Albuterol Sulfate Hfa) 108 Mcg/Act Aer, 2 PUFF INH QID for 25 Days, #18 03/28/24 Potassium Chloride (Klor-Con 8) 8 Meq Tab, 1 TAB PO BID for 90 Days, #180 03/28/24 Torsemide (Torsemide) 20 Mg Tab, 1 TAB PO BID for 90 Days, #180 07/28/23 Current Medications Current Medications Medications (Trade) Dose Ordered Sig/Alejo Route PRN Reason Start Time Stop Time Status Last Admin Methylprednisolone Sodium Succinate (Solu Medrol) 40 mg BID IV 12/06/24 22:00 12/06/24 20:24 DC Meropenem 50 ml @ 17 mls/hr Q12HR IV 12/06/24 22:00 12/07/24 14:07 DC 12/07/24 10:06 Enoxaparin Sodium (Lovenox) 60 mg Q12HR SC 12/06/24 22:00 12/07/24 10:07 Clopidogrel Bisulfate (Plavix) 75 mg DAILY PO 12/07/24 10:00 12/07/24 10:07 Pantoprazole Sodium (Protonix) 40 mg DAILY IV 12/07/24 10:00 12/07/24 10:07 Potassium Chloride 100 ml @ 50 mls/hr Q2H IV 12/06/24 15:30 12/06/24 19:29 DC 12/06/24 18:10 Hydrocortisone Sodium Succinate (Solu-CORTEF INJECTION) 50 mg Q6HR IV 12/07/24 00:00 12/06/24 20:26 DC Vasopressin 20 units/Sodium Chloride 100 ml @ 9 mls/hr Q11H7M IV 12/06/24 20:30 Hydrocortisone Sodium Succinate (Solu-CORTEF INJECTION) 50 mg Q6HR IV 12/06/24 20:30 12/07/24 14:22 DC 12/07/24 12:02 Ipratropium [place] (Atrovent Medneb) 0.5 mg Q6HR NEB 12/07/24 12:00 12/07/24 11:24 Levalbuterol HCl (Xopenex Medneb) 1.25 mg Q6HR NEB 12/07/24 12:00 12/07/24 11:25 Diagnostic Test (Pha) (Accu-Chek Comfort Curve T) 1 strip Q6HR 12/07/24 12:00 12/07/24 12:10 Dextrose 50 ml UD PRN IV Blood Sugar LESS THAN 60 12/07/24 11:00 Meropenem 50 ml @ 17 mls/hr Q8H IV 12/07/24 18:00 Methylprednisolone Sodium Succinate (Solu Medrol) 40 mg Q8HR IV 12/07/24 22:00 UNV Review of Systems Unable to obtain due to intubated status. Vital Signs Vital Signs Date Time Temp Pulse Resp B/P (MAP) Pulse Ox O2 Delivery O2 Flow Rate FiO2 12/07/24 14:24 51 18 111/60 (77) 98 40 12/07/24 14:15 98.1 98.1 12/07/24 14:00 Mechanical Ventilator+ Physical Exam Intubated, sedated, critically ill CV: Regular rhythm, bradycardic, HR 5057 bpm, no murmurs or rubs Lungs: Intubated, coarse breath sounds, wheezing Abdomen: Soft, non-distended Extremities: no edema, no cyanosis Neuro: Sedated Labs/Diagnostic Data Labs Test 12/07/24 12:09 12/07/24 07:51 12/07/24 05:08 12/07/24 03:08 Range/Units POC Glucose 140 H 70-106 mg/dl Blood Gas Specimen Type Arterial Blood Gas Sample Site Left radial Blood Gas Patient Temperature 37.0 Arterial Blood Date Drawn [id number] Arterial Blood pH 7.289 L 7.350-7.450 Arterial Blood Partial Pressure CO2 58.7 H 35.0-48.0 mmHg Arterial Blood Partial Pressure O2 85.2 83.0-108.0 mmHg Arterial Blood HCO3 27.5 21.0-28.0 mmol/L Arterial Blood Oxygen Saturation 95.8 94.0-98.0 % Arterial Blood Base Excess -0.5 -2.0-3.0 mmol/L Arterial Blood Oxyhemoglobin 94.7 94.0-98.0 % Arterial Blood Carboxyhemoglobin 0.7 0.5-1.5 % Arterial Blood Methemoglobin 0.4 0.0-1.5 % Trey Test Modified Blood Gas Total Hemoglobin 15.80 13.5-17.5 g/dL Blood Gas Set Respiration Rate 18.0 Blood Gas Modality Vent - ac FiO2 % 40.0 Blood Gas Tidal Volume 480.0 Blood Gas PEEP or CPAP 5.0 Lactic Acid Level 1.7 0.4-2.0 mmol/L White Blood Count 11.9 H 4.4-10.8 10^3/uL Red Blood Count 4.59 4.5-5.90 10^6/uL Hemoglobin 15.1 13.5-17.5 g/dL Hematocrit 44.4 41.0-53.0 % Mean Corpuscular Volume 96.7 80.0-100.0 fL Mean Corpuscular Hemoglobin 32.8 H 28.0-32.0 pg Mean Corpuscular Hemoglobin Concent 33.9 32.0-36.0 g/dL Red Cell Distribution Width 15.0 H 11.8-14.3 % Platelet Count 241 140-450 10^3/uL Mean Platelet Volume 8.9 6.9-10.8 fL Neutrophils (%) (Auto) 95.3 H 37.0-80.0 % Lymphocytes (%) (Auto) 1.6 L 10.0-50.0 % Monocytes (%) (Auto) 3.1 0.0-12.0 % Eosinophils (%) (Auto) 0.0 0.0-7.0 % Basophils (%) (Auto) 0.0 0.0-2.0 % Neutrophils # (Auto) 11.3 H 1.6-8.6 10 ^3/uL Lymphocytes # (Auto) 0.2 L 0.4-5.4 10 ^3/uL Monocytes # (Auto) 0.4 0-1.3 10 ^3/uL Eosinophils # (Auto) 0 0-0.8 10 ^3/uL Basophils # (Auto) 0 0-0.2 10 ^3/uL Nucleated Red Blood Cells 0.0 % Prothrombin Time 10.6 9.3-11.8 sec Prothrombin Time INR 1.00 0.9-1.15 Activated Partial Thromboplast Time 31.9 24.5-34.5 SEC Sodium Level 147 H 136-145 mmol/L Potassium Level 3.7 3.5-5.1 mmol/L Chloride Level 111 H 98-107 mmol/L Carbon Dioxide Level 28 20-31 mmol/L Anion Gap 8 5-15 Blood Urea Nitrogen 15 9-23 mg/dL Creatinine 1.34 H 0.700-1.30 mg/dL Glomerular Filtration Rate Calc 58 >90 mL/min BUN/Creatinine Ratio 11.2 10.0-20.0 Serum Glucose 154 H 74-106 mg/dL Hemoglobin A1c 5.2 <5.7 % A1C Calcium Level 8.4 L 8.7-10.4 mg/dL Phosphorus Level 2.6 2.4-5.1 mg/dL Magnesium Level 2.2 1.6-2.6 mg/dL Total Bilirubin 1.0 0.2-1.0 mg/dL Aspartate Amino Transferase (AST) 21 13-40 U/L Alanine Aminotransferase (ALT) 18 7-40 U/L Alkaline Phosphatase 111 46-116 U/L Troponin I High Sensitivity 743 *H </=54 ng/L Total Protein 6.6 5.7-8.2 g/dL Albumin 3.9 3.2-4.8 g/dL Triglycerides Level 69 < 150 mg/dL Cholesterol Level 147 < 200 mg/dL LDL Cholesterol 92 < 100 mg/dL HDL Cholesterol 49 40-59 mg/dL Thyroid Stimulating Hormone (TSH) 0.19 L 0.55-4.78 uIU/mL Random Vancomycin Level 8.2 5-10 ug/mL Test 12/06/24 16:29 12/06/24 12:35 12/06/24 12:10 12/06/24 10:43 Range/Units Blood Gas Critical Value Read Back Yes Blood Gas Notified Whom Dr. olivia hallman Blood Gas Notified Time [id number] Blood Gas Notified By Influenza Type A Antigen Negative Negative Influenza Type B Antigen Negative Negative SARS-CoV-2 Antigen (Rapid) Negative NEGATIVE Blood Gas Spontaneous Rate 18 Urine Color Light-yellow Yellow Urine Clarity Clear Clear Urine pH 5.0 5.0-9.0 Urine Specific [place] 1.011 1.001-1.035 Urine Protein Trace H Negative Urine Ketones Negative Negative Urine Blood Trace H Negative /uL Urine Nitrite Negative Negative Urine Bilirubin Negative Negative Urine Urobilinogen Normal Negative mg/dL Urine Leukocyte Esterase Negative Negative /uL Urine RBC 1 0 - 3 /hpf Urine Microscopic WBC < 1 0-3 /HPF Urine Squamous Epithelial Cells None seen <5 /hpf Urine Bacteria None seen None Seen /hpf Urine Hyaline Casts Many 0 - 2 /lpf Urine Mucus Few None Seen Urine Glucose 4+ H Normal mg/dL Urine Opiates Screen Neg NEGATIVE Urine Fentanyl Screen Neg NEGATIVE Urine Barbiturates Screen Neg NEGATIVE Urine Phencyclidine Screen Neg NEGATIVE Urine Amphetamines Screen Neg NEGATIVE Urine Benzodiazepines Screen Neg NEGATIVE Urine Cocaine Screen Neg NEGATIVE Urine Cannabinoids Screen Neg NEGATIVE Test 12/06/24 08:45 Range/Units B-Type Natriuretic Peptide 91.18 0-100 pg/mL Microbiology Date/Time Source Procedure Growth Status 12/06/24 22:58 Nose MRSA Screen - Final Complete 12/06/24 14:30 Voided Urine Urine Culture - Preliminary Resulted 12/06/24 13:54 Blood Blood Culture - Preliminary Resulted 12/06/24 08:30 Sputum Gram Stain - Final Resulted 12/06/24 08:30 Sputum Respiratory Culture - Preliminary Resulted Assessment 1. NSTEMI Type 2 (demand ischemia) Elevated troponins, no acute ischemic EKG changes. Most likely secondary to sepsis, hypoxemia, tachyarrhythmia risk VS Type 1 PR (ACS) possible, but less likely without ST changes 2. CAD s/p PCI (Mar 2024) Currently on DAPT and therapeutic enoxaparin. 3. Acute on chronic HF EF dropped from 60 ? 45%, RV dilation, pulmonary hypertension.Sepsis-related cardiomyopathy 4. Paroxysmal AFib s/p ablation Currently sinus arrhythmia, prolonged QTc. 5. Hypertension / Hyperlipidemia On statin, BP low requiring pressors. 6. CKD stage 3 with ANDREY Cr 1.341.52, GFR 5058. 7. COPD with acute exacerbation pneumonia Ventilator dependent. 8. Septic shock On norepinephrine + vasopressin. Plan/Recommendation Plan Cardiovascular * Continue aspirin 81 mg daily + clopidogrel 75 mg daily. * Continue enoxaparin therapeutic dosing (dose-adjust with renal function). * Hold beta-blockers given bradycardia and pressor use. * High-intensity statin continuation recommended. * troponins x2 until stabilized. * Repeat echo in 4872 hrs for EF reassessment. * No immediate cath; ischemic evaluation deferred until extubated and stable. * Maintain electrolytes: K >4.0, Mg >2.0. Heart Failure * Gentle volume management (avoid overload in HF, avoid under-resuscitation in sepsis). * Start GDMT (BB, ACEi/ARB/ARNI, MRA, SGLT2i) once off pressors. Arrhythmia * Continuous telemetry. * Avoid QT-prolonging drugs. Renal * Daily BMP. * Adjust enoxaparin if GFR <50. * Avoid nephrotoxins. Prophylaxis / ICU Support * Stress ulcer prophylaxis (protonix). * Therapeutic anticoagulation already covering DVT prophylaxis. * Daily CBC, CMP, coagulation profile. Case discussed in detail with the attending physician, including the clinical presentation, diagnostic workup, and comprehensive management plan. Plan discussed with: Other (RN) Visit Coding Cardiology RES Date of Service: Dec 07, 2024 Billing Provider: LISSETTE MCCARTHY Sr., MD Cardiology Common Codes: [id number] INP/OBS CARE (High) JAVY DOOLEY RESIDENT Dec 07, 2024 15:42
[2024-12-07] MEDS: methylPREDNISolone SOD SUCC 125 MG/2 ML VL IV ONE (15:53)
[2024-12-07] MEDS: SODIUM CHLORIDE 0.9% 1,000 ML IV SCH (17:02)
--- NOTE | 2024-12-07 17:05 | DVHPNRES ---
Progress Note Date Seen: Dec 07, 2024 Resident Creating Document: DANAY WILLSON RESIDENT Medical Necessity Reason Pt with a Central, PICC or Fol: Yes Subjective Review of Systems This is a 68-year-old male with a history of atrial fibrillation, heart failure, COPD, hyperlipidemia, and CAD s/p PCI with 4 stents (RCA 2, LAD 2 in March 2024). His last echocardiogram in June 2024 showed an EF of 60% with mild chamber dilation. He presented via EMS after one hour of acute shortness of breath. At the scene, SpO? was in the low 60s; he improved to 93% with CPAP. On arrival to the ED, he developed worsening respiratory distress and was intubated at 9 a.m. for acute hypoxemic and hypercapnic respiratory failure. Initial ABG showed respiratory acidosis, which improved post-intubation. Patient was seen and examined in the ICU. He is on mechanical ventilation with FiO2 40%, tidal volume 480 mL, rate 20, peep 5. Started tube feeding today. Objective vital signs Vital Sign Date Time Temp Pulse Resp B/P (MAP) Pulse Ox O2 Delivery O2 Flow Rate FiO2 12/07/24 16:00 40 12/07/24 16:00 18 95 Mechanical Ventilator+ 12/07/24 16:00 54 12/07/24 16:00 97.7 119/62 (81) 207.9 Total Intake and Output 12/06/24 12/06/24 12/07/24 15:00 23:00 07:00 Intake Total 176.25 ml 1239.85 ml 595.1 ml Output Total 1350 ml Balance 176.25 ml 1239.85 ml -754.9 ml medications Current Medications Medications Dose Ordered Sig/Alejo Route Start Time Stop Time Status Last Admin Dose Admin Propofol 100 ml @ 1.8 mls/hr Q24H IV 12/06/24 08:45 12/07/24 15:13 7.2 MLS/HR Midazolam HCl 50 ml @ 1 mls/hr Q24H IV 12/06/24 08:45 12/07/24 12:45 11 MLS/HR Fentanyl Citrate 250 ml @ 2.5 mls/hr Q24H IV 12/06/24 08:45 12/06/24 08:45 2.5 MLS/HR Norepinephrine Bitartrate 250 ml @ 3.75 mls/hr Q24H IV 12/06/24 09:15 12/07/24 10:23 22.5 MLS/HR Vancomycin HCl 0 ml @ 0 mls/hr UD IV 12/06/24 13:45 Enoxaparin Sodium 60 mg Q12HR SC 12/06/24 22:00 12/07/24 10:07 60 MG Clopidogrel Bisulfate 75 mg DAILY PO 12/07/24 10:00 12/07/24 10:07 75 MG Pantoprazole Sodium 40 mg DAILY IV 12/07/24 10:00 12/07/24 10:07 40 MG Vasopressin 20 units/Sodium Chloride 100 ml @ 9 mls/hr Q11H7M IV 12/06/24 20:30 Diagnostic Test (Pha) 1 strip Q6HR 12/07/24 12:00 12/07/24 12:10 1 STRIP Meropenem 50 ml @ 17 mls/hr Q8H IV 12/07/24 18:00 Methylprednisolone Sodium Succinate 40 mg Q8HR IV 12/07/24 22:00 Insulin Human Regular Q6HR SC 12/07/24 18:00 Dextrose 50 ml UD PRN IV 12/07/24 15:30 Ipratropium [place] 0.5 mg Q4HR NEB 12/07/24 16:45 Levalbuterol HCl 1.25 mg Q4HR NEB 12/07/24 16:45 Enteral Nutritional Formula 1,000 ml 50ML/HR GT 12/07/24 16:45 Sodium Chloride 1,000 ml @ 75 mls/hr [id number] IV 12/07/24 16:45 12/07/24 17:02 75 MLS/HR Examination General: RASS -3, afebrile, mucosae are moist Cardiovascular: Normal S1 and S2. No murmurs, gallops or rubs Respiratory: Mechanically assisted ventilation, equal bilateral airway entree. Bilateral wheezing Abdomen: Soft, nontender, no organomegaly, normal bowel sounds MSK/skin: Mobilization of limbs cannot be evaluated. Skin is dry and warm. Neurological: Orientation cannot be assessed. No apparent motor no sensitive deficits. Pupils are isocoric, pinpoint and reactive laboratory and microbiology Laboratory Tests 12/07/24 03:08 Test 12/07/24 03:08 Range/Units Serum Glucose 154 H 74-106 mg/dL Microbiology Date/Time Source Procedure Growth Status 12/06/24 22:58 Nose MRSA Screen - Final Complete 12/06/24 14:30 Voided Urine Urine Culture - Preliminary Resulted 12/06/24 13:54 Blood Blood Culture - Preliminary Resulted 12/06/24 08:30 Sputum Gram Stain - Final Resulted 12/06/24 08:30 Sputum Respiratory Culture - Preliminary Resulted Labs and/or images reviewed: Labs reviewed by me, Image(s) reviewed by me Problem List/Assessment/Plan Problem List/Assessment/Plan Assessment and plan: NEURO: Acute metabolic encephalopathy likely secondary to acute hypoxemic/hypercapnic respiratory failure S/P mechanical ventilation RASS score: -3 CARDIOVASCULAR: Septic shock likely secondary to pneumonia Possible NSTEMI type 2 due to above History of CAD with status post PTCA x4 ( March 2024) Paroxysmal atrial fibrillation with secondary hypercoagulable state Chronic diastolic heart failure with preserved ejection fraction - EEG was unremarkable, troponins was initially elevated than dropped and became flat - echo on 12/29 demonstrated EF 45%, mild global LV hypokinesis, RVSP 49 mm Hg - chest x-ray showed bilateral flat diaphragm, hyperinflated lung field and possible right lower lobe opacity PULMONARY: Acute hypoxic/hypercapnic respiratory failure Acute exacerbation of chronic COPD Gram-positive/Gram-negative pneumonia Pulmonary hypertension - chest x-ray showed bilateral flat diaphragm, hyperinflated lung field and possible right lower lobe opacity - respiratory cultures are pending - med neb with levalbuterol and ipratropium q.4 hours - IV Solu-Medrol 40 mg b.i.d. - Continue IV vancomycin as per pharmacy and IV meropenem GENITOURINARY: ANDREY on CKD secondary to shock/ VMN - IV normal saline at 75 mL/hours - strict I&O ENDOCRINE: Possible euthyroid sick syndrome METABOLIC: Hypernatremia INFECTIOUS DISEASE: Possible Gram-positive versus Gram-negative pneumonia - blood culture showed Gram-positive cocci in cluster and change - continue IV vancomycin and meropenem - respiratory culture and urine bacterial cultures are pending DIET: Tube feeding DVT prophylax: Lovenox GI prophylaxis: Protonix Bowel regimen: Code status: Full code LINES/DRAINS/ACCESS: ETT: Intubated on 0 12/06/24 IV access: Right IJ placed on 12/06/2024 Drips: Norepinephrine, propofol, Versed, fentanyl Carpio catheter: Placed on 12/06/2024 DISPOSITION: ICU Patient's status discussed with behavioral health care manager time spent more than 83 minutes, including patient care, chart review, and updating the family. Excluding any procedures. Case discussed with Dr. Blank Plan discussed with: Other (RN) My Orders My Orders Orders - DANAY WILLSON Procedure Category Date Status Time Glucose Blood PHA 12/07/24 In Process (Accu-Chek Comfort 12:00 Ipratropium Medneb PHA 12/07/24 In Process (Atrovent Medneb) 16:45 Levalbuterol Hcl PHA 12/07/24 In Process (Xopenex Medneb) 16:45 Nutritional PHA 12/07/24 In Process Supplements (Vital 16:45 Sodium Chloride 0.9% PHA 12/07/24 In Process 16:45 Sepsis reassessment post fluid Capillary Refill: < 3 seconds Date of Service: Dec 07, 2024 Billing Provider: FELIPE BLANK MD Common Visit Codes: [id number] CARE 30-74 MIN, [id number] CARE-EACH +30MIN DANAY WILLSON Dec 07, 2024 17:05 FELIPE BLANK MD Dec 08, 2024 10:50
[2024-12-07] MEDS: MEROPENEM 1GM IVPB 50 ML IV SCH (17:25)
[2024-12-07] MEDS: InsuLIN REG 1unit/0.01ml Soln (100units/ml) SC SCH (17:31)
[2024-12-07] MEDS: Vital High Protein 1liter Bottle GT SCH (19:02)
[2024-12-07] MEDS ORDERED: LEVALBUTEROL HCL 1.25 MG/3 ML NEB NEB PRN (19:15)
[2024-12-07] MEDS: methylPREDNISolone SOD SUCC 40 MG/ML VL IV SCH (21:17)
[2024-12-07] MEDS: ATORVASTATIN 20 MG TAB NG SCH (22:27)
[2024-12-08] VITALS (106 sets, daily range): BP systolic 103–154; BP diastolic 55–86; PULSE 42–77; RESP 15–24; TEMP 97.5–99; O2SAT 91–100
[2024-12-08 02:33] LABS: Potassium 3.9 mmol/L (3.5-5.1)
[2024-12-08 02:34] LABS: Anion Gap 5 (5-15); Carbon Dioxide 30 mmol/L (20-31); Hematocrit 43.8 % (41.0-53.0); Hemoglobin 14.7 g/dL (13.5-17.5); Mean Corpuscular Hemoglobin 32.7 pg (28.0-32.0); Mean Corpuscular Volume 97.2 fL (80.0-100.0); Nucleated Red Blood Cells % 0.0 %
[2024-12-08 02:40] LABS: BUN/Creatinine Ratio 18.6 (10.0-20.0); Blood Urea Nitrogen 21 mg/dL (9-23)
[2024-12-08 02:55] LABS: Calcium 8.7 mg/dL (8.7-10.4); Chloride 113 mmol/L (98-107); Glucose 139 mg/dL (74-106); Sodium 148 mmol/L (136-145)
--- NOTE | 2024-12-08 05:57 | DVH ---
CHEST RADIOGRAPH Indication: On mechanical ventilation Technique: Single frontal view of the chest was obtained COMPARISON: XY CHEST XRAY 1 VIEW on DOS: 12/07/24, XY CHEST XRAY 1 VIEW on DOS: 12/06/24, XY CHEST PORTAB LE on DOS: 12/06/24, XY CHEST PORTABLE on DOS: 04/02/24, XY CHEST XRAY 1 VIEW on DOS: 03/31/24, XY CHES T XRAY 1 VIEW on DOS: 12/07/24 FINDINGS: Lines and Tubes: Endotracheal tube, enteric catheter and right central venous catheter in satisfactor y position. Lungs: Clear Pleura: No effusion. No pneumothorax. Cardiomediastinal contours: Unremarkable Bones: Unremarkable IMPRESSION: Lines and tubes in satisfactory position. No significant interval change.
[2024-12-08 08:00] LABS: Base Excess 4.8 mmol/L (-2.0-3.0)
[2024-12-08] MEDS: DOXYCYCLINE 100MG/100ML 100 ML IV SCH (08:30)
[2024-12-08] MEDS: FREE WATER GT SCH (09:53)
--- NOTE | 2024-12-08 10:36 | ECG ---
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
[2024-12-08] MEDS: FUROSEMIDE 20 MG/2 ML VIAL IV ONE ×2 (11:09→16:40)
[2024-12-08 11:14] LABS: Base Excess 4.0 mmol/L (-2.0-3.0)
[2024-12-08] MEDS: MAGNESIUM SULFATE 1GM/100ML 100 ML IV SCH (11:48)
[2024-12-08] MEDS ORDERED: DOPamine 1600MCG/ML D5W 250 ML IV SCH ×2 (12:30→13:15)
[2024-12-08] MEDS: VANCOMYCIN 1.25GM/250ML 250 ML IV SCH (12:49)
--- NOTE | 2024-12-08 13:44 | DVHPNRES ---
Progress Note Date Seen: Dec 08, 2024 Resident Creating Document: JAVY DOOLEY RESIDENT Medical Necessity Reason Pt with a Central, PICC or Fol: Yes Subjective Review of Systems Brief Progress Summary * Troponins now downtrending, supporting NSTEMI Type 2 (demand ischemia) from sepsis, hypoxemia, and critical illness, not acute plaque rupture. * Sinus bradycardia persists but stable, no new conduction blocks. * EF remains reduced at ~45% compared to prior 60%, likely sepsis-related cardiomyopathy vs demand ischemia. * Renal function improving; no acute decompensation. * Infectious process ongoing (WBC rising), on broad-spectrum antibiotics. * No acute indication for urgent ischemic workup or repeat cath at this time. Focus remains stabilization, supportive therapy, and delayed ischemic evaluation once extubated and pressor-free. ROS Unable to obtain, patient intubated and sedated. Objective vital signs Vital Sign Date Time Temp Pulse Resp B/P (MAP) Pulse Ox O2 Delivery O2 Flow Rate FiO2 12/08/24 13:15 45 24 133/68 (89) 96 12/08/24 12:11 35 12/08/24 12:00 98.1 208.6 12/08/24 12:00 Mechanical Ventilator+ Total Intake and Output 12/07/24 12/07/24 12/08/24 15:00 23:00 07:00 Intake Total 871.9 ml 881.0 ml 1179.55 ml Output Total 850 ml 950 ml Balance 871.9 ml 31.0 ml 229.55 ml medications Current Medications Medications Dose Ordered Sig/Alejo Route Start Time Stop Time Status Last Admin Dose Admin Propofol 100 ml @ 1.8 mls/hr Q24H IV 12/06/24 08:45 12/08/24 02:49 3.6 MLS/HR Midazolam HCl 50 ml @ 1 mls/hr Q24H IV 12/06/24 08:45 12/08/24 10:10 11 MLS/HR Fentanyl Citrate 250 ml @ 2.5 mls/hr Q24H IV 12/06/24 08:45 12/07/24 23:11 7.5 MLS/HR Norepinephrine Bitartrate 250 ml @ 3.75 mls/hr Q24H IV 12/06/24 09:15 12/08/24 06:46 18.75 MLS/HR Vancomycin HCl 0 ml @ 0 mls/hr UD IV 12/06/24 13:45 Enoxaparin Sodium 60 mg Q12HR SC 12/06/24 22:00 12/08/24 09:53 60 MG Clopidogrel Bisulfate 75 mg DAILY PO 12/07/24 10:00 12/08/24 09:53 75 MG Pantoprazole Sodium 40 mg DAILY IV 12/07/24 10:00 12/08/24 09:53 40 MG Vasopressin 20 units/Sodium Chloride 100 ml @ 9 mls/hr Q11H7M IV 12/06/24 20:30 Diagnostic Test (Pha) 1 strip Q6HR 12/07/24 12:00 12/08/24 11:17 1 STRIP Meropenem 50 ml @ 17 mls/hr Q8H IV 12/07/24 18:00 12/08/24 09:52 17 MLS/HR Methylprednisolone Sodium Succinate 40 mg Q8HR IV 12/07/24 22:00 12/08/24 05:45 40 MG Insulin Human Regular Q6HR SC 12/07/24 18:00 12/08/24 11:17 3 UNITS Dextrose 50 ml UD PRN IV 12/07/24 15:30 Ipratropium [place] 0.5 mg Q4HR NEB 12/07/24 16:45 12/08/24 09:56 0.5 MG Levalbuterol HCl 1.25 mg Q4HR NEB 12/07/24 16:45 12/08/24 09:56 1.25 MG Enteral Nutritional Formula 1,000 ml 50ML/HR GT 12/07/24 16:45 12/07/24 19:02 1,000 ML Levalbuterol HCl 0.625 mg Q2HPRN PRN NEB 12/07/24 19:15 Aspirin 81 mg DAILY NG 12/08/24 10:00 12/08/24 09:53 81 MG Atorvastatin Calcium 40 mg HS NG 12/07/24 22:00 12/07/24 22:27 40 MG Purified Water 200 ml Q4HR GT 12/08/24 10:00 12/08/24 09:53 200 ML Doxycycline Hyclate 100 ml @ 50 mls/hr Q12H IV 12/08/24 08:30 12/08/24 08:30 50 MLS/HR Vancomycin HCl 250 ml @ 200 mls/hr Q24H IV 12/08/24 10:00 12/08/24 12:49 200 MLS/HR Dopamine HCl/ Dextrose 250 ml @ 7.313 mls/ hr Q24H IV 12/08/24 13:30 UNV Examination General: Intubated, sedated, critically ill CV: Bradycardic, HR 4850 bpm, regular rhythm, no new murmurs/rubs Lungs: Mechanically ventilated, coarse breath sounds but clear imaging Abdomen: Soft, nondistended Extremities: no edema, no cyanosis Neuro: Sedated, not interactive laboratory and microbiology Laboratory Tests 12/08/24 01:47 Test 12/08/24 01:47 Range/Units Serum Glucose 139 H 74-106 mg/dL Microbiology Date/Time Source Procedure Growth Status 12/06/24 22:58 Nose MRSA Screen - Final Complete 12/06/24 14:30 Voided Urine Urine Culture - Preliminary Resulted 12/06/24 13:54 Blood Blood Culture - Preliminary Resulted 12/06/24 08:30 Sputum Gram Stain - Final Resulted 12/06/24 08:30 Sputum Respiratory Culture - Preliminary Resulted Problem List/Assessment/Plan Problem List/Assessment/Plan Assessment 1. NSTEMI Type 2 (demand ischemia) Troponins downtrending (peak >1000, now ~290s). No acute ischemic EKG changes. Likely secondary to hypoxemia, sepsis, and critical illness. 2. CAD s/p PCI (Mar 2024) On DAPT and therapeutic anticoagulation. No acute re-occlusion signs. 3. 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 Likely transient. 4. Acute on chronic diastolic HF Stable on current ventilatory and pressor support. 5. Sinus bradycardia HR 4850 bpm, stable, no blocks. Likely medication/sedation related. 6. Septic shock On norepinephrine and vasopressin. 7. ANDREY on CKD3, improving Cr improved to 1.13, GFR 71. 8. COPD exacerbation pneumonia Remains ventilated. 9. Hyperlipidemia On statin therapy. Plan Cardiovascular: * Continue DAPT (Aspirin 81 mg, Clopidogrel 75 mg). * Continue therapeutic enoxaparin (adjust if renal function worsens). * Continue high-intensity statin. * Monitor troponins daily 12 more until stable. * Daily EKG for QTc and ischemia monitoring. * Repeat echocardiogram in 4872 hrs for EF reassessment. * No urgent ischemic workup at present; defer stress testing/cath until extubated and clinically stable. * Maintain electrolytes (K >4.0, Mg >2.0). * Hold beta-marianna for now (bradycardia + pressor support). Reassess once HR >60 and off pressors. Heart Failure: * Gentle volume status monitoring (avoid overload; balance against sepsis fluid needs). * Start GDMT (ACEi/ARB/ARNI, BB, MRA, SGLT2i) once off pressors and stable. Arrhythmia/Bradycardia: * Continue continuous telemetry. * Sinus bradycardia stable, no pacing needed at this time. * Reassess need for rate support if HR <40 or symptomatic when awake. Renal: * Daily BMP. * Avoid nephrotoxic meds. * Adjust anticoagulation dosing if GFR falls <50. Prophylaxis: * Stress ulcer prophylaxis: Protonix IV. * DVT prophylaxis: Already covered with therapeutic anticoagulation. * Electrolyte replacement per ICU protocol. Plan discussed with: Other (RN) My Orders My Orders Orders - JAVY DOOLEY RESIDENT Procedure Category Date Status Time Aspirin Tablet PHA 12/08/24 In Process 10:00 Atorvastatin (Lipitor) PHA 12/07/24 In Process 22:00 Dietary Evaluation Review Comments: 1. May increase Vital High Protein @55ml/hr, providing 1320kcal, 115g Protein 1104ml free water, adding energy with Propofol 95kcal, the total enrgy provided will be 1295kcal meeting 83% of his energy needs. 2. Monitor and reassess when pt is extubated. Expected Outcomes/Goals: Meeting Pt's protein and energy needs while intubated. Sepsis reassessment post fluid Capillary Refill: < 3 seconds Visit Coding Cardiology RES Date of Service: Dec 08, 2024 Billing Provider: LISSETTE MCCARTHY Sr., MD Cardiology Common Codes: [id number] INP/OBS CARE(Mod), [id number] HOSP CARE(High JAVY DOOLEY RESIDENT Dec 08, 2024 13:44
[2024-12-08] MEDS: DOPamine 1600MCG/ML D5W 250 ML IV SCH (14:18)
--- NOTE | 2024-12-08 15:08 | DVHPNRES ---
Progress Note Date Seen: Dec 08, 2024 Resident Creating Document: DANAY WILLSON RESIDENT Medical Necessity Reason Pt with a Central, PICC or Fol: Yes Subjective Review of Systems This is a 68-year-old male with a history of atrial fibrillation, heart failure, COPD, hyperlipidemia, and CAD s/p PCI with 4 stents (RCA 2, LAD 2 in March 2024). His last echocardiogram in June 2024 showed an EF of 60% with mild chamber dilation. He presented via EMS after one hour of acute shortness of breath. At the scene, SpO? was in the low 60s; he improved to 93% with CPAP. On arrival to the ED, he developed worsening respiratory distress and was intubated at 9 a.m. for acute hypoxemic and hypercapnic respiratory failure. Initial ABG showed respiratory acidosis, which improved post-intubation. Patient was seen and examined in the ICU. He is on mechanical ventilation with FiO2 35%, tidal volume 480 mL, rate 24, peep 5. Patient is having bradycardia the lowest heart rate is low 40s, showed sinus bradycardia. He is off from propofol and started low-dose dopamine drip as per protocol. Auscultation revealed bronchospasm and coarse wheezing, given Mag sulfate 2 g once. Objective vital signs Vital Sign Date Time Temp Pulse Resp B/P (MAP) Pulse Ox O2 Delivery O2 Flow Rate FiO2 12/08/24 14:37 46 24 115/62 (79) 95 35 12/08/24 14:30 98.2 208.8 12/08/24 14:00 Mechanical Ventilator+ Total Intake and Output 12/07/24 12/07/24 12/08/24 15:00 23:00 07:00 Intake Total 871.9 ml 881.0 ml 1179.55 ml Output Total 850 ml 950 ml Balance 871.9 ml 31.0 ml 229.55 ml medications Current Medications Medications Dose Ordered Sig/Alejo Route Start Time Stop Time Status Last Admin Dose Admin Propofol 100 ml @ 1.8 mls/hr Q24H IV 12/06/24 08:45 12/08/24 02:49 3.6 MLS/HR Midazolam HCl 50 ml @ 1 mls/hr Q24H IV 12/06/24 08:45 12/08/24 14:14 8 MLS/HR Fentanyl Citrate 250 ml @ 2.5 mls/hr Q24H IV 12/06/24 08:45 12/07/24 23:11 7.5 MLS/HR Norepinephrine Bitartrate 250 ml @ 3.75 mls/hr Q24H IV 12/06/24 09:15 12/08/24 06:46 18.75 MLS/HR Vancomycin HCl 0 ml @ 0 mls/hr UD IV 12/06/24 13:45 Enoxaparin Sodium 60 mg Q12HR SC 12/06/24 22:00 12/08/24 09:53 60 MG Clopidogrel Bisulfate 75 mg DAILY PO 12/07/24 10:00 12/08/24 09:53 75 MG Pantoprazole Sodium 40 mg DAILY IV 12/07/24 10:00 12/08/24 09:53 40 MG Vasopressin 20 units/Sodium Chloride 100 ml @ 9 mls/hr Q11H7M IV 12/06/24 20:30 Diagnostic Test (Pha) 1 strip Q6HR 12/07/24 12:00 12/08/24 11:17 1 STRIP Meropenem 50 ml @ 17 mls/hr Q8H IV 12/07/24 18:00 12/08/24 09:52 17 MLS/HR Methylprednisolone Sodium Succinate 40 mg Q8HR IV 12/07/24 22:00 12/08/24 13:59 40 MG Insulin Human Regular Q6HR SC 12/07/24 18:00 12/08/24 11:17 3 UNITS Dextrose 50 ml UD PRN IV 12/07/24 15:30 Ipratropium [place] 0.5 mg Q4HR NEB 12/07/24 16:45 12/08/24 14:31 0.5 MG Levalbuterol HCl 1.25 mg Q4HR NEB 12/07/24 16:45 12/08/24 14:31 1.25 MG Enteral Nutritional Formula 1,000 ml 50ML/HR GT 12/07/24 16:45 12/07/24 19:02 1,000 ML Levalbuterol HCl 0.625 mg Q2HPRN PRN NEB 12/07/24 19:15 Aspirin 81 mg DAILY NG 12/08/24 10:00 12/08/24 09:53 81 MG Atorvastatin Calcium 40 mg HS NG 12/07/24 22:00 12/07/24 22:27 40 MG Purified Water 200 ml Q4HR GT 12/08/24 10:00 12/08/24 13:59 200 ML Doxycycline Hyclate 100 ml @ 50 mls/hr Q12H IV 12/08/24 08:30 12/08/24 08:30 50 MLS/HR Vancomycin HCl 250 ml @ 200 mls/hr Q24H IV 12/08/24 10:00 12/08/24 12:49 200 MLS/HR Dopamine HCl/ Dextrose 250 ml @ 7.313 mls/ hr Q24H IV 12/08/24 13:30 12/08/24 14:18 7.313 MLS/HR Examination Examination General: RASS -3, afebrile, mucosae are moist Cardiovascular: Normal S1 and S2. No murmurs, gallops or rubs Respiratory: Mechanically assisted ventilation, equal bilateral airway entree. Bilateral wheezing Abdomen: Soft, nontender, no organomegaly, normal bowel sounds MSK/skin: Mobilization of limbs cannot be evaluated. Skin is dry and warm. Neurological: Orientation cannot be assessed. No apparent motor no sensitive deficits. Pupils are isocoric, pinpoint and reactive laboratory and microbiology Laboratory Tests 12/08/24 01:47 Test 12/08/24 01:47 Range/Units Serum Glucose 139 H 74-106 mg/dL Microbiology Date/Time Source Procedure Growth Status 12/06/24 22:58 Nose MRSA Screen - Final Complete 12/06/24 14:30 Voided Urine Urine Culture - Preliminary Resulted 12/06/24 13:54 Blood Blood Culture - Preliminary Resulted 12/06/24 08:30 Sputum Gram Stain - Final Complete 12/06/24 08:30 Sputum Respiratory Culture - Final Complete Labs and/or images reviewed: Labs reviewed by me, Image(s) reviewed by me Problem List/Assessment/Plan Problem List/Assessment/Plan Assessment and plan: NEURO: Acute metabolic encephalopathy likely secondary to acute hypoxemic/hypercapnic respiratory failure S/P mechanical ventilation RASS score: -3 CARDIOVASCULAR: Septic shock likely secondary to pneumonia Possible NSTEMI type 2 due to above History of CAD with status post PTCA x4 ( March 2024) Paroxysmal atrial fibrillation with secondary hypercoagulable state Acute on Chronic diastolic heart failure with preserved ejection fraction Sinus bradycardia - EEG was unremarkable, troponins was initially elevated than dropped and became flat - echo on 12/29 demonstrated EF 45%, mild global LV hypokinesis, RVSP 49 mm Hg - chest x-ray showed bilateral flat diaphragm, hyperinflated lung field and possible right lower lobe opacity - Ekg showed sinus bradycardia - IV dopamine 2.5 mcg as per protocol - Lasix IV 20 mg once PULMONARY: Acute hypoxic/hypercapnic respiratory failure Acute exacerbation of chronic COPD Gram-positive/Gram-negative pneumonia Pulmonary hypertension - chest x-ray showed bilateral flat diaphragm, hyperinflated lung field and possible right lower lobe opacity - respiratory cultures are unremarkable - med neb with levalbuterol and ipratropium q.4 hours - IV Solu-Medrol 40 mg b.i.d. - Mag-sulphate 2g IV once - Continue IV vancomycin as per pharmacy ,IV meropenem and IV doxycycline GENITOURINARY: ANDREY on CKD secondary to shock/ VMN - strict I&O ENDOCRINE: Possible euthyroid sick syndrome METABOLIC: Hypernatremia - Free water deficit is 2.2L - Free water 200 mL q.4 hours INFECTIOUS DISEASE: Possible Gram-positive versus Gram-negative pneumonia - blood culture showed Gram-positive cocci in cluster and change - continue IV vancomycin , meropenem and doxycycline - respiratory culture and urine bacterial cultures are unremarkable DIET: Tube feeding DVT prophylax: Lovenox GI prophylaxis: Protonix Bowel regimen: Code status: Full code LINES/DRAINS/ACCESS: ETT: Intubated on 0 12/06/24 IV access: Right IJ placed on 12/06/2024 Drips: Norepinephrine, propofol, Versed, fentanyl Carpio catheter: Placed on 12/06/2024 DISPOSITION: ICU Patient's status discussed with insurance healthcare consultant time spent more than 83 minutes, including patient care, chart review, and updating the family. Excluding any procedures. Case discussed with Dr. Blank Plan discussed with: Other (RN) My Orders My Orders Orders - DANAY WILLSON RESIDENT Procedure Category Date Status Time Ipratropium Medneb PHA 12/07/24 In Process (Atrovent Medneb) 16:45 Levalbuterol Hcl PHA 12/07/24 In Process (Xopenex Medneb) 16:45 Nutritional PHA 12/07/24 In Process Supplements (Vital 16:45 Chest Portable XY 12/08/24 Resulted 04:00 Abg W/ Co-Ox RT 12/08/24 Logged 04:00 Levalbuterol Hcl PHA 12/07/24 In Process (Xopenex Medneb) 19:15 Free Water PHA 12/08/24 In Process 10:00 Doxycycline PHA 12/08/24 In Process 100mg/100ml 08:30 Blood Culture REBECCA 12/08/24 Uncollected 08:26 Electrocardigram EKG 12/08/24 Resulted 10:17 Ventilator Orders RT 12/08/24 Transmitted 08:40 Abg W/ Co-Ox RT 12/08/24 Logged 11:00 Dopamine 1600mcg/Ml PHA 12/08/24 In Process [id number] 13:30 Dietary Evaluation Review Comments: 1. May increase Vital High Protein @55ml/hr, providing 1320kcal, 115g Protein 1104ml free water, adding energy with Propofol 95kcal, the total enrgy provided will be 1295kcal meeting 83% of his energy needs. 2. Monitor and reassess when pt is extubated. Expected Outcomes/Goals: Meeting Pt's protein and energy needs while intubated. Sepsis reassessment post fluid Capillary Refill: < 3 seconds Date of Service: Dec 08, 2024 Billing Provider: FELIPE BLANK MD Common Visit Codes: [id number] CARE 30-74 MIN, [id number] CARE-EACH +30MIN DANAY WILLSON RESIDENT Dec 08, 2024 15:08 FELIPE BLANK MD Dec 10, 2024 15:40
[2024-12-08] MEDS: ALBUTEROL SULF 2.5 MG/0.5ML(0.5%) NEB SOLN NEB SCH (19:01)
[2024-12-09] VITALS (110 sets, daily range): BP systolic 102–152; BP diastolic 54–82; PULSE 43–78; RESP 11–25; TEMP 96.6–99.1; O2SAT 91–100
[2024-12-09 03:57] LABS: Hematocrit 44.9 % (41.0-53.0); Hemoglobin 15.1 g/dL (13.5-17.5); Mean Corpuscular Hemoglobin 32.6 pg (28.0-32.0); Mean Corpuscular Volume 96.8 fL (80.0-100.0); Nucleated Red Blood Cells % 0.0 %
[2024-12-09 04:46] LABS: Anion Gap 5 (5-15)
[2024-12-09 04:50] LABS: Calcium 8.6 mg/dL (8.7-10.4); Carbon Dioxide 34 mmol/L (20-31); Chloride 113 mmol/L (98-107); Potassium 3.4 mmol/L (3.5-5.1); Sodium 152 mmol/L (136-145)
[2024-12-09 04:51] LABS: BUN/Creatinine Ratio 21.1 (10.0-20.0); Blood Urea Nitrogen 20 mg/dL (9-23)
[2024-12-09 04:55] LABS: Glucose 133 mg/dL (74-106)
--- NOTE | 2024-12-09 05:51 | DVH ---
CHEST RADIOGRAPH Indication: Mechanical ventilation Technique: Single frontal view of the chest was obtained COMPARISON: XY CHEST PORTABLE on DOS: 12/08/24, XY CHEST XRAY 1 VIEW on DOS: 12/07/24, XY CHEST XRAY 1 EW on DOS: 12/06/24, XY CHEST PORTABLE on DOS: 12/06/24, XY CHEST PORTABLE on DOS: 04/02/24 FINDINGS: Lines and Tubes: Endotracheal tube, enteric catheter and right central venous catheter in satisfactor y position Lungs: Increased interstitial prominence Pleura: No effusion. No pneumothorax. Cardiomediastinal contours: Unremarkable Bones: Unremarkable IMPRESSION: Lines and tubes in satisfactory position. No significant interval change.
[2024-12-09 06:21] LABS: Base Excess 7.5 mmol/L (-2.0-3.0)
[2024-12-09] MEDS: FREE WATER GT SCH (06:40)
[2024-12-09] MEDS: POTASSIUM CHL 20MEQ/100ML 100 ML IV ONE (06:41)
[2024-12-09] MEDS: DEXMEDETOMIDINE HCL IN D5W 100 ML IV SCH (11:28)
--- NOTE | 2024-12-09 15:38 | DVHPNRES ---
Progress Note Date Seen: Dec 09, 2024 Resident Creating Document: JAVY DOOLEY RESIDENT Has the PT tested + for MRSA If YES, has PT been informed?: No Medical Necessity Reason Pt with a Central, PICC or Fol: Yes Subjective Review of Systems He remains intubated and sedated in ICU for acute hypoxic and hypercapnic respiratory failure, septic shock and type 2 NSTEMI S events- Sedation weaned with discontinuing propofol and reducing fentanyl and midazolam, patient became restless then Precedex started. Dopamine infusion initiated which improved the bradycardia, heart rate now stable in 63-68 beats per minute. Blood pressure improved-146 x 76 on reduced vasopressor support. Discontinued norepinephrine. Electrolytes potassium low at 3.4, replenished . WBC decreased from 14.8-12.4. Blood cultures grew staph epidermidis on vancomycin, meropenem and doxycycline Chest x-ray stable no new infiltrates, tubes and lines in place. Renal function stable. Troponins previously down trending. Cardiac status-stable sinus rhythm, EF 45%, BP controlled. ROS Unable to obtain, patient intubated and sedated. Objective vital signs Vital Sign Date Time Temp Pulse Resp B/P (MAP) Pulse Ox O2 Delivery O2 Flow Rate FiO2 12/09/24 15:19 57 22 146/75 (98) 94 40 12/09/24 13:15 98.6 209.5 12/09/24 12:00 Mechanical Ventilator+ Total Intake and Output 12/08/24 12/08/24 12/09/24 15:00 23:00 07:00 Intake Total 887.313 ml 724.816 ml 1023.588 ml Output Total 1800 ml 2100 ml Balance 887.313 ml -1075.184 ml -1076.412 ml medications Current Medications Medications Dose Ordered Sig/Alejo Route Start Time Stop Time Status Last Admin Dose Admin Propofol 100 ml @ 1.8 mls/hr Q24H IV 12/06/24 08:45 12/09/24 08:22 1.8 MLS/HR Midazolam HCl 50 ml @ 1 mls/hr Q24H IV 12/06/24 08:45 12/09/24 06:02 5 MLS/HR Fentanyl Citrate 250 ml @ 2.5 mls/hr Q24H IV 12/06/24 08:45 12/09/24 01:56 5 MLS/HR Norepinephrine Bitartrate 250 ml @ 3.75 mls/hr Q24H IV 12/06/24 09:15 12/08/24 06:46 18.75 MLS/HR Vancomycin HCl 0 ml @ 0 mls/hr UD IV 12/06/24 13:45 Enoxaparin Sodium 60 mg Q12HR SC 12/06/24 22:00 12/09/24 09:34 60 MG Clopidogrel Bisulfate 75 mg DAILY PO 12/07/24 10:00 12/09/24 09:33 75 MG Pantoprazole Sodium 40 mg DAILY IV 12/07/24 10:00 12/09/24 09:33 40 MG Vasopressin 20 units/Sodium Chloride 100 ml @ 9 mls/hr Q11H7M IV 12/06/24 20:30 Diagnostic Test (Pha) 1 strip Q6HR 12/07/24 12:00 12/09/24 11:24 1 STRIP Meropenem 50 ml @ 17 mls/hr Q8H IV 12/07/24 18:00 12/09/24 09:34 17 MLS/HR Methylprednisolone Sodium Succinate 40 mg Q8HR IV 12/07/24 22:00 12/09/24 13:36 40 MG Insulin Human Regular Q6HR SC 12/07/24 18:00 12/09/24 11:24 2 UNITS Dextrose 50 ml UD PRN IV 12/07/24 15:30 Ipratropium [place] 0.5 mg Q4HR NEB 12/07/24 16:45 12/09/24 13:54 0.5 MG Enteral Nutritional Formula 1,000 ml 50ML/HR GT 12/07/24 16:45 12/08/24 21:07 1,000 ML Aspirin 81 mg DAILY NG 12/08/24 10:00 12/09/24 09:33 81 MG Atorvastatin Calcium 40 mg HS NG 12/07/24 22:00 12/08/24 21:03 40 MG Doxycycline Hyclate 100 ml @ 50 mls/hr Q12H IV 12/08/24 08:30 12/09/24 08:08 50 MLS/HR Vancomycin HCl 250 ml @ 200 mls/hr Q24H IV 12/08/24 10:00 12/09/24 09:34 200 MLS/HR Dopamine HCl/ Dextrose 250 ml @ 7.313 mls/ hr Q24H IV 12/08/24 13:30 12/09/24 06:29 16.088 MLS/HR Albuterol 2.5 mg Q4HR NEB 12/08/24 18:00 12/09/24 13:54 2.5 MG Albuterol 2.5 mg Q2HPRN PRN NEB 12/08/24 16:30 Purified Water 300 ml Q4HR GT 12/09/24 06:00 12/09/24 13:36 300 ML Examination General: Intubated, sedated, critically ill CV: regular rhythm, no new murmurs/rubs Lungs: Mechanically ventilated, coarse breath sounds but clear imaging Abdomen: Soft, nondistended Extremities: no edema, no cyanosis Neuro: Sedated, not interactive laboratory and microbiology Laboratory Tests 12/09/24 03:10 Test 12/09/24 03:10 Range/Units Serum Glucose 133 H 74-106 mg/dL Microbiology Date/Time Source Procedure Growth Status 12/06/24 22:58 Nose MRSA Screen - Final Complete 12/06/24 14:30 Voided Urine Urine Culture - Final Complete 12/06/24 13:54 Blood Blood Culture - Final Staphylococcus epidermidis Complete 12/06/24 08:30 Sputum Gram Stain - Final Complete 12/06/24 08:30 Sputum Respiratory Culture - Final Complete Problem List/Assessment/Plan Problem List/Assessment/Plan Assessment 1. NSTEMI Type 2 (demand ischemia) Troponins downtrending (peak >1000, now ~290s). No acute ischemic EKG changes. Likely secondary to hypoxemia, sepsis, and critical illness. 2. CAD s/p PCI (Mar 2024) On DAPT and therapeutic anticoagulation. No acute re-occlusion signs. 3. 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 Likely transient. 4. Acute on chronic diastolic HF Stable on current ventilatory and pressor support. 5. Sinus bradycardia HR 4850 bpm, stable, no blocks. Likely medication/sedation related. 6. Septic shock On norepinephrine and vasopressin. 7. ANDREY on CKD3, improving Cr improved to 1.13, GFR 71. 8. COPD exacerbation pneumonia Remains ventilated. 9. Hyperlipidemia On statin therapy. Plan Cardiovascular: * Continue DAPT (Aspirin 81 mg, Clopidogrel 75 mg). * Continue therapeutic enoxaparin (adjust if renal function worsens). * Continue high-intensity statin. * Monitor troponins daily 12 more until stable. * Daily EKG for QTc and ischemia monitoring. * Repeat echocardiogram in 4872 hrs for EF reassessment. * No urgent ischemic workup at present; defer stress testing/cath until extubated and clinically stable. * Maintain electrolytes (K >4.0, Mg >2.0). Continue dopamine infusion for heart rate support, titrate as tolerated. * Hold beta-marianna for now (bradycardia + pressor support). Reassess once HR >60 and off pressors. Heart Failure: * Gentle volume status monitoring (avoid overload; balance against sepsis fluid needs). * Start GDMT (ACEi/ARB/ARNI, BB, MRA, SGLT2i) once off pressors and stable. Arrhythmia/Bradycardia: * Continue continuous telemetry. * Sinus bradycardia stable, no pacing needed at this time. * Reassess need for rate support if HR <40 or symptomatic when awake. Renal: * Daily BMP. * Avoid nephrotoxic meds. * Adjust anticoagulation dosing if GFR falls <50. Prophylaxis: * Stress ulcer prophylaxis: Protonix IV. * DVT prophylaxis: Already covered with therapeutic anticoagulation. * Electrolyte replacement per ICU protocol. Plan discussed with: Other (RN) My Orders My Orders Orders - JAVY DOOLEY Procedure Category Date Status Time Troponin-I Hs LAB 12/09/24 In Process 14:01 Troponin-I Hs LAB 12/09/24 Logged 15:01 Troponin-I Hs LAB 12/09/24 Logged 17:01 Dietary Evaluation Review Comments: 1. May increase Vital High Protein @55ml/hr, providing 1320kcal, 115g Protein 1104ml free water, adding energy with Propofol 95kcal, the total enrgy provided will be 1295kcal meeting 83% of his energy needs. 2. Monitor and reassess when pt is extubated. Expected Outcomes/Goals: Meeting Pt's protein and energy needs while intubated. Sepsis reassessment post fluid Capillary Refill: < 3 seconds Visit Coding Cardiology RES Date of Service: Dec 09, 2024 Billing Provider: LISSETTE MCCARTHY Sr., MD Cardiology Common Codes: [id number] HOSP CARE(JAVY Perez RESIDENT Dec 09, 2024 15:37
[2024-12-09] MEDS: DOPamine 1600MCG/ML D5W 250 ML IV SCH (17:15)
--- NOTE | 2024-12-09 17:55 | DVHPNRES ---
Progress Note Date Seen: Dec 09, 2024 Resident Creating Document: DANAY WILLSON RESIDENT Has the PT tested + for MRSA If YES, has PT been informed?: No Medical Necessity Reason Pt with a Central, PICC or Fol: Yes Subjective Review of Systems This is a 68-year-old male with a history of atrial fibrillation, heart failure, COPD, hyperlipidemia, and CAD s/p PCI with 4 stents (RCA 2, LAD 2 in March 2024). His last echocardiogram in June 2024 showed an EF of 60% with mild chamber dilation. He presented via EMS after one hour of acute shortness of breath. At the scene, SpO? was in the low 60s; he improved to 93% with CPAP. On arrival to the ED, he developed worsening respiratory distress and was intubated at 9 a.m. for acute hypoxemic and hypercapnic respiratory failure. Initial ABG showed respiratory acidosis, which improved post-intubation. Patient was seen and examined in the ICU. He is on mechanical ventilation with FiO2 35%, tidal volume 480 mL, rate 20, peep 5. Low-dose dopamine drip, Versed and fentanyl. We will try to decrease the sedation so the patient can ready for CPAP trial and extubation. Chest x-ray showed bilateral pulmonary vascular congestion, getting better than yesterday. Objective vital signs Vital Sign Date Time Temp Pulse Resp B/P (MAP) Pulse Ox O2 Delivery O2 Flow Rate FiO2 12/09/24 15:38 149/78 12/09/24 15:19 57 22 94 40 12/09/24 13:15 98.6 209.5 12/09/24 12:00 Mechanical Ventilator+ Total Intake and Output 12/08/24 12/08/24 12/09/24 15:00 23:00 07:00 Intake Total 887.313 ml 724.816 ml 1023.588 ml Output Total 1800 ml 2100 ml Balance 887.313 ml -1075.184 ml -1076.412 ml medications Current Medications Medications Dose Ordered Sig/Alejo Route Start Time Stop Time Status Last Admin Dose Admin Propofol 100 ml @ 1.8 mls/hr Q24H IV 12/06/24 08:45 12/09/24 08:22 1.8 MLS/HR Midazolam HCl 50 ml @ 1 mls/hr Q24H IV 12/06/24 08:45 12/09/24 15:38 5 MLS/HR Fentanyl Citrate 250 ml @ 2.5 mls/hr Q24H IV 12/06/24 08:45 12/09/24 01:56 5 MLS/HR Norepinephrine Bitartrate 250 ml @ 3.75 mls/hr Q24H IV 12/06/24 09:15 12/08/24 06:46 18.75 MLS/HR Vancomycin HCl 0 ml @ 0 mls/hr UD IV 12/06/24 13:45 Enoxaparin Sodium 60 mg Q12HR SC 12/06/24 22:00 12/09/24 09:34 60 MG Clopidogrel Bisulfate 75 mg DAILY PO 12/07/24 10:00 12/09/24 09:33 75 MG Pantoprazole Sodium 40 mg DAILY IV 12/07/24 10:00 12/09/24 09:33 40 MG Vasopressin 20 units/Sodium Chloride 100 ml @ 9 mls/hr Q11H7M IV 12/06/24 20:30 Diagnostic Test (Pha) 1 strip Q6HR 12/07/24 12:00 12/09/24 17:19 1 STRIP Meropenem 50 ml @ 17 mls/hr Q8H IV 12/07/24 18:00 12/09/24 17:24 17 MLS/HR Methylprednisolone Sodium Succinate 40 mg Q8HR IV 12/07/24 22:00 12/09/24 13:36 40 MG Insulin Human Regular Q6HR SC 12/07/24 18:00 12/09/24 17:19 2 UNITS Dextrose 50 ml UD PRN IV 12/07/24 15:30 Ipratropium [place] 0.5 mg Q4HR NEB 12/07/24 16:45 12/09/24 13:54 0.5 MG Enteral Nutritional Formula 1,000 ml 50ML/HR GT 12/07/24 16:45 12/08/24 21:07 1,000 ML Aspirin 81 mg DAILY NG 12/08/24 10:00 12/09/24 09:33 81 MG Atorvastatin Calcium 40 mg HS NG 12/07/24 22:00 12/08/24 21:03 40 MG Doxycycline Hyclate 100 ml @ 50 mls/hr Q12H IV 12/08/24 08:30 12/09/24 08:08 50 MLS/HR Vancomycin HCl 250 ml @ 200 mls/hr Q24H IV 12/08/24 10:00 12/09/24 09:34 200 MLS/HR Albuterol 2.5 mg Q4HR NEB 12/08/24 18:00 12/09/24 13:54 2.5 MG Albuterol 2.5 mg Q2HPRN PRN NEB 12/08/24 16:30 Purified Water 300 ml Q4HR GT 12/09/24 06:00 12/09/24 17:25 300 ML Dopamine HCl/ Dextrose 250 ml @ 7.313 mls/ hr Q24H IV 12/09/24 17:15 Examination Examination General: RASS -3, afebrile, mucosae are moist Cardiovascular: Normal S1 and S2. No murmurs, gallops or rubs Respiratory: Mechanically assisted ventilation, equal bilateral airway entree. Bilateral mild wheezing and crackles Abdomen: Soft, nontender, no organomegaly, normal bowel sounds MSK/skin: Mobilization of limbs cannot be evaluated. Skin is dry and warm. Neurological: Orientation cannot be assessed. No apparent motor no sensitive deficits. Pupils are isocoric, pinpoint and reactive laboratory and microbiology Laboratory Tests 12/09/24 03:10 Test 12/09/24 03:10 Range/Units Serum Glucose 133 H 74-106 mg/dL Microbiology Date/Time Source Procedure Growth Status 12/06/24 22:58 Nose MRSA Screen - Final Complete 12/06/24 14:30 Voided Urine Urine Culture - Final Complete 12/06/24 13:54 Blood Blood Culture - Final Staphylococcus epidermidis Complete 12/06/24 08:30 Sputum Gram Stain - Final Complete 12/06/24 08:30 Sputum Respiratory Culture - Final Complete Labs and/or images reviewed: Labs reviewed by me, Image(s) reviewed by me Problem List/Assessment/Plan Problem List/Assessment/Plan Assessment and plan: NEURO: Acute metabolic encephalopathy likely secondary to acute hypoxemic/hypercapnic respiratory failure S/P mechanical ventilation RASS score: -3 CARDIOVASCULAR: Septic shock likely secondary to pneumonia Possible NSTEMI type 2 due to above History of CAD with status post PTCA x4 ( March 2024) Paroxysmal atrial fibrillation with secondary hypercoagulable state Acute on Chronic diastolic heart failure with preserved ejection fraction Sinus bradycardia - EEG was unremarkable, troponins was initially elevated than dropped and became flat - echo on 12/29 demonstrated EF 45%, mild global LV hypokinesis, RVSP 49 mm Hg - chest x-ray showed bilateral flat diaphragm, hyperinflated lung field and possible right lower lobe opacity - Ekg showed sinus bradycardia - IV dopamine 2.5 mcg as per protocol - Lasix IV 20 mg once PULMONARY: Acute hypoxic/hypercapnic respiratory failure Acute exacerbation of chronic COPD Gram-positive/Gram-negative pneumonia Pulmonary hypertension - chest x-ray showed bilateral flat diaphragm, hyperinflated lung field and possible right lower lobe opacity - respiratory cultures are unremarkable - med neb with levalbuterol and ipratropium q.4 hours - IV Solu-Medrol 40 mg b.i.d. - Mag-sulphate 2g IV once - Continue IV vancomycin as per pharmacy ,IV meropenem and IV doxycycline GENITOURINARY: ANDREY on CKD secondary to shock/ VMN - strict I&O ENDOCRINE: Possible euthyroid sick syndrome METABOLIC: Hypernatremia - Free water deficit is 2.2L - Free water 200 mL q.4 hours INFECTIOUS DISEASE: Possible Gram-positive versus Gram-negative pneumonia - blood culture showed Gram-positive cocci in cluster and change - continue IV vancomycin , meropenem and doxycycline - respiratory culture and urine bacterial cultures are unremarkable DIET: Tube feeding DVT prophylax: Lovenox GI prophylaxis: Protonix Bowel regimen: Code status: Full code LINES/DRAINS/ACCESS: ETT: Intubated on 0 12/06/24 IV access: Right IJ placed on 12/06/2024 Drips: Norepinephrine, propofol, Versed, fentanyl Carpio catheter: Placed on 12/06/2024 DISPOSITION: ICU Patient's status discussed with healthcare interpreter time spent more than 83 minutes, including patient care, chart review, and updating the family. Excluding any procedures. Case discussed with Dr. Brewer Plan discussed with: Spouse, Other (RN) My Orders My Orders Orders - DANAY WILLSON RESIDENT Procedure Category Date Status Time Chest Portable XY 12/09/24 Resulted 04:00 Abg W/ Co-Ox RT 12/09/24 Logged 04:00 Apply Z-Guard MARBIN 12/08/24 In Process 12:03 Ventilator Orders RT 12/09/24 Transmitted 07:00 Dexmedetomidine Hcl PHA 12/09/24 In Process In D5w (Precedex) 08:30 Dopamine 1600mcg/Ml PHA 9/5/25 In Process D5W 17:15 Dietary Evaluation Review Comments: 1. May increase Vital High Protein @55ml/hr, providing 1320kcal, 115g Protein 1104ml free water, adding energy with Propofol 95kcal, the total enrgy provided will be 1295kcal meeting 83% of his energy needs. 2. Monitor and reassess when pt is extubated. Expected Outcomes/Goals: Meeting Pt's protein and energy needs while intubated. Sepsis reassessment post fluid Capillary Refill: < 3 seconds DANAY WILLSON RESIDENT Dec 09, 2024 17:54
[2024-12-09] MEDS: FUROSEMIDE 20 MG/2 ML VIAL IV ONE (18:35)
[2024-12-10] VITALS (107 sets, daily range): BP systolic 102–160; BP diastolic 53–94; PULSE 45–72; RESP 10–26; TEMP 98.1–99.7; O2SAT 91–99
[2024-12-10 03:54] LABS: Hematocrit 46.7 % (41.0-53.0); Hemoglobin 16.2 g/dL (13.5-17.5); Mean Corpuscular Hemoglobin 33.5 pg (28.0-32.0); Mean Corpuscular Volume 96.2 fL (80.0-100.0); Nucleated Red Blood Cells % 0.0 %
[2024-12-10 04:42] LABS: Potassium 3.8 mmol/L (3.5-5.1)
[2024-12-10 04:43] LABS: Anion Gap 5 (5-15)
[2024-12-10 04:49] LABS: BUN/Creatinine Ratio 22.6 (10.0-20.0); Blood Urea Nitrogen 19 mg/dL (9-23)
[2024-12-10 05:04] LABS: Calcium 8.2 mg/dL (8.7-10.4); Carbon Dioxide 37 mmol/L (20-31); Chloride 111 mmol/L (98-107); Glucose 135 mg/dL (74-106); Sodium 153 mmol/L (136-145)
--- NOTE | 2024-12-10 05:44 | DVH ---
CHEST RADIOGRAPH Indication: Mechanical ventilation Technique: Single frontal view of the chest was obtained COMPARISON: XY CHEST PORTABLE on DOS: 12/09/24, XY CHEST PORTABLE on DOS: 12/08/24, XY CHEST XRAY 1 VIEW on DOS: 12/07/24, XY CHEST XRAY 1 VIEW on DOS: 12/06/24, XY CHEST PORTABLE on DOS: 12/06/24 FINDINGS: Lines and Tubes: Unchanged. Lungs: Stable moderate diffuse increased interstitial prominence and mild right basilar pulmonary air space disease. No evidence of focal consolidation. Pleura: No effusion. No pneumothorax. Cardiomediastinal contours: Unremarkable Bones: Unremarkable IMPRESSION: 1. Stable mild right basilar pulmonary airspace disease and moderate diffuse increased interstitial p rominence. 2. Lines and tubes unchanged.
[2024-12-10 06:48] LABS: Base Excess 5.8 mmol/L (-2.0-3.0)
--- NOTE | 2024-12-10 10:28 | DVHPN2 ---
Consult Progress Note Subjective Patient reports: Other (intubated and sedated) Objective vital signs Vital Sign Date Time Temp Pulse Resp B/P (MAP) Pulse Ox O2 Delivery O2 Flow Rate FiO2 12/10/24 10:06 58 20 116/66 (83) 94 40 12/10/24 09:15 98.8 209.8 12/10/24 08:00 Mechanical Ventilator+ Total Intake and Output 12/09/24 12/09/24 12/10/24 15:00 23:00 07:00 Intake Total 685.408 ml 1638.773 ml 740.008 ml Output Total 1900 ml 2000 ml Balance 685.408 ml -261.227 ml -1259.992 ml medications Current Medications Medications Dose Ordered Sig/Alejo Route Start Time Stop Time Status Last Admin Dose Admin Propofol 100 ml @ 1.8 mls/hr Q24H IV 12/06/24 08:45 12/09/24 08:22 1.8 MLS/HR Midazolam HCl 50 ml @ 1 mls/hr Q24H IV 12/06/24 08:45 12/10/24 02:03 5 MLS/HR Fentanyl Citrate 250 ml @ 2.5 mls/hr Q24H IV 12/06/24 08:45 12/09/24 01:56 5 MLS/HR Norepinephrine Bitartrate 250 ml @ 3.75 mls/hr Q24H IV 12/06/24 09:15 12/08/24 06:46 18.75 MLS/HR Enoxaparin Sodium 60 mg Q12HR SC 12/06/24 22:00 12/09/24 21:36 60 MG Clopidogrel Bisulfate 75 mg DAILY PO 12/07/24 10:00 12/09/24 09:33 75 MG Pantoprazole Sodium 40 mg DAILY IV 12/07/24 10:00 12/09/24 09:33 40 MG Vasopressin 20 units/Sodium Chloride 100 ml @ 9 mls/hr Q11H7M IV 12/06/24 20:30 Diagnostic Test (Pha) 1 strip Q6HR 12/07/24 12:00 12/10/24 05:33 1 STRIP Meropenem 50 ml @ 17 mls/hr Q8H IV 12/07/24 18:00 12/10/24 01:45 17 MLS/HR Methylprednisolone Sodium Succinate 40 mg Q8HR IV 12/07/24 22:00 12/10/24 05:33 40 MG Insulin Human Regular Q6HR SC 12/07/24 18:00 12/10/24 05:34 3 UNITS Dextrose 50 ml UD PRN IV 12/07/24 15:30 Ipratropium [place] 0.5 mg Q4HR NEB 12/07/24 16:45 12/10/24 10:05 0.5 MG Enteral Nutritional Formula 1,000 ml 50ML/HR GT 12/07/24 16:45 12/08/24 21:07 1,000 ML Aspirin 81 mg DAILY NG 12/08/24 10:00 12/09/24 09:33 81 MG Atorvastatin Calcium 40 mg HS NG 12/07/24 22:00 12/09/24 21:36 40 MG Albuterol 2.5 mg Q4HR NEB 12/08/24 18:00 12/10/24 10:05 2.5 MG Albuterol 2.5 mg Q2HPRN PRN [facility] 12/08/24 16:30 Purified Water 300 ml Q4HR GT 12/09/24 06:00 12/09/24 21:35 300 ML Dopamine HCl/ Dextrose 250 ml @ 7.313 mls/ hr Q24H IV 12/09/24 17:15 12/10/24 05:46 16.088 MLS/HR Acetaminophen 650 mg Q6HP PRN GT 12/09/24 18:30 Examination: LUNGS:Abnormal (FiO2 40%), CVS:Abnormal (Telemetry reviewed, consistent with sinus bradycardia at 48 bpm.), NEURO:Abnormal (sedated) laboratory and microbiology Laboratory Tests 12/10/24 03:25 Test 12/10/24 03:25 Range/Units Serum Glucose 135 H 74-106 mg/dL Problem List/Assessment/Plan Problem List/Assessment/Plan Problem List/Assessment/Plan Assessment 1. NSTEMI Type 2 (demand ischemia) Troponins downtrending (peak >1000, now ~290s). No acute ischemic EKG changes. Likely secondary to hypoxemia, sepsis, and critical illness. 2. CAD s/p PCI (Mar 2024) On DAPT and therapeutic anticoagulation. No acute re-occlusion signs. 3. 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 Likely transient. 4. Acute on chronic diastolic HF Stable on current ventilatory and pressor support. 5. Sinus bradycardia HR 4850 bpm, stable, no blocks. Likely medication/sedation related. 6. Septic shock On norepinephrine and vasopressin. 7. ANDREY on CKD3, improving Cr improved to 1.13, GFR 71. 8. COPD exacerbation pneumonia Remains ventilated. 9. Hyperlipidemia On statin therapy. 10. Hypernatremia - receiving free water 200 mL q.4 hours. Continue monitoring. Plan Cardiovascular: * Continue DAPT (Aspirin 81 mg, Clopidogrel 75 mg). * Continue therapeutic enoxaparin (adjust if renal function worsens). * Continue high-intensity statin. * Monitor troponins daily 12 more until stable. * Daily EKG for QTc and ischemia monitoring. * Repeat echocardiogram in 4872 hrs for EF reassessment. * No urgent ischemic workup at present; defer stress testing/cath until extubated and clinically stable. * Maintain electrolytes (K >4.0, Mg >2.0). Continue dopamine infusion for heart rate support, titrate as tolerated. * Hold beta-marianna for now (bradycardia + pressor support). Reassess once HR >60 and off pressors. Heart Failure: * Gentle volume status monitoring (avoid overload; balance against sepsis fluid needs). * Start GDMT (ACEi/ARB/ARNI, BB, MRA, SGLT2i) once off pressors and stable if BP and HR tolerates Arrhythmia/Bradycardia: * Continue continuous telemetry. * Sinus bradycardia stable, no pacing needed at this time. * Reassess need for rate support if HR <40 or symptomatic when awake. Recommend monitoring with sedation vacation if not contraindicated. Renal: * Daily BMP. * Avoid nephrotoxic meds. * Adjust anticoagulation dosing if GFR falls <50. On free water 200 mL q.4 hours. Prophylaxis: * Stress ulcer prophylaxis: Protonix IV. * DVT prophylaxis: Already covered with therapeutic anticoagulation. * Electrolyte replacement per ICU protocol. Plan discussed with: Other Dietary Evaluation Review Comments: 1. May increase Vital High Protein @55ml/hr, providing 1320kcal, 115g Protein 1104ml free water, adding energy with Propofol 95kcal, the total enrgy provided will be 1295kcal meeting 83% of his energy needs. 2. Monitor and reassess when pt is extubated. Expected Outcomes/Goals: Meeting Pt's protein and energy needs while intubated. Date of Service: Dec 10, 2024 Billing Provider: ROYER CRESPO Common Visit Codes: [id number] INP/OBS CARE(HIGH), [id number] CARE 30-74 MIN ROYER CRESPO Dec 10, 2024 10:28
--- NOTE | 2024-12-10 13:47 | DVHPN2 ---
Progress Note - Dictate Date Seen: Dec 10, 2024 Has the PT tested + for MRSA If YES, has PT been informed?: No Medical Necessity Reason Pt with a Central, PICC or Fol: Yes vital signs Vital Sign Date Time Temp Pulse Resp B/P (MAP) Pulse Ox O2 Delivery O2 Flow Rate FiO2 12/10/24 12:57 117/94 12/10/24 11:36 58 26 93 40 12/10/24 09:15 98.8 209.8 12/10/24 08:00 Mechanical Ventilator+ Total Intake and Output 12/09/24 12/09/24 12/10/24 15:00 23:00 07:00 Intake Total 685.408 ml 1638.773 ml 740.008 ml Output Total 1900 ml 2000 ml Balance 685.408 ml -261.227 ml -1259.992 ml medications Current Medications Medications Dose Ordered Sig/Alejo Route Start Time Stop Time Status Last Admin Dose Admin Propofol 100 ml @ 1.8 mls/hr Q24H IV 12/06/24 08:45 12/09/24 08:22 1.8 MLS/HR Midazolam HCl 50 ml @ 1 mls/hr Q24H IV 12/06/24 08:45 12/10/24 02:03 5 MLS/HR Fentanyl Citrate 250 ml @ 2.5 mls/hr Q24H IV 12/06/24 08:45 12/09/24 01:56 5 MLS/HR Norepinephrine Bitartrate 250 ml @ 3.75 mls/hr Q24H IV 12/06/24 09:15 12/08/24 06:46 18.75 MLS/HR Enoxaparin Sodium 60 mg Q12HR SC 12/06/24 22:00 12/10/24 11:09 60 MG Clopidogrel Bisulfate 75 mg DAILY PO 12/07/24 10:00 12/10/24 11:09 75 MG Pantoprazole Sodium 40 mg DAILY IV 12/07/24 10:00 12/10/24 11:08 40 MG Vasopressin 20 units/Sodium Chloride 100 ml @ 9 mls/hr Q11H7M IV 12/06/24 20:30 Diagnostic Test (Pha) 1 strip Q6HR 12/07/24 12:00 12/10/24 12:00 1 STRIP Meropenem 50 ml @ 17 mls/hr Q8H IV 12/07/24 18:00 12/10/24 11:08 17 MLS/HR Methylprednisolone Sodium Succinate 40 mg Q8HR IV 12/07/24 22:00 12/10/24 05:33 40 MG Insulin Human Regular Q6HR SC 12/07/24 18:00 12/10/24 12:57 2 UNITS Dextrose 50 ml UD PRN IV 12/07/24 15:30 Ipratropium [place] 0.5 mg Q4HR NEB 12/07/24 16:45 12/10/24 10:05 0.5 MG Enteral Nutritional Formula 1,000 ml 50ML/HR GT 12/07/24 16:45 12/08/24 21:07 1,000 ML Aspirin 81 mg DAILY NG 12/08/24 10:00 12/10/24 11:09 81 MG Atorvastatin Calcium 40 mg HS NG 12/07/24 22:00 12/09/24 21:36 40 MG Albuterol 2.5 mg Q4HR NEB 12/08/24 18:00 12/10/24 10:05 2.5 MG Albuterol 2.5 mg Q2HPRN PRN NEB 12/08/24 16:30 Purified Water 300 ml Q4HR GT 12/09/24 06:00 12/10/24 10:00 300 ML Dopamine HCl/ Dextrose 250 ml @ 7.313 mls/ hr Q24H IV 12/09/24 17:15 12/10/24 05:46 16.088 MLS/HR Acetaminophen 650 mg Q6HP PRN GT 12/09/24 18:30 laboratory and microbiology Laboratory Tests 12/10/24 03:25 Test 12/10/24 03:25 Range/Units Serum Glucose 135 H 74-106 mg/dL Assessment/Plan Covering for Dr. Matute Impression Acute hypoxemic respiratory failure Bradycardia Cardiomyopathy CHF Patient seen and examined in ICU Events On mechanical ventilation S/p intubation PEEP 5, FiO2 30% On Dopamine drip for bradycardia Labs and imaging reviewed ABG reviewed Management Vent support Titrate to maintain sats 90% or above Sedation holiday daily If patient follows commands, proceed to weaning trial Pressure support 10/08, extubate when ready Continue antibiotics F/u cultures Bronchodilators Monitor renal function Monitor electrolytes Supplement as needed Pressors as needed for hemodynamic support To maintain a mean arterial pressure of 65 mmHg F/u cardiology for possible pacemaker placement DVT prophylaxis Critical care time 35 minutes Dietary Evaluation Review Comments: 1. May increase Vital High Protein @55ml/hr, providing 1320kcal, 115g Protein 1104ml free water, adding energy with Propofol 95kcal, the total enrgy provided will be 1295kcal meeting 83% of his energy needs. 2. Monitor and reassess when pt is extubated. Expected Outcomes/Goals: Meeting Pt's protein and energy needs while intubated. Plan discussed with: Other (Rn) Capillary Refill: < 3 seconds KATIE PAN MD Dec 10, 2024 13:47
--- NOTE | 2024-12-10 15:30 | DVHPN2 ---
Subjective The patient is seen examined at bedside. The patient did not tolerate BiPAP. Back on sedation. Reviewed: Care Plan, H&P, Labs, Medications, Previous Orders, Radiology Changes from previous H/P or p: No Changes Objective Vitals Vital Signs Date Time Temp Pulse Resp B/P (MAP) Pulse Ox O2 Delivery O2 Flow Rate FiO2 12/10/24 15:15 99.1 66 20 156/83 (107) 92 210.4 12/10/24 14:15 40 12/10/24 08:00 Mechanical Ventilator+ Intake/Output Intake and Output 12/10/24 07:00 Intake Total 3064.189 ml Output Total 3900 ml Balance -835.811 ml Intake Oral 300 ml IV Total 1224.189 ml Tube Feeding 640 ml Other 900 ml Output Urine Total 3900 ml General Appearance: Other (Intubated, on vent) HEENT: Atraumatic, Other (ETT tube intact) Cardiovascular: Regular rate, Normal S1, Normal S2, No murmurs, Gallops, Rubs Abdomen: Normal bowel sounds, Soft, No tenderness Neuro: Cranial nerves 3-12 NL Psych/Mental Status: Mental status NL Medications Current Medications Medications Dose Ordered Sig/Alejo Route Start Time Stop Time Status Last Admin Dose Admin Propofol 100 ml @ 1.8 mls/hr Q24H IV 12/06/24 08:45 12/09/24 08:22 1.8 MLS/HR Midazolam HCl 50 ml @ 1 mls/hr Q24H IV 12/06/24 08:45 12/10/24 02:03 5 MLS/HR Fentanyl Citrate 250 ml @ 2.5 mls/hr Q24H IV 12/06/24 08:45 12/09/24 01:56 5 MLS/HR Norepinephrine Bitartrate 250 ml @ 3.75 mls/hr Q24H IV 12/06/24 09:15 12/08/24 06:46 18.75 MLS/HR Enoxaparin Sodium 60 mg Q12HR SC 12/06/24 22:00 12/10/24 11:09 60 MG Clopidogrel Bisulfate 75 mg DAILY PO 12/07/24 10:00 12/10/24 11:09 75 MG Pantoprazole Sodium 40 mg DAILY IV 12/07/24 10:00 12/10/24 11:08 40 MG Vasopressin 20 units/Sodium Chloride 100 ml @ 9 mls/hr Q11H7M IV 12/06/24 20:30 Diagnostic Test (Pha) 1 strip Q6HR 12/07/24 12:00 12/10/24 12:00 1 STRIP Meropenem 50 ml @ 17 mls/hr Q8H IV 12/07/24 18:00 12/10/24 11:08 17 MLS/HR Methylprednisolone Sodium Succinate 40 mg Q8HR IV 12/07/24 22:00 12/10/24 15:05 40 MG Insulin Human Regular Q6HR SC 12/07/24 18:00 12/10/24 12:57 2 UNITS Dextrose 50 ml UD PRN IV 12/07/24 15:30 Ipratropium [place] 0.5 mg Q4HR NEB 12/07/24 16:45 12/10/24 14:15 0.5 MG Enteral Nutritional Formula 1,000 ml 50ML/HR GT 12/07/24 16:45 12/08/24 21:07 1,000 ML Aspirin 81 mg DAILY NG 12/08/24 10:00 12/10/24 11:09 81 MG Atorvastatin Calcium 40 mg HS NG 12/07/24 22:00 12/09/24 21:36 40 MG Albuterol 2.5 mg Q4HR NEB 12/08/24 18:00 12/10/24 14:15 2.5 MG Albuterol 2.5 mg Q2HPRN PRN NEB 12/08/24 16:30 Purified Water 300 ml Q4HR GT 12/09/24 06:00 12/10/24 14:00 300 ML Dopamine HCl/ Dextrose 250 ml @ 7.313 mls/ hr Q24H IV 12/09/24 17:15 12/10/24 05:46 16.088 MLS/HR Acetaminophen 650 mg Q6HP PRN GT 12/09/24 18:30 Laboratory Results Laboratory Tests 12/10/24 03:25 Chemistry Test 12/10/24 03:25 Calcium Level 8.2 mg/dL (8.7-10.4) L Urinalysis Test 12/06/24 10:43 Urine Color Light-yellow (Yellow) Urine Clarity Clear (Clear) Urine pH 5.0 (5.0-9.0) Urine Specific [place] 1.011 (1.001-1.035) Urine Protein Trace (Negative) H Urine Ketones Negative (Negative) Urine Blood Trace /uL (Negative) H Urine Nitrite Negative (Negative) Urine Bilirubin Negative (Negative) Urine Urobilinogen Normal mg/dL (Negative) Urine Leukocyte Esterase Negative /uL (Negative) Urine RBC 1 /hpf (0 - 3) Urine Microscopic WBC < 1 /HPF (0-3) Urine Squamous Epithelial Cells None seen /hpf (<5) Urine Bacteria None seen /hpf (None Seen) Urine Hyaline Casts Many /lpf (0 - 2) Urine Mucus Few (None Seen) Urine Glucose 4+ mg/dL (Normal) H Blood Gas Results Test 12/10/24 06:42 Arterial Blood pH 7.426 (7.350-7.450) FiO2 % 40.0 Microbiology Microbiology Date/Time Source Procedure Growth Status 12/06/24 22:58 Nose MRSA Screen - Final Complete 12/06/24 14:30 Voided Urine Urine Culture - Final Complete 12/06/24 13:54 Blood Blood Culture - Final Staphylococcus epidermidis Complete 12/06/24 08:30 Sputum Gram Stain - Final Complete 12/06/24 08:30 Sputum Respiratory Culture - Final Complete Labs and/or images reviewed: Labs reviewed by me Assessment/Plan Assessment/Plan NEURO: Acute metabolic encephalopathy likely secondary to acute hypoxemic/hypercapnic respiratory failure S/P mechanical ventilation RASS score: -3 CARDIOVASCULAR: Septic shock likely secondary to pneumonia Possible NSTEMI type 2 due to above History of CAD with status post PTCA x4 ( March 2024) Paroxysmal atrial fibrillation with secondary hypercoagulable state Acute on Chronic diastolic heart failure with preserved ejection fraction Sinus bradycardia - EEG was unremarkable, troponins was initially elevated than dropped and became flat - echo on 12/29 demonstrated EF 45%, mild global LV hypokinesis, RVSP 49 mm Hg - chest x-ray showed bilateral flat diaphragm, hyperinflated lung field and possible right lower lobe opacity - Ekg showed sinus bradycardia - IV dopamine 2.5 mcg as per protocol - Lasix IV 20 mg once PULMONARY: Acute hypoxic/hypercapnic respiratory failure Acute exacerbation of chronic COPD Gram-positive/Gram-negative pneumonia Pulmonary hypertension - chest x-ray showed bilateral flat diaphragm, hyperinflated lung field and possible right lower lobe opacity - respiratory cultures are unremarkable - med neb with levalbuterol and ipratropium q.4 hours - IV Solu-Medrol 40 mg b.i.d. - Mag-sulphate 2g IV once - Continue IV vancomycin as per pharmacy ,IV meropenem and IV doxycycline GENITOURINARY: ANDREY on CKD secondary to shock/ VMN - strict I&O ENDOCRINE: Possible euthyroid sick syndrome METABOLIC: Hypernatremia - Free water deficit is 2.2L - Free water 200 mL q.4 hours INFECTIOUS DISEASE: Possible Gram-positive versus Gram-negative pneumonia - blood culture showed Gram-positive cocci in cluster and change - continue IV vancomycin , meropenem and doxycycline - respiratory culture and urine bacterial cultures are unremarkable DIET: Tube feeding DVT prophylax: Lovenox GI prophylaxis: Protonix Bowel regimen: Code status: Full code LINES/DRAINS/ACCESS: ETT: Intubated on 0 12/06/24 IV access: Right IJ placed on 12/06/2024 Drips: Norepinephrine, propofol, Versed, fentanyl Carpio catheter: Placed on 12/06/2024 Continuing current management. Hold CPAP trial seen patient is not able to get off sedation. Appreciate Cardiology input. Waiting for EP service for possible pacemaker place. Critical care time spent for this case is 37 minutes Plan discussed with: Other (RN) Date of Service: Dec 10, 2024 Billing Provider: FERNANDO MARTIN MD Common Visit Codes: [id number] CARE 30-74 MIN FERNANDO MARTIN MD Dec 10, 2024 15:30
[2024-12-10] MEDS: METOCLOPRAMIDE HCL 5MG/ml INJ 2ml VIAL IV SCH (22:14)
[2024-12-11] VITALS (106 sets, daily range): BP systolic 91–136; BP diastolic 49–81; PULSE 44–93; RESP 13–29; TEMP 97.5–100; O2SAT 92–100
[2024-12-11 04:01] LABS: Hematocrit 47.8 % (41.0-53.0); Hemoglobin 16.4 g/dL (13.5-17.5); Mean Corpuscular Hemoglobin 33.1 pg (28.0-32.0); Mean Corpuscular Volume 96.5 fL (80.0-100.0); Nucleated Red Blood Cells % 0.0 %
[2024-12-11 04:12] LABS: Potassium 4.1 mmol/L (3.5-5.1)
[2024-12-11 04:13] LABS: Anion Gap 4 (5-15)
[2024-12-11 04:18] LABS: BUN/Creatinine Ratio 26.4 (10.0-20.0)
[2024-12-11 04:44] LABS: Blood Urea Nitrogen 23 mg/dL (9-23); Calcium 8.6 mg/dL (8.7-10.4); Carbon Dioxide 37 mmol/L (20-31); Chloride 113 mmol/L (98-107); Glucose 138 mg/dL (74-106); Sodium 154 mmol/L (136-145)
--- NOTE | 2024-12-11 05:45 | DVH ---
CHEST RADIOGRAPH Indication: PT INTUBATED Technique: Single frontal view of the chest was obtained COMPARISON: XY CHEST PORTABLE on DOS: 12/10/24, XY CHEST PORTABLE on DOS: 12/09/24, XY CHEST PORTABLE on DOS: 12/08/24, XY CHEST XRAY 1 VIEW on DOS: 12/07/24, XY CHEST XRAY 1 VIEW on DOS: 12/06/24 FINDINGS: Lines and Tubes: Slight interval retraction of the endotracheal tube such that the tip now projects a pproximately 4.0 cm above the level of the vince. Remaining lines and tubes unchanged. Lungs: Interval resolution of pulmonary vascular congestion. No evidence of focal consolidation. Pleura: No effusion. No pneumothorax. Cardiomediastinal contours: Unremarkable Bones: Unremarkable IMPRESSION: 1. Interval retraction of endotracheal tube as above. Remaining lines and tubes unchanged. 2. Interval resolution of pulmonary vascular congestion. 3. No evidence of focal consolidation.
[2024-12-11 06:45] LABS: Base Excess 8.4 mmol/L (-2.0-3.0)
--- NOTE | 2024-12-11 09:21 | DVHPN2 ---
Consult Progress Note Subjective Review of Systems: Not Done (intubated and sedated) Objective vital signs Vital Sign Date Time Temp Pulse Resp B/P (MAP) Pulse Ox O2 Delivery O2 Flow Rate FiO2 12/11/24 08:06 51 20 96/49 (65) 95 40 12/11/24 07:15 98.8 209.8 12/11/24 06:00 Mechanical Ventilator+ Total Intake and Output 12/10/24 12/10/24 12/11/24 15:00 23:00 07:00 Intake Total 252.356 ml 1131.02 ml 1478.9 ml Output Total 1750 ml 1400 ml Balance 252.356 ml -618.98 ml 78.9 ml medications Current Medications Medications Dose Ordered Sig/Alejo Route Start Time Stop Time Status Last Admin Dose Admin Propofol 100 ml @ 1.8 mls/hr Q24H IV 12/06/24 08:45 12/09/24 08:22 1.8 MLS/HR Midazolam HCl 50 ml @ 1 mls/hr Q24H IV 12/06/24 08:45 12/11/24 06:04 4 MLS/HR Fentanyl Citrate 250 ml @ 2.5 mls/hr Q24H IV 12/06/24 08:45 12/10/24 18:24 7.5 MLS/HR Norepinephrine Bitartrate 250 ml @ 3.75 mls/hr Q24H IV 12/06/24 09:15 12/08/24 06:46 18.75 MLS/HR Enoxaparin Sodium 60 mg Q12HR SC 12/06/24 22:00 12/10/24 22:14 60 MG Clopidogrel Bisulfate 75 mg DAILY PO 12/07/24 10:00 12/10/24 11:09 75 MG Pantoprazole Sodium 40 mg DAILY IV 12/07/24 10:00 12/10/24 11:08 40 MG Vasopressin 20 units/Sodium Chloride 100 ml @ 9 mls/hr Q11H7M IV 12/06/24 20:30 Diagnostic Test (Pha) 1 strip Q6HR 12/07/24 12:00 12/11/24 06:00 1 STRIP Meropenem 50 ml @ 17 mls/hr Q8H IV 12/07/24 18:00 12/11/24 01:33 17 MLS/HR Methylprednisolone Sodium Succinate 40 mg Q8HR IV 12/07/24 22:00 12/11/24 06:06 40 MG Insulin Human Regular Q6HR SC 12/07/24 18:00 12/11/24 06:00 2 UNITS Dextrose 50 ml UD PRN IV 12/07/24 15:30 Ipratropium [place] 0.5 mg Q4HR [facility] 12/07/24 16:45 12/11/24 06:24 0.5 MG Enteral Nutritional Formula 1,000 ml 50ML/HR GT 12/07/24 16:45 12/10/24 18:23 1,000 ML Aspirin 81 mg DAILY NG 12/08/24 10:00 12/10/24 11:09 81 MG Atorvastatin Calcium 40 mg HS NG 12/07/24 22:00 12/10/24 22:14 40 MG Albuterol 2.5 mg Q4HR [facility] 12/08/24 18:00 12/11/24 06:24 2.5 MG Albuterol 2.5 mg Q2HPRN PRN [facility] 12/08/24 16:30 Purified Water 300 ml Q4HR GT 12/09/24 06:00 12/11/24 06:11 300 ML Dopamine HCl/ Dextrose 250 ml @ 7.313 mls/ hr Q24H IV 12/09/24 17:15 12/11/24 06:06 14.625 MLS/HR Acetaminophen 650 mg Q6HP PRN GT 12/09/24 18:30 Metoclopramide HCl 10 mg Q8HR IV 12/10/24 22:00 12/11/24 06:06 10 MG Examination: CVS:Abnormal (bradycardia), NEURO:Abnormal (sedated) laboratory and microbiology Laboratory Tests 12/11/24 03:41 Test 12/11/24 03:41 Range/Units Serum Glucose 138 H 74-106 mg/dL Problem List/Assessment/Plan Problem List/Assessment/Plan Problem List/Assessment/Plan Assessment 1. NSTEMI Type 2 (demand ischemia) Troponins downtrending (peak >1000, now ~290s). No acute ischemic EKG changes. Likely secondary to hypoxemia, sepsis, and critical illness. 2. CAD s/p PCI (Mar 2024) On DAPT and therapeutic anticoagulation. No acute re-occlusion signs. 3. 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 Likely transient. 4. Acute on chronic diastolic HF Stable on current ventilatory and pressor support. 5. Sinus bradycardia HR 4850 bpm, stable, no blocks. Likely medication/sedation related, on precedex recommend weaning off. 6. Septic shock On norepinephrine and vasopressin. 7. ANDREY on CKD3, improving Cr improved to 1.13, GFR 71. 8. COPD exacerbation pneumonia Remains ventilated. 9. Hyperlipidemia On statin therapy. 10. Hypernatremia - receiving free water 200 mL q.4 hours. Continue monitoring. 11. Suspected 2:1 AV block vs nonconducted PACs - Check repeat EKG Plan Cardiovascular: * Continue DAPT (Aspirin 81 mg, Clopidogrel 75 mg). * Continue therapeutic enoxaparin (adjust if renal function worsens). * Continue high-intensity statin. * Monitor troponins daily 12 more until stable. * Daily EKG for QTc and ischemia monitoring. * Repeat echocardiogram in 4872 hrs for EF reassessment. * No urgent ischemic workup at present; defer stress testing/cath until extubated and clinically stable. * Maintain electrolytes (K >4.0, Mg >2.0). Continue dopamine infusion for heart rate support, titrate as tolerated. * Hold beta-marianna for now (bradycardia + pressor support). Reassess once HR >60 and off pressors. Heart Failure: * Gentle volume status monitoring (avoid overload; balance against sepsis fluid needs). * Start GDMT (ACEi/ARB/ARNI, BB, MRA, SGLT2i) once off pressors and stable if BP and HR tolerates Arrhythmia/Bradycardia: * Continue continuous telemetry. * Sinus bradycardia stable, no pacing needed at this time. * Reassess need for rate support if HR <40 or symptomatic when awake. Recommend monitoring with sedation vacation if not contraindicated. Renal: * Daily BMP. * Avoid nephrotoxic meds. * Adjust anticoagulation dosing if GFR falls <50. On free water 200 mL q.4 hours. Prophylaxis: * Stress ulcer prophylaxis: Protonix IV. * DVT prophylaxis: Already covered with therapeutic anticoagulation. * Electrolyte replacement per ICU protocol. Plan discussed with: Other Dietary Evaluation Review Comments: 1. May increase Vital High Protein @55ml/hr, providing 1320kcal, 115g Protein 1104ml free water, adding energy with Propofol 95kcal, the total enrgy provided will be 1295kcal meeting 83% of his energy needs. 2. Monitor and reassess when pt is extubated. Expected Outcomes/Goals: Meeting Pt's protein and energy needs while intubated. Date of Service: Dec 11, 2024 Billing Provider: ROYER CRESPO Common Visit Codes: [id number] INP/OBS CARE(HIGH) ROYER CRESPO Dec 11, 2024 09:21
--- NOTE | 2024-12-11 11:13 | DVHPN2 ---
Subjective The patient is seen examined at bedside. The patient did not tolerate BiPAP. Back on sedation. Reviewed: Care Plan, H&P, Labs, Medications, Previous Orders, Radiology Changes from previous H/P or p: No Changes Objective Vitals Vital Signs Date Time Temp Pulse Resp B/P (MAP) Pulse Ox O2 Delivery O2 Flow Rate FiO2 12/11/24 10:11 58 20 121/64 (83) 95 40 12/11/24 07:15 98.8 209.8 12/11/24 06:00 Mechanical Ventilator+ Intake/Output Intake and Output 12/11/24 07:00 Intake Total 2862.276 ml Output Total 3150 ml Balance -287.724 ml Intake Oral 1630 ml IV Total 872.276 ml Tube Feeding 360 ml Output Urine Total 3150 ml Stool Total 0 ml General Appearance: Other (Intubated, on vent) HEENT: Atraumatic, Other (ETT tube intact) Cardiovascular: Regular rate, Normal S1, Normal S2, No murmurs, Gallops, Rubs Abdomen: Normal bowel sounds, Soft, No tenderness Neuro: Cranial nerves 3-12 NL Psych/Mental Status: Mental status NL Medications Current Medications Medications Dose Ordered Sig/Alejo Route Start Time Stop Time Status Last Admin Dose Admin Propofol 100 ml @ 1.8 mls/hr Q24H IV 12/06/24 08:45 12/09/24 08:22 1.8 MLS/HR Midazolam HCl 50 ml @ 1 mls/hr Q24H IV 12/06/24 08:45 12/11/24 06:04 4 MLS/HR Fentanyl Citrate 250 ml @ 2.5 mls/hr Q24H IV 12/06/24 08:45 12/10/24 18:24 7.5 MLS/HR Norepinephrine Bitartrate 250 ml @ 3.75 mls/hr Q24H IV 12/06/24 09:15 12/08/24 06:46 18.75 MLS/HR Clopidogrel Bisulfate 75 mg DAILY PO 12/07/24 10:00 12/11/24 10:42 75 MG Pantoprazole Sodium 40 mg DAILY IV 12/07/24 10:00 12/11/24 10:42 40 MG Vasopressin 20 units/Sodium Chloride 100 ml @ 9 mls/hr Q11H7M IV 12/06/24 20:30 Diagnostic Test (Pha) 1 strip Q6HR 12/07/24 12:00 12/11/24 06:00 1 STRIP Meropenem 50 ml @ 17 mls/hr Q8H IV 12/07/24 18:00 12/11/24 10:42 17 MLS/HR Methylprednisolone Sodium Succinate 40 mg Q8HR IV 12/07/24 22:00 12/11/24 06:06 40 MG Insulin Human Regular Q6HR SC 12/07/24 18:00 12/11/24 06:00 2 UNITS Dextrose 50 ml UD PRN IV 12/07/24 15:30 Ipratropium [place] 0.5 mg Q4HR NEB 12/07/24 16:45 12/11/24 10:10 0.5 MG Enteral Nutritional Formula 1,000 ml 50ML/HR GT 12/07/24 16:45 12/10/24 18:23 1,000 ML Aspirin 81 mg DAILY NG 12/08/24 10:00 12/11/24 10:43 81 MG Atorvastatin Calcium 40 mg HS NG 12/07/24 22:00 12/10/24 22:14 40 MG Albuterol 2.5 mg Q4HR NEB 12/08/24 18:00 12/11/24 10:10 2.5 MG Albuterol 2.5 mg Q2HPRN PRN NEB 12/08/24 16:30 Purified Water 300 ml Q4HR GT 12/09/24 06:00 12/11/24 10:56 300 ML Dopamine HCl/ Dextrose 250 ml @ 7.313 mls/ hr Q24H IV 12/09/24 17:15 12/11/24 06:06 14.625 MLS/HR Acetaminophen 650 mg Q6HP PRN GT 12/09/24 18:30 Metoclopramide HCl 10 mg Q8HR IV 12/10/24 22:00 12/11/24 06:06 10 MG Enoxaparin Sodium 70 mg BID SC 12/11/24 10:00 Laboratory Results Laboratory Tests 12/11/24 03:41 Chemistry Test 12/11/24 03:41 Calcium Level 8.6 mg/dL (8.7-10.4) L Urinalysis Test 12/06/24 10:43 Urine Color Light-yellow (Yellow) Urine Clarity Clear (Clear) Urine pH 5.0 (5.0-9.0) Urine Specific [place] 1.011 (1.001-1.035) Urine Protein Trace (Negative) H Urine Ketones Negative (Negative) Urine Blood Trace /uL (Negative) H Urine Nitrite Negative (Negative) Urine Bilirubin Negative (Negative) Urine Urobilinogen Normal mg/dL (Negative) Urine Leukocyte Esterase Negative /uL (Negative) Urine RBC 1 /hpf (0 - 3) Urine Microscopic WBC < 1 /HPF (0-3) Urine Squamous Epithelial Cells None seen /hpf (<5) Urine Bacteria None seen /hpf (None Seen) Urine Hyaline Casts Many /lpf (0 - 2) Urine Mucus Few (None Seen) Urine Glucose 4+ mg/dL (Normal) H Blood Gas Results Test 12/11/24 06:40 Arterial Blood pH 7.430 (7.350-7.450) FiO2 % 40.0 Microbiology Microbiology Date/Time Source Procedure Growth Status 12/06/24 22:58 Nose MRSA Screen - Final Complete 12/06/24 14:30 Voided Urine Urine Culture - Final Complete 12/06/24 13:54 Blood Blood Culture - Final Staphylococcus epidermidis Complete 12/06/24 08:30 Sputum Gram Stain - Final Complete 12/06/24 08:30 Sputum Respiratory Culture - Final Complete Labs and/or images reviewed: Labs reviewed by me Assessment/Plan Assessment/Plan NEURO: Acute metabolic encephalopathy likely secondary to acute hypoxemic/hypercapnic respiratory failure S/P mechanical ventilation RASS score: -3 CARDIOVASCULAR: Septic shock likely secondary to pneumonia Possible NSTEMI type 2 due to above History of CAD with status post PTCA x4 ( March 2024) Paroxysmal atrial fibrillation with secondary hypercoagulable state Acute on Chronic diastolic heart failure with preserved ejection fraction Sinus bradycardia - EEG was unremarkable, troponins was initially elevated than dropped and became flat - echo on 12/29 demonstrated EF 45%, mild global LV hypokinesis, RVSP 49 mm Hg - chest x-ray showed bilateral flat diaphragm, hyperinflated lung field and possible right lower lobe opacity - Ekg showed sinus bradycardia - IV dopamine 2.5 mcg as per protocol - Lasix IV 20 mg once PULMONARY: Acute hypoxic/hypercapnic respiratory failure Acute exacerbation of chronic COPD Gram-positive/Gram-negative pneumonia Pulmonary hypertension - chest x-ray showed bilateral flat diaphragm, hyperinflated lung field and possible right lower lobe opacity - respiratory cultures are unremarkable - med neb with levalbuterol and ipratropium q.4 hours - IV Solu-Medrol 40 mg b.i.d. - Mag-sulphate 2g IV once - Continue IV vancomycin as per pharmacy ,IV meropenem and IV doxycycline GENITOURINARY: ANDREY on CKD secondary to shock/ VMN - strict I&O ENDOCRINE: Possible euthyroid sick syndrome METABOLIC: Hypernatremia - Free water deficit is 2.2L - Free water 200 mL q.4 hours INFECTIOUS DISEASE: Possible Gram-positive versus Gram-negative pneumonia - blood culture showed Gram-positive cocci in cluster and change - continue IV vancomycin , meropenem and doxycycline - respiratory culture and urine bacterial cultures are unremarkable DIET: Tube feeding DVT prophylax: Lovenox GI prophylaxis: Protonix Bowel regimen: Code status: Full code LINES/DRAINS/ACCESS: ETT: Intubated on 0 12/06/24 IV access: Right IJ placed on 12/06/2024 Drips: Norepinephrine, propofol, Versed, fentanyl Carpio catheter: Placed on 12/06/2024 Continuing current management. Hold CPAP trial seen patient is not able to get off sedation. Appreciate Cardiology input. Waiting for EP service for possible pacemaker place. ABG and CXR in am Critical care time spent for this case is 37 minutes Plan discussed with: Other My Orders Orders - FERNANDO MARTIN MD Procedure Category Date Status Time Chest Portable XY 12/11/24 Resulted 04:00 Abg W/ Co-Ox RT 12/11/24 Logged 04:00 Metoclopramide PHA 12/10/24 In Process Injection (Reglan 22:00 Date of Service: Dec 11, 2024 Billing Provider: FERNANDO MARTIN MD Common Visit Codes: [id number] CARE 30-74 MIN FERNANDO MARTIN MD Dec 11, 2024 11:13
[2024-12-11] MEDS: ENOXAPARIN SOD 80 MG/0.8ML SYRINGE SC SCH (11:33)
[2024-12-11] MEDS: DOPamine 1600MCG/ML D5W 250 ML IV SCH (13:15)
--- NOTE | 2024-12-11 13:20 | DVHPN2 ---
Progress Note - Dictate Date Seen: Dec 11, 2024 Has the PT tested + for MRSA If YES, has PT been informed?: No Medical Necessity Reason Pt with a Central, PICC or Fol: Yes vital signs Vital Sign Date Time Temp Pulse Resp B/P (MAP) Pulse Ox O2 Delivery O2 Flow Rate FiO2 12/11/24 11:40 54 20 99/52 (68) 95 40 12/11/24 07:15 98.8 209.8 12/11/24 06:00 Mechanical Ventilator+ Total Intake and Output 12/10/24 12/10/24 12/11/24 15:00 23:00 07:00 Intake Total 252.356 ml 1131.02 ml 1478.9 ml Output Total 1750 ml 1400 ml Balance 252.356 ml -618.98 ml 78.9 ml medications Current Medications Medications Dose Ordered Sig/Alejo Route Start Time Stop Time Status Last Admin Dose Admin Propofol 100 ml @ 1.8 mls/hr Q24H IV 12/06/24 08:45 12/09/24 08:22 1.8 MLS/HR Midazolam HCl 50 ml @ 1 mls/hr Q24H IV 12/06/24 08:45 12/11/24 06:04 4 MLS/HR Fentanyl Citrate 250 ml @ 2.5 mls/hr Q24H IV 12/06/24 08:45 12/10/24 18:24 7.5 MLS/HR Norepinephrine Bitartrate 250 ml @ 3.75 mls/hr Q24H IV 12/06/24 09:15 12/08/24 06:46 18.75 MLS/HR Clopidogrel Bisulfate 75 mg DAILY PO 12/07/24 10:00 12/11/24 10:42 75 MG Pantoprazole Sodium 40 mg DAILY IV 12/07/24 10:00 12/11/24 10:42 40 MG Vasopressin 20 units/Sodium Chloride 100 ml @ 9 mls/hr Q11H7M IV 12/06/24 20:30 Diagnostic Test (Pha) 1 strip Q6HR 12/07/24 12:00 12/11/24 06:00 1 STRIP Meropenem 50 ml @ 17 mls/hr Q8H IV 12/07/24 18:00 12/11/24 10:42 17 MLS/HR Methylprednisolone Sodium Succinate 40 mg Q8HR IV 12/07/24 22:00 12/11/24 06:06 40 MG Insulin Human Regular Q6HR SC 12/07/24 18:00 12/11/24 06:00 2 UNITS Dextrose 50 ml UD PRN IV 12/07/24 15:30 Ipratropium [place] 0.5 mg Q4HR NEB 12/07/24 16:45 12/11/24 10:10 0.5 MG Enteral Nutritional Formula 1,000 ml 50ML/HR GT 12/07/24 16:45 12/10/24 18:23 1,000 ML Aspirin 81 mg DAILY NG 12/08/24 10:00 12/11/24 10:43 81 MG Atorvastatin Calcium 40 mg HS NG 12/07/24 22:00 12/10/24 22:14 40 MG Albuterol 2.5 mg Q4HR NEB 12/08/24 18:00 12/11/24 10:10 2.5 MG Albuterol 2.5 mg Q2HPRN PRN NEB 12/08/24 16:30 Purified Water 300 ml Q4HR GT 12/09/24 06:00 12/11/24 10:56 300 ML Acetaminophen 650 mg Q6HP PRN GT 12/09/24 18:30 Metoclopramide HCl 10 mg Q8HR IV 12/10/24 22:00 12/11/24 06:06 10 MG Enoxaparin Sodium 70 mg BID SC 12/11/24 10:00 12/11/24 11:33 70 MG Dopamine HCl/ Dextrose 250 ml @ 7.313 mls/ hr Q24H IV 12/11/24 13:15 UNV laboratory and microbiology Laboratory Tests 12/11/24 03:41 Test 12/11/24 03:41 Range/Units Serum Glucose 138 H 74-106 mg/dL Assessment/Plan Covering for Dr. Mat[place] Impression Acute hypoxemic respiratory failure Bradycardia Cardiomyopathy CHF Patient seen and examined in ICU Events On mechanical ventilation S/p intubation PEEP 5, FiO2 30% On Dopamine drip for bradycardia Labs and imaging reviewed ABG reviewed Management Vent support Titrate to maintain sats 90% or above Sedation holiday daily If patient follows commands, proceed to weaning trial Pressure support 10/08, extubate when ready Continue antibiotics F/u cultures Bronchodilators Monitor renal function Monitor electrolytes Supplement as needed Pressors as needed for hemodynamic support To maintain a mean arterial pressure of 65 mmHg F/u cardiology for possible pacemaker placement DVT prophylaxis Critical care time 35 minutes Dietary Evaluation Review Comments: 1. May increase Vital High Protein @55ml/hr, providing 1320kcal, 115g Protein 1104ml free water, adding energy with Propofol 95kcal, the total enrgy provided will be 1295kcal meeting 83% of his energy needs. 2. Monitor and reassess when pt is extubated. Expected Outcomes/Goals: Meeting Pt's protein and energy needs while intubated. Plan discussed with: Other (Rn) Capillary Refill: < 3 seconds KATIE PAN MD Dec 11, 2024 13:20
[2024-12-12] VITALS (105 sets, daily range): BP systolic 76–174; BP diastolic 36–88; PULSE 47–95; RESP 15–25; TEMP 97–100.4; O2SAT 92–98
[2024-12-12] MEDS: ACETAMINOPHEN 650 mg PER 20.3 mL UD GT PRN (02:22)
[2024-12-12 03:46] LABS: Hematocrit 46.8 % (41.0-53.0); Hemoglobin 15.9 g/dL (13.5-17.5); Mean Corpuscular Hemoglobin 32.9 pg (28.0-32.0); Mean Corpuscular Volume 97.1 fL (80.0-100.0); Nucleated Red Blood Cells % 0.0 %
[2024-12-12 04:07] LABS: Anion Gap 4 (5-15); Potassium 4.4 mmol/L (3.5-5.1)
[2024-12-12 04:13] LABS: BUN/Creatinine Ratio 31.1 (10.0-20.0)
[2024-12-12 04:20] LABS: Blood Urea Nitrogen 28 mg/dL (9-23); Calcium 8.4 mg/dL (8.7-10.4); Carbon Dioxide 38 mmol/L (20-31); Chloride 110 mmol/L (98-107); Glucose 140 mg/dL (74-106); Magnesium 3.0 mg/dL (1.6-2.6); Sodium 152 mmol/L (136-145)
--- NOTE | 2024-12-12 05:07 | DVH ---
CHEST RADIOGRAPH Indication: RE-CHECK PULM VASC CONGESTION Technique: Single frontal view of the chest was obtained Comparison: XY CHEST PORTABLE on DOS: 12/11/24 FINDINGS: Lines and Tubes: The endotracheal tube terminates 4.7 cm above the vince. Right central venous coby ter terminates in the superior vena cava. The enteric tube courses below the left hemidiaphragm and t he tip extends outside the field of view. Lungs: No focal consolidation. Pleura: No effusion. No pneumothorax. Cardiomediastinal contours: Stable. Bones: No acute osseous abnormality. IMPRESSION: 1. Support tubes as described. 2. No acute cardiopulmonary process.
[2024-12-12 07:25] LABS: Base Excess 7.7 mmol/L (-2.0-3.0)
--- NOTE | 2024-12-12 08:18 | ECG ---
[facility] Test Date: 2024-12-11 Test Time: 09:12:09 Pat Name: STACI CASTAÑEDA Department: icu Room: [address] [place] [address] A Gender: M [employer]: : [id number] Requested By: ROYER CRESPO Order Number: [id number] Reading MD: Christopher Toth Measurements Intervals [place] Rate: 43 P: 59 AR: 152 QRS: 53 QRSD: 99 T: 42 QT: 568 QTc: 481 Interpretive Statements Sinus bradycardia Atrial premature complex Low voltage, extremity leads Abnrm T, consider ischemia, anterolateral lds Electronically Signed On 12-12-2024 10:13:47 PDT by Christopher Toth Please click the below link to view image of tracing.
[2024-12-12 11:22] LABS: Urine Protein, UAD Negative (Negative)
--- NOTE | 2024-12-12 13:30 | MEDREC ---
[facility] Intervention Section I [facility] Intervention: Deescalate AB based on CS (No history of ESBL, consider switching to ceftriaxone, no current ESBL on labs. Consider D/C meropenem.), Review courses of therapy (No history of ESBL, consider switching to ceftriaxone to prevent resistance. ) SHEREE VARGAS [facility] RESIDENT Dec 12, 2024 13:30
--- NOTE | 2024-12-12 13:56 | DVHPNRES ---
Progress Note Date Seen: Dec 12, 2024 Resident Creating Document: JAVY DOOLEY RESIDENT Has the PT tested + for MRSA If YES, has PT been informed?: No Medical Necessity Reason Pt with a Central, PICC or Fol: Yes The following are medically ne: Central Line, Carpio Catheter Subjective Review of Systems The patient remains intubated and sedated in the ICU for acute hypoxic/hypercapnic respiratory failure and type 2 NSTEMI. On dopamine drip, weaning attempted. Heart rate fluctuating 40s to 64 beats per minute. Systolic blood pressure ranges from 100s to 116 mmHg, diastolic blood pressure 53 to 56 mmHg Sinus bradycardia persist without AV blocks or new arrhythmia. Rhythm strips and telemetry reviewed. Chest x-ray-no acute changes, lines/tubes in satisfactory position. WBC trending down to 11.1. Potassium was low at 3.4, repleted. Troponins down trending at 84. Objective vital signs Vital Sign Date Time Temp Pulse Resp B/P (MAP) Pulse Ox O2 Delivery O2 Flow Rate FiO2 12/12/24 11:48 69 20 119/62 98 40 12/12/24 06:45 99.5 211.1 12/12/24 06:00 Mechanical Ventilator+ Total Intake and Output 12/11/24 12/11/24 12/12/24 15:00 23:00 07:00 Intake Total 388.64 ml 1652.315 ml 1831.825 ml Output Total 1000 ml 1000 ml Balance 388.64 ml 652.315 ml 831.825 ml medications Current Medications Medications Dose Ordered Sig/Alejo Route Start Time Stop Time Status Last Admin Dose Admin Propofol 100 ml @ 1.8 mls/hr Q24H IV 12/06/24 08:45 12/09/24 08:22 1.8 MLS/HR Midazolam HCl 50 ml @ 1 mls/hr Q24H IV 12/06/24 08:45 12/12/24 06:57 5 MLS/HR Fentanyl Citrate 250 ml @ 2.5 mls/hr Q24H IV 12/06/24 08:45 12/12/24 01:27 7.5 MLS/HR Norepinephrine Bitartrate 250 ml @ 3.75 mls/hr Q24H IV 12/06/24 09:15 12/08/24 06:46 18.75 MLS/HR Clopidogrel Bisulfate 75 mg DAILY PO 12/07/24 10:00 12/12/24 10:58 75 MG Pantoprazole Sodium 40 mg DAILY IV 12/07/24 10:00 12/12/24 10:57 40 MG Vasopressin 20 units/Sodium Chloride 100 ml @ 9 mls/hr Q11H7M IV 12/06/24 20:30 Diagnostic Test (Pha) 1 strip Q6HR 12/07/24 12:00 12/12/24 12:53 1 STRIP Meropenem 50 ml @ 17 mls/hr Q8H IV 12/07/24 18:00 12/12/24 10:58 17 MLS/HR Methylprednisolone Sodium Succinate 40 mg Q8HR IV 12/07/24 22:00 12/12/24 06:12 40 MG Insulin Human Regular Q6HR SC 12/07/24 18:00 12/12/24 12:56 2 UNITS Dextrose 50 ml UD PRN IV 12/07/24 15:30 Ipratropium [place] 0.5 mg Q4HR NEB 12/07/24 16:45 12/12/24 10:07 0.5 MG Enteral Nutritional Formula 1,000 ml 50ML/HR GT 12/07/24 16:45 12/12/24 01:27 1,000 ML Atorvastatin Calcium 40 mg HS NG 12/07/24 22:00 12/11/24 22:33 40 MG Albuterol 2.5 mg Q4HR NEB 12/08/24 18:00 12/12/24 10:07 2.5 MG Albuterol 2.5 mg Q2HPRN PRN NEB 12/08/24 16:30 Purified Water 300 ml Q4HR GT 12/09/24 06:00 12/12/24 10:52 300 ML Acetaminophen 650 mg Q6HP PRN GT 12/09/24 18:30 12/12/24 02:22 650 MG Metoclopramide HCl 10 mg Q8HR IV 12/10/24 22:00 12/12/24 06:12 10 MG Enoxaparin Sodium 70 mg BID SC 12/11/24 10:00 12/12/24 10:58 70 MG Dopamine HCl/ Dextrose 250 ml @ 7.313 mls/ hr Q24H IV 12/11/24 13:15 12/12/24 09:01 20.475 MLS/HR Examination General: Intubated, sedated, critically ill CV: Sinus bradycardia, no new murmurs/rubs Lungs: Mechanically ventilated, coarse breath sounds but clear imaging Abdomen: Soft, nondistended Extremities: no edema, no cyanosis Neuro: Sedated, not interactive laboratory and microbiology Laboratory Tests 12/12/24 03:23 Test 12/12/24 03:23 Range/Units Serum Glucose 140 H 74-106 mg/dL Microbiology Date/Time Source Procedure Growth Status 12/06/24 22:58 Nose MRSA Screen - Final Complete 12/06/24 14:30 Voided Urine Urine Culture - Final Complete 12/06/24 13:54 Blood Blood Culture - Final Staphylococcus epidermidis Complete 12/06/24 08:30 Sputum Gram Stain - Final Complete 12/06/24 08:30 Sputum Respiratory Culture - Final Complete Problem List/Assessment/Plan Problem List/Assessment/Plan Assessment 1. NSTEMI Type 2 (demand ischemia) Troponins downtrending (peak >1000, now ~290s). No acute ischemic EKG changes. Likely secondary to hypoxemia, sepsis, and critical illness. 2. CAD s/p PCI (Mar 2024) On DAPT and therapeutic anticoagulation. No acute re-occlusion signs. 3. 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 Likely transient. 4. Acute on chronic diastolic HF Stable on current ventilatory and pressor support. 5. Sinus bradycardia HR 4850 bpm, stable, no blocks. Likely medication/sedation related. 6. Septic shock On norepinephrine and vasopressin. 7. ANDREY on CKD3, improving Cr improved to 1.13, GFR 71. 8. COPD exacerbation pneumonia Remains ventilated. 9. Hyperlipidemia On statin therapy. Plan Cardiovascular: * Continue DAPT (Aspirin 81 mg, Clopidogrel 75 mg). * Continue therapeutic enoxaparin (adjust if renal function worsens). * Continue high-intensity statin. * Monitor troponins daily 12 more until stable. * Daily EKG for QTc and ischemia monitoring. * Repeat echocardiogram in 4872 hrs for EF reassessment. * No urgent ischemic workup at present; defer stress testing/cath until extubated and clinically stable. * Maintain electrolytes (K >4.0, Mg >2.0). Continue dopamine infusion for heart rate support, titrate as tolerated. * Hold beta-marianna for now (bradycardia + pressor support). Reassess once HR >60 and off pressors. Continue dopamine infusion, titrate down gradually, monitor HR, BP, perfusion. Heart Failure: * Gentle volume status monitoring (avoid overload; balance against sepsis fluid needs). * Start GDMT (ACEi/ARB/ARNI, BB, MRA, SGLT2i) once off pressors and stable. Arrhythmia/Bradycardia: * Continue continuous telemetry. * Sinus bradycardia stable, no pacing needed at this time. * Reassess need for rate support if HR <40 or symptomatic when awake. Renal: * Daily BMP. * Avoid nephrotoxic meds. * Adjust anticoagulation dosing if GFR falls <50. Prophylaxis: * Stress ulcer prophylaxis: Protonix IV. * DVT prophylaxis: Already covered with therapeutic anticoagulation. * Electrolyte replacement per ICU protocol. Plan discussed with: Other (RN) Dietary Evaluation Review Comments: 1. May increase Vital High Protein @55ml/hr, providing 1320kcal, 115g Protein 1104ml free water, adding energy with Propofol 95kcal, the total enrgy provided will be 1295kcal meeting 83% of his energy needs. 2. Monitor and reassess when pt is extubated. Expected Outcomes/Goals: Meeting Pt's protein and energy needs while intubated. Sepsis reassessment post fluid Capillary Refill: < 3 seconds Visit Coding Cardiology RES Date of Service: Dec 12, 2024 Billing Provider: LISSETTE MCCARTHY Sr., MD Cardiology Common Codes: [id number] HOSP CARE(JAVY Perez RESIDENT Dec 12, 2024 13:56
[2024-12-12] MEDS ORDERED: methylPREDNISolone SOD SUCC 40 MG/ML VL IV SCH (17:15)
[2024-12-12] MEDS ORDERED: VANCOMYCIN PER PHARMACY 0 MG IV SCH (17:15)
--- NOTE | 2024-12-12 19:33 | DVHPNRES ---
Progress Note Date Seen: Dec 12, 2024 Resident Creating Document: DANAY WILLSON RESIDENT Has the PT tested + for MRSA If YES, has PT been informed?: No Medical Necessity Reason Pt with a Central, PICC or Fol: Yes The following are medically ne: Central Line, Carpio Catheter Subjective Review of Systems This is a 68-year-old male with a history of atrial fibrillation, heart failure, COPD, hyperlipidemia, and CAD s/p PCI with 4 stents (RCA 2, LAD 2 in March 2024). His last echocardiogram in June 2024 showed an EF of 60% with mild chamber dilation. He presented via EMS after one hour of acute shortness of breath. At the scene, SpO? was in the low 60s; he improved to 93% with CPAP. On arrival to the ED, he developed worsening respiratory distress and was intubated at 9 a.m. for acute hypoxemic and hypercapnic respiratory failure. Initial ABG showed respiratory acidosis, which improved post-intubation. Patient was seen and examined in the ICU. He is on mechanical ventilation with FiO2 35%, tidal volume 480 mL, rate 20, peep 5. the patient is running fever, T-max is 100.6, ordered new blood culture and sputum culture, urinalysis revealed unremarkable. Low-dose dopamine drip, Versed and fentanyl. We will try to decrease the sedation so the patient can ready for CPAP trial and extubation. Chest x-ray showed bilateral pulmonary vascular congestion, getting better than yesterday. patient is scheduled for CPAP trial tomorrow. Objective vital signs Vital Sign Date Time Temp Pulse Resp B/P (MAP) Pulse Ox O2 Delivery O2 Flow Rate FiO2 12/12/24 18:15 95 Mechanical Ventilator+ 35 35 12/12/24 18:15 62 20 111/49 (69) 12/12/24 10:45 98.4 209.1 Total Intake and Output 12/11/24 12/11/24 12/12/24 15:00 23:00 07:00 Intake Total 388.64 ml 1652.315 ml 1831.825 ml Output Total 1000 ml 1000 ml Balance 388.64 ml 652.315 ml 831.825 ml medications Current Medications Medications Dose Ordered Sig/Alejo Route Start Time Stop Time Status Last Admin Dose Admin Propofol 100 ml @ 1.8 mls/hr Q24H IV 12/06/24 08:45 12/09/24 08:22 1.8 MLS/HR Midazolam HCl 50 ml @ 1 mls/hr Q24H IV 12/06/24 08:45 12/12/24 16:23 5 MLS/HR Fentanyl Citrate 250 ml @ 2.5 mls/hr Q24H IV 12/06/24 08:45 12/12/24 01:27 7.5 MLS/HR Norepinephrine Bitartrate 250 ml @ 3.75 mls/hr Q24H IV 12/06/24 09:15 12/08/24 06:46 18.75 MLS/HR Clopidogrel Bisulfate 75 mg DAILY PO 12/07/24 10:00 12/12/24 10:58 75 MG Pantoprazole Sodium 40 mg DAILY IV 12/07/24 10:00 12/12/24 10:57 40 MG Vasopressin 20 units/Sodium Chloride 100 ml @ 9 mls/hr Q11H7M IV 12/06/24 20:30 Diagnostic Test (Pha) 1 strip Q6HR 12/07/24 12:00 12/12/24 18:26 1 STRIP Meropenem 50 ml @ 17 mls/hr Q8H IV 12/07/24 18:00 12/12/24 18:43 17 MLS/HR Insulin Human Regular Q6HR SC 12/07/24 18:00 12/12/24 18:30 2 UNITS Dextrose 50 ml UD PRN IV 12/07/24 15:30 Ipratropium [place] 0.5 mg Q4HR NEB 12/07/24 16:45 12/12/24 18:15 0.5 MG Enteral Nutritional Formula 1,000 ml 50ML/HR GT 12/07/24 16:45 12/12/24 01:27 1,000 ML Atorvastatin Calcium 40 mg HS NG 12/07/24 22:00 12/11/24 22:33 40 MG Albuterol 2.5 mg Q4HR NEB 12/08/24 18:00 12/12/24 18:15 2.5 MG Albuterol 2.5 mg Q2HPRN PRN NEB 12/08/24 16:30 Purified Water 300 ml Q4HR GT 12/09/24 06:00 12/12/24 18:00 300 ML Acetaminophen 650 mg Q6HP PRN GT 12/09/24 18:30 12/12/24 02:22 650 MG Metoclopramide HCl 10 mg Q8HR IV 12/10/24 22:00 12/12/24 15:13 10 MG Enoxaparin Sodium 70 mg BID SC 12/11/24 10:00 12/12/24 10:58 70 MG Dopamine HCl/ Dextrose 250 ml @ 7.313 mls/ hr Q24H IV 12/11/24 13:15 12/12/24 09:01 20.475 MLS/HR Vancomycin HCl 0 ml @ 0 mls/hr UD IV 12/12/24 17:15 Vancomycin HCl 250 ml @ 250 mls/hr Q1H IV 12/12/24 18:15 12/12/24 20:14 Methylprednisolone Sodium Succinate 40 mg Q12H IV 12/13/24 03:00 Examination Examination General: RASS -3, afebrile, mucosae are moist Cardiovascular: Normal S1 and S2. No murmurs, gallops or rubs Respiratory: Mechanically assisted ventilation, equal bilateral airway entree. Bilateral mild wheezing and crackles Abdomen: Soft, nontender, no organomegaly, normal bowel sounds MSK/skin: Mobilization of limbs cannot be evaluated. Skin is dry and warm. Neurological: Orientation cannot be assessed. No apparent motor no sensitive deficits. Pupils are isocoric, pinpoint and reactive laboratory and microbiology Laboratory Tests 12/12/24 03:23 Test 12/12/24 03:23 Range/Units Serum Glucose 140 H 74-106 mg/dL Microbiology Date/Time Source Procedure Growth Status 12/06/24 22:58 Nose MRSA Screen - Final Complete 12/06/24 14:30 Voided Urine Urine Culture - Final Complete 12/06/24 13:54 Blood Blood Culture - Final Staphylococcus epidermidis Complete 12/06/24 08:30 Sputum Gram Stain - Final Complete 12/06/24 08:30 Sputum Respiratory Culture - Final Complete Labs and/or images reviewed: Labs reviewed by me, Image(s) reviewed by me Problem List/Assessment/Plan Problem List/Assessment/Plan Assessment and plan: NEURO: Acute metabolic encephalopathy likely secondary to acute hypoxemic/hypercapnic respiratory failure S/P mechanical ventilation RASS score: -3 CARDIOVASCULAR: Septic shock likely secondary to pneumonia Possible NSTEMI type 2 due to above History of CAD with status post PTCA x4 ( March 2024) Paroxysmal atrial fibrillation with secondary hypercoagulable state Acute on Chronic diastolic heart failure with preserved ejection fraction Sinus bradycardia - EEG was unremarkable, troponins was initially elevated than dropped and became flat - echo on 12/29 demonstrated EF 45%, mild global LV hypokinesis, RVSP 49 mm Hg - chest x-ray showed bilateral flat diaphragm, hyperinflated lung field and possible right lower lobe opacity - Ekg showed sinus bradycardia - IV dopamine 2.5 mcg as per protocol - Lasix IV 20 mg once PULMONARY: Acute hypoxic/hypercapnic respiratory failure Acute exacerbation of chronic COPD Gram-positive/Gram-negative pneumonia Pulmonary hypertension - chest x-ray showed bilateral flat diaphragm, hyperinflated lung field and possible right lower lobe opacity - respiratory cultures are unremarkable - med neb with levalbuterol and ipratropium q.4 hours - IV Solu-Medrol 40 mg b.i.d. - Continue IV vancomycin as per pharmacy , and IV meropenem GENITOURINARY: ANDREY on CKD secondary to shock/ VMN - strict I&O ENDOCRINE: Possible euthyroid sick syndrome METABOLIC: Hypernatremia - Free water deficit is 3.2L - Free water 300 mL q.4 hours INFECTIOUS DISEASE: Possible Gram-positive versus Gram-negative pneumonia - blood culture showed Gram-positive cocci in cluster and change - continue IV vancomycin , and meropenem - respiratory culture and urine bacterial cultures are unremarkable DIET: Tube feeding DVT prophylax: Lovenox GI prophylaxis: Protonix Bowel regimen: Code status: Full code LINES/DRAINS/ACCESS: ETT: Intubated on 0 12/06/24 IV access: Right IJ placed on 12/06/2024 Drips: Dopamine, Versed, fentanyl Carpio catheter: Placed on 12/06/2024 DISPOSITION: ICU Patient's status discussed with adult care provider time spent more than 83 minutes, including patient care, chart review, and updating the family. Excluding any procedures. Case discussed with Dr. Blank Plan discussed with: Spouse, Other (RN) My Orders My Orders Orders - DANAY WILLSON RESIDENT Procedure Category Date Status Time Abg W/ Co-Ox RT 12/12/24 Logged 05:09 Respiratory Culture REBECCA 12/12/24 Logged W/ Gs 16:31 Respiratory Culture REBECCA 12/12/24 Logged W/ Gs 16:30 Vancomycin Per PHA 12/12/24 In Process Pharmacy 17:15 Cpap Trial For Am ORDERS 12/12/24 Transmitted 17:09 Complete Blood Count LAB 12/13/24 Verified 04:00 Creatinine LAB 12/13/24 Verified 04:00 Vancomycin,Random LAB 12/13/24 Verified 04:00 Vancomycin 1gm/250ml PHA 12/12/24 In Process Kit 18:15 Methylprednisolone PHA 12/13/24 In Process Sod Succ (Solu Medrol 03:00 Dietary Evaluation Review Comments: 1. May increase Vital High Protein @55ml/hr, providing 1320kcal, 115g Protein 1104ml free water, adding energy with Propofol 95kcal, the total enrgy provided will be 1295kcal meeting 83% of his energy needs. 2. Monitor and reassess when pt is extubated. Expected Outcomes/Goals: Meeting Pt's protein and energy needs while intubated. Sepsis reassessment post fluid Capillary Refill: < 3 seconds Date of Service: Dec 12, 2024 Billing Provider: FELIPE BLANK MD Common Visit Codes: 04062-[id number] CARE 30-74 MIN, [id number] CARE-EACH +30MIN DANAY WILLSON RESIDENT Dec 12, 2024 19:33 FELIPE BLANK MD Dec 13, 2024 14:29
[2024-12-12] MEDS: VANCOMYCIN 1GM/250ML KIT 250 ML IV SCH (20:08)
[2024-12-13] VITALS (111 sets, daily range): BP systolic 95–158; BP diastolic 46–73; PULSE 44–86; RESP 14–29; TEMP 96.6–100.2; O2SAT 89–100
[2024-12-13] MEDS: methylPREDNISolone SOD SUCC 40 MG/ML VL IV SCH (02:54)
[2024-12-13 04:07] LABS: Hematocrit 45.8 % (41.0-53.0); Hemoglobin 15.5 g/dL (13.5-17.5); Mean Corpuscular Hemoglobin 32.7 pg (28.0-32.0); Mean Corpuscular Volume 97.0 fL (80.0-100.0); Nucleated Red Blood Cells % 0.0 %
[2024-12-13 04:24] LABS: Anion Gap 4 (5-15); Potassium 4.4 mmol/L (3.5-5.1)
[2024-12-13 04:30] LABS: BUN/Creatinine Ratio 33.3 (10.0-20.0)
[2024-12-13 04:40] LABS: Blood Urea Nitrogen 27 mg/dL (9-23); Calcium 8.2 mg/dL (8.7-10.4); Carbon Dioxide 38 mmol/L (20-31); Chloride 107 mmol/L (98-107); Glucose 120 mg/dL (74-106); Sodium 149 mmol/L (136-145)
--- NOTE | 2024-12-13 05:30 | DVH ---
CHEST RADIOGRAPH Indication: On mechanical ventilation Technique: Single frontal view of the chest was obtained COMPARISON: XY CHEST PORTABLE on DOS: 12/12/24, XY CHEST PORTABLE on DOS: 12/11/24, XY CHEST PORTABLE on DOS: 12/10/24, XY CHEST PORTABLE on DOS: 12/09/24, XY CHEST PORTABLE on DOS: 12/08/24, XY CHEST PORTABLE on DOS: 12/09/24 FINDINGS: Lines and Tubes: Endotracheal tube, enteric catheter and right central venous catheter in satisfactor y position Lungs: Increased interstitial prominence Pleura: No effusion. No pneumothorax. Cardiomediastinal contours: Unremarkable Bones: Unremarkable IMPRESSION: Lines and tubes in satisfactory position. No significant interval change.
[2024-12-13 07:36] LABS: Base Excess 10.0 mmol/L (-2.0-3.0)
[2024-12-13] MEDS: VANCOMYCIN 750mg/100mL IV SCH (10:57)
[2024-12-13] MEDS ORDERED: fentaNYL Drip 2500mCg/250mlNS 250 ML IV SCH (15:15)
[2024-12-13 17:29] LABS: INR 1.05 (0.9-1.15); Partial Thromboplastin Time 30.3 SEC (24.5-34.5); Prothrombin Time 11.1 sec (9.3-11.8)
[2024-12-13] MEDS: FREE WATER GT SCH (18:00)
--- NOTE | 2024-12-13 18:01 | DVHPNRES ---
Progress Note Date Seen: Dec 13, 2024 Resident Creating Document: JAVY DOOLEY RESIDENT Has the PT tested + for MRSA If YES, has PT been informed?: No Medical Necessity Reason Pt with a Central, PICC or Fol: Yes The following are medically ne: Central Line, Carpio Catheter Subjective Review of Systems Today's course- He remains intubated and sedated in ICU for acute hypoxic/hypercapnic respiratory failure Heart rate improved, now fluctuating and 60-74 beats per minute. BP stable-SBP 108-110, diastolic blood pressure 56/58 mmHg Remains on dopamine infusion titrated, with sedation on midazolam, fentanyl. Chest x-ray 10 no acute interval changes. Objective vital signs Vital Sign Date Time Temp Pulse Resp B/P (MAP) Pulse Ox O2 Delivery O2 Flow Rate FiO2 12/13/24 17:40 101/56 12/13/24 15:58 54 20 97 40 12/13/24 15:15 99.1 210.4 12/13/24 14:00 Mechanical Ventilator+ Total Intake and Output 12/12/24 12/12/24 12/13/24 15:00 23:00 07:00 Intake Total 314.2 ml 1746.46 ml 1431.175 ml Output Total 1250 ml 1150 ml Balance 314.2 ml 496.46 ml 281.175 ml medications Current Medications Medications Dose Ordered Sig/Alejo Route Start Time Stop Time Status Last Admin Dose Admin Midazolam HCl 50 ml @ 1 mls/hr Q24H IV 12/06/24 08:45 12/13/24 17:40 4 MLS/HR Norepinephrine Bitartrate 250 ml @ 3.75 mls/hr Q24H IV 12/06/24 09:15 12/08/24 06:46 18.75 MLS/HR Clopidogrel Bisulfate 75 mg DAILY PO 12/07/24 10:00 12/13/24 10:54 75 MG Pantoprazole Sodium 40 mg DAILY IV 12/07/24 10:00 12/13/24 10:54 40 MG Vasopressin 20 units/Sodium Chloride 100 ml @ 9 mls/hr Q11H7M IV 12/06/24 20:30 Diagnostic Test (Pha) 1 strip Q6HR 12/07/24 12:00 12/13/24 15:52 1 STRIP Meropenem 50 ml @ 17 mls/hr Q8H IV 12/07/24 18:00 12/13/24 17:40 17 MLS/HR Insulin Human Regular Q6HR SC 12/07/24 18:00 12/13/24 06:00 2 UNITS Dextrose 50 ml UD PRN IV 12/07/24 15:30 Ipratropium [place] 0.5 mg Q4HR NEB 12/07/24 16:45 12/13/24 14:20 0.5 MG Enteral Nutritional Formula 1,000 ml 50ML/HR GT 12/07/24 16:45 12/13/24 15:56 1,000 ML Atorvastatin Calcium 40 mg HS NG 12/07/24 22:00 12/12/24 21:34 40 MG Albuterol 2.5 mg Q4HR NEB 12/08/24 18:00 12/13/24 14:20 2.5 MG Albuterol 2.5 mg Q2HPRN PRN NEB 12/08/24 16:30 Acetaminophen 650 mg Q6HP PRN GT 12/09/24 18:30 12/12/24 02:22 650 MG Enoxaparin Sodium 70 mg BID SC 12/11/24 10:00 12/13/24 10:55 70 MG Dopamine HCl/ Dextrose 250 ml @ 7.313 mls/ hr Q24H IV 12/11/24 13:15 12/13/24 10:53 14.625 MLS/HR Vancomycin HCl 0 ml @ 0 mls/hr UD IV 12/12/24 17:15 Methylprednisolone Sodium Succinate 40 mg Q12H IV 12/13/24 03:00 12/13/24 15:52 40 MG Lactulose 30 ml DAILY PO 12/13/24 10:00 UNV Vancomycin HCl 100 ml @ 100 mls/hr Q12H IV 12/13/24 11:00 12/13/24 15:54 100 MLS/HR Purified Water 200 ml Q6HR GT 12/13/24 18:00 UNV Fentanyl Citrate 250 ml @ 2.5 mls/hr Q24H IV 12/13/24 15:15 UNV Examination General: Intubated, sedated, critically ill CV: HR 60-74 BPM ,no new murmurs/rubs Lungs: Mechanically ventilated, coarse breath sounds but clear imaging Abdomen: Soft, nondistended Extremities: no edema, no cyanosis Neuro: Sedated, not interactive laboratory and microbiology Laboratory Tests 12/13/24 03:19 Test 12/13/24 03:19 Range/Units Serum Glucose 120 H 74-106 mg/dL Microbiology Date/Time Source Procedure Growth Status 12/12/24 09:50 Blood Blood Culture - Preliminary NO GROWTH AFTER 24 HOURS OF INCUBATION. Resulted 12/06/24 22:58 Nose MRSA Screen - Final Complete 12/06/24 14:30 Voided Urine Urine Culture - Final Complete 12/06/24 08:30 Sputum Gram Stain - Final Complete 12/06/24 08:30 Sputum Respiratory Culture - Final Complete Problem List/Assessment/Plan Problem List/Assessment/Plan Assessment 1. NSTEMI Type 2 (demand ischemia) Troponins downtrending (peak >1000, now ~290s). No acute ischemic EKG changes. Likely secondary to hypoxemia, sepsis, and critical illness. 2. CAD s/p PCI (Mar 2024) On DAPT and therapeutic anticoagulation. No acute re-occlusion signs. 3. 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 Likely transient. 4. Acute on chronic diastolic HF Stable on current ventilatory and pressor support. 5. Sinus bradycardia HR 4850 bpm, stable, no blocks. Likely medication/sedation related. 6. Septic shock On norepinephrine and vasopressin. 7. ANDREY on CKD3, improving Cr improved to 1.13, GFR 71. 8. COPD exacerbation pneumonia Remains ventilated. 9. Hyperlipidemia On statin therapy. Plan Cardiovascular: * Continue DAPT (Aspirin 81 mg, Clopidogrel 75 mg). * Continue therapeutic enoxaparin (adjust if renal function worsens). * Continue high-intensity statin. * Monitor troponins daily 12 more until stable. * Daily EKG for QTc and ischemia monitoring. * Repeat echocardiogram in 4872 hrs for EF reassessment. * No urgent ischemic workup at present; defer stress testing/cath until extubated and clinically stable. * Maintain electrolytes (K >4.0, Mg >2.0). Continue dopamine infusion for heart rate support, titrate as tolerated. * Hold beta-marianna for now (bradycardia + pressor support). Reassess once HR >60 and off pressors. Continue dopamine infusion, titrate down gradually, monitor HR, BP, perfusion. Heart Failure: * Gentle volume status monitoring (avoid overload; balance against sepsis fluid needs). * Start GDMT (ACEi/ARB/ARNI, BB, MRA, SGLT2i) once off pressors and stable. Arrhythmia/Bradycardia: * Continue continuous telemetry. * Sinus bradycardia stable, no pacing needed at this time. * Reassess need for rate support if HR <40 or symptomatic when awake. Renal: * Daily BMP. * Avoid nephrotoxic meds. * Adjust anticoagulation dosing if GFR falls <50. Prophylaxis: * Stress ulcer prophylaxis: Protonix IV. * DVT prophylaxis: Already covered with therapeutic anticoagulation. * Electrolyte replacement per ICU protocol. Plan discussed with: Other (RN) Dietary Evaluation Review Comments: 1. May increase Vital High Protein @55ml/hr, providing 1320kcal, 115g Protein 1104ml free water, adding energy with Propofol 95kcal, the total enrgy provided will be 1295kcal meeting 83% of his energy needs. 2. Monitor and reassess when pt is extubated. Expected Outcomes/Goals: Meeting Pt's protein and energy needs while intubated. Sepsis reassessment post fluid Capillary Refill: < 3 seconds Visit Coding Cardiology RES Date of Service: Dec 13, 2024 Billing Provider: LISSETTE MCCARTHY Sr., MD Cardiology Common Codes: [id number] HOSP CARE(JAVY Perez RESIDENT Dec 13, 2024 18:01
--- NOTE | 2024-12-13 19:15 | DVHPNRES ---
Progress Note Date Seen: Dec 13, 2024 Resident Creating Document: DANAY WILLSON RESIDENT Has the PT tested + for MRSA If YES, has PT been informed?: No Medical Necessity Reason Pt with a Central, PICC or Fol: Yes The following are medically ne: Central Line, Carpio Catheter Subjective Review of Systems This is a 68-year-old male with a history of atrial fibrillation, heart failure, COPD, hyperlipidemia, and CAD s/p PCI with 4 stents (RCA 2, LAD 2 in March 2024). His last echocardiogram in June 2024 showed an EF of 60% with mild chamber dilation. He presented via EMS after one hour of acute shortness of breath. At the scene, SpO? was in the low 60s; he improved to 93% with CPAP. On arrival to the ED, he developed worsening respiratory distress and was intubated at 9 a.m. for acute hypoxemic and hypercapnic respiratory failure. Initial ABG showed respiratory acidosis, which improved post-intubation. Patient was seen and examined in the ICU. He is on mechanical ventilation with FiO2 40%, tidal volume 480 mL, rate 20, peep 5. the patient is running fever, T-max is 100.6, pending new blood culture and sputum culture, urinalysis revealed unremarkable. On Low-dose dopamine drip, Versed and fentanyl. Failed CPAP trial today. We will not do any CPAP trial until sepsis is resolved. Objective vital signs Vital Sign Date Time Temp Pulse Resp B/P (MAP) Pulse Ox O2 Delivery O2 Flow Rate FiO2 12/13/24 18:45 99.1 51 20 99/51 (67) 96 210.4 12/13/24 18:16 40 12/13/24 18:00 Mechanical Ventilator+ Total Intake and Output 12/12/24 12/12/24 12/13/24 15:00 23:00 07:00 Intake Total 314.2 ml 1746.46 ml 1431.175 ml Output Total 1250 ml 1150 ml Balance 314.2 ml 496.46 ml 281.175 ml medications Current Medications Medications Dose Ordered Sig/Alejo Route Start Time Stop Time Status Last Admin Dose Admin Midazolam HCl 50 ml @ 1 mls/hr Q24H IV 12/06/24 08:45 12/13/24 17:40 4 MLS/HR Norepinephrine Bitartrate 250 ml @ 3.75 mls/hr Q24H IV 12/06/24 09:15 12/08/24 06:46 18.75 MLS/HR Clopidogrel Bisulfate 75 mg DAILY PO 12/07/24 10:00 12/13/24 10:54 75 MG Pantoprazole Sodium 40 mg DAILY IV 12/07/24 10:00 12/13/24 10:54 40 MG Vasopressin 20 units/Sodium Chloride 100 ml @ 9 mls/hr Q11H7M IV 12/06/24 20:30 Diagnostic Test (Pha) 1 strip Q6HR 12/07/24 12:00 12/13/24 15:52 1 STRIP Meropenem 50 ml @ 17 mls/hr Q8H IV 12/07/24 18:00 12/13/24 17:40 17 MLS/HR Insulin Human Regular Q6HR SC 12/07/24 18:00 12/13/24 06:00 2 UNITS Dextrose 50 ml UD PRN IV 12/07/24 15:30 Ipratropium [place] 0.5 mg Q4HR NEB 12/07/24 16:45 12/13/24 18:14 0.5 MG Enteral Nutritional Formula 1,000 ml 50ML/HR GT 12/07/24 16:45 12/13/24 15:56 1,000 ML Atorvastatin Calcium 40 mg HS NG 12/07/24 22:00 12/12/24 21:34 40 MG Albuterol 2.5 mg Q4HR NEB 12/08/24 18:00 12/13/24 18:15 2.5 MG Albuterol 2.5 mg Q2HPRN PRN NEB 12/08/24 16:30 Acetaminophen 650 mg Q6HP PRN GT 12/09/24 18:30 12/12/24 02:22 650 MG Enoxaparin Sodium 70 mg BID SC 12/11/24 10:00 12/13/24 10:55 70 MG Dopamine HCl/ Dextrose 250 ml @ 7.313 mls/ hr Q24H IV 12/11/24 13:15 12/13/24 10:53 14.625 MLS/HR Vancomycin HCl 0 ml @ 0 mls/hr UD IV 12/12/24 17:15 Methylprednisolone Sodium Succinate 40 mg Q12H IV 12/13/24 03:00 12/13/24 15:52 40 MG Lactulose 30 ml DAILY PO 12/13/24 10:00 Vancomycin HCl 100 ml @ 100 mls/hr Q12H IV 12/13/24 11:00 12/13/24 15:54 100 MLS/HR Purified Water 200 ml Q6HR GT 12/13/24 18:00 Fentanyl Citrate 250 ml @ 2.5 mls/hr Q24H IV 12/13/24 15:15 UNV Examination Examination General: RASS -3, afebrile, mucosae are moist Cardiovascular: Normal S1 and S2. No murmurs, gallops or rubs Respiratory: Mechanically assisted ventilation, equal bilateral airway entree. Bilateral mild wheezing and crackles Abdomen: Soft, nontender, no organomegaly, normal bowel sounds MSK/skin: Mobilization of limbs cannot be evaluated. Skin is dry and warm. Neurological: Orientation cannot be assessed. No apparent motor no sensitive deficits. Pupils are isocoric, pinpoint and reactive laboratory and microbiology Laboratory Tests 12/13/24 03:19 Test 12/13/24 03:19 Range/Units Serum Glucose 120 H 74-106 mg/dL Microbiology Date/Time Source Procedure Growth Status 12/12/24 09:50 Blood Blood Culture - Preliminary NO GROWTH AFTER 24 HOURS OF INCUBATION. Resulted 12/06/24 22:58 Nose MRSA Screen - Final Complete 12/06/24 14:30 Voided Urine Urine Culture - Final Complete 12/06/24 08:30 Sputum Gram Stain - Final Complete 12/06/24 08:30 Sputum Respiratory Culture - Final Complete Labs and/or images reviewed: Labs reviewed by me, Image(s) reviewed by me Problem List/Assessment/Plan Problem List/Assessment/Plan Assessment and plan: NEURO: Acute metabolic encephalopathy likely secondary to acute hypoxemic/hypercapnic respiratory failure S/P mechanical ventilation RASS score: -3 CARDIOVASCULAR: Septic shock likely secondary to pneumonia Possible NSTEMI type 2 due to above History of CAD with status post PTCA x4 ( March 2024) Paroxysmal atrial fibrillation with secondary hypercoagulable state Acute on Chronic diastolic heart failure with preserved ejection fraction Sinus bradycardia - EEG was unremarkable, troponins was initially elevated than dropped and became flat - echo on 12/29 demonstrated EF 45%, mild global LV hypokinesis, RVSP 49 mm Hg - chest x-ray showed bilateral flat diaphragm, hyperinflated lung field and possible right lower lobe opacity - Ekg showed sinus bradycardia - IV dopamine 2.5 mcg as per protocol PULMONARY: Acute hypoxic/hypercapnic respiratory failure Acute exacerbation of chronic COPD Gram-positive/Gram-negative pneumonia Pulmonary hypertension - chest x-ray showed bilateral flat diaphragm, hyperinflated lung field and possible right lower lobe opacity - respiratory cultures are unremarkable - med neb with levalbuterol and ipratropium q.4 hours - IV Solu-Medrol 40 mg b.i.d. - Continue IV vancomycin as per pharmacy , and IV meropenem GENITOURINARY: ANDREY on CKD secondary to shock/ VMN - strict I&O ENDOCRINE: Possible euthyroid sick syndrome METABOLIC: Hypernatremia - Free water 200 mL q.6 hours INFECTIOUS DISEASE: Possible Gram-positive versus Gram-negative pneumonia - blood culture showed Gram-positive cocci in cluster and change - continue IV vancomycin , and meropenem - blood culture and respiratory culture are pending DIET: Tube feeding DVT prophylax: Lovenox GI prophylaxis: Protonix Bowel regimen: Lactulose Code status: Full code LINES/DRAINS/ACCESS: ETT: Intubated on 0 12/06/24 IV access: Right IJ placed on 12/06/2024 Drips: Dopamine, Versed, fentanyl Carpio catheter: Placed on 12/06/2024 DISPOSITION: ICU Patient's status discussed with child care development specialist time spent more than 81 minutes, including patient care, chart review, and updating the family, CPAP trial. Excluding any procedures. Case discussed with Dr. Blank Plan discussed with: Spouse, Other (RN) My Orders My Orders Orders - DANAY WILLSON RESIDENT Procedure Category Date Status Time Chest Portable XY 12/13/24 Resulted 04:00 Abg W/ Co-Ox RT 12/13/24 Logged 04:00 Abg W/ Co-Ox RT 12/13/24 Logged 05:16 Lactulose Oral PHA 12/13/24 In Process 10:00 Vancomycin 750mg Kit PHA 12/13/24 In Process (Vancomycin Hcl) 11:00 Vancomycin Per MARBIN 12/14/24 In Process Pharmacy Protoc 23:00 Vancomycin,Trough LAB 12/14/24 Verified 22:00 Creatinine LAB 12/14/24 Verified 04:00 Dietary Evaluation Review Comments: 1. May increase Vital High Protein @55ml/hr, providing 1320kcal, 115g Protein 1104ml free water, adding energy with Propofol 95kcal, the total enrgy provided will be 1295kcal meeting 83% of his energy needs. 2. Monitor and reassess when pt is extubated. Expected Outcomes/Goals: Meeting Pt's protein and energy needs while intubated. Sepsis reassessment post fluid Capillary Refill: < 3 seconds Date of Service: Dec 13, 2024 Billing Provider: FELIPE BLANK MD Common Visit Codes: [id number] CARE 30-74 MIN, [id number] CARE-EACH +30MIN DANAY WILLSON RESIDENT Dec 13, 2024 19:15 FELIPE BLANK MD Dec 14, 2024 14:53
[2024-12-13] MEDS: fentaNYL Drip 2500mCg/250mlNS 250 ML IV SCH (19:30)
[2024-12-13] MEDS: LACTULOSE 20Gm/30ML SOLN PO SCH (19:35)
[2024-12-14] VITALS (110 sets, daily range): BP systolic 91–149; BP diastolic 7–86; PULSE 52–87; RESP 14–28; TEMP 97.5–99.1; O2SAT 90–99
[2024-12-14 04:18] LABS: Hematocrit 47.7 % (41.0-53.0); Hemoglobin 16.4 g/dL (13.5-17.5); Mean Corpuscular Hemoglobin 33.4 pg (28.0-32.0); Mean Corpuscular Volume 97.1 fL (80.0-100.0); Nucleated Red Blood Cells % 0.2 %
[2024-12-14 04:27] LABS: Potassium 4.6 mmol/L (3.5-5.1)
[2024-12-14 04:28] LABS: Anion Gap 3 (5-15)
[2024-12-14 04:33] LABS: BUN/Creatinine Ratio 33.3 (10.0-20.0)
[2024-12-14 04:55] LABS: Blood Urea Nitrogen 25 mg/dL (9-23); Calcium 8.5 mg/dL (8.7-10.4); Carbon Dioxide 37 mmol/L (20-31); Chloride 109 mmol/L (98-107); Glucose 114 mg/dL (74-106); Sodium 149 mmol/L (136-145)
[2024-12-14 07:04] LABS: Base Excess 7.0 mmol/L (-2.0-3.0)
--- NOTE | 2024-12-14 07:17 | DVH ---
CHEST RADIOGRAPH Indication: Mechanical ventilation Technique: Single frontal view of the chest was obtained Comparison: XY CHEST PORTABLE on DOS: 12/13/24 FINDINGS: Lines and Tubes: The endotracheal tube terminates 4.1 cm above the vince. There is a right central venous catheter with its tip terminating in the superior vena cava. The enteric tube courses below th e left hemidiaphragm and the tip extends outside the field of view. Lungs: Patchy right basilar opacity. Stable increased interstitial prominence. Pleura: No effusion. No pneumothorax. Cardiomediastinal contours: Unremarkable Bones: No acute osseous abnormality. IMPRESSION: 1. Support tubes as described. 2. Patchy right basilar opacity. Pulmonary vascular congestion similar to prior study.
--- NOTE | 2024-12-14 10:51 | DVH ---
Date: 12/14/2024 09:48 AM Examination: XY KUB ABDOMEN SINGLE VIEW History: rule out Ileus Comparison: US KIDNEY on DOS: 05/25/23, US LIVER on DOS: 03/18/23, XY KUB ABDOMEN SINGLE VIEW on DOS: 03/16/23, US KIDNEY on DOS: 03/13/23, XY KUB ABDOMEN SINGLE VIEW on DOS: 03/12/23 TECHNIQUE: Frontal views of the abdomen was obtained. FINDINGS: Bowel gas pattern is unremarkable. The lung bases are unremarkable. No acute osseous abnormality identified. Carpio catheter in the bladder. IMPRESSION: Nonobstructive bowel gas pattern. Nasogastric tube tip in the stomach.
[2024-12-14] MEDS: FUROSEMIDE 20 MG/2 ML VIAL IV ONE (11:30)
--- NOTE | 2024-12-14 12:19 | DVHPNRES ---
Progress Note Date Seen: Dec 14, 2024 Resident Creating Document: JAVY DOOLEY RESIDENT Has the PT tested + for MRSA If YES, has PT been informed?: No Medical Necessity Reason Pt with a Central, PICC or Fol: Yes The following are medically ne: Central Line, Carpio Catheter Subjective Review of Systems Today's clinical course- Heart rate stable between 56-63 beats per minute with sinus rhythm Blood pressure stable, SBP is in 110s, DBP mid 50 Troponins previously elevated, now down trending consistent with a type 2 STEMI Chest x-ray patchy right basilar opacity Sputum and blood cultures pending. On dopamine tapering, midazolam, fentanyl, aspirin clopidogrel, atorvastatin, enoxaparin, pantoprazole, Solu-Medrol, meropenem. Heart rate and BP remained stable, no recurrent bradycardia. No AV blocks or malignant arrhythmia on telemetry. Troponins down trending, no further ischemic changes. Stable hemodynamics Objective vital signs Vital Sign Date Time Temp Pulse Resp B/P (MAP) Pulse Ox O2 Delivery O2 Flow Rate FiO2 12/14/24 11:37 63 21 139/72 (94) 91 30 12/14/24 10:00 Mechanical Ventilator+ 12/14/24 08:45 99.1 210.4 Total Intake and Output 12/13/24 12/13/24 12/14/24 14:59 22:59 06:59 Intake Total 284.125 ml 400.875 ml 1171.4 ml Output Total 1250 ml 1200 ml Balance 284.125 ml -849.125 ml -28.6 ml medications Current Medications Medications Dose Ordered Sig/Alejo Route Start Time Stop Time Status Last Admin Dose Admin Midazolam HCl 50 ml @ 1 mls/hr Q24H IV 12/06/24 08:45 12/14/24 12:01 5 MLS/HR Norepinephrine Bitartrate 250 ml @ 3.75 mls/hr Q24H IV 12/06/24 09:15 12/08/24 06:46 18.75 MLS/HR Clopidogrel Bisulfate 75 mg DAILY PO 12/07/24 10:00 12/14/24 11:34 75 MG Pantoprazole Sodium 40 mg DAILY IV 12/07/24 10:00 12/14/24 11:34 40 MG Vasopressin 20 units/Sodium Chloride 100 ml @ 9 mls/hr Q11H7M IV 12/06/24 20:30 Diagnostic Test (Pha) 1 strip Q6HR 12/07/24 12:00 12/14/24 05:55 1 STRIP Meropenem 50 ml @ 17 mls/hr Q8H IV 12/07/24 18:00 12/14/24 02:01 17 MLS/HR Insulin Human Regular Q6HR SC 12/07/24 18:00 12/14/24 05:55 2 UNITS Dextrose 50 ml UD PRN IV 12/07/24 15:30 Ipratropium [place] 0.5 mg Q4HR NEB 12/07/24 16:45 12/14/24 09:59 0.5 MG Enteral Nutritional Formula 1,000 ml 50ML/HR GT 12/07/24 16:45 12/13/24 15:56 1,000 ML Atorvastatin Calcium 40 mg HS NG 12/07/24 22:00 12/13/24 21:52 40 MG Albuterol 2.5 mg Q4HR NEB 12/08/24 18:00 12/14/24 09:59 2.5 MG Albuterol 2.5 mg Q2HPRN PRN NEB 12/08/24 16:30 Acetaminophen 650 mg Q6HP PRN GT 12/09/24 18:30 12/12/24 02:22 650 MG Enoxaparin Sodium 70 mg BID SC 12/11/24 10:00 12/14/24 11:33 70 MG Dopamine HCl/ Dextrose 250 ml @ 7.313 mls/ hr Q24H IV 12/11/24 13:15 12/14/24 02:06 23.4 MLS/HR Vancomycin HCl 0 ml @ 0 mls/hr UD IV 12/12/24 17:15 Methylprednisolone Sodium Succinate 40 mg Q12H IV 12/13/24 03:00 12/14/24 02:18 40 MG Vancomycin HCl 100 ml @ 100 mls/hr Q12H IV 12/13/24 11:00 12/14/24 11:29 100 MLS/HR Purified Water 200 ml Q6HR GT 12/13/24 18:00 12/14/24 11:55 200 ML Fentanyl Citrate 250 ml @ 2.5 mls/hr Q24H IV 12/13/24 19:30 12/14/24 09:08 2.5 MLS/HR Lactulose 30 ml BID PO 12/14/24 11:30 UNV Examination General: Intubated, sedated, critically ill CV: HR 60-74 BPM ,no new murmurs/rubs Lungs: Mechanically ventilated, coarse breath sounds but clear imaging Abdomen: Soft, nondistended Extremities: no edema, no cyanosis Neuro: Sedated, not interactive laboratory and microbiology Laboratory Tests 12/14/24 03:25 Test 12/14/24 03:25 Range/Units Serum Glucose 114 H 74-106 mg/dL Microbiology Date/Time Source Procedure Growth Status 12/12/24 23:02 Sputum Gram Stain - Final Resulted 12/12/24 23:02 Sputum Respiratory Culture - Preliminary Resulted 12/12/24 09:50 Blood Blood Culture - Preliminary NO GROWTH AFTER 24 HOURS OF INCUBATION. Resulted 12/06/24 22:58 Nose MRSA Screen - Final Complete 12/06/24 14:30 Voided Urine Urine Culture - Final Complete Problem List/Assessment/Plan Problem List/Assessment/Plan Assessment 1. NSTEMI Type 2 (demand ischemia) Troponins downtrending (peak >1000, now ~290s). No acute ischemic EKG changes. Likely secondary to hypoxemia, sepsis, and critical illness. 2. CAD s/p PCI (Mar 2024) On DAPT and therapeutic anticoagulation. No acute re-occlusion signs. 3. 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 Likely transient. 4. Acute on chronic diastolic HF Stable on current ventilatory and pressor support. 5. Sinus bradycardia HR 4850 bpm, stable, no blocks. Likely medication/sedation related. 6. Septic shock On norepinephrine and vasopressin. 7. ANDREY on CKD3, improving Cr improved to 1.13, GFR 71. 8. COPD exacerbation pneumonia Remains ventilated. 9. Hyperlipidemia On statin therapy. Plan Cardiovascular: * Continue DAPT (Aspirin 81 mg, Clopidogrel 75 mg). * Continue therapeutic enoxaparin (adjust if renal function worsens). * Continue high-intensity statin. * Monitor troponins daily 12 more until stable. * Daily EKG for QTc and ischemia monitoring. * Repeat echocardiogram in 4872 hrs for EF reassessment. * No urgent ischemic workup at present; defer stress testing/cath until extubated and clinically stable. * Maintain electrolytes (K >4.0, Mg >2.0). Continue dopamine infusion for heart rate support, titrate as tolerated. * Hold beta-marianna for now (bradycardia + pressor support). Reassess once HR >60 and off pressors. Continue dopamine infusion, titrate down gradually, monitor HR, BP, perfusion. Heart Failure: * Gentle volume status monitoring (avoid overload; balance against sepsis fluid needs). * Start GDMT (ACEi/ARB/ARNI, BB, MRA, SGLT2i) once off pressors and stable. Arrhythmia/Bradycardia: * Continue continuous telemetry. * Sinus bradycardia stable, no pacing needed at this time. * Reassess need for rate support if HR <40 or symptomatic when awake. Renal: * Daily BMP. * Avoid nephrotoxic meds. * Adjust anticoagulation dosing if GFR falls <50. Prophylaxis: * Stress ulcer prophylaxis: Protonix IV. * DVT prophylaxis: Already covered with therapeutic anticoagulation. * Electrolyte replacement per ICU protocol. No further acute cardiac intervention indicated at this time. Cardiology will sign off, primary/ICU team to continue management. Plan discussed with: Other (RN) Dietary Evaluation Review Comments: 1. May increase Vital High Protein @55ml/hr, providing 1320kcal, 115g Protein 1104ml free water, adding energy with Propofol 95kcal, the total enrgy provided will be 1295kcal meeting 83% of his energy needs. 2. Monitor and reassess when pt is extubated. Expected Outcomes/Goals: Meeting Pt's protein and energy needs while intubated. Sepsis reassessment post fluid Capillary Refill: < 3 seconds Visit Coding Cardiology RES Date of Service: Dec 14, 2024 Billing Provider: LISSETTE MCCARTHY Sr., MD Cardiology Common Codes: [id number] HOSP CARE(JAVY Perez RESIDENT Dec 14, 2024 12:19
[2024-12-14] MEDS: LACTULOSE 20Gm/30ML SOLN PO SCH ×2 (13:02→16:12)
[2024-12-14] MEDS: POLYETHYLENE GLYCOL 17 GM PWDR PO ONE (16:12)
[2024-12-14] MEDS: LIDOCAINE 1% (LOCAL ANESTH.) PF 5ml SDV ID ONE (17:25)
--- NOTE | 2024-12-14 18:18 | DVHPNRES ---
Progress Note Date Seen: Dec 14, 2024 Resident Creating Document: DANAY WILLSON RESIDENT Has the PT tested + for MRSA If YES, has PT been informed?: No Medical Necessity Reason Pt with a Central, PICC or Fol: Yes The following are medically ne: Central Line, Carpio Catheter Subjective Review of Systems This is a 68-year-old male with a history of atrial fibrillation, heart failure, COPD, hyperlipidemia, and CAD s/p PCI with 4 stents (RCA 2, LAD 2 in March 2024). His last echocardiogram in June 2024 showed an EF of 60% with mild chamber dilation. He presented via EMS after one hour of acute shortness of breath. At the scene, SpO? was in the low 60s; he improved to 93% with CPAP. On arrival to the ED, he developed worsening respiratory distress and was intubated at 9 a.m. for acute hypoxemic and hypercapnic respiratory failure. Initial ABG showed respiratory acidosis, which improved post-intubation. Patient was seen and examined in the ICU. He is on mechanical ventilation with FiO2 30%, tidal volume 480 mL, rate 20, peep 5. No overnight fever, new blood culture is unremarkable and sputum culture showed Gram-negative rods. Scheduled for CPAP trial tomorrow . Objective vital signs Vital Sign Date Time Temp Pulse Resp B/P (MAP) Pulse Ox O2 Delivery O2 Flow Rate FiO2 12/14/24 18:14 30 12/14/24 18:14 20 93 Mechanical Ventilator+ 12/14/24 18:14 53 12/14/24 16:15 121/67 (85) 12/14/24 14:00 98.4 209.1 Total Intake and Output 12/13/24 12/13/24 12/14/24 15:00 23:00 07:00 Intake Total 304.625 ml 384.850 ml 1179.2 ml Output Total 1250 ml 1200 ml Balance 304.625 ml -865.150 ml -20.8 ml medications Current Medications Medications Dose Ordered Sig/Alejo Route Start Time Stop Time Status Last Admin Dose Admin Midazolam HCl 50 ml @ 1 mls/hr Q24H IV 12/06/24 08:45 12/14/24 12:01 5 MLS/HR Norepinephrine Bitartrate 250 ml @ 3.75 mls/hr Q24H IV 12/06/24 09:15 12/08/24 06:46 18.75 MLS/HR Clopidogrel Bisulfate 75 mg DAILY PO 12/07/24 10:00 12/14/24 11:34 75 MG Pantoprazole Sodium 40 mg DAILY IV 12/07/24 10:00 12/14/24 11:34 40 MG Vasopressin 20 units/Sodium Chloride 100 ml @ 9 mls/hr Q11H7M IV 12/06/24 20:30 Diagnostic Test (Pha) 1 strip Q6HR 12/07/24 12:00 12/14/24 12:15 1 STRIP Meropenem 50 ml @ 17 mls/hr Q8H IV 12/07/24 18:00 12/14/24 12:59 17 MLS/HR Insulin Human Regular Q6HR SC 12/07/24 18:00 12/14/24 12:16 2 UNITS Dextrose 50 ml UD PRN IV 12/07/24 15:30 Ipratropium [place] 0.5 mg Q4HR NEB 12/07/24 16:45 12/14/24 17:45 0.5 MG Enteral Nutritional Formula 1,000 ml 50ML/HR GT 12/07/24 16:45 12/13/24 15:56 1,000 ML Atorvastatin Calcium 40 mg HS NG 12/07/24 22:00 12/13/24 21:52 40 MG Albuterol 2.5 mg Q4HR NEB 12/08/24 18:00 12/14/24 17:45 2.5 MG Albuterol 2.5 mg Q2HPRN PRN NEB 12/08/24 16:30 Acetaminophen 650 mg Q6HP PRN GT 12/09/24 18:30 12/12/24 02:22 650 MG Enoxaparin Sodium 70 mg BID SC 12/11/24 10:00 12/14/24 11:33 70 MG Dopamine HCl/ Dextrose 250 ml @ 7.313 mls/ hr Q24H IV 12/11/24 13:15 12/14/24 13:02 23.4 MLS/HR Vancomycin HCl 0 ml @ 0 mls/hr UD IV 12/12/24 17:15 Methylprednisolone Sodium Succinate 40 mg Q12H IV 12/13/24 03:00 12/14/24 16:12 40 MG Vancomycin HCl 100 ml @ 100 mls/hr Q12H IV 12/13/24 11:00 12/14/24 11:29 100 MLS/HR Purified Water 200 ml Q6HR GT 12/13/24 18:00 12/14/24 11:55 200 ML Fentanyl Citrate 250 ml @ 2.5 mls/hr Q24H IV 12/13/24 19:30 12/14/24 09:08 2.5 MLS/HR Lactulose 30 ml Q6HR PO 12/14/24 15:00 12/14/24 16:12 30 ML Polyethylene Glycol 17 gm DAILY PO 12/15/24 10:00 Sodium Chloride 10 ml QSHIFT@10,22 IV 12/14/24 22:00 Examination Examination General: RASS -2, afebrile, mucosae are moist Cardiovascular: Normal S1 and S2. No murmurs, gallops or rubs Respiratory: Mechanically assisted ventilation, equal bilateral airway entree. Bilateral mild wheezing and crackles Abdomen: Soft, nontender, no organomegaly, normal bowel sounds MSK/skin: Mobilization of limbs cannot be evaluated. Skin is dry and warm. Neurological: Orientation cannot be assessed. No apparent motor no sensitive deficits. Pupils are isocoric, pinpoint and reactive laboratory and microbiology Laboratory Tests 12/14/24 03:25 Test 12/14/24 03:25 Range/Units Serum Glucose 114 H 74-106 mg/dL Microbiology Date/Time Source Procedure Growth Status 12/12/24 23:02 Sputum Gram Stain - Final Resulted 12/12/24 23:02 Sputum Respiratory Culture - Preliminary Resulted 12/12/24 09:50 Blood Blood Culture - Preliminary NO GROWTH AFTER 48 HOURS OF INCUBATION. Resulted 12/06/24 22:58 Nose MRSA Screen - Final Complete 12/06/24 14:30 Voided Urine Urine Culture - Final Complete Labs and/or images reviewed: Labs reviewed by me, Image(s) reviewed by me Problem List/Assessment/Plan Problem List/Assessment/Plan Assessment and plan: NEURO: Acute metabolic encephalopathy likely secondary to acute hypoxemic/hypercapnic respiratory failure S/P mechanical ventilation RASS score: -3 CARDIOVASCULAR: Septic shock likely secondary to pneumonia Possible NSTEMI type 2 due to above History of CAD with status post PTCA x4 ( March 2024) Paroxysmal atrial fibrillation with secondary hypercoagulable state Acute on Chronic diastolic heart failure with preserved ejection fraction Sinus bradycardia - EEG was unremarkable, troponins was initially elevated than dropped and became flat - echo on 12/29 demonstrated EF 45%, mild global LV hypokinesis, RVSP 49 mm Hg - chest x-ray showed bilateral flat diaphragm, hyperinflated lung field and possible right lower lobe opacity - Ekg showed sinus bradycardia - IV dopamine 2.5 mcg as per protocol - IV Lasix 20 mg once PULMONARY: Acute hypoxic/hypercapnic respiratory failure Acute exacerbation of chronic COPD Gram-positive/Gram-negative pneumonia Pulmonary hypertension - chest x-ray showed bilateral flat diaphragm, hyperinflated lung field and possible right lower lobe opacity - respiratory cultures are unremarkable - med neb with levalbuterol and ipratropium q.4 hours - IV Solu-Medrol 40 mg b.i.d. - Continue IV vancomycin as per pharmacy , and IV meropenem GENITOURINARY: ANDREY on CKD secondary to shock/ VMN - strict I&O ENDOCRINE: Possible euthyroid sick syndrome METABOLIC: Hypernatremia - Free water 200 mL q.6 hours INFECTIOUS DISEASE: Possible Gram-positive versus Gram-negative pneumonia - blood culture showed Gram-positive cocci in cluster and change - continue IV vancomycin , and meropenem - blood culture is unremarkable and sputum culture showed Gram-negative rods DIET: Tube feeding DVT prophylax: Lovenox GI prophylaxis: Protonix Bowel regimen: Lactulose Code status: Full code LINES/DRAINS/ACCESS: ETT: Intubated on 0 12/06/24 IV access: Right IJ placed on 12/06/2024 Drips: Dopamine, Versed, fentanyl Carpio catheter: Placed on 12/06/2024 DISPOSITION: ICU Patient's status discussed with continuum of care manager time spent more than 61 minutes, including patient care, chart review, and updating the family. Excluding any procedures. CPAP trial tomorrow Case discussed with Dr. Blank Plan discussed with: Spouse, Other (RN) My Orders My Orders Orders - DANAY WILLSON RESIDENT Procedure Category Date Status Time Chest Portable XY 12/14/24 Resulted 04:00 Abg W/ Co-Ox RT 12/14/24 Logged 04:00 Creatinine LAB 12/15/24 Verified 04:00 Kub Abdomen Single XY 12/14/24 Resulted View 09:38 Dietary Evaluation Review Comments: 1. May increase Vital High Protein @55ml/hr, providing 1320kcal, 115g Protein 1104ml free water, adding energy with Propofol 95kcal, the total enrgy provided will be 1295kcal meeting 83% of his energy needs. 2. Monitor and reassess when pt is extubated. Expected Outcomes/Goals: Meeting Pt's protein and energy needs while intubated. Sepsis reassessment post fluid Capillary Refill: < 3 seconds Date of Service: Dec 14, 2024 Billing Provider: FELIPE BLANK MD Common Visit Codes: 03786-[id number] CARE 30-74 MIN DANAY WILLSON RESIDENT Dec 14, 2024 18:17 FELIPE BLANK MD Dec 15, 2024 11:32
[2024-12-14] MEDS: SODIUM CHLOR 0.9% PF (SALINE LOCK) 10ML VIAL/SYR IV SCH (22:16)
[2024-12-15] VITALS (108 sets, daily range): BP systolic 67–141; BP diastolic 46–90; PULSE 58–115; RESP 17–35; TEMP 97.8–99.7; O2SAT 88–100
[2024-12-15 03:58] LABS: Potassium 4.6 mmol/L (3.5-5.1)
[2024-12-15 03:59] LABS: Anion Gap 5 (5-15)
[2024-12-15 04:04] LABS: BUN/Creatinine Ratio 29.9 (10.0-20.0); Blood Urea Nitrogen 23 mg/dL (9-23); Calcium 8.6 mg/dL (8.7-10.4); Carbon Dioxide 34 mmol/L (20-31); Chloride 108 mmol/L (98-107); Glucose 124 mg/dL (74-106); Sodium 147 mmol/L (136-145)
[2024-12-15 04:09] LABS: Hematocrit 48.1 % (41.0-53.0); Hemoglobin 16.7 g/dL (13.5-17.5); Mean Corpuscular Hemoglobin 33.7 pg (28.0-32.0); Mean Corpuscular Volume 96.9 fL (80.0-100.0); Nucleated Red Blood Cells % 0.1 %
--- NOTE | 2024-12-15 06:15 | DVH ---
CHEST RADIOGRAPH Indication: Mechanical ventilation Technique: Single frontal view of the chest was obtained Comparison: XY CHEST PORTABLE on DOS: 12/14/24 FINDINGS: Lines and Tubes: There is a right PICC with tip terminating in the superior vena cava. The endotrache al tube terminates 4.0 cm above the vince. Lungs: Right basilar opacity and interstitial prominence are unchanged. Pleura: No effusion. No pneumothorax. Cardiomediastinal contours: Unremarkable Bones: No acute osseous abnormality. IMPRESSION: 1. No significant change in right basilar opacity and interstitial prominence.
[2024-12-15 07:21] LABS: Base Excess 5.0 mmol/L (-2.0-3.0)
[2024-12-15] MEDS: DEXMEDETOMIDINE HCL IN D5W 100 ML IV SCH (10:00)
[2024-12-15] MEDS: DEXMEDETOMIDINE HCL IN D5W 100 ML IV ONE (10:44)
[2024-12-15] MEDS: POLYETHYLENE GLYCOL 17 GM PWDR PO SCH (12:14)
[2024-12-15] MEDS: PROPOFOL 100 ML IV ONE (12:17)
[2024-12-15] MEDS: FUROSEMIDE 20 MG/2 ML VIAL ONE (12:26)
[2024-12-15] MEDS: FUROSEMIDE 20 MG/2 ML VIAL IV ONE (12:26)
[2024-12-15] MEDS: BISACODYL 10 MG RECT SUPP PR ONE (16:12)
[2024-12-15] MEDS: PROPOFOL 100 ML IV SCH (17:45)
--- NOTE | 2024-12-15 18:08 | DVHPNRES ---
Progress Note Date Seen: Dec 15, 2024 Resident Creating Document: DANAY WILLSON RESIDENT Has the PT tested + for MRSA If YES, has PT been informed?: No Medical Necessity Reason Pt with a Central, PICC or Fol: Yes The following are medically ne: Central Line, Carpio Catheter Subjective Review of Systems This is a 68-year-old male with a history of atrial fibrillation, heart failure, COPD, hyperlipidemia, and CAD s/p PCI with 4 stents (RCA 2, LAD 2 in March 2024). His last echocardiogram in June 2024 showed an EF of 60% with mild chamber dilation. He presented via EMS after one hour of acute shortness of breath. At the scene, SpO? was in the low 60s; he improved to 93% with CPAP. On arrival to the ED, he developed worsening respiratory distress and was intubated at 9 a.m. for acute hypoxemic and hypercapnic respiratory failure. Initial ABG showed respiratory acidosis, which improved post-intubation. Patient was seen and examined in the ICU. He is on mechanical ventilation with FiO2 30%, tidal volume 480 mL, rate 20, peep 5. No overnight fever, new blood culture is unremarkable and sputum culture showed Gram-negative rods. Failed CPAP trial today and scheduled for another CPAP trial tomorrow. Objective vital signs Vital Sign Date Time Temp Pulse Resp B/P (MAP) Pulse Ox O2 Delivery O2 Flow Rate FiO2 12/15/24 16:01 66 24 108/66 (80) 97 30 12/15/24 14:00 Mechanical Ventilator+ 12/15/24 00:00 97.8 97.8 Total Intake and Output 12/14/24 12/14/24 12/15/24 15:00 23:00 07:00 Intake Total 450.7 ml 1155.2 ml 974.8 ml Output Total 2500 ml 1030 ml Balance 450.7 ml -1344.8 ml -55.2 ml medications Current Medications Medications Dose Ordered Sig/Alejo Route Start Time Stop Time Status Last Admin Dose Admin Midazolam HCl 50 ml @ 1 mls/hr Q24H IV 12/06/24 08:45 12/15/24 13:24 2 MLS/HR Norepinephrine Bitartrate 250 ml @ 3.75 mls/hr Q24H IV 12/06/24 09:15 12/15/24 12:11 3.75 MLS/HR Clopidogrel Bisulfate 75 mg DAILY PO 12/07/24 10:00 12/15/24 10:47 75 MG Pantoprazole Sodium 40 mg DAILY IV 12/07/24 10:00 12/15/24 10:47 40 MG Vasopressin 20 units/Sodium Chloride 100 ml @ 9 mls/hr Q11H7M IV 12/06/24 20:30 Diagnostic Test (Pha) 1 strip Q6HR 12/07/24 12:00 12/15/24 12:14 1 STRIP Meropenem 50 ml @ 17 mls/hr Q8H IV 12/07/24 18:00 12/15/24 10:47 17 MLS/HR Insulin Human Regular Q6HR SC 12/07/24 18:00 12/15/24 06:47 2 UNITS Dextrose 50 ml UD PRN IV 12/07/24 15:30 Ipratropium [place] 0.5 mg Q4HR NEB 12/07/24 16:45 12/15/24 14:15 0.5 MG Enteral Nutritional Formula 1,000 ml 50ML/HR GT 12/07/24 16:45 12/14/24 18:24 1,000 ML Atorvastatin Calcium 40 mg HS NG 12/07/24 22:00 12/14/24 22:16 40 MG Albuterol 2.5 mg Q4HR NEB 12/08/24 18:00 12/15/24 14:15 2.5 MG Albuterol 2.5 mg Q2HPRN PRN NEB 12/08/24 16:30 Acetaminophen 650 mg Q6HP PRN GT 12/09/24 18:30 12/12/24 02:22 650 MG Dopamine HCl/ Dextrose 250 ml @ 7.313 mls/ hr Q24H IV 12/11/24 13:15 12/14/24 23:06 23.4 MLS/HR Vancomycin HCl 0 ml @ 0 mls/hr UD IV 12/12/24 17:15 Methylprednisolone Sodium Succinate 40 mg Q12H IV 12/13/24 03:00 12/15/24 16:15 40 MG Purified Water 200 ml Q6HR GT 12/13/24 18:00 12/15/24 12:15 200 ML Fentanyl Citrate 250 ml @ 2.5 mls/hr Q24H IV 12/13/24 19:30 12/15/24 01:38 12.5 MLS/HR Lactulose 30 ml Q6HR PO 12/14/24 15:00 12/15/24 12:14 30 ML Polyethylene Glycol 17 gm DAILY PO 12/15/24 10:00 12/15/24 12:14 17 GM Sodium Chloride 10 ml QSHIFT@10,22 IV 12/14/24 22:00 12/15/24 12:14 10 ML Vancomycin HCl 250 ml @ 250 mls/hr Q12H IV 12/15/24 23:00 Propofol 100 ml @ 2.379 mls/ hr Q24H IV 12/15/24 17:45 Examination Examination General: RASS -2, afebrile, mucosae are moist Cardiovascular: Normal S1 and S2. No murmurs, gallops or rubs Respiratory: Mechanically assisted ventilation, equal bilateral airway entree. Bilateral mild wheezing and crackles Abdomen: Soft, nontender, no organomegaly, normal bowel sounds MSK/skin: Mobilization of limbs cannot be evaluated. Skin is dry and warm. Neurological: Orientation cannot be assessed. No apparent motor no sensitive deficits. Pupils are isocoric, pinpoint and reactive laboratory and microbiology Laboratory Tests 12/15/24 03:00 Test 12/15/24 03:00 Range/Units Serum Glucose 124 H 74-106 mg/dL Microbiology Date/Time Source Procedure Growth Status 12/12/24 23:02 Sputum Gram Stain - Final Resulted 12/12/24 23:02 Sputum Respiratory Culture - Preliminary Resulted 12/12/24 09:50 Blood Blood Culture - Preliminary NO GROWTH AFTER 72 HOURS OF INCUBATION. Resulted 12/06/24 22:58 Nose MRSA Screen - Final Complete 12/06/24 14:30 Voided Urine Urine Culture - Final Complete Labs and/or images reviewed: Labs reviewed by me, Image(s) reviewed by me Problem List/Assessment/Plan Problem List/Assessment/Plan Assessment and plan: NEURO: Acute metabolic encephalopathy likely secondary to acute hypoxemic/hypercapnic respiratory failure S/P mechanical ventilation RASS score: - 2 CARDIOVASCULAR: Septic shock likely secondary to pneumonia Possible NSTEMI type 2 due to above History of CAD with status post PTCA x4 ( March 2024) Paroxysmal atrial fibrillation with secondary hypercoagulable state Acute on Chronic diastolic heart failure with preserved ejection fraction Sinus bradycardia - EEG was unremarkable, troponins was initially elevated than dropped and became flat - echo on 12/29 demonstrated EF 45%, mild global LV hypokinesis, RVSP 49 mm Hg - chest x-ray showed bilateral flat diaphragm, hyperinflated lung field and possible right lower lobe opacity - Ekg showed sinus bradycardia - IV dopamine 2.5 mcg as per protocol - IV Lasix 20 mg once PULMONARY: Acute hypoxic/hypercapnic respiratory failure Acute exacerbation of chronic COPD Gram-positive/Gram-negative pneumonia Pulmonary hypertension - chest x-ray showed bilateral flat diaphragm, hyperinflated lung field and possible right lower lobe opacity - respiratory cultures are unremarkable - med neb with levalbuterol and ipratropium q.4 hours - IV Solu-Medrol 40 mg b.i.d. - Continue IV vancomycin as per pharmacy , and IV meropenem GENITOURINARY: ANDREY on CKD secondary to shock/ VMN - strict I&O ENDOCRINE: Possible euthyroid sick syndrome METABOLIC: Hypernatremia - Free water 200 mL q.6 hours INFECTIOUS DISEASE: Possible Gram-positive versus Gram-negative pneumonia - blood culture showed Gram-positive cocci in cluster and change - continue IV vancomycin , and meropenem - blood culture is unremarkable and sputum culture showed Gram-negative rods DIET: Tube feeding DVT prophylax: Hold Lovenox GI prophylaxis: Protonix Bowel regimen: Lactulose Code status: Full code LINES/DRAINS/ACCESS: ETT: Intubated on 0 12/06/24 IV access: Right IJ placed on 12/06/2024 Drips: Dopamine, Versed, fentanyl Carpio catheter: Placed on 12/06/2024 DISPOSITION: ICU Patient's status discussed with foster care case manager time spent more than 81 minutes, including patient care, chart review, and updating the family and including cpap trial. Excluding any procedures. CPAP trial tomorrow Case discussed with Dr. Blank Plan discussed with: Spouse, Other (RN) My Orders My Orders Orders - DANAY WILLSON RESIDENT Procedure Category Date Status Time Chest Portable XY 12/15/24 Resulted 04:00 Abg W/ Co-Ox RT 12/15/24 Logged 04:00 Dexmedetomidine Hcl PHA 12/15/24 In Process In D5w (Precedex) 10:00 Vancomycin 1gm/250ml PHA 12/15/24 In Process Kit 23:00 Vancomycin,Trough LAB 12/17/24 Verified 10:00 Vancomycin Per MARBIN 12/15/24 In Process Pharmacy Protoc 23:00 Creatinine LAB 12/16/24 Verified 04:00 Dietary Evaluation Review Comments: 1. May increase Vital High Protein @55ml/hr, providing 1320kcal, 115g Protein 1104ml free water, adding energy with Propofol 95kcal, the total enrgy provided will be 1295kcal meeting 83% of his energy needs. 2. Monitor and reassess when pt is extubated. Expected Outcomes/Goals: Meeting Pt's protein and energy needs while intubated. Sepsis reassessment post fluid Capillary Refill: < 3 seconds Date of Service: Dec 15, 2024 Billing Provider: FELIPE BLANK MD Common Visit Codes: 82411-[id number] CARE 30-74 MIN, 07170-[id number] CARE-EACH +30MIN DANAY WILLSON RESIDENT Dec 15, 2024 18:08 FELIPE BLANK MD Dec 17, 2024 12:05
[2024-12-15] MEDS: VANCOMYCIN 1GM/250ML KIT 250 ML IV SCH (23:31)
[2024-12-16] VITALS (116 sets, daily range): BP systolic 78–140; BP diastolic 47–81; PULSE 50–88; RESP 10–33; TEMP 97.3–99.9; O2SAT 90–100
[2024-12-16 03:56] LABS: Hematocrit 45.7 % (41.0-53.0); Hemoglobin 15.5 g/dL (13.5-17.5); Mean Corpuscular Hemoglobin 32.6 pg (28.0-32.0); Mean Corpuscular Volume 96.1 fL (80.0-100.0); Nucleated Red Blood Cells % 0.1 %
[2024-12-16 04:04] LABS: Anion Gap 8 (5-15); Carbon Dioxide 31 mmol/L (20-31)
[2024-12-16 04:10] LABS: BUN/Creatinine Ratio 33.0 (10.0-20.0); Blood Urea Nitrogen 30 mg/dL (9-23); Calcium 8.2 mg/dL (8.7-10.4); Chloride 110 mmol/L (98-107); Glucose 109 mg/dL (74-106); Potassium 3.5 mmol/L (3.5-5.1); Sodium 149 mmol/L (136-145)
--- NOTE | 2024-12-16 05:39 | DVH ---
CHEST RADIOGRAPH Indication: Mechanical Ventilation Technique: Single frontal view of the chest was obtained COMPARISON: XY CHEST PORTABLE on DOS: 12/15/24, XY CHEST PORTABLE on DOS: 12/14/24, XY CHEST PORTABLE o n DOS: 12/13/24, XY CHEST PORTABLE on DOS: 12/12/24, XY CHEST PORTABLE on DOS: 12/11/24 FINDINGS: Lines and Tubes: Unchanged. Lungs: Mild residual patchy left basilar and bilateral perihilar pulmonary airspace disease. Pleura: No effusion. No pneumothorax. Cardiomediastinal contours: Unremarkable Bones: Unremarkable IMPRESSION: 1. Mild residual patchy left basilar and bilateral perihilar pPulmonary airspace disease. 2. Lines and tubes unchanged.
[2024-12-16 09:22] LABS: Base Excess 2.5 mmol/L (-2.0-3.0)
--- NOTE | 2024-12-16 15:37 | DVHPNRES ---
Progress Note Date Seen: Dec 16, 2024 Resident Creating Document: DANAY WILLSON RESIDENT Has the PT tested + for MRSA If YES, has PT been informed?: No Medical Necessity Reason Pt with a Central, PICC or Fol: Yes The following are medically ne: Central Line, Carpio Catheter Subjective Review of Systems This is a 68-year-old male with a history of atrial fibrillation, heart failure, COPD, hyperlipidemia, and CAD s/p PCI with 4 stents (RCA 2, LAD 2 in March 2024). His last echocardiogram in June 2024 showed an EF of 60% with mild chamber dilation. He presented via EMS after one hour of acute shortness of breath. At the scene, SpO? was in the low 60s; he improved to 93% with CPAP. On arrival to the ED, he developed worsening respiratory distress and was intubated at 9 a.m. for acute hypoxemic and hypercapnic respiratory failure. Initial ABG showed respiratory acidosis, which improved post-intubation. Patient was seen and examined in the ICU. Status post extubation today right now on 28% cool mist. Family on the bedside and no respiratory distress or stridor. passed bedside swallow evaluation, started pureed diet . Objective vital signs Vital Sign Date Time Temp Pulse Resp B/P (MAP) Pulse Ox O2 Delivery O2 Flow Rate FiO2 12/16/24 15:30 99.1 61 19 112/64 (80) 100 210.4 12/16/24 14:30 Nasal Cannula 2.0 12/16/24 14:30 35 35 Total Intake and Output 12/15/24 12/15/24 12/16/24 15:00 23:00 07:00 Intake Total 289.738 ml 660.128 ml 983.612 ml Output Total 850 ml 600 ml Balance 289.738 ml -189.872 ml 383.612 ml medications Current Medications Medications Dose Ordered Sig/Alejo Route Start Time Stop Time Status Last Admin Dose Admin Midazolam HCl 50 ml @ 1 mls/hr Q24H IV 12/06/24 08:45 12/15/24 13:24 2 MLS/HR Norepinephrine Bitartrate 250 ml @ 3.75 mls/hr Q24H IV 12/06/24 09:15 12/15/24 12:11 3.75 MLS/HR Clopidogrel Bisulfate 75 mg DAILY PO 12/07/24 10:00 12/16/24 09:33 75 MG Pantoprazole Sodium 40 mg DAILY IV 12/07/24 10:00 12/16/24 09:33 40 MG Vasopressin 20 units/Sodium Chloride 100 ml @ 9 mls/hr Q11H7M IV 12/06/24 20:30 Diagnostic Test (Pha) 1 strip Q6HR 12/07/24 12:00 12/16/24 12:16 1 STRIP Meropenem 50 ml @ 17 mls/hr Q8H IV 12/07/24 18:00 12/16/24 09:33 17 MLS/HR Insulin Human Regular Q6HR SC 12/07/24 18:00 12/15/24 06:47 2 UNITS Dextrose 50 ml UD PRN IV 12/07/24 15:30 Ipratropium [place] 0.5 mg Q4HR NEB 12/07/24 16:45 12/16/24 14:30 0.5 MG Enteral Nutritional Formula 1,000 ml 50ML/HR GT 12/07/24 16:45 12/15/24 20:55 1,000 ML Atorvastatin Calcium 40 mg HS NG 12/07/24 22:00 12/15/24 23:31 40 MG Albuterol 2.5 mg Q4HR NEB 12/08/24 18:00 12/16/24 14:30 2.5 MG Albuterol 2.5 mg Q2HPRN PRN NEB 12/08/24 16:30 Acetaminophen 650 mg Q6HP PRN GT 12/09/24 18:30 12/12/24 02:22 650 MG Dopamine HCl/ Dextrose 250 ml @ 7.313 mls/ hr Q24H IV 12/11/24 13:15 12/14/24 23:06 23.4 MLS/HR Vancomycin HCl 0 ml @ 0 mls/hr UD IV 12/12/24 17:15 Methylprednisolone Sodium Succinate 40 mg Q12H IV 12/13/24 03:00 12/16/24 14:51 40 MG Fentanyl Citrate 250 ml @ 2.5 mls/hr Q24H IV 12/13/24 19:30 12/15/24 01:38 12.5 MLS/HR Lactulose 30 ml Q6HR PO 12/14/24 15:00 12/15/24 17:37 30 ML Polyethylene Glycol 17 gm DAILY PO 12/15/24 10:00 12/16/24 09:33 17 GM Sodium Chloride 10 ml QSHIFT@10,22 IV 12/14/24 22:00 12/16/24 09:33 10 ML Vancomycin HCl 250 ml @ 250 mls/hr Q12H IV 12/15/24 23:00 12/16/24 11:00 250 MLS/HR Propofol 100 ml @ 2.379 mls/ hr Q24H IV 12/15/24 17:45 12/16/24 04:29 9.516 MLS/HR Examination Physical examination: General Appearance: Alert, Oriented X2, agitated, No acute distress HEENT: Atraumatic, PERRLA, EOMI, Mucous membrane moist/pink Respiratory: Bilateral fine crackles Cardiovascular: Regular rate, Normal S1, Normal S2, No murmurs, no chest wall tenderness Abdominal: Normal bowel sounds, Soft, No tenderness, No hepatospenomegaly, No masses Extremities: No clubbing, No cyanosis, No edema, Normal pulses, No tenderness/swelling Skin: No rashes, No breakdown, No significant lesion Neuro:Normal speech, Strength at 5/5 X4 ext, Normal tone, Sensation intact, Cranial nerves 3-12 NL, Reflexes 2+ Psych/Mental Status: Could not be assessed. laboratory and microbiology Laboratory Tests 12/16/24 03:02 Test 12/16/24 03:02 Range/Units Serum Glucose 109 H 74-106 mg/dL Microbiology Date/Time Source Procedure Growth Status 12/12/24 23:02 Sputum Gram Stain - Final Resulted 12/12/24 23:02 Sputum Respiratory Culture - Preliminary Resulted 12/12/24 09:50 Blood Blood Culture - Preliminary NO GROWTH AFTER 72 HOURS OF INCUBATION. Resulted 12/06/24 22:58 Nose MRSA Screen - Final Complete 12/06/24 14:30 Voided Urine Urine Culture - Final Complete Labs and/or images reviewed: Labs reviewed by me, Image(s) reviewed by me Problem List/Assessment/Plan Problem List/Assessment/Plan Assessment and plan: NEURO: Acute metabolic encephalopathy likely secondary to acute hypoxemic/hypercapnic respiratory failure S/P extubation CARDIOVASCULAR: Septic shock likely secondary to pneumonia Possible NSTEMI type 2 due to above History of CAD with status post PTCA x4 ( March 2024) Paroxysmal atrial fibrillation with secondary hypercoagulable state Acute on Chronic diastolic heart failure with preserved ejection fraction Sinus bradycardia - EEG was unremarkable, troponins was initially elevated than dropped and became flat - echo on 12/29 demonstrated EF 45%, mild global LV hypokinesis, RVSP 49 mm Hg - chest x-ray showed bilateral flat diaphragm, hyperinflated lung field and possible right lower lobe opacity - Ekg showed sinus bradycardia - IV dopamine 2.5 mcg as per protocol PULMONARY: Acute hypoxic/hypercapnic respiratory failure Acute exacerbation of chronic COPD Gram-positive/Gram-negative pneumonia Pulmonary hypertension - chest x-ray showed bilateral flat diaphragm, hyperinflated lung field and possible right lower lobe opacity - respiratory cultures are unremarkable - med neb with levalbuterol and ipratropium q.4 hours - IV Solu-Medrol 40 mg b.i.d. - Continue IV vancomycin as per pharmacy , and IV meropenem GENITOURINARY: ANDREY on CKD secondary to shock/ VMN - strict I&O ENDOCRINE: Possible euthyroid sick syndrome METABOLIC: Hypernatremia - Free water 200 mL q.6 hours INFECTIOUS DISEASE: Possible Gram-positive versus Gram-negative pneumonia - blood culture showed Gram-positive cocci in cluster and change - continue IV vancomycin , and meropenem - blood culture is unremarkable and sputum culture showed Gram-negative rods DIET: Pureed diet DVT prophylax: Hold Lovenox GI prophylaxis: Protonix Bowel regimen: Lactulose Code status: Full code LINES/DRAINS/ACCESS: IV access: Left upper arm PICC line Drips: Levophed Carpio catheter: Placed on 12/06/2024 DISPOSITION: ICU Patient's status discussed with wound care nurse time spent more than 83 minutes, including CPAP trial, patient care, chart review, and updating the family. Excluding any procedures. Case discussed with Dr. Mejia Plan discussed with: Spouse, Other (RN) My Orders My Orders Orders - DANAY WILLSON RESIDENT Procedure Category Date Status Time Chest Portable XY 12/16/24 Resulted 04:00 Abg W/ Co-Ox RT 12/16/24 Logged 04:00 Pureed DIET 12/16/24 Transmitted Dinner Pt Request For Service PT 12/16/24 Logged 15:31 Dietary Evaluation Review Comments: 1. May increase Vital High Protein @55ml/hr, providing 1320kcal, 115g Protein 1104ml free water, adding energy with Propofol 95kcal, the total enrgy provided will be 1295kcal meeting 83% of his energy needs. 2. Monitor and reassess when pt is extubated. Expected Outcomes/Goals: Meeting Pt's protein and energy needs while intubated. Sepsis reassessment post fluid Capillary Refill: < 3 seconds DANAY WILLSON RESIDENT Dec 16, 2024 15:37
[2024-12-17] VITALS (53 sets, daily range): BP systolic 95–140; BP diastolic 53–85; PULSE 65–102; RESP 13–30; TEMP 99–100.4; O2SAT 92–100
[2024-12-17 03:46] LABS: Hematocrit 43.4 % (41.0-53.0); Hemoglobin 15.1 g/dL (13.5-17.5); Mean Corpuscular Hemoglobin 32.9 pg (28.0-32.0); Mean Corpuscular Volume 94.8 fL (80.0-100.0); Nucleated Red Blood Cells % 0.0 %
[2024-12-17 03:53] LABS: Anion Gap 8 (5-15); Carbon Dioxide 30 mmol/L (20-31); Chloride 100 mmol/L (98-107); Potassium 3.5 mmol/L (3.5-5.1); Sodium 138 mmol/L (136-145)
[2024-12-17 03:59] LABS: BUN/Creatinine Ratio 28.8 (10.0-20.0); Blood Urea Nitrogen 21 mg/dL (9-23); Glucose 89 mg/dL (74-106)
[2024-12-17 04:00] LABS: Calcium 8.2 mg/dL (8.7-10.4)
--- NOTE | 2024-12-17 05:39 | DVH ---
CHEST RADIOGRAPH Indication: Status post extubation Technique: Single frontal view of the chest was obtained COMPARISON: XY CHEST PORTABLE on DOS: 12/16/24, XY CHEST PORTABLE on DOS: 12/15/24, XY CHEST PORTABLE o n DOS: 12/14/24, XY CHEST PORTABLE on DOS: 12/13/24, XY CHEST PORTABLE on DOS: 12/12/24 FINDINGS: Lines and Tubes: Status post interval extubation and removal of enteric catheter. Right peripherally inserted central catheter unchanged. Lungs: Interval decrease in prominence of the pulmonary vasculature with mild residual right basilar pulmonary airspace disease. Pleura: No effusion. No pneumothorax. Cardiomediastinal contours: Unremarkable Bones: Unremarkable IMPRESSION: 1. Interval extubation and removal of enteric catheter. 2. Interval decrease in prominence of the pulmonary vasculature with mild residual right basilar pulm onary airspace disease.
--- NOTE | 2024-12-17 12:48 | DVHPN2 ---
Progress Note - Dictate Date Seen: Dec 17, 2024 Has the PT tested + for MRSA If YES, has PT been informed?: No Medical Necessity Reason Pt with a Central, PICC or Fol: Yes The following are medically ne: Central Line, Carpio Catheter vital signs Vital Sign Date Time Temp Pulse Resp B/P (MAP) Pulse Ox O2 Delivery O2 Flow Rate FiO2 12/17/24 11:31 100.2 84 25 120/71 (87) 94 212.4 12/17/24 10:00 Nasal Cannula* 2 28 Total Intake and Output 12/16/24 12/16/24 12/17/24 15:00 23:00 07:00 Intake Total 372.495 ml 705.483 ml 1311 ml Output Total 1300 ml Balance 372.495 ml 705.483 ml 11 ml medications Current Medications Medications Dose Ordered Sig/Alejo Route Start Time Stop Time Status Last Admin Dose Admin Midazolam HCl 50 ml @ 1 mls/hr Q24H IV 12/06/24 08:45 12/15/24 13:24 2 MLS/HR Norepinephrine Bitartrate 250 ml @ 3.75 mls/hr Q24H IV 12/06/24 09:15 12/16/24 17:58 7.5 MLS/HR Clopidogrel Bisulfate 75 mg DAILY PO 12/07/24 10:00 12/17/24 09:52 75 MG Pantoprazole Sodium 40 mg DAILY IV 12/07/24 10:00 12/17/24 09:51 40 MG Vasopressin 20 units/Sodium Chloride 100 ml @ 9 mls/hr Q11H7M IV 12/06/24 20:30 Diagnostic Test (Pha) 1 strip Q6HR 12/07/24 12:00 12/17/24 11:32 1 STRIP Meropenem 50 ml @ 17 mls/hr Q8H IV 12/07/24 18:00 12/17/24 09:52 17 MLS/HR Insulin Human Regular Q6HR SC 12/07/24 18:00 12/15/24 06:47 2 UNITS Dextrose 50 ml UD PRN IV 12/07/24 15:30 Ipratropium [place] 0.5 mg Q4HR NEB 12/07/24 16:45 12/17/24 09:09 0.5 MG Enteral Nutritional Formula 1,000 ml 50ML/HR GT 12/07/24 16:45 12/15/24 20:55 1,000 ML Atorvastatin Calcium 40 mg HS NG 12/07/24 22:00 12/16/24 21:35 40 MG Albuterol 2.5 mg Q4HR NEB 12/08/24 18:00 12/17/24 09:09 2.5 MG Albuterol 2.5 mg Q2HPRN PRN NEB 12/08/24 16:30 Acetaminophen 650 mg Q6HP PRN GT 12/09/24 18:30 12/17/24 04:48 650 MG Dopamine HCl/ Dextrose 250 ml @ 7.313 mls/ hr Q24H IV 12/11/24 13:15 12/14/24 23:06 23.4 MLS/HR Vancomycin HCl 0 ml @ 0 mls/hr UD IV 12/12/24 17:15 Methylprednisolone Sodium Succinate 40 mg Q12H IV 12/13/24 03:00 12/17/24 04:20 40 MG Fentanyl Citrate 250 ml @ 2.5 mls/hr Q24H IV 12/13/24 19:30 12/15/24 01:38 12.5 MLS/HR Lactulose 30 ml Q6HR PO 12/14/24 15:00 12/17/24 11:32 30 ML Polyethylene Glycol 17 gm DAILY PO 12/15/24 10:00 12/17/24 09:52 17 GM Sodium Chloride 10 ml QSHIFT@10,22 IV 12/14/24 22:00 12/17/24 09:52 10 ML Vancomycin HCl 250 ml @ 250 mls/hr Q12H IV 12/15/24 23:00 12/16/24 23:02 250 MLS/HR Propofol 100 ml @ 2.379 mls/ hr Q24H IV 12/15/24 17:45 12/16/24 04:29 9.516 MLS/HR Bacitracin/ Polymyxin B Sulfate 1 applic TID OP 12/17/24 14:00 laboratory and microbiology Laboratory Tests 12/17/24 03:18 Test 12/17/24 03:18 Range/Units Serum Glucose 89 74-106 mg/dL Assessment/Plan Covering for Dr. Matute Impression Acute hypoxemic respiratory failure Bradycardia Cardiomyopathy CHF Patient seen and examined in ICU Events S/p extubation c/o pain Labs and imaging reviewed ABG reviewed Management suppl 02 diet as tolerated Continue antibiotics F/u cultures Bronchodilators Monitor renal function Monitor electrolytes Supplement as needed Pressors as needed for hemodynamic support To maintain a mean arterial pressure of 65 mmHg DVT prophylaxis Critical care time 35 minutes Dietary Evaluation Review Comments: 1. May increase Vital High Protein @55ml/hr, providing 1320kcal, 115g Protein 1104ml free water, adding energy with Propofol 95kcal, the total enrgy provided will be 1295kcal meeting 83% of his energy needs. 2. Monitor and reassess when pt is extubated. Expected Outcomes/Goals: Meeting Pt's protein and energy needs while intubated. Plan discussed with: Patient Capillary Refill: < 3 seconds KATIE PAN MD Dec 17, 2024 12:48
[2024-12-17] MEDS: BACITRACIN-POLYMYXIN B OPTH(EYE) OINT 3.5GM OP SCH (13:35)
[2024-12-17] MEDS: VANCOMYCIN 750MG KIT 100 ML IV SCH (18:00)
--- NOTE | 2024-12-17 18:26 | DVHPN2 ---
Subjective 68-year-old male with a known history of chronic AFib, congestive heart failure with diastolic dysfunction, known coronary artery disease status post PCI with a four stents, dyslipidemia, initially presented to the hospital with a acute shortness of breaths found to have acute COPD exacerbation with a acute hypoxic respiratory failure status post intubation, status post extubation currently in ICU but has a tele downgraded orders. Reviewed: Care Plan, H&P, Labs, Medications, Previous Orders, Radiology Changes from previous H/P or p: No Changes Objective Vitals Vital Signs Date Time Temp Pulse Resp B/P (MAP) Pulse Ox O2 Delivery O2 Flow Rate FiO2 12/17/24 18:00 20 97 Nasal Cannula* 2 28 12/17/24 18:00 99.7 78 138/70 (92) 211.5 Intake/Output Intake and Output 12/17/24 07:00 Intake Total 2388.978 ml Output Total 1300 ml Balance 1088.978 ml Intake Oral 1560 ml IV Total 828.978 ml Output Urine Total 1300 ml Exam HEENT pupils are reactive Neck is supple CV is S1-S2 S2 regular rate and rhythm Respiratory diminished breath sounds bases GI positive bowel sounds Extremity no 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 General Appearance: Other (Intubated, on vent) HEENT: Atraumatic, Other (ETT tube intact) Cardiovascular: Regular rate, Normal S1, Normal S2, No murmurs, Gallops, Rubs Abdomen: Normal bowel sounds, Soft, No tenderness Neuro: Cranial nerves 3-12 NL Psych/Mental Status: Mental status NL Medications Current Medications Medications Dose Ordered Sig/Alejo Route Start Time Stop Time Status Last Admin Dose Admin Midazolam HCl 50 ml @ 1 mls/hr Q24H IV 12/06/24 08:45 12/15/24 13:24 2 MLS/HR Norepinephrine Bitartrate 250 ml @ 3.75 mls/hr Q24H IV 12/06/24 09:15 12/16/24 17:58 7.5 MLS/HR Clopidogrel Bisulfate 75 mg DAILY PO 12/07/24 10:00 12/17/24 09:52 75 MG Pantoprazole Sodium 40 mg DAILY IV 12/07/24 10:00 12/17/24 09:51 40 MG Vasopressin 20 units/Sodium Chloride 100 ml @ 9 mls/hr Q11H7M IV 12/06/24 20:30 Diagnostic Test (Pha) 1 strip Q6HR 12/07/24 12:00 12/17/24 18:20 1 STRIP Meropenem 50 ml @ 17 mls/hr Q8H IV 12/07/24 18:00 12/17/24 17:51 17 MLS/HR Insulin Human Regular Q6HR SC 12/07/24 18:00 12/15/24 06:47 2 UNITS Dextrose 50 ml UD PRN IV 12/07/24 15:30 Ipratropium [place] 0.5 mg Q4HR NEB 12/07/24 16:45 12/17/24 13:28 0.5 MG Enteral Nutritional Formula 1,000 ml 50ML/HR GT 12/07/24 16:45 12/15/24 20:55 1,000 ML Atorvastatin Calcium 40 mg HS NG 12/07/24 22:00 12/16/24 21:35 40 MG Albuterol 2.5 mg Q4HR NEB 12/08/24 18:00 12/17/24 13:28 2.5 MG Albuterol 2.5 mg Q2HPRN PRN NEB 12/08/24 16:30 Acetaminophen 650 mg Q6HP PRN GT 12/09/24 18:30 12/17/24 04:48 650 MG Dopamine HCl/ Dextrose 250 ml @ 7.313 mls/ hr Q24H IV 12/11/24 13:15 12/14/24 23:06 23.4 MLS/HR Vancomycin HCl 0 ml @ 0 mls/hr UD IV 12/12/24 17:15 Methylprednisolone Sodium Succinate 40 mg Q12H IV 12/13/24 03:00 12/17/24 13:47 40 MG Fentanyl Citrate 250 ml @ 2.5 mls/hr Q24H IV 12/13/24 19:30 12/15/24 01:38 12.5 MLS/HR Lactulose 30 ml Q6HR PO 12/14/24 15:00 12/17/24 11:32 30 ML Polyethylene Glycol 17 gm DAILY PO 12/15/24 10:00 12/17/24 09:52 17 GM Sodium Chloride 10 ml QSHIFT@10,22 IV 12/14/24 22:00 12/17/24 09:52 10 ML Propofol 100 ml @ 2.379 mls/ hr Q24H IV 12/15/24 17:45 12/16/24 04:29 9.516 MLS/HR Bacitracin/ Polymyxin B Sulfate 1 applic TID OP 12/17/24 14:00 12/17/24 13:35 1 APPLIC Vancomycin HCl 100 ml @ 100 mls/hr Q12H IV 12/17/24 18:00 Laboratory Results Laboratory Tests 12/17/24 03:18 Chemistry Test 12/17/24 03:18 Calcium Level 8.2 mg/dL (8.7-10.4) L Urinalysis Test 12/06/24 10:43 12/12/24 09:45 Urine Hyaline Casts Many /lpf (0 - 2) Urine Color Light-yellow (Yellow) Urine Clarity Clear (Clear) Urine pH 5.5 (5.0-9.0) Urine Specific [place] 1.018 (1.001-1.035) Urine Protein Negative (Negative) Urine Ketones Negative (Negative) Urine Blood 1+ /uL (Negative) H Urine Nitrite Negative (Negative) Urine Bilirubin Negative (Negative) Urine Urobilinogen Normal mg/dL (Negative) Urine Leukocyte Esterase Negative /uL (Negative) Urine RBC 5 /hpf (0 - 3) Urine Microscopic WBC 2 /HPF (0-3) Urine Squamous Epithelial Cells Few /hpf (<5) Urine Bacteria Few /hpf (None Seen) H Urine Mucus Few (None Seen) Urine Glucose 3+ mg/dL (Normal) H Microbiology Microbiology Date/Time Source Procedure Growth Status 12/12/24 23:02 Sputum Gram Stain - Final Complete 12/12/24 23:02 Respiratory Culture - Final Klebsiella pneumoniae Complete 12/12/24 09:50 Blood Blood Culture - Final NO GROWTH AFTER 5 DAYS OF INCUBATION. Complete 12/06/24 22:58 Nose MRSA Screen - Final Complete 12/06/24 14:30 Voided Urine Urine Culture - Final Complete Assessment/Plan Assessment/Plan 68-year-old male with a known history of chronic AFib, congestive heart failure with diastolic dysfunction, known coronary artery disease status post PCI with a four stents, dyslipidemia, initially presented to the hospital with a acute shortness of breaths found to have acute COPD exacerbation with a acute hypoxic respiratory failure status post intubation, status post extubation currently in ICU but has a tele orders. 1. Acute metabolic encephalopathy currently resolved 2. Acute hypoxic and hypercapnic respiratory failure status post intubation, status post extubation 3. Leukocytosis likely reactive 4. NSTEMI type 2 5. Known CAD status post PCI 6. Paroxysmal AFib currently in normal sinus rhythm 7. Acute CHF exacerbation with systolic dysfunction currently compensated 8. Pulmonary hypertension 9. Pneumonia 10. Acute COPD exacerbation, 11. AKA with a underlying CKD currently improved Continue Solu-Medrol, PT evaluation and treatment, downgraded to telemetry. Plan discussed with: Patient Date of Service: Dec 17, 2024 Billing Provider: MONA PAK MD Common Visit Codes: [id number] INP/OBS CARE(MOD) MONA PAK MD Dec 17, 2024 18:26
[2024-12-18] VITALS (32 sets, daily range): BP systolic 95–137; BP diastolic 66–90; PULSE 73–95; RESP 16–32; TEMP 98–100.2; O2SAT 91–99
[2024-12-18 03:25] LABS: Hematocrit 44.3 % (41.0-53.0); Hemoglobin 15.4 g/dL (13.5-17.5); Mean Corpuscular Hemoglobin 32.6 pg (28.0-32.0); Mean Corpuscular Volume 93.6 fL (80.0-100.0); Nucleated Red Blood Cells % 0.0 %
[2024-12-18 03:29] LABS: Chloride 101 mmol/L (98-107); Potassium 3.6 mmol/L (3.5-5.1); Sodium 138 mmol/L (136-145)
[2024-12-18 03:30] LABS: Anion Gap 8 (5-15); Carbon Dioxide 29 mmol/L (20-31)
[2024-12-18 03:35] LABS: BUN/Creatinine Ratio 22.1 (10.0-20.0); Blood Urea Nitrogen 17 mg/dL (9-23); Glucose 96 mg/dL (74-106)
[2024-12-18 04:03] LABS: Calcium 8.2 mg/dL (8.7-10.4)
--- NOTE | 2024-12-18 14:04 | DVHPN2 ---
Progress Note - Dictate Date Seen: Dec 18, 2024 Has the PT tested + for MRSA If YES, has PT been informed?: No Medical Necessity Reason Pt with a Central, PICC or Fol: Yes The following are medically ne: Central Line, Carpio Catheter vital signs Vital Sign Date Time Temp Pulse Resp B/P (MAP) Pulse Ox O2 Delivery O2 Flow Rate FiO2 12/18/24 13:00 98.6 89 22 135/90 (105) 93 98.6 12/18/24 10:32 2.0 28 12/18/24 10:20 Nasal Cannula Total Intake and Output 12/17/24 12/17/24 12/18/24 15:00 23:00 07:00 Intake Total 1250 ml 751 ml 501 ml Output Total 800 ml 1130 ml Balance 1250 ml -49 ml -629 ml medications Current Medications Medications Dose Ordered Sig/Alejo Route Start Time Stop Time Status Last Admin Dose Admin Clopidogrel Bisulfate 75 mg DAILY PO 12/07/24 10:00 12/18/24 10:04 75 MG Pantoprazole Sodium 40 mg DAILY IV 12/07/24 10:00 12/18/24 10:04 40 MG Diagnostic Test (Pha) 1 strip Q6HR 12/07/24 12:00 12/18/24 12:00 1 STRIP Meropenem 50 ml @ 17 mls/hr Q8H IV 12/07/24 18:00 12/18/24 10:03 17 MLS/HR Insulin Human Regular Q6HR SC 12/07/24 18:00 12/15/24 06:47 2 UNITS Dextrose 50 ml UD PRN IV 12/07/24 15:30 Ipratropium [place] 0.5 mg Q4HR NEB 12/07/24 16:45 12/18/24 10:20 0.5 MG Atorvastatin Calcium 40 mg HS NG 12/07/24 22:00 12/17/24 22:18 40 MG Albuterol 2.5 mg Q4HR NEB 12/08/24 18:00 12/18/24 10:20 2.5 MG Albuterol 2.5 mg Q2HPRN PRN NEB 12/08/24 16:30 Acetaminophen 650 mg Q6HP PRN GT 12/09/24 18:30 12/17/24 04:48 650 MG Vancomycin HCl 0 ml @ 0 mls/hr UD IV 12/12/24 17:15 Methylprednisolone Sodium Succinate 40 mg Q12H IV 12/13/24 03:00 12/18/24 03:00 40 MG Lactulose 30 ml Q6HR PO 12/14/24 15:00 12/17/24 11:32 30 ML Polyethylene Glycol 17 gm DAILY PO 12/15/24 10:00 12/17/24 09:52 17 GM Sodium Chloride 10 ml QSHIFT@10,22 IV 12/14/24 22:00 12/18/24 10:04 10 ML Bacitracin/ Polymyxin B Sulfate 1 applic TID OP 12/17/24 14:00 12/18/24 06:26 1 APPLIC Vancomycin HCl 100 ml @ 100 mls/hr Q12H IV 12/17/24 18:00 12/18/24 06:26 100 MLS/HR laboratory and microbiology Laboratory Tests 12/18/24 02:58 Test 12/18/24 02:58 Range/Units Serum Glucose 96 74-106 mg/dL Assessment/Plan Covering for Dr. Matute Impression Acute hypoxemic respiratory failure Bradycardia Cardiomyopathy CHF Patient seen and examined in ICU Events S/p extubation Low oxygen requirements On 2 liters nasal cannula No acute events Labs and imaging reviewed ABG reviewed Management suppl 02 diet as tolerated Continue antibiotics F/u cultures Bronchodilators Monitor renal function Monitor electrolytes Supplement as needed Okay to downgrade from pulmonary standpoint DVT prophylaxis Critical care time 35 minutes Dietary Evaluation Review Comments: 1. May increase Vital High Protein @55ml/hr, providing 1320kcal, 115g Protein 1104ml free water, adding energy with Propofol 95kcal, the total enrgy provided will be 1295kcal meeting 83% of his energy needs. 2. Monitor and reassess when pt is extubated. Expected Outcomes/Goals: Meeting Pt's protein and energy needs while intubated. Plan discussed with: Patient Capillary Refill: < 3 seconds KATIE PAN MD Dec 18, 2024 14:04
--- NOTE | 2024-12-18 17:36 | DVH ---
EXAM: CT CT AB PEL WO CON-NO ORAL OR IV INDICATION: Abdomen distention and firmness TECHNIQUE: Volumetric multidetector CT images of the abdomen and pelvis were obtained without contras t. All CT scans at this facility use dose modulation, iterative reconstruction, and/or weight based d osing when appropriate to reduce radiation dose to as low as reasonably achievable. COMPARISON: None FINDINGS: [LOWER CHEST]: Trace right-sided pleural effusion. Partial collapse of the right lower lobe with the adjacent peribronchovascular thickening. Correlate for endobronchial impaction in bilateral lower lo bes. Pneumatocele of the periphery of the left lower lobe. The cardiac size is normal without pericar dial effusion. [LIVER]: Normal hepatic size without suspicious focal lesion. [GALLBLADDER AND BILIARY TREE]: No cholelithiasis. [SPLEEN]: Unremarkable. [PANCREAS]: Unremarkable. [ADRENAL GLANDS]: Unremarkable [KIDNEYS]: No hydronephrosis. No nephroureterolithiasis. [BLADDER]: Carpio catheter in place [REPRODUCTIVE ORGANS]: Unremarkable. [BOWEL/MESENTERY]: Air-fluid level of the stomach prominent air-fluid level and distention of the asc ending colon. Additional air-fluid level distention of the small bowel loops and distal colon extend ing to the rectum however most conspicuous of the ascending to proximal transverse colon, which measu res up to 8.9 cm. No discrete transition point. Correlate for ileus versus partial bowel obstruction . [ASCITES]: Absent [LYMPHADENOPATHY]: No pathologically enlarged lymph nodes by CT size criteria [VASCULATURE]: No aneurysmal dilatation. [ABDOMINAL WALL]: Unremarkable. [MUSCULOSKELETAL]: No acute fracture or aggressive focal osseous lesion. Multifocal degenerative kc ge of the visualized spine. IMPRESSION: 1. Air-fluid level distention of the stomach, small bowel loops, and distal colon extending to the re ctum however most conspicuous of the ascending to proximal transverse colon, which measures up to 8.9 cm. 2. No discrete transition point. 3. Correlate for ileus versus partial bowel obstruction. 4. Trace right-sided pleural effusion. 5. Partial collapse of the right lower lobe with the adjacent peribronchovascular thickening. 6. Correlate for endobronchial impaction in bilateral lower lobes.
--- NOTE | 2024-12-18 17:55 | DVHPN2 ---
Subjective 68-year-old male with a known history of chronic AFib, congestive heart failure with diastolic dysfunction, known coronary artery disease status post PCI with a four stents, dyslipidemia, initially presented to the hospital with a acute shortness of breaths found to have acute COPD exacerbation with a acute hypoxic respiratory failure status post intubation, status post extubation currently in ICU but has a tele downgraded orders. Reviewed: Care Plan, H&P, Labs, Medications, Previous Orders, Radiology Changes from previous H/P or p: No Changes Objective Vitals Vital Signs Date Time Temp Pulse Resp B/P (MAP) Pulse Ox O2 Delivery O2 Flow Rate FiO2 12/18/24 13:00 98.6 89 22 135/90 (105) 93 98.6 12/18/24 10:32 2.0 28 12/18/24 10:20 Nasal Cannula Intake/Output Intake and Output 12/18/24 07:00 Intake Total 2502 ml Output Total 1930 ml Balance 572 ml Intake Oral 2150 ml IV Total 352 ml Output Urine Total 1930 ml # Bowel Movements 5 Exam HEENT pupils are reactive Neck is supple CV is S1-S2 S2 regular rate and rhythm Respiratory diminished breath sounds bases GI positive bowel sounds 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 General Appearance: Other (Intubated, on vent) HEENT: Atraumatic, Other (ETT tube intact) Cardiovascular: Regular rate, Normal S1, Normal S2, No murmurs, Gallops, Rubs Abdomen: Normal bowel sounds, Soft, No tenderness Neuro: Cranial nerves 3-12 NL Psych/Mental Status: Mental status NL Medications Current Medications Medications Dose Ordered Sig/Alejo Route Start Time Stop Time Status Last Admin Dose Admin Clopidogrel Bisulfate 75 mg DAILY PO 12/07/24 10:00 12/18/24 10:04 75 MG Pantoprazole Sodium 40 mg DAILY IV 12/07/24 10:00 12/18/24 10:04 40 MG Diagnostic Test (Pha) 1 strip Q6HR 12/07/24 12:00 12/18/24 12:00 1 STRIP Meropenem 50 ml @ 17 mls/hr Q8H IV 12/07/24 18:00 12/18/24 10:03 17 MLS/HR Insulin Human Regular Q6HR SC 12/07/24 18:00 12/15/24 06:47 2 UNITS Dextrose 50 ml UD PRN IV 12/07/24 15:30 Ipratropium [place] 0.5 mg Q4HR NEB 12/07/24 16:45 12/18/24 10:20 0.5 MG Atorvastatin Calcium 40 mg HS NG 12/07/24 22:00 12/17/24 22:18 40 MG Albuterol 2.5 mg Q4HR NEB 12/08/24 18:00 12/18/24 10:20 2.5 MG Albuterol 2.5 mg Q2HPRN PRN NEB 12/08/24 16:30 Acetaminophen 650 mg Q6HP PRN GT 12/09/24 18:30 12/17/24 04:48 650 MG Vancomycin HCl 0 ml @ 0 mls/hr UD IV 12/12/24 17:15 Methylprednisolone Sodium Succinate 40 mg Q12H IV 12/13/24 03:00 12/18/24 14:37 40 MG Sodium Chloride 10 ml QSHIFT@10,22 IV 12/14/24 22:00 12/18/24 10:04 10 ML Bacitracin/ Polymyxin B Sulfate 1 applic TID OP 12/17/24 14:00 12/18/24 14:37 1 APPLIC Vancomycin HCl 100 ml @ 100 mls/hr Q12H IV 12/17/24 18:00 12/18/24 06:26 100 MLS/HR Laboratory Results Laboratory Tests 12/18/24 02:58 Chemistry Test 12/18/24 02:58 Calcium Level 8.2 mg/dL (8.7-10.4) L Urinalysis Test 12/06/24 10:43 12/12/24 09:45 Urine Hyaline Casts Many /lpf (0 - 2) Urine Color Light-yellow (Yellow) Urine Clarity Clear (Clear) Urine pH 5.5 (5.0-9.0) Urine Specific [place] 1.018 (1.001-1.035) Urine Protein Negative (Negative) Urine Ketones Negative (Negative) Urine Blood 1+ /uL (Negative) H Urine Nitrite Negative (Negative) Urine Bilirubin Negative (Negative) Urine Urobilinogen Normal mg/dL (Negative) Urine Leukocyte Esterase Negative /uL (Negative) Urine RBC 5 /hpf (0 - 3) Urine Microscopic WBC 2 /HPF (0-3) Urine Squamous Epithelial Cells Few /hpf (<5) Urine Bacteria Few /hpf (None Seen) H Urine Mucus Few (None Seen) Urine Glucose 3+ mg/dL (Normal) H Microbiology Microbiology Date/Time Source Procedure Growth Status 12/12/24 23:02 Sputum Gram Stain - Final Complete 12/12/24 23:02 Respiratory Culture - Final Klebsiella pneumoniae Complete 12/12/24 09:50 Blood Blood Culture - Final NO GROWTH AFTER 5 DAYS OF INCUBATION. Complete 12/06/24 22:58 Nose MRSA Screen - Final Complete 12/06/24 14:30 Voided Urine Urine Culture - Final Complete Assessment/Plan Assessment/Plan 68-year-old male with a known history of chronic AFib, congestive heart failure with diastolic dysfunction, known coronary artery disease status post PCI with a four stents, dyslipidemia, initially presented to the hospital with a acute shortness of breaths found to have acute COPD exacerbation with a acute hypoxic respiratory failure status post intubation, status post extubation currently in ICU but has a tele orders. 1. Acute metabolic encephalopathy currently resolved 2. Acute hypoxic and hypercapnic respiratory failure status post intubation, status post extubation 3. Leukocytosis likely reactive 4. NSTEMI type 2 5. Known CAD status post PCI 6. Paroxysmal AFib currently in normal sinus rhythm 7. Acute CHF exacerbation with systolic dysfunction currently compensated 8. Pulmonary hypertension 9. Pneumonia 10. Acute COPD exacerbation, 11. AKA with a underlying CKD currently improved 12. Abdominal distention ruled out follow up obstruction -CT abdomen and pelvis was done which shows partial bowel obstruction/ileus, surgical consultation Continue Solu-Medrol, PT evaluation and treatment, downgraded to telemetry. Plan discussed with: Patient My Orders Orders - MONA PAK MD Procedure Category Date Status Time Ct Ab Pel Wo Con-No CT 12/18/24 Resulted Oral Or Iv 15:57 Enoxaparin Sodium PHA 12/18/24 Logged (Lovenox) 18:00 Enoxaparin Sodium PHA 12/19/24 Logged (Lovenox) 10:00 * Surgical Consult CONS 12/18/24 Transmitted Date of Service: Dec 18, 2024 Billing Provider: MONA PAK MD Common Visit Codes: [id number] INP/OBS CARE(MOD) MONA PAK MD Dec 18, 2024 17:55
[2024-12-18] MEDS: ENOXAPARIN SOD 40 MG/0.4 ML SYRINGE SC ONE (18:00)
--- NOTE | 2024-12-18 21:58 | DVHINCON2 ---
"Date of service: Dec 18, 2024 Family History: Patient reports no known family medical history. Allergies: Coded Allergies: NO KNOWN ALLERGIES (Unverified , 04/07/23) Home Meds Active Scripts Azithromycin (Zithromax) 250 Mg Tab, 250 MG PO DAILY for 5 Days, #5 TAB Prov:FELIPE BLANK MD 04/05/24 Prednisone (Prednisone) 20 Mg Tab, 20 MG PO QAM for 7 Days, #14 MG Prov:FELIPE BLANK MD 04/05/24 Clopidogrel Bisulfate (CLOPIDOGREL) 75 Mg Tab, 75 MG PO DAILY, #30 TAB 5 Refills Prov:FERNANDO MARTIN MD 03/30/24 Reported Medications Metoprolol Succinate (Metoprolol Succinate Er) 50 Mg Tab, 1 TAB PO DAILY for 90 Days, #90 03/28/24 Empagliflozin (Jardiance) 10 Mg Tab, 1 TAB PO DAILY for 90 Days, #90 03/28/24 Atorvastatin Calcium (Lipitor) 20 Mg Tab, 1 TAB PO DAILY for 90 Days, #90 03/28/24 Amiodarone Hcl (Amiodarone Hcl) 200 Mg Tab, 1 TAB PO DAILY for 90 Days, #90 03/28/24 Apixaban Base (ELIQUIS) 5 Mg Tab, 1 TAB PO BID for 30 Days, #60 03/28/24 Albuterol Sulfate (Albuterol Sulfate Hfa) 108 Mcg/Act Aer, 2 PUFF INH QID for 25 Days, #18 03/28/24 Potassium Chloride (Klor-Con 8) 8 Meq Tab, 1 TAB PO BID for 90 Days, #180 03/28/24 Torsemide (Torsemide) 20 Mg Tab, 1 TAB PO BID for 90 Days, #180 07/28/23 Current Medications Current Medications Medications (Trade) Dose Ordered Sig/Alejo Route PRN Reason Start Time Stop Time Status Last Admin Enoxaparin Sodium (Lovenox) 40 mg DAILY SC 12/19/24 10:00 Vital Signs Vital Signs Date Time Temp Pulse Resp B/P (MAP) Pulse Ox O2 Delivery O2 Flow Rate FiO2 12/18/24 21:00 99.1 88 18 123/85 (98) 93 99.1 12/18/24 18:09 Nasal Cannula 2.0 12/18/24 18:09 28 Labs/Diagnostic Data Labs Test 12/18/24 17:40 12/18/24 02:58 12/17/24 15:22 12/17/24 10:31 Range/Units POC Glucose 115 H 70-106 mg/dl White Blood Count 23.7 #H 4.4-10.8 10^3/uL Red Blood Count 4.74 4.5-5.90 10^6/uL Hemoglobin 15.4 13.5-17.5 g/dL Hematocrit 44.3 41.0-53.0 % Mean Corpuscular Volume 93.6 80.0-100.0 fL Mean Corpuscular Hemoglobin 32.6 H 28.0-32.0 pg Mean Corpuscular Hemoglobin Concent 34.8 32.0-36.0 g/dL Red Cell Distribution Width 14.7 H 11.8-14.3 % Platelet Count 157 140-450 10^3/uL Mean Platelet Volume 9.6 6.9-10.8 fL Neutrophils (%) (Auto) 90.4 H 37.0-80.0 % Lymphocytes (%) (Auto) 2.7 L 10.0-50.0 % Monocytes (%) (Auto) 6.6 0.0-12.0 % Eosinophils (%) (Auto) 0.1 0.0-7.0 % Basophils (%) (Auto) 0.2 0.0-2.0 % Neutrophils # (Auto) 21.4 H 1.6-8.6 10 ^3/uL Lymphocytes # (Auto) 0.6 0.4-5.4 10 ^3/uL Monocytes # (Auto) 1.6 H 0-1.3 10 ^3/uL Eosinophils # (Auto) 0 0-0.8 10 ^3/uL Basophils # (Auto) 0 0-0.2 10 ^3/uL Nucleated Red Blood Cells 0.0 % Sodium Level 138 136-145 mmol/L Potassium Level 3.6 3.5-5.1 mmol/L Chloride Level 101 98-107 mmol/L Carbon Dioxide Level 29 20-31 mmol/L Anion Gap 8 5-15 Blood Urea Nitrogen 17 9-23 mg/dL Creatinine 0.77 0.700-1.30 mg/dL Glomerular Filtration Rate Calc 98 >90 mL/min BUN/Creatinine Ratio 22.1 H 10.0-20.0 Serum Glucose 96 74-106 mg/dL Calcium Level 8.2 L 8.7-10.4 mg/dL Random Vancomycin Level 16.9 H 5-10 ug/mL Vancomycin Level Trough 25.2 H 5-10 ug/mL Test 12/16/24 08:55 12/15/24 07:11 12/13/24 17:08 12/12/24 13:30 Range/Units Blood Gas Specimen Type Arterial Blood Gas Sample Site Right radial Blood Gas Patient Temperature 37.0 Arterial Blood Date Drawn [id number] Arterial Blood pH 7.504 H 7.350-7.450 Arterial Blood Partial Pressure CO2 32.2 L 35.0-48.0 mmHg Arterial Blood Partial Pressure O2 57.5 L 83.0-108.0 mmHg Arterial Blood HCO3 24.8 21.0-28.0 mmol/L Arterial Blood Oxygen Saturation 90.0 L 94.0-98.0 % Arterial Blood Base Excess 2.5 -2.0-3.0 mmol/L Arterial Blood Oxyhemoglobin 89.7 L 94.0-98.0 % Arterial Blood Carboxyhemoglobin 0.1 L 0.5-1.5 % Arterial Blood Methemoglobin 0.2 0.0-1.5 % Trey Test Modified Blood Gas Total Hemoglobin 16.50 13.5-17.5 g/dL Blood Gas Modality Vent - cpap Blood Gas Spontaneous Rate 16 FiO2 % 30.0 Blood Gas Spontaneous Tidal Volume 800 Blood Gas Pressure Support 6 Blood Gas PEEP or CPAP 5.0 Blood Gas Set Respiration Rate 20.0 Blood Gas Tidal Volume 480.0 Prothrombin Time 11.1 9.3-11.8 sec Prothrombin Time INR 1.05 0.9-1.15 Activated Partial Thromboplast Time 30.3 24.5-34.5 SEC Lactic Acid Level 1.0 0.4-2.0 mmol/L Test 12/12/24 09:45 12/12/24 03:23 12/11/24 03:41 12/10/24 16:40 Range/Units Urine Color Light-yellow Yellow Urine Clarity Clear Clear Urine pH 5.5 5.0-9.0 Urine Specific [place] 1.018 1.001-1.035 Urine Protein Negative Negative Urine Ketones Negative Negative Urine Blood 1+ H Negative /uL Urine Nitrite Negative Negative Urine Bilirubin Negative Negative Urine Urobilinogen Normal Negative mg/dL Urine Leukocyte Esterase Negative Negative /uL Urine RBC 5 0 - 3 /hpf Urine Microscopic WBC 2 0-3 /HPF Urine Squamous Epithelial Cells Few <5 /hpf Urine Bacteria Few H None Seen /hpf Urine Mucus Few None Seen Urine Glucose 3+ H Normal mg/dL Magnesium Level 3.0 H 1.6-2.6 mg/dL Magnesium Lvl (Mg Sulfate Therapy) 3.14 L 4.0-7.1 mg/dL Troponin I High Sensitivity 84 *H </=54 ng/L Test 12/08/24 07:48 12/07/24 03:08 12/06/24 12:35 12/06/24 10:43 Range/Units Blood Gas Critical Value Read Back Yes Blood Gas Notified Whom bridget Price md. Blood Gas Notified Time [id number] Blood Gas Notified By sandeep Mclaughlin rt. Hemoglobin A1c 5.2 <5.7 % A1C Phosphorus Level 2.6 2.4-5.1 mg/dL Total Bilirubin 1.0 0.2-1.0 mg/dL Aspartate Amino Transferase (AST) 21 13-40 U/L Alanine Aminotransferase (ALT) 18 7-40 U/L Alkaline Phosphatase 111 46-116 U/L Total Protein 6.6 5.7-8.2 g/dL Albumin 3.9 3.2-4.8 g/dL Triglycerides Level 69 < 150 mg/dL Cholesterol Level 147 < 200 mg/dL LDL Cholesterol 92 < 100 mg/dL HDL Cholesterol 49 40-59 mg/dL Thyroid Stimulating Hormone (TSH) 0.19 L 0.55-4.78 uIU/mL Influenza Type A Antigen Negative Negative Influenza Type B Antigen Negative Negative SARS-CoV-2 Antigen (Rapid) Negative NEGATIVE Urine Hyaline Casts Many 0 - 2 /lpf Urine Opiates Screen Neg NEGATIVE Urine Fentanyl Screen Neg NEGATIVE Urine Barbiturates Screen Neg NEGATIVE Urine Phencyclidine Screen Neg NEGATIVE Urine Amphetamines Screen Neg NEGATIVE Urine Benzodiazepines Screen Neg NEGATIVE Urine Cocaine Screen Neg NEGATIVE Urine Cannabinoids Screen Neg NEGATIVE Test 12/06/24 08:45 Range/Units B-Type Natriuretic Peptide 91.18 0-100 pg/mL Microbiology Date/Time Source Procedure Growth Status 12/12/24 23:02 Sputum Gram Stain - Final Complete 12/12/24 23:02 Respiratory Culture - Final Klebsiella pneumoniae Complete 12/12/24 09:50 Blood Blood Culture - Final NO GROWTH AFTER 5 DAYS OF INCUBATION. Complete 12/06/24 22:58 Nose MRSA Screen - Final Complete 12/06/24 14:30 Voided Urine Urine Culture - Final Complete Plan/Recommendation ASSESSMENT AND PLAN: ID Problem List: \\-- Acute hypoxic and hypercapnic respiratory failure \\-- Aspiration pneumonia \\-- Chronic obstructive pulmonary disease (COPD) \\-- Heart failure \\-- Atrial fibrillation \\-- Coronary artery disease, status post percutaneous coronary intervention (PCI) with four stents (RCA and LAD, March 2020) \\-- Acute kidney injury (improved) \\-- Ileus \\-- Sepsis Assessment This is a 68-year-old male with a significant past medical history of COPD, heart failure, atrial fibrillation, and coronary artery disease (status post PCI with four stents in March 2020) who presented with an acute episode of shortness of breath, hypoxemia (SpO2 in the low 60s), and required initial CPAP followed by intubation for worsening respiratory distress. Arterial blood gas revealed acute hypoxemic and hypercapnic respiratory failure with respiratory acidosis, improving after intubation. His hospital course was marked by: -Creatinine up to 1.6 on admission, now improved to 0.74. -Troponin 712 on initial labs. -EKG showed ischemic changes. Chest X-ray initially without infiltrates; follow- up (12/17) showed interval decreased pulmonary vasculature and mild residual right basilar airspace disease, with partial right lower lobe collapse. -Lactate was elevated and improved with fluids. -Blood cultures initially positive for Staph epidermidis (1/4 bottles, from 12/11), with subsequent cultures negative. -Sputum culture (12/12) grew riley-sensitive Klebsiella pneumoniae. -White count increased over course of hospitalization (12 ? 17 ? 23.7 ? 17.2). -Vancomycin trough levels have been therapeutic. -Dopamine used for renal perfusion. -Influenza A/B, COVID-19 and urine toxicology negative. -The patient developed ileus during hospitalization, likely multifactorial from sepsis and methylpred use. Patient was extubated on 12/16 and has been stable on 2 L nasal cannula since, with mild elevated temperatures (max 100F). No open ulcers or bed sores on exam. Plan: \\-- Continue vancomycin and meropenem at present; will monitor and de-escalate antibiotics as tolerated. \\-- Suspect antibiotics can be discontinued within 2448 hours as pneumonia resolves. \\-- Monitor white count and fever curve; no further infectious disease work-up needed at this time. \\-- Taper methylprednisolone as the patients bronchitis improves. \\-- Ileus: Management remains supportive; dietary changes and consideration of nasogastric tube if required for decompression (to be managed by primary team). \\-- Dopamine titration for renal perfusion as needed. \\-- Monitor for signs of recurrent infection or respiratory decompensation. Isolation Precautions: Standard Authorized and Performed by: danielle hyatt Total critical care time: Approximately 76 minutes Due to a high probability of clinically significant, life threatening deterioration, the patient required my highest level of preparedness to intervene emergently and I personally spent this critical care time directly and personally managing the patient. This critical care time included obtaining a history; examining the patient; pulse oximetry; ordering and review of studies; arranging urgent treatment with development of a management plan; evaluation of patient's response to treatment; frequent reassessment; and, discussions with other providers. This critical care time was performed to assess and manage the high probability of imminent, life-threatening deterioration that could result in multi-organ failure. It was exclusive of separately billable procedures and treating other patients and teaching time. \\*Assessment and plan were discussed with the patient as written above. \\*Plan is subject to change pending incorporation of new incoming information/diagnostics. Updates may be added as addendum at the bottom (OR TOP) of this note. Thank you for the consult. ID will continue to follow. Please contact Infectious Diseases for any questions or concerns. Danielle Hyatt M.D. [facility] Ph: ? Teams text: Electronically signed by: Danielle Hyatt MD, 12/19/2024 \\ History: The patient's chart and medications were reviewed in detail and the patient was seen and examined. History obtained from: patient Bhaskar Gardiner is a 68-year-old male with past medical history of COPD, heart failure, atrial fibrillation, and coronary artery disease (status post PCI with four stents, RCA and LAD, in March 2020), presenting with acute shortness of breath, hypoxemia, and acute respiratory failure/intubation. Subsequent course notable for pneumonia due to riley-sensitive Klebsiella pneumoniae, blood cultures positive for Staph epidermidis (initial, presumed contaminant), sepsis, acute kidney injury now resolved, and ileus. Review of Systems: A complete 10-system review of systems was completed and negative except as noted in the HPI or here. ROS: -CONSTITUTIONAL: Denies weight loss, fever, or chills outside those described above. -HEENT: Denies changes in vision or hearing. -RESPIRATORY: Positive for acute shortness of breath and cough at presentation, improved after extubation; no new symptoms. -CARDIOVASCULAR: Denies chest pain or palpitations, outside atrial fibrillation history. -GI: Denies abdominal pain, nausea, vomiting. Positive for decreased bowel function related to ileus. -: Denies dysuria or urinary frequency. -MSK: Denies myalgia or joint pain. -SKIN: Denies rash or pruritus. -NEUROLOGICAL: Denies headache or syncope. -PSYCHIATRIC: Denies recent mood changes, anxiety, or depression. Past Medical History: Diagnosis Date COPD Not specified Heart failure Not specified Atrial fibrillation Not specified Coronary artery disease, s/p PCI (four stents: RCA, LAD, Mar 2020) 03/2020 Past Surgical History: History reviewed. No pertinent surgical history provided. Home Medications: No explicit home medication list provided in this transcript. Allergies: No known drug allergies provided in this transcript. Family History: Not provided in the transcript. Social History: \\-- Tobacco: Former smoker. \\-- Alcohol: No alcohol use. \\-- Illicit drugs: No IV drug use or other illicit substances. Other social history not provided. Social Determinants of Health: Not provided in the transcript. Objective: Vital Signs on Arrival: Temperature: 97.9 F | BP: 104/63 mmHg | Pulse: 62 bpm | Respiratory rate: 18 | SpO2: 100% (on FiO2 100%) Most Recent Vital Signs: Not completely specified; currently stable on 2 L nasal cannula per transcript. Physical Exam: General: NAD Neck: Supple. No masses. HEENT: PERRL. Normal lids and conjunctiva. Moist mucous membranes. Oropharynx without lesions, exudates or excessive erythema. Normal appearance of the external aspects of the nose and ears. Heart: Regular rhythm, normal rate. No murmur. No lower extremity edema. Lungs: Normal respiratory effort. Clear to auscultation bilaterally. No wheezes. No crackles. Abdomen: Soft. Non-tender. Non-distended. No masses or abdominal hernia. Msk: No digital cyanosis. Normal strength and tone in all 4 limbs. Skin: Warm and dry, no rashes. Neuro: Alert. No facial droop or slurred speech. Extra-ocular movements intact. Sensation intact to soft touch in all 4 limbs. Psych: Appropriate mood. Full affect. Oriented to person, place, time, and situation. Lines: Not explicitly discussed in transcript. Diagnostic Studies: Available diagnostic studies were reviewed personally. Significant relevant results and findings are outlined below or addressed in the Assessment and Plan above. Pertinent Imaging: Recent imaging: -Chest X-ray (on 12/17): Interval decrease in pulmonary vasculature, mild re sidual right basilar pulmonary airspace disease, partial right lower lobe collapse (8.9 cm). -Initial chest X-ray: Without infiltrates. Microbiology: -Sputum culture (12/12): Klebsiella pneumoniae, riley-sensitive. -Blood cultures (12/11): Staph epidermidis in 1/4 bottles, repeat negative. Other Labs: -Creatinine peaked at 1.6, improved to 0.74. -BUN: 12. -Blood glucose: 106. -Troponin: 712 on admission. -White count trended up to 23.7, now 17.2. Electronically signed by: Danielle Hyatt MD, 12/19/2024 Plan discussed with: Patient DANIELLE HYATT MD Dec 18, 2024 21:58"
[2024-12-19] VITALS (18 sets, daily range): BP systolic 107–129; BP diastolic 63–87; PULSE 75–85; RESP 14–20; TEMP 98.1–99; O2SAT 92–100
[2024-12-19] MEDS: GASTROGRAFIN 120 ML SOL ONE (09:35)
[2024-12-19] MEDS: ENOXAPARIN SOD 40 MG/0.4 ML SYRINGE SC ONE (11:17)
[2024-12-19] MEDS: ENOXAPARIN SOD 40 MG/0.4 ML SYRINGE SC SCH (11:19)
[2024-12-19 12:13] LABS: Hematocrit 45.5 % (41.0-53.0); Hemoglobin 15.7 g/dL (13.5-17.5); Mean Corpuscular Hemoglobin 33.1 pg (28.0-32.0); Mean Corpuscular Volume 96.2 fL (80.0-100.0); Nucleated Red Blood Cells % 0.2 %
[2024-12-19 12:21] LABS: Chloride 103 mmol/L (98-107); Potassium 4.3 mmol/L (3.5-5.1)
[2024-12-19 12:22] LABS: Anion Gap 8 (5-15); Carbon Dioxide 24 mmol/L (20-31)
[2024-12-19 12:27] LABS: Glucose 106 mg/dL (74-106)
[2024-12-19 12:28] LABS: BUN/Creatinine Ratio 16.2 (10.0-20.0); Blood Urea Nitrogen 12 mg/dL (9-23)
[2024-12-19 12:29] LABS: Calcium 8.4 mg/dL (8.7-10.4); Sodium 135 mmol/L (136-145)
[2024-12-19] MEDS ORDERED: MEROPENEM 1GM IVPB 50 ML IV ONE (12:30)
--- NOTE | 2024-12-19 13:18 | DVHINCON2 ---
Date of service: Dec 19, 2024 Family History: Patient reports no known family medical history. Allergies: Coded Allergies: NO KNOWN ALLERGIES (Unverified , 04/07/23) Home Meds Active Scripts Azithromycin (Zithromax) 250 Mg Tab, 250 MG PO DAILY for 5 Days, #5 TAB Prov:FELIPE BLANK MD 04/05/24 Prednisone (Prednisone) 20 Mg Tab, 20 MG PO QAM for 7 Days, #14 MG Prov:FELIPE BLANK MD 04/05/24 Clopidogrel Bisulfate (CLOPIDOGREL) 75 Mg Tab, 75 MG PO DAILY, #30 TAB 5 Refills Prov:FERNANDO MARTIN MD 03/30/24 Reported Medications Metoprolol Succinate (Metoprolol Succinate Er) 50 Mg Tab, 1 TAB PO DAILY for 90 Days, #90 03/28/24 Empagliflozin (Jardiance) 10 Mg Tab, 1 TAB PO DAILY for 90 Days, #90 03/28/24 Atorvastatin Calcium (Lipitor) 20 Mg Tab, 1 TAB PO DAILY for 90 Days, #90 03/28/24 Amiodarone Hcl (Amiodarone Hcl) 200 Mg Tab, 1 TAB PO DAILY for 90 Days, #90 03/28/24 Apixaban Base (ELIQUIS) 5 Mg Tab, 1 TAB PO BID for 30 Days, #60 03/28/24 Albuterol Sulfate (Albuterol Sulfate Hfa) 108 Mcg/Act Aer, 2 PUFF INH QID for 25 Days, #18 03/28/24 Potassium Chloride (Klor-Con 8) 8 Meq Tab, 1 TAB PO BID for 90 Days, #180 03/28/24 Torsemide (Torsemide) 20 Mg Tab, 1 TAB PO BID for 90 Days, #180 07/28/23 Current Medications Current Medications Medications (Trade) Dose Ordered Sig/Alejo Route PRN Reason Start Time Stop Time Status Last Admin Enoxaparin Sodium (Lovenox) 40 mg DAILY SC 12/19/24 10:00 12/19/24 11:19 Meropenem 50 ml @ 17 mls/hr Q8HR IV 12/19/24 14:00 UNV Methylprednisolone Sodium Succinate (Solu Medrol) 40 mg DAILY IV 12/19/24 12:30 UNV Vital Signs Vital Signs Date Time Temp Pulse Resp B/P (MAP) Pulse Ox O2 Delivery O2 Flow Rate FiO2 12/19/24 12:53 98.1 76 18 107/78 (88) 96 98.1 12/19/24 08:00 Nasal Cannula* 2 28 Labs/Diagnostic Data Labs Test 12/19/24 12:40 12/19/24 11:41 12/17/24 15:22 12/16/24 08:55 Range/Units POC Glucose 115 H 70-106 mg/dl White Blood Count 17.2 #H 4.4-10.8 10^3/uL Red Blood Count 4.73 4.5-5.90 10^6/uL Hemoglobin 15.7 13.5-17.5 g/dL Hematocrit 45.5 41.0-53.0 % Mean Corpuscular Volume 96.2 80.0-100.0 fL Mean Corpuscular Hemoglobin 33.1 H 28.0-32.0 pg Mean Corpuscular Hemoglobin Concent 34.4 32.0-36.0 g/dL Red Cell Distribution Width 14.8 H 11.8-14.3 % Platelet Count 191 140-450 10^3/uL Mean Platelet Volume 9.1 6.9-10.8 fL Neutrophils (%) (Auto) 91.7 H 37.0-80.0 % Lymphocytes (%) (Auto) 1.4 L 10.0-50.0 % Monocytes (%) (Auto) 6.4 0.0-12.0 % Eosinophils (%) (Auto) 0.0 0.0-7.0 % Basophils (%) (Auto) 0.5 0.0-2.0 % Neutrophils # (Auto) 15.8 H 1.6-8.6 10 ^3/uL Lymphocytes # (Auto) 0.2 L 0.4-5.4 10 ^3/uL Monocytes # (Auto) 1.1 0-1.3 10 ^3/uL Eosinophils # (Auto) 0 0-0.8 10 ^3/uL Basophils # (Auto) 0.1 0-0.2 10 ^3/uL Nucleated Red Blood Cells 0.2 % Sodium Level 135 L 136-145 mmol/L Potassium Level 4.3 3.5-5.1 mmol/L Chloride Level 103 98-107 mmol/L Carbon Dioxide Level 24 20-31 mmol/L Anion Gap 8 5-15 Blood Urea Nitrogen 12 9-23 mg/dL Creatinine 0.74 0.700-1.30 mg/dL Glomerular Filtration Rate Calc 99 >90 mL/min BUN/Creatinine Ratio 16.2 10.0-20.0 Serum Glucose 106 74-106 mg/dL Calcium Level 8.4 L 8.7-10.4 mg/dL Vancomycin Level Trough 9.2 5-10 ug/mL Random Vancomycin Level 16.9 H 5-10 ug/mL Blood Gas Specimen Type Arterial Blood Gas Sample Site Right radial Blood Gas Patient Temperature 37.0 Arterial Blood Date Drawn [id number] Arterial Blood pH 7.504 H 7.350-7.450 Arterial Blood Partial Pressure CO2 32.2 L 35.0-48.0 mmHg Arterial Blood Partial Pressure O2 57.5 L 83.0-108.0 mmHg Arterial Blood HCO3 24.8 21.0-28.0 mmol/L Arterial Blood Oxygen Saturation 90.0 L 94.0-98.0 % Arterial Blood Base Excess 2.5 -2.0-3.0 mmol/L Arterial Blood Oxyhemoglobin 89.7 L 94.0-98.0 % Arterial Blood Carboxyhemoglobin 0.1 L 0.5-1.5 % Arterial Blood Methemoglobin 0.2 0.0-1.5 % Trey Test Modified Blood Gas Total Hemoglobin 16.50 13.5-17.5 g/dL Blood Gas Modality Vent - cpap Blood Gas Spontaneous Rate 16 FiO2 % 30.0 Blood Gas Spontaneous Tidal Volume 800 Blood Gas Pressure Support 6 Blood Gas PEEP or CPAP 5.0 Test 12/15/24 07:11 12/13/24 17:08 12/12/24 13:30 12/12/24 09:45 Range/Units Blood Gas Set Respiration Rate 20.0 Blood Gas Tidal Volume 480.0 Prothrombin Time 11.1 9.3-11.8 sec Prothrombin Time INR 1.05 0.9-1.15 Activated Partial Thromboplast Time 30.3 24.5-34.5 SEC Lactic Acid Level 1.0 0.4-2.0 mmol/L Urine Color Light-yellow Yellow Urine Clarity Clear Clear Urine pH 5.5 5.0-9.0 Urine Specific [place] 1.018 1.001-1.035 Urine Protein Negative Negative Urine Ketones Negative Negative Urine Blood 1+ H Negative /uL Urine Nitrite Negative Negative Urine Bilirubin Negative Negative Urine Urobilinogen Normal Negative mg/dL Urine Leukocyte Esterase Negative Negative /uL Urine RBC 5 0 - 3 /hpf Urine Microscopic WBC 2 0-3 /HPF Urine Squamous Epithelial Cells Few <5 /hpf Urine Bacteria Few H None Seen /hpf Urine Mucus Few None Seen Urine Glucose 3+ H Normal mg/dL Test 12/12/24 03:23 12/11/24 03:41 12/10/24 16:40 12/08/24 07:48 Range/Units Magnesium Level 3.0 H 1.6-2.6 mg/dL Magnesium Lvl (Mg Sulfate Therapy) 3.14 L 4.0-7.1 mg/dL Troponin I High Sensitivity 84 *H </=54 ng/L Blood Gas Critical Value Read Back Yes Blood Gas Notified Whom bridget Price md. Blood Gas Notified Time [id number] Blood Gas Notified By sandeep Mclaughlin rt. Test 12/07/24 03:08 12/06/24 12:35 12/06/24 10:43 12/06/24 08:45 Range/Units Hemoglobin A1c 5.2 <5.7 % A1C Phosphorus Level 2.6 2.4-5.1 mg/dL Total Bilirubin 1.0 0.2-1.0 mg/dL Aspartate Amino Transferase (AST) 21 13-40 U/L Alanine Aminotransferase (ALT) 18 7-40 U/L Alkaline Phosphatase 111 46-116 U/L Total Protein 6.6 5.7-8.2 g/dL Albumin 3.9 3.2-4.8 g/dL Triglycerides Level 69 < 150 mg/dL Cholesterol Level 147 < 200 mg/dL LDL Cholesterol 92 < 100 mg/dL HDL Cholesterol 49 40-59 mg/dL Thyroid Stimulating Hormone (TSH) 0.19 L 0.55-4.78 uIU/mL Influenza Type A Antigen Negative Negative Influenza Type B Antigen Negative Negative SARS-CoV-2 Antigen (Rapid) Negative NEGATIVE Urine Hyaline Casts Many 0 - 2 /lpf Urine Opiates Screen Neg NEGATIVE Urine Fentanyl Screen Neg NEGATIVE Urine Barbiturates Screen Neg NEGATIVE Urine Phencyclidine Screen Neg NEGATIVE Urine Amphetamines Screen Neg NEGATIVE Urine Benzodiazepines Screen Neg NEGATIVE Urine Cocaine Screen Neg NEGATIVE Urine Cannabinoids Screen Neg NEGATIVE B-Type Natriuretic Peptide 91.18 0-100 pg/mL Microbiology Date/Time Source Procedure Growth Status 12/12/24 23:02 Sputum Gram Stain - Final Complete 12/12/24 23:02 Respiratory Culture - Final Klebsiella pneumoniae Complete 12/12/24 09:50 Blood Blood Culture - Final NO GROWTH AFTER 5 DAYS OF INCUBATION. Complete 12/06/24 22:58 Nose MRSA Screen - Final Complete 12/06/24 14:30 Voided Urine Urine Culture - Final Complete Assessment patient has been given po diet despite the diagnosis of partial snmall bowel obstruction, patient very uncooperative refusing NGT , demanding to go home, e xplained the need for NGT and risks of dying from aspiration, waiting Gastrrografin small bowel series, abdomen distended but non tender. Plan discussed with: Patient DIAAN SINGLETON MD Dec 19, 2024 13:18
[2024-12-19] MEDS: VANCOMYCIN 750MG KIT 100 ML ONE (14:54)
[2024-12-19] MEDS ORDERED: VANCOMYCIN 1GM/250ML KIT 250 ML IV SCH (15:00)
[2024-12-19] MEDS: VANCOMYCIN 750MG KIT 100 ML IV SCH (15:04)
[2024-12-19] MEDS: methylPREDNISolone SOD SUCC 40 MG/ML VL IV SCH (15:14)
[2024-12-19 15:18] LABS: Base Excess 4.3 mmol/L (-2.0-3.0)
--- NOTE | 2024-12-19 16:12 | DVHPN2 ---
Consult Progress Note Date Seen: Dec 19, 2024 Subjective Patient reports: No new complaints Other Systems: The patient remains in the floor status quo, improved, no further fever. The patient is hemodynamically stable, post extubation , off of Levophed on 2 L of nasal cannula oxygen afebrile. Objective vital signs Vital Sign Date Time Temp Pulse Resp B/P (MAP) Pulse Ox O2 Delivery O2 Flow Rate FiO2 12/19/24 15:01 80 18 100 12/19/24 14:52 Nasal Cannula 2.0 12/19/24 14:52 28 12/19/24 12:53 98.1 107/78 (88) 98.1 Total Intake and Output 12/18/24 12/18/24 12/19/24 15:00 23:00 07:00 Intake Total 350 ml 500 ml Output Total 700 ml Balance -350 ml 500 ml HEENT pupils are reactive Neck is supple CV is S1-S2 S2 regular rate and rhythm Respiratory diminished breath sounds bases 2L nc. GI positive bowel sounds Extremity no edema RACE STEWARD no motor deficit medications Current Medications Medications Dose Ordered Sig/Alejo Route Start Time Stop Time Status Last Admin Dose Admin Clopidogrel Bisulfate 75 mg DAILY PO 12/07/24 10:00 12/19/24 11:19 75 MG Pantoprazole Sodium 40 mg DAILY IV 12/07/24 10:00 12/19/24 11:19 40 MG Diagnostic Test (Pha) 1 strip Q6HR 12/07/24 12:00 12/19/24 12:00 1 STRIP Insulin Human Regular Q6HR SC 12/07/24 18:00 12/15/24 06:47 2 UNITS Dextrose 50 ml UD PRN IV 12/07/24 15:30 Ipratropium [place] 0.5 mg Q4HR NEB 12/07/24 16:45 12/19/24 15:06 0.5 MG Albuterol 2.5 mg Q4HR NEB 12/08/24 18:00 12/19/24 15:06 2.5 MG Albuterol 2.5 mg Q2HPRN PRN NEB 12/08/24 16:30 Acetaminophen 650 mg Q6HP PRN GT 12/09/24 18:30 12/17/24 04:48 650 MG Vancomycin HCl 0 ml @ 0 mls/hr UD IV 12/12/24 17:15 Sodium Chloride 10 ml QSHIFT@10,22 IV 12/14/24 22:00 12/19/24 11:19 10 ML Bacitracin/ Polymyxin B Sulfate 1 applic TID OP 12/17/24 14:00 12/18/24 14:37 1 APPLIC Enoxaparin Sodium 40 mg DAILY SC 12/19/24 10:00 12/19/24 11:19 40 MG Meropenem 50 ml @ 17 mls/hr Q8HR IV 12/19/24 14:00 Methylprednisolone Sodium Succinate 40 mg DAILY IV 12/19/24 12:30 12/19/24 15:14 40 MG Vancomycin HCl 100 ml @ 100 mls/hr Q12H IV 12/19/24 15:00 12/19/24 15:04 100 MLS/HR laboratory and microbiology Laboratory Tests 12/19/24 11:41 Test 12/19/24 11:41 Range/Units Serum Glucose 106 74-106 mg/dL Problem List/Assessment/Plan Problem List/Assessment/Plan STACI CASTAÑEDA, a 68-year-old male with a significant past medical history of COPD, heart failure, atrial fibrillation, and coronary artery disease (status post PCI with four stents in March 2020) who presented with an acute episode of shortness of breath, hypoxemia (SpO2 in the low 60s), and required initial CPAP followed by intubation for worsening respiratory distress revealed acute hypoxemic and hypercapnic respiratory failure with respiratory acidosis, improving after intubation was extubated and now in 2 L of nasal cannula oxygen patient is improving, was consulted for increasing WBC while on steroids and was broadly covered with vancomycin and meropenem since 12/06/2024. Assessment: #Neutrophilic leukocytosis over course of hospitalization (12 >17 > 23.7 > 17.2 > 23.7> 17.2) likely due to steroid/methylprednisolone /demargination of neutrophils #Aspiration pneumonia, Sputum culture (12/12) grew riley-sensitive Klebsiella pneumoniae, nares MRSA negative, ruled out viral #Acute hypoxic and hypercapnic respiratory failure, needing intubation, was extubated on 12/16 improved now on 2 L of nasal cannula oxygen #Known chronic hypoxic respiratory failure with 2L RTC NC oxygen at home, baseline #MSSA bacteremia, resolved Blood cultures initially positive for Staph epidermidis (1/4 bottles, from 12/11), with subsequent cultures negative. 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 # Day 14 of vancomycin and meropenem combination with adequate trough. Discontinue antibiotics from tomorrow, Monitor for signs of recurrent infection or respiratory decompensation, follow up the fever curve rather than the WBC while the patient is on steroid. # no further infectious disease work-up needed at this time. # taper methylprednisolone as the patients bronchitis improves along with switching to oral alternatives. # consider changing Carpio's catheter, discontinue PICC or other hardware as appropriate, frequent reorientation and avoid aspiration with aspiration precautions. # Out of bed and incentive spirometry to continue. Discussed with Dr. Hyatt. Thank you for the opportunity to consult on your patient. Infectious Disease will sign off. In case of any questions please do not hesitate to reach out. Plan discussed with: Patient, Spouse, Other (Primary team) Dietary Evaluation Review Comments: 1. May increase Vital High Protein @55ml/hr, providing 1320kcal, 115g Protein 1104ml free water, adding energy with Propofol 95kcal, the total enrgy provided will be 1295kcal meeting 83% of his energy needs. 2. Monitor and reassess when pt is extubated. Expected Outcomes/Goals: Meeting Pt's protein and energy needs while intubated. DONNIE LOCKE RESIDENT Dec 19, 2024 16:12
[2024-12-19] MEDS: MEROPENEM 1GM IVPB 50 ML IV SCH (17:26)
--- NOTE | 2024-12-19 18:44 | DVHPNRES ---
Progress Note Date Seen: Dec 19, 2024 Resident Creating Document: DANAY WILLSON RESIDENT Has the PT tested + for MRSA If YES, has PT been informed?: No Medical Necessity Reason Pt with a Central, PICC or Fol: Yes The following are medically ne: Central Line, Carpio Catheter Subjective Review of Systems This is a 68-year-old male with a history of atrial fibrillation, heart failure, COPD, hyperlipidemia, and CAD s/p PCI with 4 stents (RCA 2, LAD 2 in March 2024). His last echocardiogram in June 2024 showed an EF of 60% with mild chamber dilation. He presented via EMS after one hour of acute shortness of breath. At the scene, SpO? was in the low 60s; he improved to 93% with CPAP. On arrival to the ED, he developed worsening respiratory distress and was intubated at 9 a.m. for acute hypoxemic and hypercapnic respiratory failure. Initial ABG showed respiratory acidosis, which improved post-intubation. Patient was seen and examined in the ICU. Status post extubation and on nasal Cannula 2 L. complain of abdominal distention and pain. CT abdomen pelvis without contrast demonstrated distended colon, partial SBO. Surgery recommended NPO, NG to LIS and small bowel series. Objective vital signs Vital Sign Date Time Temp Pulse Resp B/P (MAP) Pulse Ox O2 Delivery O2 Flow Rate FiO2 12/19/24 18:03 93 Nasal Cannula 2.0 12/19/24 18:03 28 12/19/24 18:03 80 20 12/19/24 16:41 98.1 129/79 (96) 98.1 Total Intake and Output 12/18/24 12/18/24 12/19/24 14:59 22:59 06:59 Intake Total 350 ml 500 ml Output Total 700 ml Balance -350 ml 500 ml medications Current Medications Medications Dose Ordered Sig/Alejo Route Start Time Stop Time Status Last Admin Dose Admin Clopidogrel Bisulfate 75 mg DAILY PO 12/07/24 10:00 12/19/24 11:19 75 MG Pantoprazole Sodium 40 mg DAILY IV 12/07/24 10:00 12/19/24 11:19 40 MG Diagnostic Test (Pha) 1 strip Q6HR 12/07/24 12:00 12/19/24 17:33 1 STRIP Insulin Human Regular Q6HR SC 12/07/24 18:00 12/15/24 06:47 2 UNITS Dextrose 50 ml UD PRN IV 12/07/24 15:30 Ipratropium [place] 0.5 mg Q4HR NEB 12/07/24 16:45 12/19/24 18:03 0.5 MG Albuterol 2.5 mg Q4HR NEB 12/08/24 18:00 12/19/24 18:03 2.5 MG Albuterol 2.5 mg Q2HPRN PRN NEB 12/08/24 16:30 Acetaminophen 650 mg Q6HP PRN GT 12/09/24 18:30 12/17/24 04:48 650 MG Vancomycin HCl 0 ml @ 0 mls/hr UD IV 12/12/24 17:15 Sodium Chloride 10 ml QSHIFT@10,22 IV 12/14/24 22:00 12/19/24 11:19 10 ML Bacitracin/ Polymyxin B Sulfate 1 applic TID OP 12/17/24 14:00 12/18/24 14:37 1 APPLIC Enoxaparin Sodium 40 mg DAILY SC 12/19/24 10:00 12/19/24 11:19 40 MG Meropenem 50 ml @ 17 mls/hr Q8HR IV 12/19/24 14:00 12/19/24 17:26 17 MLS/HR Methylprednisolone Sodium Succinate 40 mg DAILY IV 12/19/24 12:30 12/19/24 15:14 40 MG Vancomycin HCl 100 ml @ 100 mls/hr Q12H IV 12/19/24 15:00 12/19/24 15:04 100 MLS/HR Examination Physical examination: General Appearance: Alert, Oriented X3, agitated, No acute distress HEENT: Atraumatic, PERRLA, EOMI, Mucous membrane moist/pink Respiratory: Bilateral fine crackles Cardiovascular: Regular rate, Normal S1, Normal S2, No murmurs, no chest wall tenderness Abdominal: Distended, hypoactivel bowel sounds, Soft, No tenderness, No hepatospenomegaly, No masses Extremities: No clubbing, No cyanosis, No edema, Normal pulses, No tenderness/swelling Skin: No rashes, No breakdown, No significant lesion Neuro:Normal speech, Strength at 5/5 X4 ext, Normal tone, Sensation intact, Cranial nerves 3-12 NL, Reflexes 2+ Psych/Mental Status: Could not be assessed. laboratory and microbiology Laboratory Tests 12/19/24 11:41 Test 12/19/24 11:41 Range/Units Serum Glucose 106 74-106 mg/dL Microbiology Date/Time Source Procedure Growth Status 12/12/24 23:02 Sputum Gram Stain - Final Complete 12/12/24 23:02 Respiratory Culture - Final Klebsiella pneumoniae Complete 12/12/24 09:50 Blood Blood Culture - Final NO GROWTH AFTER 5 DAYS OF INCUBATION. Complete 12/06/24 22:58 Nose MRSA Screen - Final Complete 12/06/24 14:30 Voided Urine Urine Culture - Final Complete Labs and/or images reviewed: Labs reviewed by me, Image(s) reviewed by me Problem List/Assessment/Plan Problem List/Assessment/Plan Assessment and plan: NEURO: Acute metabolic encephalopathy likely secondary to acute hypoxemic/hypercapnic respiratory failure S/P mechanical ventilation RASS score: - 2 CARDIOVASCULAR: Septic shock likely secondary to pneumonia Possible NSTEMI type 2 due to above History of CAD with status post PTCA x4 ( March 2024) Paroxysmal atrial fibrillation with secondary hypercoagulable state Acute on Chronic diastolic heart failure with preserved ejection fraction Sinus bradycardia - EEG was unremarkable, troponins was initially elevated than dropped and became flat - echo on 12/29 demonstrated EF 45%, mild global LV hypokinesis, RVSP 49 mm Hg - chest x-ray showed bilateral flat diaphragm, hyperinflated lung field and possible right lower lobe opacity - Ekg showed sinus bradycardia - IV dopamine 2.5 mcg as per protocol - IV Lasix 20 mg once PULMONARY: Acute hypoxic/hypercapnic respiratory failure Acute exacerbation of chronic COPD Gram-positive/Gram-negative pneumonia Pulmonary hypertension - chest x-ray showed bilateral flat diaphragm, hyperinflated lung field and possible right lower lobe opacity - respiratory cultures are unremarkable - med neb with levalbuterol and ipratropium q.4 hours - IV Solu-Medrol 40 mg b.i.d. - Continue IV vancomycin as per pharmacy , and IV meropenem GASTROINTESTINAL: Partial SBO/ ileus - CT abdomen pelvis without contrast showed Air-fluid level distention of the stomach, small bowel loops, and distal colon extending to the rectum however most conspicuous of the ascending to proximal transverse colon, which measures up to 8.9 cm. No discrete transition point. Correlate for ileus versus partial bowel obstruction. - Surgery recommended NPO, NG to LIS and small bowel series. GENITOURINARY: ANDREY on CKD secondary to shock/ VMN - strict I&O ENDOCRINE: Possible euthyroid sick syndrome METABOLIC: Hypernatremia resolved INFECTIOUS DISEASE: Possible Gram-positive versus Gram-negative pneumonia - blood culture showed Gram-positive cocci in cluster and change - continue IV vancomycin , and meropenem - blood culture is unremarkable and sputum culture showed Gram-negative rods DIET: NPO DVT prophylax: Lovenox GI prophylaxis: Protonix Bowel regimen: Code status: Full code LINES/DRAINS/ACCESS: IV access: PICC line rt upper arm. DISPOSITION: Telemetry Patient's status discussed with RN, sister Goal of care and code status discussed with the patient more than 41 minutes Case discussed with Dr. Blank Plan discussed with: Patient, Other (sister, RN) My Orders My Orders Orders - DANAY WILLSON Procedure Category Date Status Time Abg W/ Co-Ox RT 12/19/24 Logged 08:39 Meropenem 1gm Ivpb PHA 12/19/24 In Process (Merrem 1gm/50ml) 14:00 Methylprednisolone PHA 12/19/24 In Process Sod Succ (Solu Medrol 12:30 Vancomycin,Trough LAB 12/21/24 Verified 04:00 Creatinine LAB 12/20/24 Verified 04:00 Vancomycin 750mg Kit PHA 12/19/24 In Process (Vancomycin Hcl) 15:00 Vancomycin Per MARBIN 12/19/24 In Process Pharmacy Protoc 15:00 Dietary Evaluation Review Comments: 1. May increase Vital High Protein @55ml/hr, providing 1320kcal, 115g Protein 1104ml free water, adding energy with Propofol 95kcal, the total enrgy provided will be 1295kcal meeting 83% of his energy needs. 2. Monitor and reassess when pt is extubated. Expected Outcomes/Goals: Meeting Pt's protein and energy needs while intubated. Sepsis reassessment post fluid Capillary Refill: < 3 seconds Date of Service: Dec 19, 2024 Billing Provider: FELIPE BLANK MD Common Visit Codes: 17264-ENHSELTOEY INP/OBS CARE(HIGH) Secondary Visit Codes: 64979-ERYPYLZB CARE PLAN 30 MINUTES DAANY WILLSON Dec 19, 2024 18:43 FELIPE BLANK MD Dec 20, 2024 16:37
[2024-12-20] VITALS (19 sets, daily range): BP systolic 99–125; BP diastolic 62–93; PULSE 59–86; RESP 16–21; TEMP 97.8–98.4; O2SAT 93–100
[2024-12-20 05:40] LABS: Hematocrit 40.4 % (41.0-53.0); Hemoglobin 13.9 g/dL (13.5-17.5); Mean Corpuscular Hemoglobin 32.5 pg (28.0-32.0); Mean Corpuscular Volume 94.6 fL (80.0-100.0); Nucleated Red Blood Cells % 0.0 %
[2024-12-20 06:00] LABS: Chloride 103 mmol/L (98-107); Potassium 3.7 mmol/L (3.5-5.1); Sodium 141 mmol/L (136-145)
[2024-12-20 06:01] LABS: Anion Gap 6 (5-15)
--- NOTE | 2024-12-20 06:02 | DVH ---
Exam: XY KUB ABDOMEN SINGLE VIEW Indication: F/U SBS Comparison: CT CT AB PEL WO CON-NO ORAL OR IV on DOS: 12/18/24, XY KUB ABDOMEN SINGLE VIEW on DOS: 12/05 , XY KUB ABDOMEN SINGLE VIEW on DOS: 03/16/23, XY KUB ABDOMEN SINGLE VIEW on DOS: 03/12/23, US ABD OMEN LIMITED on DOS: 11/14/22 Technique: 2 radiographic views of the abdomen. Findings: Moderately distended predominantly gas-filled segments of small and large bowel throughout the abdome n with intraluminal contrast material noted within the right abdomen and inferior pelvis. No evidence of bowel obstruction. There is no definite evidence for pneumoperitoneum. No abnormal calcifications noted. Impression: Moderately distended predominantly gas-filled segments of small and large bowel throughout the abdome n without evidence of bowel obstruction. Workstation: [id number]
[2024-12-20 06:06] LABS: BUN/Creatinine Ratio 23.7 (10.0-20.0); Blood Urea Nitrogen 18 mg/dL (9-23); Glucose 86 mg/dL (74-106)
[2024-12-20 06:08] LABS: Calcium 8.2 mg/dL (8.7-10.4); Carbon Dioxide 32 mmol/L (20-31)
--- NOTE | 2024-12-20 06:19 | DVH ---
Procedure: XY SMALL BOWEL SERIES-W GASTROGRA Reason for study/Clinical History: r/o obstruction Comparison Study: None Technique: Single contrast small bowel series performed. FINDINGS/IMPRESSION: Initial roll icer view of the abdomen and pelvis appears demonstrates no acute process. Contrast is not identified within the colon by 5 hours. This represents a significant delay in small bowel transit time. Workstation: [employer]
[2024-12-20] MEDS ORDERED: LACTATED RINGER'S 1,000 ML IV SCH (09:00)
--- NOTE | 2024-12-20 09:31 | DVHPN2 ---
Progress Note Date Seen: Dec 20, 2024 Has the PT tested + for MRSA If YES, has PT been informed?: No Medical Necessity Reason Pt with a Central, PICC or Fol: Yes The following are medically ne: Central Line, Carpio Catheter Objective vital signs Vital Sign Date Time Temp Pulse Resp B/P (MAP) Pulse Ox O2 Delivery O2 Flow Rate FiO2 12/20/24 09:20 66 16 100 12/20/24 09:14 Nasal Cannula 3.0 12/20/24 09:14 32 12/20/24 09:02 97.8 112/77 (89) 97.8 Total Intake and Output 12/19/24 12/19/24 12/20/24 15:00 23:00 07:00 Intake Total 410 ml 150 ml Output Total 500 ml Balance -90 ml 150 ml medications Current Medications Medications Dose Ordered Sig/Alejo Route Start Time Stop Time Status Last Admin Dose Admin Pantoprazole Sodium 40 mg DAILY IV 12/07/24 10:00 12/19/24 11:19 40 MG Diagnostic Test (Pha) 1 strip Q6HR 12/07/24 12:00 12/20/24 05:06 1 STRIP Insulin Human Regular Q6HR SC 12/07/24 18:00 12/15/24 06:47 2 UNITS Dextrose 50 ml UD PRN IV 12/07/24 15:30 Ipratropium [place] 0.5 mg Q4HR NEB 12/07/24 16:45 12/20/24 09:14 0.5 MG Albuterol 2.5 mg Q4HR NEB 12/08/24 18:00 12/20/24 09:14 2.5 MG Albuterol 2.5 mg Q2HPRN PRN NEB 12/08/24 16:30 Acetaminophen 650 mg Q6HP PRN GT 12/09/24 18:30 12/17/24 04:48 650 MG Vancomycin HCl 0 ml @ 0 mls/hr UD IV 12/12/24 17:15 Sodium Chloride 10 ml QSHIFT@10,22 IV 12/14/24 22:00 12/19/24 21:25 10 ML Bacitracin/ Polymyxin B Sulfate 1 applic TID OP 12/17/24 14:00 12/18/24 14:37 1 APPLIC Enoxaparin Sodium 40 mg DAILY SC 12/19/24 10:00 12/19/24 11:19 40 MG Meropenem 50 ml @ 17 mls/hr Q8HR IV 12/19/24 14:00 12/20/24 05:05 17 MLS/HR Methylprednisolone Sodium Succinate 40 mg DAILY IV 12/19/24 12:30 12/19/24 15:14 40 MG Vancomycin HCl 100 ml @ 100 mls/hr Q12H IV 12/19/24 15:00 12/20/24 02:51 100 MLS/HR Lactated Ringer's 1,000 ml @ 75 mls/hr [id number] IV 12/20/24 09:00 UNV laboratory and microbiology Laboratory Tests 12/20/24 04:48 Test 12/20/24 04:48 Range/Units Serum Glucose 86 74-106 mg/dL Problem List/Assessment/Plan Problem List/Assessment/Plan 12/20/24 patient hostile and aggressive, ( same reported by nurse), gastrografin study reviewed, patient had several bowel movements will allow po intake, no indication for surgical intervention, please recall if needed, will sign off. Plan discussed with: Patient Dietary Evaluation Review Comments: 1. May increase Vital High Protein @55ml/hr, providing 1320kcal, 115g Protein 1104ml free water, adding energy with Propofol 95kcal, the total enrgy provided will be 1295kcal meeting 83% of his energy needs. 2. Monitor and reassess when pt is extubated. Expected Outcomes/Goals: Meeting Pt's protein and energy needs while intubated. Sepsis reassessment post fluid Capillary Refill: < 3 seconds DIANA SINGLETON MD Dec 20, 2024 09:31
[2024-12-20] MEDS: VANCOMYCIN 750MG KIT 100 ML ONE (10:43)
[2024-12-20] MEDS: methylPREDNISolone SOD SUCC 40 MG/ML VL IV SCH (17:45)
[2024-12-20] MEDS ORDERED: VANCOMYCIN PER PHARMACY 0 MG IV SCH (17:45)
--- NOTE | 2024-12-20 17:47 | DVHPNRES ---
Progress Note Date Seen: Dec 20, 2024 Resident Creating Document: DANAY WILLSON RESIDENT Has the PT tested + for MRSA If YES, has PT been informed?: No Medical Necessity Reason Pt with a Central, PICC or Fol: Yes The following are medically ne: Central Line, Carpio Catheter Subjective Review of Systems This is a 68-year-old male with a history of atrial fibrillation, heart failure, COPD, hyperlipidemia, and CAD s/p PCI with 4 stents (RCA 2, LAD 2 in March 2024). His last echocardiogram in June 2024 showed an EF of 60% with mild chamber dilation. He presented via EMS after one hour of acute shortness of breath. At the scene, SpO? was in the low 60s; he improved to 93% with CPAP. On arrival to the ED, he developed worsening respiratory distress and was intubated at 9 a.m. for acute hypoxemic and hypercapnic respiratory failure. Initial ABG showed respiratory acidosis, which improved post-intubation. Patient was seen and examined in the ICU. Status post extubation and on nasal Cannula 2 L. Mentioned relief of pain and reduced abdominal distension . Small bowel series showed moderately distended predominantly small and large bowel without evidence of obstruction. Surgery started clear liquid diet and advanced the diet as tolerated. Objective vital signs Vital Sign Date Time Temp Pulse Resp B/P (MAP) Pulse Ox O2 Delivery O2 Flow Rate FiO2 12/20/24 17:14 98.2 73 21 120/70 (87) 95 98.2 12/20/24 14:44 Nasal Cannula* 3 32 Total Intake and Output 12/19/24 12/19/24 12/20/24 15:00 23:00 07:00 Intake Total 410 ml 150 ml Output Total 500 ml Balance -90 ml 150 ml medications Current Medications Medications Dose Ordered Sig/Alejo Route Start Time Stop Time Status Last Admin Dose Admin Pantoprazole Sodium 40 mg DAILY IV 12/07/24 10:00 12/20/24 10:53 40 MG Diagnostic Test (Pha) 1 strip Q6HR 12/07/24 12:00 12/20/24 10:55 1 STRIP Insulin Human Regular Q6HR SC 12/07/24 18:00 12/15/24 06:47 2 UNITS Dextrose 50 ml UD PRN IV 12/07/24 15:30 Ipratropium [place] 0.5 mg Q4HR NEB 12/07/24 16:45 12/20/24 14:44 0.5 MG Albuterol 2.5 mg Q4HR NEB 12/08/24 18:00 12/20/24 14:44 2.5 MG Albuterol 2.5 mg Q2HPRN PRN NEB 12/08/24 16:30 Acetaminophen 650 mg Q6HP PRN GT 12/09/24 18:30 12/17/24 04:48 650 MG Sodium Chloride 10 ml QSHIFT@10,22 IV 12/14/24 22:00 12/20/24 10:54 10 ML Bacitracin/ Polymyxin B Sulfate 1 applic TID OP 12/17/24 14:00 12/20/24 15:56 1 APPLIC Methylprednisolone Sodium Succinate 40 mg DAILY IV 12/19/24 12:30 12/20/24 10:53 40 MG Apixaban 5 mg BID PO 12/20/24 22:00 Examination Physical examination: General Appearance: Alert, Oriented X3, agitated, No acute distress HEENT: Atraumatic, PERRLA, EOMI, Mucous membrane moist/pink Respiratory: Bilateral fine crackles Cardiovascular: Regular rate, Normal S1, Normal S2, No murmurs, no chest wall tenderness Abdominal: Distended, hypoactivel bowel sounds, Soft, No tenderness, No hepatospenomegaly, No masses Extremities: No clubbing, No cyanosis, No edema, Normal pulses, No tenderness/swelling Skin: No rashes, No breakdown, No significant lesion Neuro:Normal speech, Strength at 5/5 X4 ext, Normal tone, Sensation intact, Cranial nerves 3-12 NL, Reflexes 2+ Psych/Mental Status: Could not be assessed. laboratory and microbiology Laboratory Tests 12/20/24 04:48 Test 12/20/24 04:48 Range/Units Serum Glucose 86 74-106 mg/dL Microbiology Date/Time Source Procedure Growth Status 12/12/24 23:02 Sputum Gram Stain - Final Complete 12/12/24 23:02 Respiratory Culture - Final Klebsiella pneumoniae Complete 12/12/24 09:50 Blood Blood Culture - Final NO GROWTH AFTER 5 DAYS OF INCUBATION. Complete 12/06/24 22:58 Nose MRSA Screen - Final Complete 12/06/24 14:30 Voided Urine Urine Culture - Final Complete Labs and/or images reviewed: Labs reviewed by me, Image(s) reviewed by me Problem List/Assessment/Plan Problem List/Assessment/Plan Assessment and plan: NEURO: Acute metabolic encephalopathy likely secondary to acute hypoxemic/hypercapnic respiratory failure S/P extubation CARDIOVASCULAR: Septic shock likely secondary to pneumonia Possible NSTEMI type 2 due to above History of CAD with status post PTCA x4 ( March 2024) Paroxysmal atrial fibrillation with secondary hypercoagulable state Acute on Chronic diastolic heart failure with preserved ejection fraction Sinus bradycardia - EEG was unremarkable, troponins was initially elevated than dropped and became flat - echo on 12/29 demonstrated EF 45%, mild global LV hypokinesis, RVSP 49 mm Hg - chest x-ray showed bilateral flat diaphragm, hyperinflated lung field and possible right lower lobe opacity - Ekg showed sinus bradycardia PULMONARY: Acute hypoxic/hypercapnic respiratory failure Acute exacerbation of chronic COPD Gram-positive/Gram-negative pneumonia Pulmonary hypertension - chest x-ray showed bilateral flat diaphragm, hyperinflated lung field and possible right lower lobe opacity - respiratory cultures are unremarkable - med neb with levalbuterol and ipratropium q.4 hours - IV Solu-Medrol 20 mg daily - Continue IV vancomycin as per pharmacy , and IV meropenem GASTROINTESTINAL: Partial SBO/ ileus - CT abdomen pelvis without contrast showed Air-fluid level distention of the stomach, small bowel loops, and distal colon extending to the rectum however most conspicuous of the ascending to proximal transverse colon, which measures up to 8.9 cm. No discrete transition point. Correlate for ileus versus partial bowel obstruction. - Surgery recommended NPO, NG to LIS and small bowel series. - Small bowel series showed moderately distended predominantly small and large bowel without evidence of obstruction. - Surgery started clear liquid diet and advanced the diet as tolerated. GENITOURINARY: ANDREY on CKD secondary to shock/ VMN - strict I&O ENDOCRINE: Possible euthyroid sick syndrome METABOLIC: Hypernatremia resolved INFECTIOUS DISEASE: Possible Gram-positive versus Gram-negative pneumonia - blood culture showed Gram-positive cocci in cluster and change - continue IV vancomycin , and meropenem - Follow up blood culture is unremarkable and sputum culture showed Gram- negative rods DIET: Cardiac diet DVT prophylax: Eloquis GI prophylaxis: Protonix Bowel regimen: Code status: Full code LINES/DRAINS/ACCESS: IV access: PICC line rt upper arm. DISPOSITION: Telemetry Patient's status discussed with RN Goal of care and code status discussed with the patient more than 41 minutes Case discussed with Dr. Blank Plan discussed with: Patient, Other (RN) My Orders My Orders Orders - DANAY WILLSON Procedure Category Date Status Time Vancomycin Per MARBIN 12/20/24 In Process Pharmacy Protoc 09:46 Creatinine LAB 12/21/24 Verified 04:00 Apixaban (Eliquis) PHA 12/20/24 In Process 22:00 Methylprednisolone PHA 12/20/24 Transmitted Sod Succ (Solu Medrol 17:45 Vancomycin PHA 12/20/24 Transmitted 17:45 Meropenem 1gm PHA 12/20/24 Transmitted Q8h(Gfr>50) 22:00 Dietary Evaluation Review Comments: 1. May increase Vital High Protein @55ml/hr, providing 1320kcal, 115g Protein 1104ml free water, adding energy with Propofol 95kcal, the total enrgy provided will be 1295kcal meeting 83% of his energy needs. 2. Monitor and reassess when pt is extubated. Expected Outcomes/Goals: Meeting Pt's protein and energy needs while intubated. Sepsis reassessment post fluid Capillary Refill: < 3 seconds Date of Service: Dec 20, 2024 Billing Provider: FELIPE BLANK MD Common Visit Codes: [id number] INP/OBS CARE(HIGH) Secondary Visit Codes: [id number] CARE PLAN 30 MINUTES DANAY WILLSON Dec 20, 2024 17:47 FELIPE BLANK MD Dec 21, 2024 16:22
[2024-12-20] MEDS: MEROPENEM 1GM IVPB 50 ML IV SCH (21:15)
[2024-12-20] MEDS: APIXABAN 5 MG TAB PO SCH (21:15)
[2024-12-20] MEDS: VANCOMYCIN 750MG KIT 100 ML IV SCH (22:39)
[2024-12-21] VITALS (22 sets, daily range): BP systolic 104–137; BP diastolic 58–80; PULSE 54–82; RESP 16–20; TEMP 97.8–99; O2SAT 90–100
[2024-12-21 06:33] LABS: Hematocrit 37.4 % (41.0-53.0); Hemoglobin 12.8 g/dL (13.5-17.5); Mean Corpuscular Hemoglobin 32.1 pg (28.0-32.0); Mean Corpuscular Volume 94.0 fL (80.0-100.0); Nucleated Red Blood Cells % 0.0 %
[2024-12-21 06:37] LABS: Chloride 104 mmol/L (98-107); Potassium 4.1 mmol/L (3.5-5.1); Sodium 138 mmol/L (136-145)
[2024-12-21 06:38] LABS: Anion Gap 6 (5-15); Carbon Dioxide 28 mmol/L (20-31)
[2024-12-21 06:43] LABS: BUN/Creatinine Ratio 24.2 (10.0-20.0); Blood Urea Nitrogen 16 mg/dL (9-23); Glucose 97 mg/dL (74-106)
[2024-12-21 06:50] LABS: Calcium 7.9 mg/dL (8.7-10.4)
[2024-12-21] MEDS: CLOPIDOGREL BISULFATE 75 MG TAB PO SCH (09:30)
[2024-12-21] MEDS: ALBUTEROL SULF 2.5 MG/0.5ML(0.5%) NEB SOLN NEB PRN (16:15)
[2024-12-21] MEDS ORDERED: PANTOPRAZOLE 40 MG TAB PO ONE (17:30)
[2024-12-21] MEDS ORDERED: levoFLOXacin 250 MG TAB PO ONE (17:30)
--- NOTE | 2024-12-21 17:50 | DVHPNRES ---
Progress Note Date Seen: Dec 21, 2024 Resident Creating Document: DANAY WILLSON RESIDENT Has the PT tested + for MRSA If YES, has PT been informed?: No Medical Necessity Reason Pt with a Central, PICC or Fol: Yes The following are medically ne: Central Line, Carpio Catheter Subjective Review of Systems This is a 68-year-old male with a history of atrial fibrillation, heart failure, COPD, hyperlipidemia, and CAD s/p PCI with 4 stents (RCA 2, LAD 2 in March 2024). His last echocardiogram in June 2024 showed an EF of 60% with mild chamber dilation. He presented via EMS after one hour of acute shortness of breath. At the scene, SpO? was in the low 60s; he improved to 93% with CPAP. On arrival to the ED, he developed worsening respiratory distress and was intubated at 9 a.m. for acute hypoxemic and hypercapnic respiratory failure. Initial ABG showed respiratory acidosis, which improved post-intubation. Patient was seen and examined in the ICU. Status post extubation and on nasal Cannula 2 L. Mentioned relief of pain and reduced abdominal distension . Small bowel series showed moderately distended predominantly small and large bowel without evidence of obstruction. Surgery started clear liquid diet and advanced the diet as tolerated. dairy farmworker was consulted to arrange home health for physical therapy. Possible DC tomorrow Objective vital signs Vital Sign Date Time Temp Pulse Resp B/P (MAP) Pulse Ox O2 Delivery O2 Flow Rate FiO2 12/21/24 17:00 99.0 64 16 104/68 (80) 95 99.0 12/21/24 16:15 Nasal Cannula* 3 32 Total Intake and Output 12/20/24 12/20/24 12/21/24 15:00 23:00 07:00 Intake Total 2450 ml 850 ml Output Total 700 ml Balance 2450 ml 150 ml medications Current Medications Medications Dose Ordered Sig/Alejo Route Start Time Stop Time Status Last Admin Dose Admin Diagnostic Test (Pha) 1 strip Q6HR 12/07/24 12:00 12/21/24 12:05 1 STRIP Insulin Human Regular Q6HR SC 12/07/24 18:00 12/15/24 06:47 2 UNITS Dextrose 50 ml UD PRN IV 12/07/24 15:30 Ipratropium [place] 0.5 mg Q4HR NEB 12/07/24 16:45 12/21/24 13:12 0.5 MG Albuterol 2.5 mg Q4HR NEB 12/08/24 18:00 12/21/24 13:12 2.5 MG Albuterol 2.5 mg Q2HPRN PRN NEB 12/08/24 16:30 12/21/24 16:15 2.5 MG Acetaminophen 650 mg Q6HP PRN GT 12/09/24 18:30 12/17/24 04:48 650 MG Sodium Chloride 10 ml QSHIFT@10,22 IV 12/14/24 22:00 12/21/24 09:20 10 ML Bacitracin/ Polymyxin B Sulfate 1 applic TID OP 12/17/24 14:00 12/21/24 14:00 1 APPLIC Apixaban 5 mg BID PO 12/20/24 22:00 12/21/24 09:41 5 MG Clopidogrel Bisulfate 75 mg DAILY PO 12/21/24 10:00 12/21/24 09:30 75 MG Pantoprazole Sodium 40 mg DAILY@0600 PO 12/22/24 06:00 Prednisone 40 mg DAILY PO 12/22/24 10:00 Levofloxacin 750 mg DAILY PO 12/22/24 10:00 UNV Examination Physical examination: General Appearance: Alert, Oriented X3, agitated, No acute distress HEENT: Atraumatic, PERRLA, EOMI, Mucous membrane moist/pink Respiratory: Bilateral fine crackles Cardiovascular: Regular rate, Normal S1, Normal S2, No murmurs, no chest wall tenderness Abdominal: Distended, hypoactivel bowel sounds, Soft, No tenderness, No hepatospenomegaly, No masses Extremities: No clubbing, No cyanosis, No edema, Normal pulses, No tenderness/swelling Skin: No rashes, No breakdown, No significant lesion Neuro:Normal speech, Strength at 5/5 X4 ext, Normal tone, Sensation intact, Cranial nerves 3-12 NL, Reflexes 2+ Psych/Mental Status: Could not be assessed. laboratory and microbiology Laboratory Tests 12/21/24 05:02 Test 12/21/24 05:02 Range/Units Serum Glucose 97 74-106 mg/dL Microbiology Date/Time Source Procedure Growth Status 12/12/24 23:02 Sputum Gram Stain - Final Complete 12/12/24 23:02 Respiratory Culture - Final Klebsiella pneumoniae Complete 12/12/24 09:50 Blood Blood Culture - Final NO GROWTH AFTER 5 DAYS OF INCUBATION. Complete 12/06/24 22:58 Nose MRSA Screen - Final Complete 12/06/24 14:30 Voided Urine Urine Culture - Final Complete Labs and/or images reviewed: Labs reviewed by me, Image(s) reviewed by me Problem List/Assessment/Plan Problem List/Assessment/Plan Assessment and plan: NEURO: Acute metabolic encephalopathy likely secondary to acute hypoxemic/hypercapnic respiratory failure S/P extubation CARDIOVASCULAR: Septic shock likely secondary to pneumonia Possible NSTEMI type 2 due to above History of CAD with status post PTCA x4 ( March 2024) Paroxysmal atrial fibrillation with secondary hypercoagulable state Acute on Chronic diastolic heart failure with preserved ejection fraction Sinus bradycardia - EEG was unremarkable, troponins was initially elevated than dropped and became flat - echo on 12/29 demonstrated EF 45%, mild global LV hypokinesis, RVSP 49 mm Hg - chest x-ray showed bilateral flat diaphragm, hyperinflated lung field and possible right lower lobe opacity - Ekg showed sinus bradycardia PULMONARY: Acute hypoxic/hypercapnic respiratory failure Acute exacerbation of chronic COPD Gram-positive/Gram-negative pneumonia Pulmonary hypertension - chest x-ray showed bilateral flat diaphragm, hyperinflated lung field and possible right lower lobe opacity - respiratory cultures are unremarkable - med neb with levalbuterol and ipratropium q.4 hours - Prednisone 40 mg po daily - Levofloxacin 750 mg po daily GASTROINTESTINAL: Partial SBO/ ileus - CT abdomen pelvis without contrast showed Air-fluid level distention of the stomach, small bowel loops, and distal colon extending to the rectum however most conspicuous of the ascending to proximal transverse colon, which measures up to 8.9 cm. No discrete transition point. Correlate for ileus versus partial bowel obstruction. - Surgery recommended NPO, NG to LIS and small bowel series. - Small bowel series showed moderately distended predominantly small and large bowel without evidence of obstruction. - Surgery started clear liquid diet and advanced the diet as tolerated. GENITOURINARY: ANDREY on CKD secondary to shock/ VMN - strict I&O ENDOCRINE: Possible euthyroid sick syndrome METABOLIC: Hypernatremia resolved INFECTIOUS DISEASE: Possible Gram-positive versus Gram-negative pneumonia - blood culture showed Gram-positive cocci in cluster and change - Levofloxacin 750 mg po daily - Follow up blood culture is unremarkable and sputum culture showed Gram- negative rods DIET: Cardiac diet DVT prophylax: Eloquis GI prophylaxis: Protonix Bowel regimen: Code status: Full code LINES/DRAINS/ACCESS: IV access: PICC line rt upper arm. DISPOSITION: Telemetry Patient's status discussed with RN Goal of care and code status discussed with the patient more than 41 minutes Case discussed with Dr. Blank Plan discussed with: Patient, Spouse, Other (RN) My Orders My Orders Orders - DANAY WILLSON Procedure Category Date Status Time Vancomycin Per MARBIN 12/22/24 In Process Pharmacy Protoc 10:00 Clopidogrel Bisulfate PHA 12/21/24 In Process (Plavix) 10:00 * Personal Fitness Trainer CONS 12/21/24 Transmitted Consult Complete Blood Count LAB 12/22/24 Verified 04:00 Creatinine LAB 12/22/24 Verified 04:00 Pantoprazole Tablet PHA 12/22/24 In Process (Protonix Tablet) 06:00 Prednisone Tablet PHA 12/22/24 In Process 10:00 Levofloxacin Tablet PHA 12/22/24 Logged (Levaquin Tablet) 10:00 Levofloxacin Tablet PHA 12/21/24 Pending (Levaquin Tablet) 17:30 * Personal Fitness Trainer CONS 12/21/24 Transmitted Consult Dietary Evaluation Review Comments: 1. May increase Vital High Protein @55ml/hr, providing 1320kcal, 115g Protein 1104ml free water, adding energy with Propofol 95kcal, the total enrgy provided will be 1295kcal meeting 83% of his energy needs. 2. Monitor and reassess when pt is extubated. Expected Outcomes/Goals: Meeting Pt's protein and energy needs while intubated. Sepsis reassessment post fluid Capillary Refill: < 3 seconds Date of Service: Dec 21, 2024 Billing Provider: FELIPE BLANK MD Common Visit Codes: [id number] INP/OBS CARE(HIGH) Secondary Visit Codes: [id number] CARE PLAN 30 MINUTES DANAY WILLSON Dec 21, 2024 17:50 FELIPE BLANK MD Dec 22, 2024 12:54
[2024-12-21] MEDS: predniSONE 20 MG TAB PO ONE (18:38)
--- NOTE | 2024-12-21 19:08 | DVHPN2 ---
Consult Progress Note Date Seen: Dec 21, 2024 Subjective Patient reports: No new complaints Other Systems: The patient remains in the floor status quo, improved, no further fever. The patient is hemodynamically stable, post extubating , off of Levophed on 2-3 L of nasal cannula oxygen afebrile. Behavioral disturbances likely due to delirium, steroid induced psychosis. Close clinical monitoring needed. Objective vital signs Vital Sign Date Time Temp Pulse Resp B/P (MAP) Pulse Ox O2 Delivery O2 Flow Rate FiO2 12/21/24 17:00 99.0 64 16 104/68 (80) 95 99.0 12/21/24 16:15 Nasal Cannula* 3 32 Total Intake and Output 12/20/24 12/20/24 12/21/24 15:00 23:00 07:00 Intake Total 2450 ml 850 ml Output Total 700 ml Balance 2450 ml 150 ml HEENT pupils are reactive Neck is supple CV is S1-S2 S2 regular rate and rhythm Respiratory diminished breath sounds bases 2-3L nc. GI positive bowel sounds Extremity no edema CHOPPER OPERATOR no motor deficit medications Current Medications Medications Dose Ordered Sig/Alejo Route Start Time Stop Time Status Last Admin Dose Admin Diagnostic Test (Pha) 1 strip Q6HR 12/07/24 12:00 12/21/24 18:42 Insulin Human Regular Q6HR SC 12/07/24 18:00 12/15/24 06:47 Dextrose 50 ml UD PRN IV 12/07/24 15:30 Ipratropium [place] 0.5 mg Q4HR NEB 12/07/24 16:45 12/21/24 18:17 Albuterol 2.5 mg Q4HR NEB 12/08/24 18:00 12/21/24 18:17 Albuterol 2.5 mg Q2HPRN PRN NEB 12/08/24 16:30 12/21/24 16:15 Acetaminophen 650 mg Q6HP PRN GT 12/09/24 18:30 12/17/24 04:48 Sodium Chloride 10 ml QSHIFT@10,22 IV 12/14/24 22:00 12/21/24 09:20 Bacitracin/ Polymyxin B Sulfate 1 applic TID OP 12/17/24 14:00 12/21/24 14:00 Apixaban 5 mg BID PO 12/20/24 22:00 12/21/24 09:41 Clopidogrel Bisulfate 75 mg DAILY PO 12/21/24 10:00 12/21/24 09:30 Pantoprazole Sodium 40 mg DAILY@0600 PO 12/22/24 06:00 Prednisone 40 mg DAILY PO 12/22/24 10:00 Levofloxacin 750 mg DAILY PO 12/22/24 10:00 UNV laboratory and microbiology Laboratory Tests 12/21/24 05:02 Test 12/21/24 05:02 Range/Units Serum Glucose 97 74-106 mg/dL Problem List/Assessment/Plan Problem List/Assessment/Plan STACI CASTAÑEDA, a 68-year-old male with a significant past medical history of COPD, heart failure, atrial fibrillation, and coronary artery disease (status post PCI with four stents in March 2020) who presented with an acute episode of shortness of breath, hypoxemia (SpO2 in the low 60s), and required initial CPAP followed by intubation for worsening respiratory distress revealed acute hypoxemic and hypercapnic respiratory failure with respiratory acidosis, improving after intubation was extubated and now in 2 L of nasal cannula oxygen patient is improving, was consulted for increasing WBC while on steroids and was broadly covered with vancomycin and meropenem since 12/06/2024. Status post 16 days of vancomycin and meropenem combination with adequate trough. Assessment: #Neutrophilic leukocytosis over course of hospitalization (12 >17 > 23.7 > 17.2 > 23.7> 17.2) likely due to steroid/methylprednisolone /demargination of neutrophils #Aspiration pneumonia, Sputum culture (12/12) grew riley-sensitive Klebsiella pneumoniae, nares MRSA negative, ruled out viral #Acute hypoxic and hypercapnic respiratory failure, needing intubation, was extubated on 12/16 improved now on 2 L of nasal cannula oxygen #Known chronic hypoxic respiratory failure with 2L RTC NC oxygen at home, baseline #MSSA bacteremia, resolved Blood cultures initially positive for Staph epidermidis (1/4 bottles, from 12/11), with subsequent cultures negative. #Presented with severe sepsis with lactic acidosis, improved #Bilateral atelectasis, post extubation , right more than left - #Chronic obstructive pulmonary disease (COPD) #Heart failure with mildly reduced ejection fraction (HFmrEF 45%) #ileus during hospitalization, likely multifactorial from sepsis and medications, bowel bladder improved #Coronary artery disease, status post percutaneous coronary intervention (PCI) with four stents (RCA and LAD, March 2020) #Acute kidney injury (improved) due to VMN, improved #Atrial fibrillation patient on amiodarone and Eliquis Plan: # No need of vancomycin and meropenem. Monitor for signs of recurrent infection or respiratory decompensation, follow up the fever curve rather than the WBC while the patient is on steroid. # Okay to use levofloxacin monotherapy for now. Discontinue antibiotics when appropriate, extremely low clinical suspicion of persisting pneumonia as of now. # No further infectious disease work-up needed at this time. # Out of bed and incentive spirometry to continue. # Taper methylprednisolone as the patients bronchitis improves along with switching to oral alternatives. # Consider changing Carpio's catheter, discontinue PICC or other hardware as appropriate, frequent reorientation and avoid aspiration with aspiration precautions. # Appropriate to continue in-hospital care without isolation. Discussed with Dr. Hyatt. Thank you for the opportunity to consult on your patient. Infectious Disease will sign off. In case of any questions please do not hesitate to reach out. Plan discussed with: Patient, Spouse, Other (Primary team.) Dietary Evaluation Review Comments: 1. May increase Vital High Protein @55ml/hr, providing 1320kcal, 115g Protein 1104ml free water, adding energy with Propofol 95kcal, the total enrgy provided will be 1295kcal meeting 83% of his energy needs. 2. Monitor and reassess when pt is extubated. Expected Outcomes/Goals: Meeting Pt's protein and energy needs while intubated. DONNIE LOCKE RESIDENT Dec 21, 2024 19:08
[2024-12-21] MEDS: levoFLOXacin 250 MG TAB PO SCH (21:56)
[2024-12-22] VITALS (9 sets, daily range): BP systolic 98–119; BP diastolic 61–85; PULSE 61–81; RESP 16–18; TEMP 97.6–98.6; O2SAT 95–100
[2024-12-22] MEDS: PANTOPRAZOLE 40 MG TAB PO SCH (06:33)
[2024-12-22 07:30] LABS: Chloride 104 mmol/L (98-107); Potassium 4.6 mmol/L (3.5-5.1); Sodium 139 mmol/L (136-145)
[2024-12-22 07:31] LABS: Anion Gap 7 (5-15); Carbon Dioxide 28 mmol/L (20-31)
[2024-12-22 07:32] LABS: Calcium 8.8 mg/dL (8.7-10.4); Hematocrit 42.1 % (41.0-53.0); Hemoglobin 14.6 g/dL (13.5-17.5); Mean Corpuscular Hemoglobin 33.1 pg (28.0-32.0); Mean Corpuscular Volume 95.4 fL (80.0-100.0); Nucleated Red Blood Cells % 0.0 %
[2024-12-22 07:36] LABS: Glucose 105 mg/dL (74-106)
[2024-12-22 07:37] LABS: BUN/Creatinine Ratio 19.5 (10.0-20.0); Blood Urea Nitrogen 16 mg/dL (9-23)
[2024-12-22] MEDS: predniSONE 20 MG TAB PO SCH (09:27)
[2024-12-22] MEDS ORDERED: levoFLOXacin 250 MG TAB PO SCH (10:00)
[2024-12-22] MEDS ORDERED: PRED20TA2 PO (11:03)
[2024-12-22] MEDS ORDERED: ALBU108A5 INH (11:03)
[2024-12-22] MEDS ORDERED: CLOP75TA70 PO (11:03)
[2024-12-22] MEDS ORDERED: LEVO750T40 PO (11:03)
[2024-12-22] MEDS ORDERED: PRED10TA PO (11:03)
[2024-12-22] MEDS ORDERED: ATOR20TA PO (11:03)
--- NOTE | 2024-12-22 16:06 | DVH ---
CHEST RADIOGRAPH Indication: chf Technique: XY CHEST PORTABLE COMPARISON: None FINDINGS: The cardiac silhouette is enlarged. The lungs demonstrate bilateral perihilar tchy airspace opacities . The pulmonary vasculature is prominent. There is no pleural effusion. There is no pneumothorax. IMPRESSION: Cardiomegaly with pulmonary vascular congestion and bilateral perihilar airspace opacities.
--- NOTE | 2024-12-22 17:48 | DVHDSRES ---
Discharge Summary Date of Admission Resident Creating Document: DANAY PRICE RESIDENT Dec 06, 2024 at 13:18 Date of Discharge: Dec 22, 2024 Admitting Diagnosis Acute metabolic encephalopathy likely secondary to acute hypoxemic/hypercapnic respiratory failure Wounds: No open wound was present. Labs/Diagnostic Data: Laboratory Results Test 12/22/24 09:15 12/22/24 06:31 12/22/24 06:30 12/19/24 15:05 Vancomycin Level Trough 5.8 ug/mL (5-10) White Blood Count 18.7 10^3/uL (4.4-10.8) Red Blood Count 4.42 10^6/uL (4.5-5.90) Hemoglobin 14.6 g/dL (13.5-17.5) Hematocrit 42.1 % (41.0-53.0) Mean Corpuscular Volume 95.4 fL (80.0-100.0) Mean Corpuscular Hemoglobin 33.1 pg (28.0-32.0) Mean Corpuscular Hemoglobin Concent 34.7 g/dL (32.0-36.0) Red Cell Distribution Width 14.2 % (11.8-14.3) Platelet Count 281 10^3/uL (140-450) Mean Platelet Volume 8.7 fL (6.9-10.8) Neutrophils (%) (Auto) 96.2 % (37.0-80.0) Lymphocytes (%) (Auto) 0.7 % (10.0-50.0) Monocytes (%) (Auto) 2.9 % (0.0-12.0) Eosinophils (%) (Auto) 0.0 % (0.0-7.0) Basophils (%) (Auto) 0.2 % (0.0-2.0) Neutrophils # (Auto) 18.0 10 ^3/uL (1.6-8.6) Lymphocytes # (Auto) 0.1 10 ^3/uL (0.4-5.4) Monocytes # (Auto) 0.5 10 ^3/uL (0-1.3) Eosinophils # (Auto) 0 10 ^3/uL (0-0.8) Basophils # (Auto) 0 10 ^3/uL (0-0.2) Nucleated Red Blood Cells 0.0 % Sodium Level 139 mmol/L (136-145) Potassium Level 4.6 mmol/L (3.5-5.1) Chloride Level 104 mmol/L (98-107) Carbon Dioxide Level 28 mmol/L (20-31) Anion Gap 7 (5-15) Blood Urea Nitrogen 16 mg/dL (9-23) Creatinine 0.82 mg/dL (0.700-1.30) Glomerular Filtration Rate Calc 96 mL/min (>90) BUN/Creatinine Ratio 19.5 (10.0-20.0) Serum Glucose 105 mg/dL (74-106) Calcium Level 8.8 mg/dL (8.7-10.4) POC Glucose 127 mg/dl (70-106) Blood Gas Specimen Type Arterial Blood Gas Sample Site Right radial Blood Gas Patient Temperature 37.0 Arterial Blood Date Drawn [id number] Arterial Blood pH 7.507 (7.350-7.450) Arterial Blood Partial Pressure CO2 34.9 mmHg (35.0-48.0) Arterial Blood Partial Pressure O2 76.1 mmHg (83.0-108.0) Arterial Blood HCO3 27.0 mmol/L (21.0-28.0) Arterial Blood Oxygen Saturation 95.3 % (94.0-98.0) Arterial Blood Base Excess 4.3 mmol/L (-2.0-3.0) Arterial Blood Oxyhemoglobin 94.0 % (94.0-98.0) Arterial Blood Carboxyhemoglobin 1.1 % (0.5-1.5) Arterial Blood Methemoglobin 0.3 % (0.0-1.5) Trey Test Yes Blood Gas Total Hemoglobin 16.00 g/dL (13.5-17.5) Blood Gas Liter Flow 2.00 Blood Gas Modality Nasal cannula FiO2 % 28.0 Test 12/17/24 15:22 12/16/24 08:55 12/15/24 07:11 12/13/24 17:08 Random Vancomycin Level 16.9 ug/mL (5-10) Blood Gas Spontaneous Rate 16 Blood Gas Spontaneous Tidal Volume 800 Blood Gas Pressure Support 6 Blood Gas PEEP or CPAP 5.0 Blood Gas Set Respiration Rate 20.0 Blood Gas Tidal Volume 480.0 Prothrombin Time 11.1 sec (9.3-11.8) Prothrombin Time INR 1.05 (0.9-1.15) Activated Partial Thromboplast Time 30.3 SEC (24.5-34.5) Test 12/12/24 13:30 12/12/24 09:45 12/12/24 03:23 12/11/24 03:41 Lactic Acid Level 1.0 mmol/L (0.4-2.0) Urine Color Light-yellow (Yellow) Urine Clarity Clear (Clear) Urine pH 5.5 (5.0-9.0) Urine Specific Gary 1.018 (1.001-1.035) Urine Protein Negative (Negative) Urine Ketones Negative (Negative) Urine Blood 1+ /uL (Negative) Urine Nitrite Negative (Negative) Urine Bilirubin Negative (Negative) Urine Urobilinogen Normal mg/dL (Negative) Urine Leukocyte Esterase Negative /uL (Negative) Urine RBC 5 /hpf (0 - 3) Urine Microscopic WBC 2 /HPF (0-3) Urine Squamous Epithelial Cells Few /hpf (<5) Urine Bacteria Few /hpf (None Seen) Urine Mucus Few (None Seen) Urine Glucose 3+ mg/dL (Normal) Magnesium Level 3.0 mg/dL (1.6-2.6) Magnesium Lvl (Mg Sulfate Therapy) 3.14 mg/dL (4.0-7.1) Test 12/10/24 16:40 12/08/24 07:48 12/07/24 03:08 12/06/24 12:35 Troponin I High Sensitivity 84 ng/L (</=54) Blood Gas Critical Value Read Back Yes Blood Gas Notified Whom danay Prcie md. Blood Gas Notified Time [id number] Blood Gas Notified By sandeep Mclaughlin rt. Hemoglobin A1c 5.2 % A1C (<5.7) Phosphorus Level 2.6 mg/dL (2.4-5.1) Total Bilirubin 1.0 mg/dL (0.2-1.0) Aspartate Amino Transferase (AST) 21 U/L (13-40) Alanine Aminotransferase (ALT) 18 U/L (7-40) Alkaline Phosphatase 111 U/L (46-116) Total Protein 6.6 g/dL (5.7-8.2) Albumin 3.9 g/dL (3.2-4.8) Triglycerides Level 69 mg/dL (< 150) Cholesterol Level 147 mg/dL (< 200) LDL Cholesterol 92 mg/dL (< 100) HDL Cholesterol 49 mg/dL (40-59) Thyroid Stimulating Hormone (TSH) 0.19 uIU/mL (0.55-4.78) Influenza Type A Antigen Negative (Negative) Influenza Type B Antigen Negative (Negative) SARS-CoV-2 Antigen (Rapid) Negative (NEGATIVE) Test 12/06/24 10:43 12/06/24 08:45 Urine Hyaline Casts Many /lpf (0 - 2) Urine Opiates Screen Neg (NEGATIVE) Urine Fentanyl Screen Neg (NEGATIVE) Urine Barbiturates Screen Neg (NEGATIVE) Urine Phencyclidine Screen Neg (NEGATIVE) Urine Amphetamines Screen Neg (NEGATIVE) Urine Benzodiazepines Screen Neg (NEGATIVE) Urine Cocaine Screen Neg (NEGATIVE) Urine Cannabinoids Screen Neg (NEGATIVE) B-Type Natriuretic Peptide 91.18 pg/mL (0-100) Other Laboratory Tests 12/22/24 06:31 Brief Hx & Hospital Course: Hospital course: This is a 68-year-old male with a history of atrial fibrillation, heart failure, COPD, hyperlipidemia, and CAD s/p PCI with 4 stents (RCA 2, LAD 2 in March 2024). His last echocardiogram in June 2024 showed an EF of 60% with mild chamber dilation. He presented via EMS after one hour of acute shortness of breath. At the scene, SpO? was in the low 60s; he improved to 93% with CPAP. On arrival to the ED, he developed worsening respiratory distress and was intubated at 9 a.m. for acute hypoxemic and hypercapnic respiratory failure. Initial ABG showed respiratory acidosis, which improved post-intubation. - EEG was unremarkable, troponins was initially elevated than dropped and became flat .echo on 12/29 demonstrated EF 45%, mild global LV hypokinesis, RVSP 49 mm Hg. chest x-ray showed bilateral flat diaphragm, hyperinflated lung field and possible right lower lobe opacity. Initially patient was bradycardic, heart rate was in lower 40s any started IV dopamine drip as per protocol that was maintaining both heart rate and blood pressure. For COPD exacerbation patient was initially treated with DuoNeb q.4 hours, IV Solu-Medrol 40 mg t.i.d., IV Mag sulfate 2 mg 2 g once and IV vancomycin as per pharmacy and IV meropenem 1 g Q 8 hours for coverage of both Gram-positive/Gram-negative pneumonia. Respiratory culture showed Klebsiella pneumoniae. CPAP trial was started when patient was become hemodynamically stable, FiO2 30%, peep 5. The patient was extubated on 12/16/2024 and post extubation he was on nasal cannula. The patient was downgraded to telemetry after extubation passed the swallow evaluation and started on pureed diet and slowly advanced to regular cardiac diet. Patient complaint of abdominal distention and pain and CT abdomen pelvis without contrast demonstrated air-fluid level distention of the stomach, small bowel loops and distal code extended to rectum which measures up to 8.9 cm, no discrete transition point and possible ileus versus partial bowel obstruction. Patient was having bowel movement and not complaining of any nausea or vomiting. Surgery was consulted for her further recommendation regarding possible partial SBO. Small-bowel series demonstrated delayed small bowel transit time without any significant obstruction and surgery started clear liquid diet and recommended slowly advanced to cardiac diet as tolerated. Discontinued IV vancomycin and meropenem started on p.o. levofloxacin 750 mg daily. Disease was on board and mentioned leukocytosis likely due to steroid induced. Physical therapy was on board and recommended SNF placement for rehab. The patient refused to go to SNF and agreed on home health for physical therapy. Discharge plan was discussed with the patient and and all questions were answered. The patient is being discharged to home with levofloxacin 750 mg daily for 4 days and prednisolone taper dose and advised to resume home medications. The patient was also advised to follow up with PCP in 1 week and Cardiology in 1-2 weeks. Physical examination: General Appearance: Alert, Oriented X3, agitated, No acute distress HEENT: Atraumatic, PERRLA, EOMI, Mucous membrane moist/pink Respiratory: Bilateral fine crackles Cardiovascular: Regular rate, Normal S1, Normal S2, No murmurs, no chest wall tenderness Abdominal: Distended, hypoactivel bowel sounds, Soft, No tenderness, No hepatospenomegaly, No masses Extremities: No clubbing, No cyanosis, No edema, Normal pulses, No tenderness/swelling Skin: No rashes, No breakdown, No significant lesion Neuro:Normal speech, Strength at 5/5 X4 ext, Normal tone, Sensation intact, Cranial nerves 3-12 NL, Reflexes 2+ Psych/Mental Status: Could not be assessed. Diagnosis: Acute metabolic encephalopathy likely secondary to acute hypoxemic/hypercapnic respiratory failure Acute on chronic hypoxic respiratory failure due to Gram-positive/Gram-negative pneumonia Acute hypercapnic respiratory failure due to exaccerbation of COPD Acute exacerbation of chronic COPD Gram-positive/Gram-negative pneumonia Possible Pulmonary hypertension Septic shock likely secondary to pneumonia Possible NSTEMI type 2 due to above History of CAD with status post PTCA x4 ( March 2024) Paroxysmal atrial fibrillation with secondary hypercoagulable state Acute on Chronic sysytolic heart failure with mildly reduced ejection fraction Sinus bradycardia Partial SBO/ ileus ANDREY on CKD secondary to shock/ VMN Possible euthyroid sick syndrome Hypernatremia resolved Time spent in discharge summary, including plan discussed with patient and RN for more than 41 minutes Plan discussed with Dr. Blank Consults/Reason for consult Cardiology, Infectious Disease and General surgery were consulted Operations or Procedures Procedure: XY SMALL BOWEL SERIES-W GASTROGRA Reason for study/Clinical History: r/o obstruction Comparison Study: None Technique: Single contrast small bowel series performed. FINDINGS/IMPRESSION: Initial radio program checker view of the abdomen and pelvis appears demonstrates no acute process. Contrast is not identified within the colon by 5 hours. This represents a significant delay in small bowel transit time. EXAM: CT CT AB PEL WO CON-NO ORAL OR IV INDICATION: Abdomen distention and firmness TECHNIQUE: Volumetric multidetector CT images of the abdomen and pelvis were obtained without contrast. All CT scans at this facility use dose modulation, iterative reconstruction, and/or weight based dosing when appropriate to reduce radiation dose to as low as reasonably achievable. COMPARISON: None FINDINGS: [LOWER CHEST]: Trace right-sided pleural effusion. Partial collapse of the right lower lobe with the adjacent peribronchovascular thickening. Correlate for endobronchial impaction in bilateral lower lobes. Pneumatocele of the periphery of the left lower lobe. The cardiac size is normal without pericardial effusion. [LIVER]: Normal hepatic size without suspicious focal lesion. [GALLBLADDER AND BILIARY TREE]: No cholelithiasis. [SPLEEN]: Unremarkable. [PANCREAS]: Unremarkable. [ADRENAL GLANDS]: Unremarkable [KIDNEYS]: No hydronephrosis. No nephroureterolithiasis. [BLADDER]: Carpio catheter in place [REPRODUCTIVE ORGANS]: Unremarkable. [BOWEL/MESENTERY]: Air-fluid level of the stomach prominent air-fluid level and distention of the ascending colon. Additional air-fluid level distention of the small bowel loops and distal colon extending to the rectum however most conspicuous of the ascending to proximal transverse colon, which measures up to 8.9 cm. No discrete transition point. Correlate for ileus versus partial bowel obstruction. [ASCITES]: Absent [LYMPHADENOPATHY]: No pathologically enlarged lymph nodes by CT size criteria [VASCULATURE]: No aneurysmal dilatation. [ABDOMINAL WALL]: Unremarkable. [MUSCULOSKELETAL]: No acute fracture or aggressive focal osseous lesion. Multifocal degenerative change of the visualized spine. IMPRESSION: 1. Air-fluid level distention of the stomach, small bowel loops, and distal colon extending to the rectum however most conspicuous of the ascending to proximal transverse colon, which measures up to 8.9 cm. 2. No discrete transition point. 3. Correlate for ileus versus partial bowel obstruction. 4. Trace right-sided pleural effusion. 5. Partial collapse of the right lower lobe with the adjacent peribronchovascular thickening. 6. Correlate for endobronchial impaction in bilateral lower lobes. CHEST RADIOGRAPH Indication: sob s/p intubation Technique: Single frontal view of the chest was obtained COMPARISON: XY CHEST PORTABLE on DOS: 04/02/24, XY CHEST XRAY 1 VIEW on DOS: 03/31/24, XY CHEST PORTABLE on DOS: 03/27/24, XY CHEST PORTABLE on DOS: 07/28/23, XY CHEST PORTABLE on DOS: 07/26/23 FINDINGS: Lines and Tubes: Endotracheal tube, enteric catheter and right central venous catheter in satisfactory position. Lungs: Clear Pleura: No effusion. No pneumothorax. Cardiomediastinal contours: Unremarkable Bones: Unremarkable IMPRESSION: Lines and tubes in satisfactory position. EXAM: Two-dimensional and M-mode echocardiogram with Doppler and color Doppler. Blood Pressure: 98/62 mmHg INDICATION HF septic shock RISK FACTORS Height: 5'10", Weight: 132 DIMENSIONS LVDd 5.2 (3.8-5.7cm) LA (2D) 3.8 (1.9-4.0cm) Aortic Root 4.0 (2.0- 3.7cm) LVDs 4.5 (2.5-4.0cm) LA (MM) (1.9-4.0cm) Aortic Cusp Exc 2.1 (1.5- 2.0cm) EF (%) 45.0 (55-70%) Rt. Atrium 3.4 (1.9-4.0cm) Asc. Aorta cm IVSd 0.8 (0.7-1.1cm) RV (D) (1.8-2.4cm) PWd 0.9 (0.7-1.1cm) Mitral Valve Mitral Mitral Stenosis E wave 0.55m/s MV Mean GR. mmHg A wave 0.50m/s MV Peak GR. mmHg E/A ratio 1.1 2D MVA cm2 DECEL Time 253ms PRESS 1/2 Time ms Aortic Valve Aortic Valve Aortic Stenosis V1 0.91m/s AO Mean GR. 3mmHg V2 1.15m/s AO Peak GR. 5mmHg LVOT Diameter 2.3 (1.8-2.4cm) Doppler JASON 3.29cm2 Pulmonic Valve V2 0.99m/s Tricuspid Valve TR Velocity 3.39m/s RVSP 49mmHg Other Information Technically limited study due to body habitus, patient lying flat and on vent. Conclusion MILD GLOBAL LV HYPOKINESIS LV EF IS 45% AND IS REDUCED DYSKINESIS OF IVS MODERATELY DILATED RV MODERATE DEGREE PULMONARY HYPERTENSION RVSP IS 49 MM OF HG AND IS HIGH NORMAL VALVES NO EFFUSION Condition at Discharge: Guarded Final Diagnosis/Problems List Acute metabolic encephalopathy likely secondary to acute hypoxemic/hypercapnic respiratory failure Acute on chronic hypoxic respiratory failure due to Gram-positive/Gram-negative pneumonia Acute hypercapnic respiratory failure due to exaccerbation of COPD Acute exacerbation of chronic COPD Gram-positive/Gram-negative pneumonia Possible Pulmonary hypertension Septic shock likely secondary to pneumonia Possible NSTEMI type 2 due to above History of CAD with status post PTCA x4 ( March 2024) Paroxysmal atrial fibrillation with secondary hypercoagulable state Acute on Chronic sysytolic heart failure with mildly reduced ejection fraction Sinus bradycardia Partial SBO/ ileus ANDREY on CKD secondary to shock/ VMN Possible euthyroid sick syndrome Hypernatremia resolved Discharge Disposition: Home with Health Services Discharge Instruct/Medications Diet: Cardiac 2g Na,low cholest Activity: No Restrictions, As Tolerated Follow Up/Referral: Follow up with PCP in 1 week Follow up with cardiology in 1 to 2 weeks Medications: As per EMR Scheduled Albuterol Sulfate (Albuterol Sulfate Hfa), 2 PUFF INH QID Amiodarone Hcl (Amiodarone Hcl), 1 TAB PO DAILY, (Reported) Apixaban Base (Eliquis), 1 TAB PO BID, (Reported) Atorvastatin Calcium (Lipitor), 1 TAB PO DAILY Clopidogrel Bisulfate (Clopidogrel), 75 MG PO DAILY Empagliflozin (Jardiance), 1 TAB PO DAILY, (Reported) Levofloxacin Hemihydrate (Levofloxacin), 1 TAB PO DAILY Metoprolol Succinate (Metoprolol Succinate Er), 1 TAB PO DAILY, (Reported) Potassium Chloride (Klor-Con 8), 1 TAB PO BID, (Reported) Prednisone (Prednisone), 20 MG PO QAM Prednisone (Prednisone), 40 MG PO DAILY Prednisone (Prednisone), 30 MG PO DAILY Prednisone (Prednisone), 20 MG PO DAILY Prednisone (Prednisone), 10 MG PO DAILY Torsemide (Torsemide), 1 TAB PO BID, (Reported) Discontinued Medications Azithromycin (Zithromax), 250 MG PO DAILY Discharge Statement: "Patient was advised to return to the ER or call 911 if any headaches, dizziness, shortness of breath, chest pain, abdominal pain, bleeding, fevers, or worsening of medical condition. Patient was counseled about treatment plan, medications, possible side effects, patientverbalized understanding. All questions were answered to the best of my ability. This discharge took greater then 30 minutes in planning, reviewing documentation, counseling the patient, and discussing with other team members." ASSESSMENT ASSESSMENT Assessment Acute metabolic encephalopathy likely secondary to acute hypoxemic/hypercapnic respiratory failure, s/p extubation Date of Service: Dec 22, 2024 Billing Provider: FELIPE BLANK MD Common Visit Codes: 53114-VYQ/OBS DISCH DAY >30min DANAY PRICE Dec 22, 2024 17:48 FELIPE BLANK MD Dec 24, 2024 12:40
== END 2024-12-22 11:50 | disposition home health service (06) | DRG 870 ==
LOC: ER 08:21 → EDBD 08:21 → OVERFLOW 13:18 → ICU WEST 22:16 → TELE-CENTR 12-18 11:52
PROVIDERS: ADMIT Internal Medicine; ATTEND Internal Medicine
PROC: 05HM33Z Insertion of Infusion Device into Right Internal Jugular Vein, Percutaneous Approach (ICD-10-PCS; principal; 2024-12-06)
PROC: B543ZZA Ultrasonography of Right Jugular Veins, Guidance (ICD-10-PCS; 2024-12-06)
PROC: 0BH18EZ Insertion of Endotracheal Airway into Trachea, Via Natural or Artificial Opening Endoscopic (ICD-10-PCS; 2024-12-06)
PROC: 5A1955Z Respiratory Ventilation, Greater than 96 Consecutive Hours (ICD-10-PCS; 2024-12-06)
DX: A41.9 Sepsis, unspecified organism (principal); I21.A1 Myocardial infarction type 2; J15.69 Pneumonia due to other Gram-negative bacteria; J15.9 Unspecified bacterial pneumonia; J96.02 Acute respiratory failure with hypercapnia; J96.01 Acute respiratory failure with hypoxia; N17.0 Acute kidney failure with tubular necrosis; R65.21 Severe sepsis with septic shock; I50.33 Acute on chronic diastolic (congestive) heart failure; G93.41 Metabolic encephalopathy; J69.0 Pneumonitis due to inhalation of food and vomit; J44.1 Chronic obstructive pulmonary disease with (acute) exacerbation; E87.0 Hyperosmolality and hypernatremia; I42.9 Cardiomyopathy, unspecified; I48.91 Unspecified atrial fibrillation; N18.30 Chronic kidney disease, stage 3 unspecified; I27.20 Pulmonary hypertension, unspecified; I48.0 Paroxysmal atrial fibrillation; T38.0X5A Adverse effect of glucocorticoids and synthetic analogues, initial encounter; Z20.822 Contact with and (suspected) exposure to COVID-19
CPT/HCPCS: 31500; 36415; 36556; 36569; 36600; 71045; 74018; 74176; 74250; 76937; 80048; 80053; 80061; 80202; 80307; 81001; 82565; 82805; 82962; 83036; 83605; 83735; 83880; 84100; 84443; 84484; 85025; 85610; 85730; 87040; 87070; 87077; 87081; 87086; 87186; 87205; 87426; 87804; 93005; 93306; 94002; 94003; 94640; 94644; 96365; 97110; 97116; 97163; 97530; 99291; 99292; G0378; J1815; J2185; J2470; J2704; J3480

== ENCOUNTER 2025-02-23 09:08 | Outpatient (CLI) | payer MEDICARE, MEDICAID ==
[~2025-02-23] VITALS: Ht 177.8 cm; Wt 72.6 kg
[~2025-02-23 09:08] MED LIST changes: -AZIT-74 PO; +LEVO750T40 PO; +PRED10TA PO
[2025-02-23] MEDS: REGADENOSON 0.4 MG/5 ML SYRG IV ONE ×2 (09:54→11:25)
--- NOTE | 2025-02-23 16:54 | DVHSR ---
APPROVED REPORT Exam: Nuclear Stress Test BMI: 0 Stress Test Details Stress Test: Pharmacologic stress testing performed using 0.4 mg of regadenoson per 5 mL given IV over 10 seconds. HR Resting HR: 57 bpm Max Heart Rate (APMHR): 152.374088 bpm Max HR Achieved: 84 bpm Target HR (85% APMHR): 129.219930 bpm % of APMHR: 55.26 Recovery HR: 62 bpm BP Resting BP: 115/55 mmHg Recovery BP: 139/66 mmHg ECG Resting ECG: Sinus Bradycardia Clinical Reason for Termination: Completed protocol Nurse Comments Recieved pt. from [employer]. A/Ox4 on RA. Connected to media monitor, VS stable. PIV flushes well. Reviewed POC. Pt. verbalized understanding of procedure including risks and side effects, agrees for stress testing. Lexiscan stress test performed per protocol. [employer] tech administered Cardiolite. Pt. tolerated well. Pt. stable, no change on exam. VS returned to baseline. Transferred to [employer] via wheelchair w/ tech. Stress ECG Conclusion lvef 52% inferoseptal infarct noted NM EXAM: Myocardial Perfusion REST/STRESS Imaging Protocol: Rest Tc-99m/Stress Tc-99m 1 day Resting Data Rest SPECT myocardial perfusion imaging was performed in supine position 60 minutes following the intravenous injection of 10.9 mCi of Tc-99m Sestamibi. Time of rest injection: 10:00 Date: 02/23/2025 Time of rest imagin:00 Date: 02/23/2025 Administration Route: IV Administration Site: Left AC Pharmacologic Stress Pharmacologic stress test was performed by injecting Regadenoson 0.4 mg IV push followed by the intravenous injection of 31.2 mCi of Tc-99m Sestamibi. Time of stress injection: 11:25 Date: 02/23/2025 Time of stress imagin:25 Date: 02/23/2025 Administration Route: IV Administration Site: Left AC Gated Stress SPECT was performed 60 minutes after stress injection. The images were gated to evaluate regional wall motion and calculate left ventricular ejection fraction. Stress only was performed in the Supine position. Nuclear Conclusion Nuclear Findings: negative for ischemia lvef 52% inferoseptal infarct noted
== END 2025-02-23 17:00 | disposition home or self-care (01) ==
LOC: XYW 09:08
PROVIDERS: ATTEND Internal Medicine
DX: R00.1 Bradycardia, unspecified (principal); I25.10 Atherosclerotic heart disease of native coronary artery without angina pectoris; I25.5 Ischemic cardiomyopathy
CPT/HCPCS: 78452; 93017; A9500; J2785

== ENCOUNTER 2025-02-26 00:39 | Inpatient (IN) | payer MEDICARE, MEDICAID ==
[2025-02-26] VITALS (27 sets, daily range): BP systolic 67–147; BP diastolic 34–116; PULSE 65–109; RESP 16–24; TEMP 98.8–101.7; O2SAT 95–100
[~2025-02-26] VITALS: Ht 177.8 cm; Wt 79.5 kg
--- NOTE | 2025-02-26 00:58 | ED.PDOC ---
CPR-HPI HPI Comments 69 y/o M is BIBA for c/c of cardiopulmonary arrest. Per EMS personnel report, call received at 2315. Family found patient slumped over his oxygen tank at home before witnessed arrest. Arrival on scene at 1225. Patient found on scene with law enforcement performing CPR for 2 minutes, already. Initial rhythm of V-fib. Only reported known history of COPD by family, with no known allergies or medication use. Intervention prior to arrival: 2 rounds of epinephrine administration (last at 0036), 1 120 volt defibrillation shock, I/O below left knee, oropharyngeal adjunct with bag-valve mask oxygenation and CPR. Patient has remained in asystole following defibrillation shock until ED arrival at 0037. He presents with no corneal reflex and pupils were fixed and dilated upon ED arrival. Estimated total downtime ~74 minutes. Past medical history: COPD Past surgical history: unknown 56 - ROSC obtained. Later we were able to find the patient our records with the following diagnoses: Discharge Summary Date of Admission Resident Creating Document: DANAY WILLSON RESIDENT Dec 06, 2024 at 13:18 Date of Discharge: Dec 22, 2024 Admitting Diagnosis Acute metabolic encephalopathy likely secondary to acute hypoxemic/hypercapnic r espiratory failure Diagnosis: Acute metabolic encephalopathy likely secondary to acute hypoxemic/hypercapnic respiratory failure Acute on chronic hypoxic respiratory failure due to Gram-positive/Gram-negative pneumonia Acute hypercapnic respiratory failure due to exaccerbation of COPD Acute exacerbation of chronic COPD Gram-positive/Gram-negative pneumonia Possible Pulmonary hypertension Septic shock likely secondary to pneumonia Possible NSTEMI type 2 due to above History of CAD with status post PTCA x4 ( March 2024) Paroxysmal atrial fibrillation with secondary hypercoagulable state Acute on Chronic sysytolic heart failure with mildly reduced ejection fraction Sinus bradycardia Partial SBO/ ileus ANDREY on CKD secondary to shock/ VMN Possible euthyroid sick syndrome Hypernatremia resolved HPI: Poor Historian. Past Medical History: Past Surgical History: REVIEW OF SYSTEMS: Limited given the patient's cardiopulmonary arrest unresponsive PHYSICAL EXAM: General: -unresponsive, CPR in progress. Head: normocephalic, atraumatic. No raccoon's eyes, no gonzalez sign. No corneal reflex, pupils are fixed and dilated. Neck: supple, trachea is midline, no swelling. Throat: Endotracheal intubation was performed with a GlideScope immediately upon arrival successful from 1st attempt. Eyes:, bilateral eyes sclera were edematous with some erythema. Heart: CPR in progress Lungs: Unresponsive with a minimal spontaneous breath. Abdomen: , non distended, soft, Neuro: GCS three unresponsive CPR in progress Skin: Cyanotic and pale throughout. not jaundice. Lower extremities: --no - Pitting edema no deformity, no focal swelling, Normal-appearing external male genitalia. Initial rectal temperature was 97 and later dropped. Warming measures were initiated. Antibiotics given. Patient was given a bolus of amiodarone given the finding of V-tach. Patient was shocked once in the ED. Patient was started on dopamine drip. Later a right IJ central line was placed by the resident under my supervision. Once ROSC was obtained initially, EKG was obtained and was sent directly to cardiology and discussed with Dr. MCCARTHY. Please refer to the code sheet for more details. ED COURSE: DISCLAIMER: This medical document was created using an electronic medical record system with voice recognition software and computerized dictation system. Although this document has been carefully reviewed, there might still be some phonetic and typographical errors. Occasional wrong-word or "sound-alike" substitutions may have occurred due to the inherent limitations of voice recognition software. These areas are purely typographical due to imperfections of the software programs and do not reflect any compromise in the patient's medical care. Please read the chart carefully and recognize, using context, where these substitutions have occurred. Chief Complaint: CPR Time Seen by MD: 00:37 Primary Care Provider: isabel Reviewed Notes: Home Service Consultant Notes Allergies: Coded Allergies: NO KNOWN ALLERGIES (Unverified , 04/07/23) Home Meds Active Scripts Levofloxacin Hemihydrate (LEVOFLOXACIN) 750 Mg Tab, 1 TAB PO DAILY for 4 Days, #4 TAB Prov:CLEMENTDANAY RESIDENT 12/22/24 Prednisone (Prednisone) 10 Mg Tab, 10 MG PO DAILY for 4 Days, #4 TAB Prov:CLEMENTDANAY RESIDENT 12/22/24 Prednisone (Prednisone) 20 Mg Tab, 20 MG PO DAILY for 3 Days, #3 TAB Prov:CLEMENTUSSHAILESHDANAY RESIDENT 12/22/24 Prednisone (Prednisone) 20 Mg Tab, 30 MG PO DAILY for 3 Days, #3 TAB Prov:DANAY WILLSON 12/22/24 Prednisone (Prednisone) 20 Mg Tab, 40 MG PO DAILY for 4 Days, #4 TAB Prov:DANAY WILLSON 12/22/24 Clopidogrel Bisulfate (CLOPIDOGREL) 75 Mg Tab, 75 MG PO DAILY, #30 TAB 5 Refills Prov:DANAY WILLSON 12/22/24 Atorvastatin Calcium (Lipitor) 20 Mg Tab, 1 TAB PO DAILY for 90 Days, #90 TAB Prov:DANAY WILLSON 12/22/24 Albuterol Sulfate (Albuterol Sulfate Hfa) 108 Mcg/Act Aer, 2 PUFF INH QID for 30 Days, #18 AER Prov:DANAY WILLSON 12/22/24 Prednisone (Prednisone) 20 Mg Tab, 20 MG PO QAM for 7 Days, #14 MG Prov:FELIPE BLANK MD 04/05/24 Reported Medications Metoprolol Succinate (Metoprolol Succinate Er) 50 Mg Tab, 1 TAB PO DAILY for 90 Days, #90 03/28/24 Empagliflozin (Jardiance) 10 Mg Tab, 1 TAB PO DAILY for 90 Days, #90 03/28/24 Amiodarone Hcl (Amiodarone Hcl) 200 Mg Tab, 1 TAB PO DAILY for 90 Days, #90 03/28/24 Apixaban Base (ELIQUIS) 5 Mg Tab, 1 TAB PO BID for 30 Days, #60 03/28/24 Potassium Chloride (Klor-Con 8) 8 Meq Tab, 1 TAB PO BID for 90 Days, #180 03/28/24 Torsemide (Torsemide) 20 Mg Tab, 1 TAB PO BID for 90 Days, #180 07/28/23 Information Source: Emergency Med Personnel Mode of Arrival: EMS Past Medical History PAST MEDICAL HISTORY: AFIB, CHF, COPD, High Lipids Surgical History: Appendectomy, Hernia Repair Family History Family History: Reviewed,noncontributory to illness Social History Smoker: Non-Smoker, Quit Less Than 1 Year Alcohol: Occasionally Drugs: Denies Drug Use Lives In: Home EKG EKG : Pulse Rate (adult): 69 [place]: Normal Cardiac Rhythm: Afib Block: RBBB Hypertrophy: None ST: New, Inf, Infarct Was a procedure done? Was a procedure done?: Yes Sedation Sedation?: No Intubation Indication: Respiratory Insufficiency Prep: Preoxygenation Pretreated with: Nothing Medicated with: Nothing Intubation Approach: Orotracheal (8.0) Intubation size: cm (26 at the lip) Informed consent obtained: No Risks/benefits/alt described: No Notes 0042 - time of successful intubation Differential Dx CPR Differential Diagnosis: Cardiopulmonary arrest, Cardiac Tamponade, Cardiogenic shock, Dysrhythmia, Electrolyte disorder, Heart Block, Myocardial Infarction, Pneumothorax, Pulmonary Embolus, Respiratory Failure, Ruptured Aortic Aneurysm X-Ray, Labs, Meds, VS Vital Signs Date Time Temp Pulse Resp B/P (MAP) Pulse Ox O2 Delivery O2 Flow Rate FiO2 02/26/25 04:13 22 96 100 02/26/25 04:00 96.4 93 35 95/58 (70) 96.4 02/26/25 03:45 96.3 93 32 115/45 (68) 96.3 02/26/25 03:30 96.1 92 39 111/36 (61) 96.1 02/26/25 03:15 95.9 95 30 84/35 (51) 95.9 02/26/25 03:00 95.7 94 18 93/27 (49) 95.7 02/26/25 02:40 94 106/43 (64) 99 02/26/25 02:40 94.3 94 15 106/43 (64) 100 94.3 02/26/25 02:30 109 16 109/42 (64) 100 100 02/26/25 02:25 92 103/37 (59) 99 02/26/25 02:15 92 98/44 (62) 99 02/26/25 02:00 91 108/47 (67) 99 02/26/25 01:55 89 111/44 (66) 99 02/26/25 01:55 68 02/26/25 01:50 89 112/50 (70) 99 02/26/25 01:45 87 108/50 (69) 99 02/26/25 01:40 84 107/50 (69) 100 02/26/25 01:35 105/49 (67) 100 02/26/25 01:30 81 100/47 (64) 100 02/26/25 01:25 81 102/47 (65) 100 02/26/25 01:20 85 138/62 (87) 100 02/26/25 01:19 86 16 106/66 (79) 100 100 02/26/25 01:19 85 02/26/25 01:16 85 24 100 Mechanical Ventilator+ 45 45 02/26/25 01:16 46 02/26/25 01:10 121/41 02/26/25 00:40 97.2 104 40 84 97.2 Lab Test 02/26/25 02:42 02/26/25 02:09 02/26/25 01:07 Range/Units Blood Gas Specimen Type Arterial Blood Gas Sample Site Right radial Blood Gas Patient Temperature 37.0 Arterial Blood Date Drawn [id number] Arterial Blood pH 7.155 *L 7.350-7.450 Arterial Blood Partial Pressure CO2 63.7 *H 35.0-48.0 mmHg Arterial Blood Partial Pressure O2 414.6 *H 83.0-108.0 mmHg Arterial Blood HCO3 21.9 21.0-28.0 mmol/L Arterial Blood Oxygen Saturation 100.0 H 94.0-98.0 % Arterial Blood Base Excess -8.1 L -2.0-3.0 mmol/L Arterial Blood Oxyhemoglobin 96.9 94.0-98.0 % Arterial Blood Carboxyhemoglobin 2.3 H 0.5-1.5 % Arterial Blood Methemoglobin 0.8 0.0-1.5 % Arterial Blood Deoxyhemoglobin 0 0.0-5.0 % Trey Test Yes Blood Gas Total Hemoglobin 16.70 13.5-17.5 g/dL Blood Gas Set Respiration Rate 16.0 Blood Gas Modality Vent - ac FiO2 % 100.0 Blood Gas Tidal Volume 450.0 Blood Gas PEEP or CPAP 5.0 Blood Gas Critical Value Read Back Yes Blood Gas Notified Whom jasper Yanes Blood Gas Notified Time [id number] Blood Gas Notified By Rt lissa sanders Sodium Level 147 H 136-145 mmol/L Potassium Level 4.8 3.5-5.1 mmol/L Chloride Level 106 98-107 mmol/L Carbon Dioxide Level 19 L 20-31 mmol/L Anion Gap 22 H 5-15 Blood Urea Nitrogen 13 9-23 mg/dL Creatinine 1.37 H 0.700-1.30 mg/dL Glomerular Filtration Rate Calc 56 >90 mL/min BUN/Creatinine Ratio 9.5 L 10.0-20.0 Serum Glucose 258 H 74-106 mg/dL Calcium Level 11.1 H 8.7-10.4 mg/dL Magnesium Level 2.8 H 1.6-2.6 mg/dL Total Bilirubin 0.7 0.2-1.0 mg/dL Aspartate Amino Transferase (AST) 130 H 13-40 U/L Alanine Aminotransferase (ALT) 112 H 7-40 U/L Alkaline Phosphatase 102 46-116 U/L Troponin I High Sensitivity 108 *H 20 </=54 ng/L Total Protein 5.2 L 5.7-8.2 g/dL Albumin 3.2 3.2-4.8 g/dL White Blood Count 9.2 4.4-10.8 10^3/uL Red Blood Count 4.14 L 4.5-5.90 10^6/uL Hemoglobin 13.5 13.5-17.5 g/dL Hematocrit 43.2 41.0-53.0 % Mean Corpuscular Volume 104.4 H 80.0-100.0 fL Mean Corpuscular Hemoglobin 32.6 H 28.0-32.0 pg Mean Corpuscular Hemoglobin Concent 31.2 L 32.0-36.0 g/dL Red Cell Distribution Width 16.9 H 11.8-14.3 % Platelet Count 186 140-450 10^3/uL Mean Platelet Volume 9.3 6.9-10.8 fL Neutrophils (%) (Auto) 37.0-80.0 % Lymphocytes (%) (Auto) 10.0-50.0 % Monocytes (%) (Auto) 0.0-12.0 % Basophils (%) (Auto) 0.0-2.0 % Neutrophils # (Auto) 1.6-8.6 10 ^3/uL Lymphocytes # (Auto) 0.4-5.4 10 ^3/uL Monocytes # (Auto) 0-1.3 10 ^3/uL Differential Total Cells Counted 100.0 100 Neutrophils % (Manual) 48.0 37.0-80.0 Band Neutrophils % (Manual) 6.0 Lymphocytes % (Manual) 35.0 10.0-50.0 Monocytes % (Manual) 3.0 0-12 Eosinophils % (Manual) 0 0-7 Basophils % (Manual) 0 0.0-2.0 Metamyelocytes % (manual) 0 Myelocytes % (Manual) 1.0 Promyelocytes % (Manual) 0 Blast Cells % (Manual) 0 Nucleated Red Blood Cells 1.0 % Reactive Lymphocytes 7.0 Platelet Estimate Adequate Polychromasia Slight Anisocytosis (manual) Slight Macrocytosis Slight Hemoglobin A1c 4.9 <5.7 % A1C B-Type Natriuretic Peptide 132.23 0-100 pg/mL Current Medications Medications (Trade) Dose Ordered Sig/Alejo Route Start Time Stop Time Status Last Admin Dopamine HCl/ Dextrose 250 ml @ 59.625 mls/ hr Q4H12M IV 02/26/25 01:30 02/26/25 01:10 Piperacillin Sod/ Tazobactam Sod 100 ml @ 100 mls/hr ONCE ONCE IV 02/26/25 01:45 02/26/25 02:44 DC 02/26/25 02:45 Atropine Sulfate (Atropine Sulfate) 1 mg ONCE ONCE IV 02/26/25 01:07 02/26/25 01:49 DC 02/26/25 01:07 Atropine Sulfate (Atropine Sulfate) 1 mg ONCE ONCE IV 02/26/25 01:11 02/26/25 01:51 DC 02/26/25 01:11 Sodium Chloride 500 ml @ 500 mls/hr Q1H ONCE IV 02/26/25 03:15 02/26/25 04:14 DC 02/26/25 03:35 Time of 1ST Reevaluation: 00:57 Reevaluation 1ST: Improved (ROSC achieved ) Patient Education/Counseling: Pt Unresponsive Family Education/Counseling: No Family Present SEPSIS Sepsis Screen Physician Orders Respiratory Culture W/ Gs (02/26/25 01:03) Abg W/ Co-Ox (02/26/25 02:30) Communication Order (02/26/25 01:08) Dopamine 1600mcg/Ml D5w (02/26/25 01:30) Ventilator Orders (02/26/25 01:04) Grinder Set Up Operator Thread (02/26/25 ) Chest Portable (02/26/25 01:36) Electrocardigram (02/26/25 01:36) Electrocardigram (02/26/25 02:36) Electrocardigram (02/26/25 04:36) * Cardiology Consult (02/26/25 01:36) Abg W/ Co-Ox (02/26/25 06:00) Ventilator Orders (02/26/25 03:12) Vital Signs Date Time Temp Pulse Resp B/P (MAP) Pulse Ox O2 Delivery O2 Flow Rate FiO2 02/26/25 04:13 22 96 100 02/26/25 04:00 96.4 93 35 95/58 (70) 96.4 02/26/25 03:45 96.3 93 32 115/45 (68) 96.3 02/26/25 03:30 96.1 92 39 111/36 (61) 96.1 02/26/25 03:15 95.9 95 30 84/35 (51) 95.9 02/26/25 03:00 95.7 94 18 93/27 (49) 95.7 02/26/25 02:40 94 106/43 (64) 99 02/26/25 02:40 94.3 94 15 106/43 (64) 100 94.3 02/26/25 02:30 109 16 109/42 (64) 100 100 02/26/25 02:25 92 103/37 (59) 99 02/26/25 02:15 92 98/44 (62) 99 02/26/25 02:00 91 108/47 (67) 99 02/26/25 01:55 89 111/44 (66) 99 02/26/25 01:55 68 02/26/25 01:50 89 112/50 (70) 99 02/26/25 01:45 87 108/50 (69) 99 02/26/25 01:40 84 107/50 (69) 100 02/26/25 01:35 105/49 (67) 100 02/26/25 01:30 81 100/47 (64) 100 02/26/25 01:25 81 102/47 (65) 100 02/26/25 01:20 85 138/62 (87) 100 02/26/25 01:19 86 16 106/66 (79) 100 100 02/26/25 01:19 85 02/26/25 01:16 85 24 100 Mechanical Ventilator+ 45 45 02/26/25 01:16 46 02/26/25 01:10 121/41 02/26/25 00:40 97.2 104 40 84 97.2 Laboratory Tests Test 02/26/25 01:07 White Blood Count 9.2 10^3/uL (4.4-10.8) Departure 1 Departure Time of Disposition: 00:00 Impression: Primary Impression: Cardiopulmonary arrest Additional Impressions: Acute respiratory failure Elevated LFTs Disposition: ADMITTED INPATIENT Admit to: ICU Condition: Critical Critical Care Note Critical Care Time?: Yes (>90min-critical care time only) Critical care comment: Due to a high probability of clinically significant, life threatening deterioration, the patient required my highest level of preparedness to intervene emergently and I personally spent this critical care time directly and personally managing the patient. This critical care time included obtaining a history; examining the patient; pulse oximetry; ordering and review of studies; arranging urgent treatment with development of a management plan; evaluation of patient's response to treatment; frequent reassessment; and, discussions with other providers. This critical care time was performed to assess and manage the high probability of imminent, life-threatening deterioration that could result in multi-organ failure. It was exclusive of separately billable procedures and treating other patients and teaching time. Please see my other sections and the rest of the note for further information on patient assessment and treatment. Heart Score Heart Score: Heart Score Response (Comments) Value History Moderate Suspicious [address]-Deviation 2 Age >65 2 Risk Factors >3 or Hx ASHD 2 Troponin >3 x's Normal limit 2 Total 9 I personally scribed for MATTHEW CROWLEY DO ([email or web address]) on 02/26/25 at 00:58. Electronically submitted by Enzo Soria ([email or web address]). I personally scribed for MATTHEW CROWLEY DO ([email or web address]) on 02/26/25 at 01:15. Electronically submitted by Enzo Soria ([email or web address]). I personally scribed for MATTHEW CROWLEY DO ([email or web address]) on 02/26/25 at 01:55. Electronically submitted by Enzo Soria ([email or web address]). MATTHEW CROWLEY DO Feb 26, 2025 00:58
[2025-02-26] MEDS: ATROPINE SULF 1 MG/10ml SYR IV ONE ×2 (01:07→01:11)
[2025-02-26] MEDS: DOPamine 1600MCG/ML D5W 250 ML IV SCH (01:10)
--- NOTE | 2025-02-26 02:15 | DVH ---
CHEST RADIOGRAPH Indication: Cardiac arrest Technique: Single frontal view of the chest was obtained COMPARISON: XY CHEST PORTABLE on DOS: 12/22/24, XY CHEST PORTABLE on DOS: 12/17/24, XY CHEST PORTABLE on DOS: 12/16/24, XY CHEST PORTABLE on DOS: 12/15/24, XY CHEST PORTABLE on DOS: 12/14/24 FINDINGS: Tracheostomy tube tip terminating 4.5 cm above the vince. Cardiac silhouette is within normal limits. Slight prominence of the pulmonary vasculature. No dense focal airspace disease. No significant pleural effusions or pneumothorax. IMPRESSION: Mild pulmonary venous congestion.
[2025-02-26 02:33] LABS: Hematocrit 43.2 % (41.0-53.0); Hemoglobin 13.5 g/dL (13.5-17.5); Mean Corpuscular Hemoglobin 32.6 pg (28.0-32.0); Mean Corpuscular Volume 104.4 fL (80.0-100.0)
[2025-02-26 02:38] LABS: Albumin 3.2 g/dL (3.2-4.8); Alkaline Phosphatase 102 U/L (46-116); Anion Gap 22 (5-15); BUN/Creatinine Ratio 9.5 (10.0-20.0); Bilirubin, Total 0.7 mg/dL (0.2-1.0); Blood Urea Nitrogen 13 mg/dL (9-23); Chloride 106 mmol/L (98-107); Potassium 4.8 mmol/L (3.5-5.1)
[2025-02-26] MEDS ORDERED: PIPERACILLIN-TAZOB 3.375GM 100 ML IV ONE (02:38)
[2025-02-26] MEDS: PIPERACILLIN-TAZOB 3.375GM 100 ML IV ONE (02:45)
[2025-02-26 02:48] LABS: Base Excess -8.1 mmol/L (-2.0-3.0)
[2025-02-26 02:58] LABS: Alanine Aminotransferase 112 U/L (7-40); Calcium 11.1 mg/dL (8.7-10.4); Carbon Dioxide 19 mmol/L (20-31); Glucose 258 mg/dL (74-106); Magnesium 2.8 mg/dL (1.6-2.6); Sodium 147 mmol/L (136-145); Total Protein 5.2 g/dL (5.7-8.2)
[2025-02-26] MEDS: SODIUM CHLORIDE 0.9% 500 ML IV ONE (03:35)
[2025-02-26] MEDS ORDERED: ONDANSETRON HCL 4 MG/2 ML VIAL IV PRN (04:15)
[2025-02-26] MEDS ORDERED: NITROGLYCERIN 0.4 MG SL TAB SL PRN (04:15)
[2025-02-26] MEDS ORDERED: MORPHINE SULFATE INJ 2 MG/ml SYRG IV PRN (04:15)
[2025-02-26] MEDS ORDERED: ACETAMINOPHEN 650 MG RECT SUPP PR PRN (04:15)
[2025-02-26] MEDS ORDERED: DEXTROSE (50%) 50ML SYRG IV PRN (04:15)
[2025-02-26 04:25] LABS: Nucleated Red Blood Cells % 1.0 %; Total Cells Counted 100.0 (100)
[2025-02-26 04:26] LABS: Anisocytosis Slight; Macrocytosis Slight; Polychromasia Slight
--- NOTE | 2025-02-26 04:43 | RESUS ---
CODE BLUE ASSESSSMENT History of Events History of Events: Pt BIBA with CPR in-progress via autopulse. Per EMS, pt was found slumped over and not breathing by family. arrived and did bystander CPR for approx 2 mins prior to EMS arriving. Initial rhythm VFib and shocked at 120J; rhythm then asystole throughout remaining transport to ER. IO established to L proximal tibia and Epi x2 rounds given, last at approx 0036. Unknown last seen well time by family. 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) Pre-Hospital Care: ACLS Type of arrest: Cardiac, Respiratory, Adult, Unwitnessed Pulse Present: No Monitoring: ECG, Pulse Oximetry, Telemetry Crash Cart Opened and Supplies: Yes Airway Ventilation Breathing at Onset: Assisted Oxygen Delivery Method: Ambu-Bag Artificial Ventilation: Bag/Mask Intubation Time: 00:42 Intubation Size: 8.0 cuffed Intubated by: Dr Espinosa Intubation Attempts: 1 Intubated orally: Yes Intubated Nasaly: No Tube secured at: 26 (cm @ lip) Cricoid pressure done: Yes CO2 indicator used: Yes Confirmation: Auscultation, Exhaled CO2 Suctioning (Oral/Tracheal): Yes Circulation Circulation #1: Time: 00:37 Pulse Rate (adult): 0 Blood Pressure Systolic: 0 Blood Pressure Diastolic: 0 Temperature (Fahrenheit): 97.2 (F; rectal) Circulation #2: Time: 00:39 Pulse Rate (adult): 0 Blood Pressure Systolic: 0 Blood Pressure Diastolic: 0 Circulation Comment: Asystole Circulation #3: Time: 00:41 Pulse Rate (adult): 0 Blood Pressure Systolic: 0 Blood Pressure Diastolic: 0 Circulation Comment: Asystole Circulation #4: Time: 00:43 Pulse Rate (adult): 0 Blood Pressure Systolic: 0 Blood Pressure Diastolic: 0 Circulation Comment: Asystole Circulation #5: Time: 00:45 Pulse Rate (adult): 0 Blood Pressure Systolic: 0 Blood Pressure Diastolic: 0 Circulation Comment: Asystole Circulation #6: Time: 00:47 Pulse Rate (adult): 0 Blood Pressure Systolic: 0 Blood Pressure Diastolic: 0 Circulation Comment: PEA Circulation #7: Time: 00:49 Pulse Rate (adult): 0 Blood Pressure Systolic: 0 Blood Pressure Diastolic: 0 Circulation Comment: PEA Circulation #8: Time: 00:51 Pulse Rate (adult): 0 Blood Pressure Systolic: 0 Blood Pressure Diastolic: 0 Circulation Comment: Vfib - 144 Circulation #9: Time: 00:53 Pulse Rate (adult): 0 Blood Pressure Systolic: 0 Blood Pressure Diastolic: 0 Circulation Comment: PEA Circulation #10: Time: 00:55 Pulse Rate (adult): 32 Circulation Comment: Atropine given and per Dr Espinosa, continue CPR Circulation #11: Time: 00:57 Pulse Rate (adult): 116 Blood Pressure Systolic: 109 Blood Pressure Diastolic: 61 Circulation Comment: ROSC Circulation #12: Time: 00:12 Pulse Rate (adult): 0 Blood Pressure Systolic: 0 Blood Pressure Diastolic: 0 Circulation Comment: Pulses lost; CODE BLUE Circulation #13: Time: 00:14 Pulse Rate (adult): 0 Blood Pressure Systolic: 0 Blood Pressure Diastolic: 0 Circulation Comment: PEA Circulation #14: Time: 00:16 Pulse Rate (adult): 90 Blood Pressure Systolic: 106 Blood Pressure Diastolic: 66 Circulation Comment: ROSC Defibrillation Defbrillation : EKG Rhythm: V-Fibrillation Compressions: Manual Time Defibrillator Shocked Pt.: 00:55 Defib. Joules: 120 Pulse Present: No Procedure - IV Procedure - IV : IV start time: 00:43 IV Side: Left IV Location: Wrist IV Catheter Type: Saline Lock IV Placed: In Hospital IV Placed by Jaycob Sequeira RN IV Gauge: 20 IV Line Care: Saline Flush Medications & Response Medications and Responses #1: Medication Time: 00:41 ADULT Medications Given ADULT: Epinephrine 1 mg Route of Administration: IO Heart Rate: 0 EKG Rhythm: Asystole Blood Pressure Systolic: 0 Blood Pressure Diastolic: 0 Respiratory Rate: 0 EKG Rhythm: Asystole Medications and Responses #2: Medication Time: 00:45 ADULT Medications Given ADULT: Epinephrine 1 mg, Sodium Bacarbinate 50 meq Route of Administration: IV Heart Rate: 0 EKG Rhythm: Asystole Blood Pressure Systolic: 0 Blood Pressure Diastolic: 0 Respiratory Rate: 0 EKG Rhythm: Asystole Medications and Responses #3: Medication Time: 00:46 ADULT Medications Given ADULT: Calcium Chloride 10 mL Route of Administration: IV Heart Rate: 0 EKG Rhythm: Asystole Blood Pressure Systolic: 0 Blood Pressure Diastolic: 0 Respiratory Rate: 0 EKG Rhythm: PEA Medications and Responses #4: Medication Time: 00:49 ADULT Medications Given ADULT: Epinephrine 1 mg Route of Administration: IV Heart Rate: 0 EKG Rhythm: PEA Blood Pressure Systolic: 0 Blood Pressure Diastolic: 0 Respiratory Rate: 0 EKG Rhythm: V-Fibrillation Medications and Responses #5: Medication Time: 00:53 ADULT Medications Given ADULT: Epinephrine 1 mg Route of Administration: IV Heart Rate: 0 EKG Rhythm: PEA Blood Pressure Systolic: 0 Blood Pressure Diastolic: 0 Respiratory Rate: 0 EKG Rhythm: PEA Medications and Responses #6: Medication Time: 00:55 ADULT Medications Given ADULT: Atropine 1 mg Route of Administration: IV Medication Comment: Minimal cardiac activity on US; directed to give Atropine for HR [address] Espinosa and resume CPR for code blue Heart Rate: 31 Blood Pressure Systolic: 0 Blood Pressure Diastolic: 0 Respiratory Rate: 0 Medications and Responses #7: Medication Time: 01:12 ADULT Medications Given ADULT: Epinephrine 1 mg Route of Administration: IV Heart Rate: 0 EKG Rhythm: PEA Blood Pressure Systolic: 0 Blood Pressure Diastolic: 0 Respiratory Rate: 0 EKG Rhythm: PEA Medications and Responses #8: Medication Time: 01:16 ADULT Medications Given ADULT: Epinephrine 1 mg Medication Comment: ROSC achieved; per Dr Espinosa, give additional Epi Heart Rate: 90 Blood Pressure Systolic: 106 Blood Pressure Diastolic: 66 EKG Rhythm: Sinus Rhythm Nurses Notes [place] Coma Scale Eye Opening: None (1) [place] Coma Scale Verbal: None (1) [place] Coma Scale Motor: None (1) [place] Total: 3 Pupil Reaction: Non Reactive Bedside Blood Glucose: 139 EKG Rhythm: Atrial Fibrillation (Afib with HR 68 @ 0102) Nurses Notes - Comment: Atropine 1mg IVP at 0107 for HR 39 Atropine 1mg IVP at 0111 for HR 38 Dopamine drip initiated at 20mcg at 0111 Second EKG - SR with HR 85 @ 0119 Time Code Ended Time Code Ended: 01:16 Post Arrest Status: Ventilated Outcome of code: Successful Family notified: Yes Code Team Present: Dr Espinosa - ER ; Jaycob Sequeira RN - ER Charge; Viridiana Brar RN - Extrusion Press Adjuster; Skye Ellsworth RN; Pili Hewitt RN; Celina Castaneda RN; Leann Gould RN; Radhika Hedrick, RT; Xander Sequeira, ERT: Kasandra S, ERT; Geraldine Saul, ERT; Isidro Gould, ERT Post Resuscitation Neurologica Pupil Size: 4 ROSC Time of ROSC: 01:16 Pt Meets Criteria for Therapeu: Viridiana Du Feb 26, 2025 04:43
[2025-02-26] MEDS ORDERED: NOREPINEPHRINE 8 MG/250ML KIT 250 ML IV ONE (04:52)
--- NOTE | 2025-02-26 04:56 | DVHHP2 ---
History of Present Illness Reason for Visit: Cardiopulmonary arrest History of Present Illness The patient is a 69-year-old male with past medical history of AFib, COPD, CHF, and hyperlipidemia who presented to [facility] ED for evaluation of cardiopulmonary arrest. As reported by , patient slumped over his oxygen tank at home and had cardiac arrest, so EMS were called at 11:15 p.m. when EMS arrived on the scene at 1225 a.m., law enforcement were performing CPR for 2 minutes, already. Patient was given 2 rounds of epinephrine administration, volt defibrillation shock, I/O below left knee, oropharyngeal adjunct with bag-valve mask oxygenation and CPR. Patient was not intubated in the field, has remained in asystole following defibrillation shock until ED arrival at 0037 a.m.. Patient was seen and evaluated in the ED with no coronary reflex, pupils were fixed and dilated. CPR continued until ROSC obtained at 12:57 a.m. and subsequently intubated. Laboratory data shows WBC 9.2, platelets 156, sodium 147, potassium 4.8, BUN 13, creatinine 1.37, GFR 56, glucose 258, calcium 11.1, magnesium 2.8, blood pressure 106/43, heart rate 94, temperature 97.4 F, O2 saturation 99% on ventilator. Chest x-ray revealing mild pulmonary vascular congestion. Please see medication orders section in the computer. On my assessment, at bedside, no diaphoresis, diarrhea, nausea, vomiting, fever, no chills. Patient was admitted for further evaluation and medical management. Past Medical History AFIB, CHF, COPD, High Lipids Past Surgical History Stent placement, Appendectomy, Hernia Repair Family History Reviewed, noncontributory to the management of this case. Past Social History Patient lives at home with , quit smoking less than 1 year, drinks alcohol occasionally, no history of illicit drugs abuse on file. Review of Systems Constitutional: Yes: Weakness; No: Fever, Chills, Sweats, Malaise, Other Eyes: No: Pain, Vision change, Conjunctivae inflammation, Eyelid inflammation, Other, Redness ENT: No: Ear pain, Ear discharge, Nose pain, Nose discharge, Nose congestion, Mouth pain, Mouth swelling, Throat pain, Throat swelling, Other Respiratory: Shortness of breath; No: Cough, Dry, SOB with excertion, Wheezing, Hemoptysis, Pleuritic Pain, Sputum, Wheezing, Other Cardiovascular: Other (Cardiac arrest); No: Chest Pain, Palpitations, Orthopnea, Paroxysmal Noc. Dyspnea, Edema, Lt Headedness Gastrointestinal: No: Nausea, Vomiting, Abdominal Pain, Diarrhea, Constipation, Melena, Hematochezia, Other Genitourinary: No Dysuria, No Frequency, No Incontinence, No Hematuria, No Retention, No Other Musculoskeletal: No: other, neck pain, shoulder pain, arm pain, back pain, hand pain, leg pain, foot pain Skin: No: Rash, Lesions, Jaundice, Bruising, Other Neurological: No: Weakness, Numbness, Incoordination, Change in speech, Confusion, Seizures, Other Allergies: Coded Allergies: NO KNOWN ALLERGIES (Unverified , 04/07/23) Medications Current Medications Medications Dose Ordered Sig/Alejo Route Start Time Stop Time Status Last Admin Dose Admin Dopamine HCl/ Dextrose 250 ml @ 59.625 mls/ hr Q4H12M IV 02/26/25 01:30 02/26/25 01:10 59.625 MLS/HR Atorvastatin Calcium 20 mg HS NG 02/26/25 22:00 UNV Clopidogrel Bisulfate 75 mg DAILY NG 02/26/25 10:00 UNV Furosemide 20 mg DAILY IV 02/26/25 10:00 UNV Diagnostic Test (Pha) 1 strip Q6HR 02/26/25 06:00 UNV Insulin Human Regular Q6HR SC 02/26/25 06:00 UNV Dextrose 50 ml UD PRN IV 02/26/25 04:15 UNV Ondansetron HCl 4 mg Q4HP PRN IV 02/26/25 04:15 UNV Nitroglycerin 0.4 mg Q5MINP PRN SL 02/26/25 04:15 UNV Morphine Sulfate 2 mg Q30M PRN IV 02/26/25 04:15 UNV Acetaminophen 650 mg Q6HP PRN SD 02/26/25 04:15 UNV Exam Vital Signs Vital Signs Date Time Temp Pulse Resp B/P (MAP) Pulse Ox O2 Delivery O2 Flow Rate FiO2 02/26/25 04:13 22 96 100 02/26/25 04:00 96.4 93 95/58 (70) 96.4 02/26/25 01:16 Mechanical Ventilator+ General Appearance: Other (Fully intubated) HEENT: Atraumatic, PERRLA, EOMI, Mucous membr. moist/pink Respiratory: Normal air movement, Other (On ventilator) Cardiovascular: Regular rate, Normal S1, Normal S2, No murmurs Abdominal: Normal bowel sounds, Soft, No tenderness, No hepatospenomegaly, No masses Extremities: No clubbing, No cyanosis, No edema, Normal pulses, No tenderness/swelling Skin: No rashes, No significant lesion Neuro: Normal tone, Reflexes 2+, Other (Generalized weakness) Psych/Mental Status: Other (Unobtainable) Labs/Xrays Labs Test 02/26/25 02:42 02/26/25 02:09 02/26/25 01:07 Range/Units Blood Gas Specimen Type Arterial Blood Gas Sample Site Right radial Blood Gas Patient Temperature 37.0 Arterial Blood Date Drawn [id number] Arterial Blood pH 7.155 *L 7.350-7.450 Arterial Blood Partial Pressure CO2 63.7 *H 35.0-48.0 mmHg Arterial Blood Partial Pressure O2 414.6 *H 83.0-108.0 mmHg Arterial Blood HCO3 21.9 21.0-28.0 mmol/L Arterial Blood Oxygen Saturation 100.0 H 94.0-98.0 % Arterial Blood Base Excess -8.1 L -2.0-3.0 mmol/L Arterial Blood Oxyhemoglobin 96.9 94.0-98.0 % Arterial Blood Carboxyhemoglobin 2.3 H 0.5-1.5 % Arterial Blood Methemoglobin 0.8 0.0-1.5 % Arterial Blood Deoxyhemoglobin 0 0.0-5.0 % Trey Test Yes Blood Gas Total Hemoglobin 16.70 13.5-17.5 g/dL Blood Gas Set Respiration Rate 16.0 Blood Gas Modality Vent - ac FiO2 % 100.0 Blood Gas Tidal Volume 450.0 Blood Gas PEEP or CPAP 5.0 Blood Gas Critical Value Read Back Yes Blood Gas Notified Whom jasper Yanes Blood Gas Notified Time [id number] Blood Gas Notified By Rt lissa sanders Sodium Level 147 H 136-145 mmol/L Potassium Level 4.8 3.5-5.1 mmol/L Chloride Level 106 98-107 mmol/L Carbon Dioxide Level 19 L 20-31 mmol/L Anion Gap 22 H 5-15 Blood Urea Nitrogen 13 9-23 mg/dL Creatinine 1.37 H 0.700-1.30 mg/dL Glomerular Filtration Rate Calc 56 >90 mL/min BUN/Creatinine Ratio 9.5 L 10.0-20.0 Serum Glucose 258 H 74-106 mg/dL Calcium Level 11.1 H 8.7-10.4 mg/dL Magnesium Level 2.8 H 1.6-2.6 mg/dL Total Bilirubin 0.7 0.2-1.0 mg/dL Aspartate Amino Transferase (AST) 130 H 13-40 U/L Alanine Aminotransferase (ALT) 112 H 7-40 U/L Alkaline Phosphatase 102 46-116 U/L Troponin I High Sensitivity 108 *H </=54 ng/L Total Protein 5.2 L 5.7-8.2 g/dL Albumin 3.2 3.2-4.8 g/dL White Blood Count 9.2 4.4-10.8 10^3/uL Red Blood Count 4.14 L 4.5-5.90 10^6/uL Hemoglobin 13.5 13.5-17.5 g/dL Hematocrit 43.2 41.0-53.0 % Mean Corpuscular Volume 104.4 H 80.0-100.0 fL Mean Corpuscular Hemoglobin 32.6 H 28.0-32.0 pg Mean Corpuscular Hemoglobin Concent 31.2 L 32.0-36.0 g/dL Red Cell Distribution Width 16.9 H 11.8-14.3 % Platelet Count 186 140-450 10^3/uL Mean Platelet Volume 9.3 6.9-10.8 fL Neutrophils (%) (Auto) 37.0-80.0 % Lymphocytes (%) (Auto) 10.0-50.0 % Monocytes (%) (Auto) 0.0-12.0 % Basophils (%) (Auto) 0.0-2.0 % Neutrophils # (Auto) 1.6-8.6 10 ^3/uL Lymphocytes # (Auto) 0.4-5.4 10 ^3/uL Monocytes # (Auto) 0-1.3 10 ^3/uL B-Type Natriuretic Peptide 132.23 0-100 pg/mL PATIENT: STACI CASTAÑEDA ACCT: [id number] UNIT: [id number] : 1955 LOC: ER ROOM / BED: / AGE / SEX: 69 / M ADM STATUS: REG ER SERVICE 0136 ORDERING PHYSICIAN: MATTHEW CROWLEY DO PROCEDURE(s): CXRP - CHEST PORTABLE REASON: Cardiac arrest ORDER NUMBER(s): [id number], ACCESSION NUMBER(s): [id number] CHEST RADIOGRAPH Indication: Cardiac arrest Technique: Single frontal view of the chest was obtained COMPARISON: XY CHEST PORTABLE on DOS: 12/22/24, XY CHEST PORTABLE on DOS: 12/17/24, XY CHEST PORTABLE on DOS: 12/16/24, XY CHEST PORTABLE on DOS: 12/15/24, XY CHEST PORTABLE on DOS: 12/14/24 FINDINGS: Tracheostomy tube tip terminating 4.5 cm above the vince. Cardiac silhouette is within normal limits. Slight prominence of the pulmonary vasculature. No dense focal airspace disease. No significant pleural effusions or pneumothorax. IMPRESSION: Mild pulmonary venous congestion. SEPSIS Sepsis Screen Date sepsis recognized/suspect: Feb 26, 2025 Time Sepsis recognized/suspect: 004 Recent Procedure: No On Antibiotic Therapy: No Respiratory Rate >20: Yes Heart Rate >90: Yes Temp<36 C (96.8 F) or >38.3 C: No SBP <90 or MAP <65 mmHG: No New Acute Mental Status Change: Yes Is the patient on CPAP, BIPAP,: Yes Physician Orders Respiratory Culture W/ Gs (02/26/25 01:03) Abg W/ Co-Ox (02/26/25 02:30) Communication Order (02/26/25 01:08) Dopamine 1600mcg/Ml D5w (02/26/25 01:30) Ventilator Orders (02/26/25 01:04) Recreation Assistant (02/26/25 ) Complete Blood Count (02/26/25 01:36) Chest Portable (02/26/25 01:36) Electrocardigram (02/26/25 01:36) Troponin-I Hs (02/26/25 04:36) Electrocardigram (02/26/25 02:36) Electrocardigram (02/26/25 04:36) * Cardiology Consult (02/26/25 01:36) Manual Differential (02/26/25 01:07) Abg W/ Co-Ox (02/26/25 06:00) Ventilator Orders (02/26/25 03:12) Atorvastatin (Lipitor) (02/26/25 22:00) Clopidogrel Bisulfate (Plavix) (02/26/25 10:00) Furosemide Injection (Lasix Injection) (02/26/25 10:00) Glucose Blood (Accu-Chek Comfort Curve T (02/26/25 06:00) Insulin R (Human) (Insulin R) (02/26/25 06:00) Dextrose 50% Syringe (02/26/25 04:15) Admit (02/26/25 04:14) Allergies (02/26/25 04:14) Code Status (02/26/25 04:14) Oxygen Per Hour (02/26/25 04:14) Ondansetron Hcl (Zofran) (02/26/25 04:15) Fall Risk Precautions In Place QSHIFT (02/26/25 04:14) Comprehensive Metabolic Panel (02/27/25 04:00) Npo (Nothing By Mouth) Diet (02/26/25 Breakfast) Condition: Critical (02/26/25 04:14) Maintain Bed Rest (02/26/25 04:14) Sequential Compression Device (02/26/25 ) Nitroglycerin Sublingual (Ntrostat Subli (02/26/25 04:15) Morphine Sulfate Injection (02/26/25 04:15) Stat Ekg For Chest Pain (02/26/25 04:14) Notify Md Of Changes From Base (02/26/25 04:14) Spar Finisher For 24 Hours (02/26/25 04:14) Emergency Dysrhythmia Protocol (02/26/25 04:14) Rhythm Strips Once Every Shift (02/26/25 04:14) Oxygen By Nasal Cannula (02/26/25 04:14) Acetaminophen Suppository (Tylenol Suppo (02/26/25 04:15) Hemoglobin A1c (02/26/25 04:14) Famotidine Injection (Pepcid Injection) (02/26/25 10:00) Ceftriaxone Ivpb Rocephin (02/26/25 09:00) Vital Signs Date Time Temp Pulse Resp B/P (MAP) Pulse Ox O2 Delivery O2 Flow Rate FiO2 02/26/25 04:13 22 96 100 02/26/25 04:00 96.4 93 35 95/58 (70) 96.4 02/26/25 03:45 96.3 93 32 115/45 (68) 96.3 02/26/25 03:30 96.1 92 39 111/36 (61) 96.1 02/26/25 03:15 95.9 95 30 84/35 (51) 95.9 02/26/25 03:00 95.7 94 18 93/27 (49) 95.7 02/26/25 02:40 94 106/43 (64) 99 02/26/25 02:40 94.3 94 15 106/43 (64) 100 94.3 02/26/25 02:30 109 16 109/42 (64) 100 100 02/26/25 02:25 92 103/37 (59) 99 02/26/25 02:15 92 98/44 (62) 99 02/26/25 02:00 91 108/47 (67) 99 02/26/25 01:55 89 111/44 (66) 99 02/26/25 01:55 68 02/26/25 01:50 89 112/50 (70) 99 02/26/25 01:45 87 108/50 (69) 99 02/26/25 01:40 84 107/50 (69) 100 02/26/25 01:35 105/49 (67) 100 02/26/25 01:30 81 100/47 (64) 100 02/26/25 01:25 81 102/47 (65) 100 02/26/25 01:20 85 138/62 (87) 100 02/26/25 01:19 85 02/26/25 01:16 85 24 100 Mechanical Ventilator+ 45 45 02/26/25 01:16 46 02/26/25 01:10 121/41 02/26/25 00:40 97.2 104 40 84 97.2 Laboratory Tests Test 02/26/25 01:07 White Blood Count 9.2 10^3/uL (4.4-10.8) Medications Medications Dose Ordered Sig/Alejo Route Start Time Stop Time Status Last Admin Dose Admin Atropine Sulfate 1 mg ONCE ONCE IV 02/26/25 01:07 02/26/25 01:49 DC 02/26/25 01:07 1 MG Atropine Sulfate 1 mg ONCE ONCE IV 02/26/25 01:11 02/26/25 01:51 DC 02/26/25 01:11 1 MG Dopamine HCl/ Dextrose 250 ml @ 59.625 mls/ hr Q4H12M IV 02/26/25 01:30 02/26/25 01:10 59.625 MLS/HR Piperacillin Sod/ Tazobactam Sod 100 ml @ 100 mls/hr ONCE ONCE IV 02/26/25 01:45 02/26/25 02:44 DC 02/26/25 02:45 100 MLS/HR Sodium Chloride 500 ml @ 500 mls/hr Q1H ONCE IV 02/26/25 03:15 02/26/25 04:14 DC 02/26/25 03:35 500 MLS/HR Assessment/Plan Assessment/Plan Cardiopulmonary arrest Hyperglycemia Hypotension Acute renal injury Acute respiratory failure Generalized weakness Plan 1. Admit to intensive care unit 2. Breathing treatment 3. Pain control management 4. IV antibiotic management 5. Management of fluids and electrolytes 6. Consultation for Cardiology/pulmonology 7. Diagnostic test chest x-ray 8. DVT prophylaxis on Plavix 9. Repeat labs CBC, CMP in a.m. 10. Home medication reviewed and reconciled 11. Continue with current medical management 12. Treatment plan discussed with patient/ and RN. verbalized u nderstanding. Plan discussed with: Patient, Spouse ( at bedside), Other (RN) My Orders Orders - DAVONTE HENSLEY DNP Procedure Category Date Status Time Atorvastatin (Lipitor) PHA 02/26/25 Logged 22:00 Clopidogrel Bisulfate PHA 02/26/25 Logged (Plavix) 10:00 Furosemide Injection PHA 02/26/25 Logged (Lasix Injection) 10:00 Glucose Blood PHA 02/26/25 Logged (Accu-Chek Comfort 06:00 Insulin R (Human) PHA 02/26/25 Logged (Insulin R) 06:00 Dextrose 50% Syringe PHA 02/26/25 Logged 04:15 Admit ADMIT 02/26/25 Transmitted 04:14 Allergies MARBIN 02/26/25 In Process 04:14 Code Status CODE 02/26/25 Transmitted 04:14 Oxygen Per Hour RT 02/26/25 Transmitted 04:14 Ondansetron Hcl PHA 02/26/25 Logged (Zofran) 04:15 Fall Risk Precautions MARBIN 02/26/[address] 04:14 Comprehensive LAB 02/27/25 Verified Metabolic Panel 04:00 Npo (Nothing By DIET 02/26/25 Transmitted Mouth) Diet Breakfast Condition: Critical [facility] 02/26/25 In Process 04:14 Maintain Bed Rest [facility] 02/26/25 In Process 04:14 Sequential [facility] 02/26/25 In Process Compression Device Nitroglycerin [facility] 02/26/25 Logged Sublingual (Ntrostat 04:15 Morphine Sulfate [facility] 02/26/25 Logged Injection 04:15 Stat Ekg For Chest [facility] 02/26/25 In Process Pain 04:14 Notify Md Of Changes [facility] 02/26/25 In Process From Base 04:14 Spar Finisher For [facility] 02/26/25 In Process 24 Hours 04:14 Emergency Dysrhythmia [facility] 02/26/25 In Process Protocol 04:14 Rhythm Strips Once [facility] 02/26/25 In Process Every Shift 04:14 Oxygen By Nasal RT 02/26/25 Transmitted Cannula 04:14 Acetaminophen [facility] 02/26/25 Logged Suppository (Tylenol 04:15 Hemoglobin A1c LAB 02/26/25 Logged 04:14 Famotidine Injection [facility] 02/26/25 Transmitted (Pepcid Injection) 10:00 Ceftriaxone Ivpb [facility] 02/26/25 Transmitted Rocephin 09:00 Problem List: (1) Cardiopulmonary arrest (2) Hyperglycemia (3) Hypotension (4) Acute renal injury (5) Generalized weakness (6) Acute respiratory failure Date of Service: Feb 26, 2025 Billing Provider: DAVONTE HENSLEY DNP Common Visit Codes: [id number] INP/OBS CARE (HIGH) DAVONTE HENSLEY DNP Feb 26, 2025 04:56
[2025-02-26] MEDS: NOREPINEPHRINE 8 MG/250ML KIT 250 ML IV SCH (05:06)
[2025-02-26] MEDS: ACCU-CHEK COMFORT CURVE STRIP VI SCH (06:00)
--- NOTE | 2025-02-26 06:31 | DVH ---
CHEST RADIOGRAPH Indication: C LINE INSERT Technique: Single frontal view of the chest was obtained COMPARISON: XY CHEST PORTABLE on DOS: 02/26/25, XY CHEST PORTABLE on DOS: 12/22/24, XY CHEST PORTABLE on DOS: 12/17/24, XY CHEST PORTABLE on DOS: 12/16/24, XY CHEST PORTABLE on DOS: 12/15/24 FINDINGS: Lines and Tubes: Endotracheal tube and right central venous catheter in satisfactory position. Lungs: Mild pulmonary vascular congestion. Pleura: No effusion.No pneumothorax. Cardiomediastinal contours: Unremarkable Bones: Unremarkable IMPRESSION: Right central venous catheter in satisfactory position overlying the superior vena cava.
[2025-02-26] MEDS: LACTATED RINGER'S 1,000 ML IV SCH (06:40)
[2025-02-26 07:26] LABS: Base Excess -5.2 mmol/L (-2.0-3.0)
[2025-02-26] MEDS ORDERED: MIDAZOLAM DRIP 100 mg/100mL NS 100 ML IV ONE (07:32)
--- NOTE | 2025-02-26 07:37 | DVHNC2 ---
Central Line Recorder of insertion practice: Centrifugal Machine Tender Occupation of advertising inserter: Other (Resident) Indication: Hypotension Room prepared for procedure: Yes Centrifugal Machine Tender performed hand hygien: Yes Maximal sterile barrier precau: Mask/Eye shield, Sterile gown, Sterlie gloves, Large sterlie drape Skin Preparation: Chlorhexidine gluconate Skin preparation completely dr: Yes Insertion site: Right, Internal jugular Central line catheter type: [id number] dialysis Number of lumens: 3 Antiseptic ointment applied to: Yes Post Assessment: Chest X-Ray, Proper placement, No Pneumothorax Informed consent obtained: Yes Date of Service: Feb 26, 2025 Billing Provider: MATTHEW CROWLEY DO Common Visit Codes: PROCEDURE ONLY MICHELL POMPA RESIDENT Feb 26, 2025 07:37
[2025-02-26] MEDS: MIDAZOLAM DRIP 100 mg/100mL NS 100 ML IV SCH (07:43)
[2025-02-26] MEDS: InsuLIN REG 1unit/0.01ml Soln (100units/ml) SC SCH (07:47)
[2025-02-26] MEDS ORDERED: InsuLIN REG 1unit/0.01ml Soln (100units/ml) ONE (07:47)
[2025-02-26 08:59] LABS: Hematocrit 47.8 % (41.0-53.0); Hemoglobin 15.8 g/dL (13.5-17.5); Mean Corpuscular Hemoglobin 32.7 pg (28.0-32.0); Mean Corpuscular Volume 99.0 fL (80.0-100.0); Nucleated Red Blood Cells % 0.2 %
[2025-02-26 09:13] LABS: Albumin 3.9 g/dL (3.2-4.8); Anion Gap 8 (5-15); BUN/Creatinine Ratio 10.8 (10.0-20.0); Blood Urea Nitrogen 21 mg/dL (9-23); Calcium 9.6 mg/dL (8.7-10.4); Carbon Dioxide 30 mmol/L (20-31); Total Protein 6.1 g/dL (5.7-8.2)
[2025-02-26 09:17] LABS: Alanine Aminotransferase 216 U/L (7-40); Alkaline Phosphatase 150 U/L (46-116); Bilirubin, Total 1.6 mg/dL (0.2-1.0); Chloride 109 mmol/L (98-107); Glucose 126 mg/dL (74-106); Potassium 5.3 mmol/L (3.5-5.1); Sodium 147 mmol/L (136-145)
[2025-02-26 09:23] LABS: Triglycerides 101 mg/dL (< 150)
[2025-02-26 09:25] LABS: Cholesterol 154 mg/dL (< 200); HDL Cholesterol 54 mg/dL (40-59)
[2025-02-26] MEDS ORDERED: cefTRIAXone SOD 1,000 MG VL ONE (10:24)
[2025-02-26] MEDS ORDERED: FAMOTIDINE (10MG/ML) 2ML VL IV ONE (10:24)
[2025-02-26] MEDS ORDERED: CLOPIDOGREL BISULFATE 75 MG TAB ONE (10:25)
[2025-02-26] MEDS ORDERED: ACETAMINOPHEN 650 mg PER 20.3 mL UD ONE (10:25)
[2025-02-26] MEDS: FAMOTIDINE (10MG/ML) 2ML VL IV SCH (10:30)
[2025-02-26] MEDS: CLOPIDOGREL BISULFATE 75 MG TAB NG SCH (10:30)
[2025-02-26] MEDS: FUROSEMIDE 20 MG/2 ML VIAL IV SCH (10:31)
[2025-02-26] MEDS ORDERED: FUROSEMIDE 20 MG/2 ML VIAL ONE (10:32)
[2025-02-26] MEDS ORDERED: ACETAMINOPHEN 325 MG RECT SUPP PR ONE (10:36)
[2025-02-26] MEDS ORDERED: ACETAMINOPHEN 650 MG RECT SUPP PR ONE (10:38)
--- NOTE | 2025-02-26 11:02 | DVHINCON2 ---
Date Seen: Feb 26, 2025 Referring Physician MD Jesús Reason for Consultation Cardiac arrest History of Present Illness This is a 69-year-old male patient who presents to the emergency room status post cardiac arrest. At the time of assessment, the patient is chemically sedated and mechanically ventilated and unable to answer any questions. There is no family members at bedside to give further information. History obtained from medical records and bedside RN. According to ER physician documentation, the patient was found by family slumped over at home and unresponsive. Family called EMS and it is unclear if family initiated CPR. Downtime is unknown. When the patient arrived to the emergency room, CPR was in progress and ROSC was achieved at 0057 per ER documentation. A twelve lead electrocardiogram status post CPR with ROS was done and reveals atrial fibrillation with right bundle branch block (EKG reviewed by contract processor). Initial troponin level of 20ng/L with up trend and current peak level of 593ng/L. Significant past medical his tory includes coronary artery disease s/p PTCA x 4 DELIA (RCA X 2, LAD X2), atrial fibrillation status post ablation, congestive heart failure, hypertension, dyslipidemia, COPD, pulmonary hypertension, chronic kidney disease, and obesity. Past Medical History Past medical history reviewed. No other significant than mentioned above. Past Surgical History Hernia repair (per previous records) Coronary artery disease s/p PTCA x 4 DELIA (RCA X 2, LAD X2) on 03/28/24 Family History: Patient reports no known family medical history. Family History Family history reviewed. Social History Per previous records, patient has a stated 50 pack-year history and history of amphetamine use Allergies: Coded Allergies: NO KNOWN ALLERGIES (Unverified , 04/07/23) Home Meds Active Scripts Levofloxacin Hemihydrate (LEVOFLOXACIN) 750 Mg Tab, 1 TAB PO DAILY for 4 Days, #4 TAB Prov:CLEMENTDANAY LEMON RESIDENT 12/22/24 Prednisone (Prednisone) 10 Mg Tab, 10 MG PO DAILY for 4 Days, #4 TAB Prov:SHAILESH WILLSONHIRA RESIDENT 12/22/24 Prednisone (Prednisone) 20 Mg Tab, 20 MG PO DAILY for 3 Days, #3 TAB Prov:SHAILESH WILLSONHIRA RESIDENT 12/22/24 Prednisone (Prednisone) 20 Mg Tab, 30 MG PO DAILY for 3 Days, #3 TAB Prov:JOSUE WILLSONRA RESIDENT 12/22/24 Prednisone (Prednisone) 20 Mg Tab, 40 MG PO DAILY for 4 Days, #4 TAB Prov:DANAY WILLSON RESIDENT 12/22/24 Clopidogrel Bisulfate (CLOPIDOGREL) 75 Mg Tab, 75 MG PO DAILY, #30 TAB 5 Refills Prov:DANAY WILLSON 12/22/24 Atorvastatin Calcium (Lipitor) 20 Mg Tab, 1 TAB PO DAILY for 90 Days, #90 TAB Prov:DANAY WILLSON 12/22/24 Albuterol Sulfate (Albuterol Sulfate Hfa) 108 Mcg/Act Aer, 2 PUFF INH QID for 30 Days, #18 AER Prov:DANAY WILLSON 12/22/24 Prednisone (Prednisone) 20 Mg Tab, 20 MG PO QAM for 7 Days, #14 MG Prov:FELIPE BLANK MD 04/05/24 Reported Medications Metoprolol Succinate (Metoprolol Succinate Er) 50 Mg Tab, 1 TAB PO DAILY for 90 Days, #90 03/28/24 Empagliflozin (Jardiance) 10 Mg Tab, 1 TAB PO DAILY for 90 Days, #90 03/28/24 Amiodarone Hcl (Amiodarone Hcl) 200 Mg Tab, 1 TAB PO DAILY for 90 Days, #90 03/28/24 Apixaban Base (ELIQUIS) 5 Mg Tab, 1 TAB PO BID for 30 Days, #60 03/28/24 Potassium Chloride (Klor-Con 8) 8 Meq Tab, 1 TAB PO BID for 90 Days, #180 03/28/24 Torsemide (Torsemide) 20 Mg Tab, 1 TAB PO BID for 90 Days, #180 07/28/23 Home Meds Home medications reviewed. Current Medications Current Medications Medications (Trade) Dose Ordered Sig/Alejo Route PRN Reason Start Time Stop Time Status Last Admin Dopamine HCl/ Dextrose 250 ml @ 59.625 mls/ hr Q4H12M IV 02/26/25 01:30 02/26/25 01:10 Atorvastatin Calcium (Lipitor) 20 mg HS NG 02/26/25 22:00 Clopidogrel Bisulfate (Plavix) 75 mg DAILY NG 02/26/25 10:00 Furosemide (Lasix Injection) 20 mg DAILY IV 02/26/25 10:00 Diagnostic Test (Pha) (Accu-Chek Comfort Curve T) 1 strip Q6HR 02/26/25 06:00 Insulin Human Regular (InsuLIN R) Q6HR SC 02/26/25 06:00 02/26/25 07:47 Dextrose 50 ml UD PRN IV Blood Sugar LESS THAN 60 02/26/25 04:15 Ondansetron HCl (Zofran) 4 mg Q4HP PRN IV NAUSEA / VOMITING 02/26/25 04:15 Nitroglycerin (Ntrostat Sublingual) 0.4 mg Q5MINP PRN SL FOR CHEST PAIN 02/26/25 04:15 Morphine Sulfate 2 mg Q30M PRN IV FOR CHEST PAIN 02/26/25 04:15 Acetaminophen (Tylenol Suppository) 650 mg Q6HP PRN [place] PAIN SCALE 1-3 OR TEMP>100.4 02/26/25 04:15 Famotidine (Pepcid Injection) 20 mg Q12HR IV 02/26/25 10:00 Ceftriaxone Sodium 50 ml @ 100 mls/hr DAILY@09 IV 02/26/25 09:00 Norepinephrine Bitartrate 250 ml @ 3.75 mls/hr Q24H IV 02/26/25 05:00 02/26/25 05:06 Lactated Ringer's 1,000 ml @ 75 mls/hr [id number] IV 02/26/25 05:15 02/26/25 06:40 Midazolam HCl 100 ml @ 1 mls/hr Q24H IV 02/26/25 07:30 Review of Systems Constitutional: No symptom reported Ears, Nose, & Throat: No symptom reported Eyes: No symptom reported Neurological: No symptoms reported Pulmonary/Respiratory: Cardiopulmonary arrest Cardiovascular: Cardiopulmonary arrest Gastrointestinal: No symptom reported Genitourinary: No symptom reported Musculoskeletal: No symptom reported Skin: No symptom reported Psychiatric: No symptom reported Endocrine: No symptom reported Hematologic/Lymphatic: No symptom reported Vital Signs Vital Signs Date Time Temp Pulse Resp B/P (MAP) Pulse Ox O2 Delivery O2 Flow Rate FiO2 02/26/25 09:45 87 22 103/76 (85) 98 45 02/26/25 07:00 98.8 98.8 02/26/25 04:43 Ambu-Bag Physical Exam General Appearance: Calm, relaxed Pulmonary/Respiratory: Clear, bilateral breaths sounds. Cardiovascular/Chest: Irregularly irregular rate and rhythm. Peripheral Pulses: 2+ Radial (R). 2+ Radial (L). Abdominal Exam: Normal bowel sounds. Ankle Exam: Negative ankle edema Lower extremities: Negative lower extremity edema Neuro/Mental Status: Bilateral pupils fixed and dilated. No cough or gag reflex noted Thoughts/Psych: Deferred Appearance: No acute distress. Skin Exam: Normal inspection. Normal color. Warm and dry. Labs/Diagnostic Data Labs Test 02/26/25 08:26 02/26/25 07:20 02/26/25 04:42 02/26/25 02:09 Range/Units White Blood Count 16.4 #H 4.4-10.8 10^3/uL Red Blood Count 4.83 4.5-5.90 10^6/uL Hemoglobin 15.8 # 13.5-17.5 g/dL Hematocrit 47.8 # 41.0-53.0 % Mean Corpuscular Volume 99.0 # 80.0-100.0 fL Mean Corpuscular Hemoglobin 32.7 H 28.0-32.0 pg Mean Corpuscular Hemoglobin Concent 33.0 32.0-36.0 g/dL Red Cell Distribution Width 15.7 H 11.8-14.3 % Platelet Count 246 140-450 10^3/uL Mean Platelet Volume 8.6 6.9-10.8 fL Neutrophils (%) (Auto) 90.9 H 37.0-80.0 % Lymphocytes (%) (Auto) 2.7 L 10.0-50.0 % Monocytes (%) (Auto) 6.2 0.0-12.0 % Eosinophils (%) (Auto) 0.1 0.0-7.0 % Basophils (%) (Auto) 0.1 0.0-2.0 % Neutrophils # (Auto) 14.9 H 1.6-8.6 10 ^3/uL Lymphocytes # (Auto) 0.4 0.4-5.4 10 ^3/uL Monocytes # (Auto) 1.0 0-1.3 10 ^3/uL Eosinophils # (Auto) 0 0-0.8 10 ^3/uL Basophils # (Auto) 0 0-0.2 10 ^3/uL Nucleated Red Blood Cells 0.2 % Sodium Level 147 H 136-145 mmol/L Potassium Level 5.3 H 3.5-5.1 mmol/L Chloride Level 109 H 98-107 mmol/L Carbon Dioxide Level 30 # 20-31 mmol/L Anion Gap 8 5-15 Blood Urea Nitrogen 21 9-23 mg/dL Creatinine 1.94 H 0.700-1.30 mg/dL Glomerular Filtration Rate Calc 37 >90 mL/min BUN/Creatinine Ratio 10.8 10.0-20.0 Serum Glucose 126 #H 74-106 mg/dL Calcium Level 9.6 8.7-10.4 mg/dL Total Bilirubin 1.6 H 0.2-1.0 mg/dL Aspartate Amino Transferase (AST) 256 H 13-40 U/L Alanine Aminotransferase (ALT) 216 H 7-40 U/L Alkaline Phosphatase 150 H 46-116 U/L Total Protein 6.1 5.7-8.2 g/dL Albumin 3.9 3.2-4.8 g/dL Triglycerides Level 101 < 150 mg/dL Cholesterol Level 154 < 200 mg/dL LDL Cholesterol 81 < 100 mg/dL HDL Cholesterol 54 40-59 mg/dL Thyroid Stimulating Hormone (TSH) 0.67 0.55-4.78 uIU/mL Blood Gas Specimen Type Arterial Blood Gas Sample Site Right radial Blood Gas Patient Temperature 37.0 Arterial Blood Date Drawn [id number] Arterial Blood pH 7.217 *L 7.350-7.450 Arterial Blood Partial Pressure CO2 59.9 H 35.0-48.0 mmHg Arterial Blood Partial Pressure O2 125.1 H 83.0-108.0 mmHg Arterial Blood HCO3 23.8 21.0-28.0 mmol/L Arterial Blood Oxygen Saturation 98.3 H 94.0-98.0 % Arterial Blood Base Excess -5.2 L -2.0-3.0 mmol/L Arterial Blood Oxyhemoglobin 95.6 94.0-98.0 % Arterial Blood Carboxyhemoglobin 1.9 H 0.5-1.5 % Arterial Blood Methemoglobin 0.8 0.0-1.5 % Arterial Blood Deoxyhemoglobin 1.7 0.0-5.0 % Trey Test Modified Blood Gas Total Hemoglobin 16.70 13.5-17.5 g/dL Blood Gas Set Respiration Rate 16.0 Blood Gas Modality Vent - ac Blood Gas Spontaneous Rate 16 FiO2 % 45.0 Blood Gas Tidal Volume 500.0 Blood Gas PEEP or CPAP 5.0 Blood Gas Comments Blood Gas Critical Value Read Back Yes Blood Gas Notified Whom venancio Steen dnp Blood Gas Notified Time [id number] Blood Gas Notified By sandeep Mclaughlin rt. Troponin I High Sensitivity 593 *H </=54 ng/L Magnesium Level 2.8 H 1.6-2.6 mg/dL Test 02/26/25 01:07 Range/Units Differential Total Cells Counted 100.0 100 Neutrophils % (Manual) 48.0 37.0-80.0 Band Neutrophils % (Manual) 6.0 Lymphocytes % (Manual) 35.0 10.0-50.0 Monocytes % (Manual) 3.0 0-12 Eosinophils % (Manual) 0 0-7 Basophils % (Manual) 0 0.0-2.0 Metamyelocytes % (manual) 0 Myelocytes % (Manual) 1.0 Promyelocytes % (Manual) 0 Blast Cells % (Manual) 0 Reactive Lymphocytes 7.0 Platelet Estimate Adequate Polychromasia Slight Anisocytosis (manual) Slight Macrocytosis Slight Hemoglobin A1c 4.9 <5.7 % A1C B-Type Natriuretic Peptide 132.23 0-100 pg/mL Assessment Cardiopulmonary arrest status post CPR with return of spontaneous circulation NSTEMI Coronary artery disease s/p PTCA x 4 DELIA (RCA X 2, LAD X2) Atrial fibrillation status post ablation (on Eliquis) Chronic HFmrEF, NYHA class IV History of hypertension Hyperlipidemia COPD Pulmonary hypertension Transaminitis Remote history of illicit drug use History of tobacco use Plan/Recommendation We will continue with the following plan/recommendations (Dr. Toth): Case discussed with . We will proceed with obtaining a transthoracic echocardiogram to evaluate cardiac function. Previous transthoracic echocardiogram from 12/06/2024 reveals an EF of 45%, RVSP 49mmHg. Unable to initiate guideline directed medical therapy for CHF at this time given subopt imal blood pressures. Continue with vasopressors for hemodynamic support. We will recommend to continue with patient's single antiplatelet therapy and lipid- lowering agent. [id number] VASc score: 4 points, HAS-BLED score:3 points. Therapeutic lovenox while inpatient, transition to DOAC when appropriate. The patient is noted to have fixed bilateral pupils without a cough or gag reflex. Downtime is unknown. It is highly likely and suspected that the patient has neurological insult. Given this information, patient is not a candidate at this time for any invasive cardiac procedures. Consider Neurology consultation. Continue with aforementioned medical management. Continue with close cardiac surveillance. Thank you for allowing us to care for this patient. Please call with any questions or concerns. Critical care time spent: 44 minutes This medical document was created using an electronic medical record system with voice recognition software and computerized dictation system. Although this d ocument has been carefully reviewed, there might still be some phonetic and typographical errors. Occasional wrong-word or ``sound-alike substitutions may have occurred due to the inherent limitations of voice recognition software. These areas are purely typographical due to imperfections of the software programs and do not reflect any compromise in the patient's medical care. Please read the chart carefully and recognize, using context, where these substitutions have occurred. Plan discussed with: Other (Bedside RN) NYHA Physical activity limitations: Class4(Severe)discomfort (w any activit,symptoms at rest) Date of Service: Feb 26, 2025 Billing Provider: DELFINA APPIAH Cardiology Common Codes: 79415-AKEYNBS INP/OBS CARE (High) Cardiology Consultation Codes: 12659-CZBTPOUAS CONSULT <45MIN DELFINA APPIAH Feb 26, 2025 11:02
--- NOTE | 2025-02-26 12:10 | DVHNC2 ---
Procedure - This is a patient who had arrest at home was brought into the emergency room and was resuscitated successfully. Patient arrested again in the ER and the code blue was called. On my arrival the patient was pulseless and CPR was actively being performed. We gave three rounds of epinephrine with no ROSC. The nares contacted the patient's who asked us to stop resuscitation. At this point patient has no turning was spontaneous respiration or pulse and we stopped any further resuscitative attempts per the 's wishes. ROQUE HOANG MD Feb 26, 2025 12:10
[2025-02-26] MEDS ORDERED: SODIUM BICARB 8.4% 50Meq/50ml SYR INJ IV ONE (13:35)
[2025-02-26] MEDS ORDERED: EPINEPHrine HCL 1 MG/10 ML SYRG IV ONE (13:35)
--- NOTE | 2025-02-26 13:43 | DVHDSRES ---
Discharge Summary Date of Admission Resident Creating Document: JEANIE CASTELLANOS RESIDENT Feb 26, 2025 at 04:14 Date of Discharge: Feb 26, 2025 Labs/Diagnostic Data: Laboratory Results Test 02/26/25 08:26 02/26/25 07:20 02/26/25 04:42 02/26/25 02:09 White Blood Count 16.4 10^3/uL (4.4-10.8) Red Blood Count 4.83 10^6/uL (4.5-5.90) Hemoglobin 15.8 g/dL (13.5-17.5) Hematocrit 47.8 % (41.0-53.0) Mean Corpuscular Volume 99.0 fL (80.0-100.0) Mean Corpuscular Hemoglobin 32.7 pg (28.0-32.0) Mean Corpuscular Hemoglobin Concent 33.0 g/dL (32.0-36.0) Red Cell Distribution Width 15.7 % (11.8-14.3) Platelet Count 246 10^3/uL (140-450) Mean Platelet Volume 8.6 fL (6.9-10.8) Neutrophils (%) (Auto) 90.9 % (37.0-80.0) Lymphocytes (%) (Auto) 2.7 % (10.0-50.0) Monocytes (%) (Auto) 6.2 % (0.0-12.0) Eosinophils (%) (Auto) 0.1 % (0.0-7.0) Basophils (%) (Auto) 0.1 % (0.0-2.0) Neutrophils # (Auto) 14.9 10 ^3/uL (1.6-8.6) Lymphocytes # (Auto) 0.4 10 ^3/uL (0.4-5.4) Monocytes # (Auto) 1.0 10 ^3/uL (0-1.3) Eosinophils # (Auto) 0 10 ^3/uL (0-0.8) Basophils # (Auto) 0 10 ^3/uL (0-0.2) Nucleated Red Blood Cells 0.2 % Sodium Level 147 mmol/L (136-145) Potassium Level 5.3 mmol/L (3.5-5.1) Chloride Level 109 mmol/L (98-107) Carbon Dioxide Level 30 mmol/L (20-31) Anion Gap 8 (5-15) Blood Urea Nitrogen 21 mg/dL (9-23) Creatinine 1.94 mg/dL (0.700-1.30) Glomerular Filtration Rate Calc 37 mL/min (>90) BUN/Creatinine Ratio 10.8 (10.0-20.0) Serum Glucose 126 mg/dL (74-106) Calcium Level 9.6 mg/dL (8.7-10.4) Total Bilirubin 1.6 mg/dL (0.2-1.0) Aspartate Amino Transferase (AST) 256 U/L (13-40) Alanine Aminotransferase (ALT) 216 U/L (7-40) Alkaline Phosphatase 150 U/L (46-116) Total Protein 6.1 g/dL (5.7-8.2) Albumin 3.9 g/dL (3.2-4.8) Triglycerides Level 101 mg/dL (< 150) Cholesterol Level 154 mg/dL (< 200) LDL Cholesterol 81 mg/dL (< 100) HDL Cholesterol 54 mg/dL (40-59) Thyroid Stimulating Hormone (TSH) 0.67 uIU/mL (0.55-4.78) Blood Gas Specimen Type Arterial Blood Gas Sample Site Right radial Blood Gas Patient Temperature 37.0 Arterial Blood Date Drawn Arterial Blood pH 7.217 (7.350-7.450) Arterial Blood Partial Pressure CO2 59.9 mmHg (35.0-48.0) Arterial Blood Partial Pressure O2 125.1 mmHg (83.0-108.0) Arterial Blood HCO3 23.8 mmol/L (21.0-28.0) Arterial Blood Oxygen Saturation 98.3 % (94.0-98.0) Arterial Blood Base Excess -5.2 mmol/L (-2.0-3.0) Arterial Blood Oxyhemoglobin 95.6 % (94.0-98.0) Arterial Blood Carboxyhemoglobin 1.9 % (0.5-1.5) Arterial Blood Methemoglobin 0.8 % (0.0-1.5) Arterial Blood Deoxyhemoglobin 1.7 % (0.0-5.0) Trey Test Modified Blood Gas Total Hemoglobin 16.70 g/dL (13.5-17.5) Blood Gas Set Respiration Rate 16.0 Blood Gas Modality Vent - ac Blood Gas Spontaneous Rate 16 FiO2 % 45.0 Blood Gas Tidal Volume 500.0 Blood Gas PEEP or CPAP 5.0 Blood Gas Comments Blood Gas Critical Value Read Back Yes Blood Gas Notified Whom venancio Steen soraya Blood Gas Notified Time [id number] Blood Gas Notified By sandeep Mclaughlin rt. Troponin I High Sensitivity 593 ng/L (</=54) Magnesium Level 2.8 mg/dL (1.6-2.6) Test 02/26/25 01:07 Differential Total Cells Counted 100.0 (100) Neutrophils % (Manual) 48.0 (37.0-80.0) Band Neutrophils % (Manual) 6.0 Lymphocytes % (Manual) 35.0 (10.0-50.0) Monocytes % (Manual) 3.0 (0-12) Eosinophils % (Manual) 0 (0-7) Basophils % (Manual) 0 (0.0-2.0) Metamyelocytes % (manual) 0 Myelocytes % (Manual) 1.0 Promyelocytes % (Manual) 0 Blast Cells % (Manual) 0 Reactive Lymphocytes 7.0 Platelet Estimate Adequate Polychromasia Slight Anisocytosis (manual) Slight Macrocytosis Slight Hemoglobin A1c 4.9 % A1C (<5.7) B-Type Natriuretic Peptide 132.23 pg/mL (0-100) Other Laboratory Tests 02/26/25 08:26 Brief Hx & Hospital Course: This is a 69-year-old male patient who presents to the emergency room status post cardiac arrest. At the time of assessment, the patient is chemically sedated and mechanically ventilated and unable to answer any questions. There is no family members at bedside to give further information. History obtained from medical records and bedside RN. According to ER physician documentation, the patient was found by family slumped over at home and unresponsive. Family called EMS and it is unclear if family initiated CPR. Downtime is unknown. When the patient arrived to the emergency room, CPR was in progress and ROSC was achieved at 0057 per ER documentation. A twelve lead electrocardiogram status post CPR with ROS was done and reveals atrial fibrillation with right bundle branch block (EKG reviewed by hospital social worker). Initial troponin level of 20ng/L with up trend and current peak level of 593ng/L. Significant past medical history includes coronary artery disease s/p PTCA x 4 DELIA (RCA X 2, LAD X2), atrial fibrillation status post ablation, congestive heart failure, hypertension, dyslipidemia, COPD, pulmonary hypertension, chronic kidney disease, and obesity. Ryan Arthur called at 11 ;50 am. CPR initiated, tele monitor showed asystole, pupils were dilated and not reactive to light, no heart sound, no pulse, patient was pronounced at 12:00pm Condition at Discharge: Critical Final Diagnosis/Problems List Cardiopulmonary arrest NSTEMI Coronary artery disease s/p PTCA x 4 DELIA (RCA X 2, LAD X2) Atrial fibrillation status post ablation Chronic HFmrEF, NYHA class IV History of hypertension Hyperlipidemia COPD Pulmonary hypertension Transaminitis Remote history of illicit drug use History of tobacco use Hyperglycemia Hypotension Acute renal injury Acute respiratory failure Generalized weakness Discharge Disposition: Eloped Discharge Instruct/Medications Scheduled Albuterol Sulfate (Albuterol Sulfate Hfa), 2 PUFF INH QID Amiodarone Hcl (Amiodarone Hcl), 1 TAB PO DAILY, (Reported) Apixaban Base (Eliquis), 1 TAB PO BID, (Reported) Atorvastatin Calcium (Lipitor), 1 TAB PO DAILY Clopidogrel Bisulfate (Clopidogrel), 75 MG PO DAILY Empagliflozin (Jardiance), 1 TAB PO DAILY, (Reported) Levofloxacin Hemihydrate (Levofloxacin), 1 TAB PO DAILY Metoprolol Succinate (Metoprolol Succinate Er), 1 TAB PO DAILY, (Reported) Potassium Chloride (Klor-Con 8), 1 TAB PO BID, (Reported) Prednisone (Prednisone), 20 MG PO QAM Prednisone (Prednisone), 40 MG PO DAILY Prednisone (Prednisone), 30 MG PO DAILY Prednisone (Prednisone), 20 MG PO DAILY Prednisone (Prednisone), 10 MG PO DAILY Torsemide (Torsemide), 1 TAB PO BID, (Reported) Discharge Statement: "Patient was advised to return to the ER or call 911 if any headaches, dizziness, shortness of breath, chest pain, abdominal pain, bleeding, fevers, or worsening of medical condition. Patient was counseled about treatment plan, medications, possible side effects, patientverbalized understanding. All questions were answered to the best of my ability. This discharge took greater then 30 minutes in planning, reviewing documentation, counseling the patient, and discussing with other team members." ASSESSMENT ASSESSMENT Assessment JEANIE CASTELLANOS RESIDENT Feb 26, 2025 13:43
--- NOTE | 2025-02-26 14:19 | RESUS ---
CODE BLUE ASSESSSMENT History of Events History of Events: PT BECAME BRADYCARDIC AND THEN LOST PULSES, WITNESSED BY PRIMARY RN. AT 1159 PTS REQUESTED FOR STAFF TO STOP CPR. Initial Information Date: Feb 26, 2025 Time: 11:49 Location of Arrest: ER Arrest Witnessed: Yes CPR started initial time: 11:49 CPR started by whom: Hospital Staff Type of arrest: Cardiac Pulse Present: No Monitoring: Pulse Oximetry, Telemetry Crash Cart Opened and Supplies: Yes Airway Ventilation Breathing at Onset: Assisted Artificial Ventilation: Bag/Endo tube Circulation Circulation #1: Time: 11:52 Pulse Rate (adult): 0 Blood Pressure Systolic: 0 Blood Pressure Diastolic: 0 Circulation Comment: PT IS IN [place]. Circulation #2: Time: 11:57 Pulse Rate (adult): 0 Blood Pressure Systolic: 0 Blood Pressure Diastolic: 0 Circulation Comment: PT IS IN [place]. Medications & Response Medications and Responses #1: Medication Time: 11:54 ADULT Medications Given ADULT: Epinephrine 1 mg Route of Administration: IV Heart Rate: 0 EKG Rhythm: Asystole Blood Pressure Systolic: 0 Blood Pressure Diastolic: 0 Respiratory Rate: 0 O2 Sat by Pulse Oximetry: 0 EKG Rhythm: Asystole Medications and Responses #2: Medication Time: 11:57 ADULT Medications Given ADULT: Epinephrine 1 mg Route of Administration: IV EKG Rhythm: Asystole Blood Pressure Systolic: 0 Blood Pressure Diastolic: 0 Respiratory Rate: 0 O2 Sat by Pulse Oximetry: 0 EKG Rhythm: Asystole Nurses Notes Megan Coma Scale Eye Opening: None (1) [place] Coma Scale Verbal: None (1) [place] Coma Scale Motor: None (1) Nurses Notes - Comment: Time Code Ended Time Code Ended: 11:59 Post Arrest Status: Outcome of code: Unsuccessful Patient pronounced by: DR HOANG Time patient pronounced: 11:59 Family notified: Yes Code Team Present: NAHUN LINDSEY RT KENDALL RT ISIDRO ERT BLANK MORALES Feb 26, 2025 14:19
--- NOTE | 2025-02-26 15:26 | DVHSR ---
APPROVED REPORT EXAM: LIMITED Two-dimensional and M-mode echocardiogram with Doppler and color Doppler. Blood Pressure: 137/94 mmHg INDICATION S/P CPR Evaluate cardiac function RISK FACTORS Height: 5' 10", Weight: 175 DIMENSIONS LVDd 4.0 (3.8-5.7cm) LA (2D) 3.4 (1.9-4.0cm) Aortic Root (2.0-3.7cm) LVDs 3.3 (2.5-4.0cm) LA (MM) (1.9-4.0cm) Aortic Cusp Exc (1.5-2.0cm) EF (%) 35.0 (55-70%) Rt. Atrium 4.0 (1.9-4.0cm) Asc. Aorta cm IVSd 1.1 (0.7-1.1cm) RV (D) (1.8-2.4cm) PWd 0.9 (0.7-1.1cm) Mitral Valve Mitral Mitral Stenosis E/A ratio 0.0 2D MVA cm2 Other Information Quality : Technically Limited Rhythm : Technically limited study due to body habitus, patient position and on vent. Conclusion Atrial fibrillation. Limited study. Concentric LVH with left atrial enlargement. Right atrial enlargement. Valves appear to be structurally normal. Left ventricular function shows irregular contractility. EF of about 40%. RV function is normal. Appears to be moderately diminished. Doppler not obtained No pericardial effusion masses or vegetations.
[2025-02-26] MEDS ORDERED: ENOXAPARIN SOD 80 MG/0.8ML SYRINGE SC SCH (22:00)
[2025-02-26] MEDS ORDERED: ATORVASTATIN 20 MG TAB NG SCH (22:00)
--- NOTE | 2025-02-27 10:51 | ECG ---
[facility] Test Date: 2025-02-26 Test Time: 01:02:23 Pat Name: STACI CASTAÑEDA Department: ED Room: [address] [place] [address] Gender: M Analysis Consultant: ATILIO : [id number] Requested By: MATTHEW CROWLEY Order Number: [id number] Reading MD: Christopher Toth Measurements Intervals [place] Rate: 68 P: 0 DE: 0 QRS: -117 QRSD: 167 T: 76 QT: 476 QTc: 507 Interpretive Statements Atrial fibrillation RBBB and LAFB Inferior infarct, acute Baseline wander in lead(s) V4 Electronically Signed On 03-01-2025 17:43:26 PST by Christopher Toth Please click the below link to view image of tracing.
== END 2025-02-26 12:00 ==
LOC: ER 00:39 → EDBD 00:39 → OVERFLOW 04:14
PROVIDERS: ADMIT Nurse Practitioner Family; ATTEND Nurse Practitioner Family
PROC: 5A1935Z Respiratory Ventilation, Less than 24 Consecutive Hours (ICD-10-PCS; principal; 2025-02-26)
PROC: 0BH17EZ Insertion of Endotracheal Airway into Trachea, Via Natural or Artificial Opening (ICD-10-PCS; 2025-02-26)
PROC: 5A12012 Performance of Cardiac Output, Single, Manual (ICD-10-PCS; 2025-02-26)
PROC: 05HM33Z Insertion of Infusion Device into Right Internal Jugular Vein, Percutaneous Approach (ICD-10-PCS; 2025-02-26)
DX: I21.4 Non-ST elevation (NSTEMI) myocardial infarction (principal); J96.00 Acute respiratory failure, unspecified whether with hypoxia or hypercapnia; I46.9 Cardiac arrest, cause unspecified; E87.0 Hyperosmolality and hypernatremia; N17.9 Acute kidney failure, unspecified; I13.0 Hypertensive heart and chronic kidney disease with heart failure and stage 1 through stage 4 chronic kidney disease, or unspecified chronic kidney disease; J44.9 Chronic obstructive pulmonary disease, unspecified; I27.20 Pulmonary hypertension, unspecified; E66.9 Obesity, unspecified; N18.9 Chronic kidney disease, unspecified; I50.22 Chronic systolic (congestive) heart failure; I25.10 Atherosclerotic heart disease of native coronary artery without angina pectoris; Z68.25 Body mass index [BMI] 25.0-25.9, adult; F15.90 Other stimulant use, unspecified, uncomplicated; R73.9 Hyperglycemia, unspecified; R74.01 Elevation of levels of liver transaminase levels; E78.5 Hyperlipidemia, unspecified; I48.0 Paroxysmal atrial fibrillation; Z98.61 Coronary angioplasty status; Z87.891 Personal history of nicotine dependence; Z90.49 Acquired absence of other specified parts of digestive tract
CPT/HCPCS: 31500; 36415; 36556; 36600; 71045; 80053; 80061; 82805; 83036; 83735; 83880; 84443; 84484; 85007; 85025; 85027; 87040; 92950; 93005; 93306; 94002; 94003; 99291; 99292; G0378; J0696; J1815; J2543; J3490